=== PATIENT | male | born 1950 | race American Indian/Alaskan Native ===

== ENCOUNTER 2016-07-16 16:23 | Inpatient (IN) | payer MEDICARE ==
--- NOTE | 2016-07-16 18:28 | Emergency Department Report ---
ED Chest Pain HPI - General Chief Complaint: Chest Pain Stated Complaint: LOW BP Time Seen by Provider: 07/16/16 17:40 Source: patient, family, EMS Mode of arrival: Stretcher Limitations: No Limitations - History of Present Illness Initial Comments: Patient is a 66-year-old male with history of hypertension diabetes, CHF with a ejection fraction of 15-20% from March 2015 presenting today because of chest pain. Patient eats that recently hospitalized at an outside hospital and discharged several days ago. Patient had not been able to fill out his new medications but had been taking his previously prescribed once. He saw his manager universal Dr. Amanda Hopson had a blood pressure of 62/46 and a repeat blood pressure of 56/40. Since he has been a little bit confused since his prior hospitalization. However he started complaining of chest pain this morning. He does not complain of any significant shortness of breath or leg swelling. There has been no fever however he does have a cough that is productive of clear sputum. Severity scale (0 -10): 3 - Related Data Home Medications Medication Instructions Recorded Confirmed Last Taken Spironolactone [Aldactone] 25 mg PO DAILY 08/05/14 07/16/16 10/30/15 25mg Clopidogrel Bisulfate [Clopidogrel] 75 mg PO DAILY 10/14/15 07/16/16 10/30/15 75mg Metolazone 5 mg PO DAILY 10/14/15 07/16/16 10/30/15 5mg Metoprolol Succinate 50 mg PO DAILY 10/14/15 10/30/15 10/30/15 50mg Torsemide 20 mg PO BID 10/14/15 07/16/16 10/30/15 20mg Isosorb Dinit/Hydralazine [Bidil 1 each PO BID 10/17/15 07/16/16 10/30/15 20/37.5MG] 1 Insulin Detemir [Levemir VIAL] 15 units SC QHS 10/30/15 07/16/16 10/29/15 15 units Previous Rx's Medication Instructions Recorded Last Taken Type Aspirin [Aspirin BABY CHEW TAB] 81 mg PO QDAY #30 tab.chew 08/17/14 10/29/15 Rx 81mg Carvedilol [Coreg] 6.25 mg PO BID #60 tablet 08/17/14 10/30/15 Rx 6.25mg Losartan [Cozaar] 50 mg PO QDAY #30 tablet 08/17/14 10/30/15 Rx 50mg Pantoprazole [Protonix TAB] 40 mg PO DAILY #30 tablet 08/17/14 10/30/15 Rx 40mg Simvastatin [Zocor TAB] 20 mg PO QHS #30 tablet 08/17/14 10/29/15 Rx 20mg Allergies Allergy/AdvReac Type Severity Reaction Status Date / Time No Known Allergies Allergy Verified 07/16/16 17:00 EMMIE score - Emmie Score Age > 65: (0) No Aspirin use within the Past 7 Days: (1) Yes 3 or more CAD Risk Factors: (1) Yes 2 or more Angina events in past 24 hrs: (1) Yes Known CAD with more than 50% Stenosis: (0) No Elevated Cardiac Markers: (0) No ST Deviation Greater than 0.5mm: (0) No EMMIE Score: 3 ED Review of Systems ROS: Stated complaint: LOW BP Other details as noted in HPI Comment: All other systems reviewed and negative Constitutional: denies: chills, diaphoresis, fever Respiratory: denies: cough Cardiovascular: denies: chest pain Gastrointestinal: denies: nausea, vomiting, diarrhea Genitourinary: denies: urgency Skin: denies: rash Psychiatric: denies: anxiety ED Past Medical Hx - Past Medical History Previous Medical History?: Yes Hx Hypertension: Yes Hx Congestive Heart Failure: Yes Hx Diabetes: Yes Hx Renal Disease: Yes (renal problems) Hx Arthritis: Yes Hx Asthma: No Hx COPD: No Additional medical history: pt states "weak heart" unable to elaborate on that - Surgical History Past Surgical History?: Yes Hx Pacemaker: Yes Hx Internal Defibrillator: Yes Additional Surgical History: LLOYD - Social History Smoking Status: Former Smoker Substance Use Type: None - Medications Home Medications: Home Medications Medication Instructions Recorded Confirmed Last Taken Type Spironolactone [Aldactone] 25 mg PO DAILY 08/05/14 07/16/16 10/30/15 History 25mg Aspirin [Aspirin BABY CHEW TAB] 81 mg PO QDAY #30 tab.chew 08/17/14 07/16/1609/10 Rx 81mg Carvedilol [Coreg] 6.25 mg PO BID #60 tablet 02/20/15 01/19/17 05/04/16 Rx 6.25mg Losartan [Cozaar] 50 mg PO QDAY #30 tablet 08/17/14 07/16/16 10/30/15 Rx 50mg Pantoprazole [Protonix TAB] 40 mg PO DAILY #30 tablet 08/17/14 07/16/16 Rx 40mg Simvastatin [Zocor TAB] 20 mg PO QHS #30 tablet 08/17/14 07/16/16 10/29/15 Rx 20mg Clopidogrel Bisulfate [Clopidogrel] 75 mg PO DAILY 10/14/15 07/16/16 10/30/15 History 75mg Metolazone 5 mg PO DAILY 10/14/15 07/16/16 10/30/15 History 5mg Metoprolol Succinate 50 mg PO DAILY 10/14/15 10/30/15 10/30/15 History 50mg Torsemide 20 mg PO BID 10/14/15 07/16/16 10/30/15 History 20mg Isosorb Dinit/Hydralazine [Bidil 1 each PO BID 10/17/15 07/16/16 10/30/15 History 20/37.5MG] 1 Insulin Detemir [Levemir VIAL] 15 units SC QHS 10/30/15 07/16/16 10/29/15 History 15 units ED Physical Exam - General Limitations: No Limitations General appearance: alert - Head Head exam: Present: atraumatic - Eye Eye exam: Present: normal appearance - ENT ENT exam: Present: normal exam - Neck Neck exam: Present: normal inspection - Respiratory Respiratory exam: Present: normal lung sounds bilaterally - Cardiovascular Cardiovascular Exam: Present: regular rate, normal heart sounds - GI/Abdominal GI/Abdominal exam: Present: soft. Absent: distended, tenderness - Extremities Exam Extremities exam: Present: normal inspection. Absent: pedal edema - Neurological Exam Neurological exam: Present: alert. Absent: motor sensory deficit - Psychiatric Psychiatric exam: Present: normal affect - Skin Skin exam: Present: intact ED Course Vital Signs 07/16/16 07/16/16 07/16/16 16:36 16:41 16:51 Temperature Pulse Rate 64 Respiratory 26 H Rate Blood Pressure 102/84 102/84 O2 Sat by Pulse 100 96 96 Oximetry 07/16/16 07/16/16 07/16/16 17:00 17:01 17:05 Temperature 98.1 F Pulse Rate 50 L 70 50 L Respiratory 42 H 18 Rate Blood Pressure 102/60 67/44 O2 Sat by Pulse 88 92 98 Oximetry 07/16/16 07/16/16 07/16/16 17:10 17:20 17:30 Temperature Pulse Rate 77 64 74 Respiratory 17 21 21 Rate Blood Pressure 67/44 67/44 67/47 O2 Sat by Pulse 98 97 97 Oximetry 07/16/16 07/16/16 07/16/16 17:41 17:51 18:02 Temperature Pulse Rate 64 83 73 Respiratory 25 H 13 23 Rate Blood Pressure 67/47 47/27 O2 Sat by Pulse 99 95 94 Oximetry ED Medical Decision Making - Lab Data Result diagrams: 07/16/16 18:55 07/16/16 18:55 - Medical Decision Making IV, labs, CT of head due to confusion labs show renal failure, high bun may explain ams head CT negative for acute changes Although the blood and patient's blood pressure is low, he appears to be mentating well. Per him and his his blood pressure is typically a systolic of 90. Not currently experiencing chest pain. We'll do a broad workup as there is no clear explanation for his generalized weakness. Patient received 2 boluses of 500 mL her normal status waned. With this his blood pressure has increased to a systolic between 100-110. His baseline per the patient is approximately 90-110. We will admit the patient for acute renal failure. Critical care attestation.: If time is entered above; I have spent that time in minutes in the direct care of this critically ill patient, excluding procedure time. ED Disposition Clinical Impression: Acute renal failure Qualifiers: Acute renal failure type: unspecified Qualified Code(s): N17.9 - Acute kidney failure, unspecified Chest pain Qualifiers: Chest pain type: unspecified Qualified Code(s): R07.9 - Chest pain, unspecified Disposition: OP ADMITTED IP TO THIS HOSP Is pt being admited?: Yes Condition: Serious Instructions: Chest Pain (ED) Time of Disposition: 01:20 (Endorsed to hospitalist Dr. Jones)
--- NOTE | 2016-07-16 19:07 | Cat Scan Report ---
FINAL REPORT PROCEDURE: CT HEAD/BRAIN WO CON TECHNIQUE: Computerized tomography of the head was performed without contrast material. HISTORY: Altered mental status. COMPARISON: CT scan of the brain dated 08/09/2014. Removing FINDINGS: Skull and scalp: Normal. Paranasal sinuses: Normal. Ventricles and subarachnoid spaces: Normal. Cerebrum: No evidence of hemorrhage, acute infarction or mass. Mild atrophy. Subtle periventricular white matter low attenuation unchanged. Subtle subcentimeter areas of low attenuation in the left basal ganglia/posterior limb of the internal capsule unchanged. Cerebellum and brainstem: No evidence of hemorrhage, acute infarction or mass. Vasculature: Mild atherosclerosis of the cavernous ICAs. Comments: None. IMPRESSION: No new CT evidence of acute intracranial pathology. Atrophy. White matter change may be related to chronic small vessel ischemic change. Probable left basal ganglia lacune is unchanged. Again consider further characterization with MRI if there is continued clinical concern for subtle superimposed acute process and if patient has no contraindication to MRI.
[2016-07-16 19:13] LABS: Basophils % (Auto) 0.9 % (0.0-1.8); Eosinophils % (Auto) 0.8 % (0.0-4.3); Hemoglobin 16.4 gm/dl (11.8-15.2); White Blood Count 7.5 K/mm3 (4.5-11.0)
--- NOTE | 2016-07-16 19:26 | Admit Criteria Form ---
Admission Criteria Documentation: RENAL FAILURE, ACUTE Clinical Indications for Admission to Inpatient Care ( Place 'X' for any and all applicable criteria): Admission is indicated for ALL (if I & II) or III of the following [A](2)(3)(4)( 5)(6)(7): [ ]I. Acute renal failure as indicated by ANY ONE of the following: [ ]a) A 3-fold rise in serum creatinine from baseline [ ]b) Serum creatinine greater than 4 mg/dL (354 micromoles/L) with an acute rise greater than 0.5 mg/dL (44.2 micromoles/L) [ ]c) Reduction of more than 75% in estimated glomerular filtration rate from baseline [ ]d) Estimated glomerular filtration rate less than 35 mL/min/1.73m2 (0.59mL/sec/1.73m2)in a child up to 18 years of age [ ]e) Anuria indicated by ALL of the following: [ ]i) Adequate volume status [ ]ii) Cessation of urine output indicated by ANY ONE of the following: [ ]1) Urine output less than 0.3 mL/kg/hr for 24 hours [ ]2) Anuria (urine output less than 0.1 mL/kg/ hr) for 12 hours [ X] II. Renal failure cannot be managed in an outpatient setting or observational care setting as indicating by ANY ONE of the following: [ ]a) Altered mental status that is severe or persistent [ ]b) Volume overload or Respiratory distress (eg, clinically significant pulmonary edema) that is severe or persistent [ ]c) Cardiac arrhythmias of immediate concern [X]d) Hemodynamic instability [ ]e) Clinically significant electrolyte abnormality that requires inpatient care (eg, hyperkalemia with severe ECG findings)[B] [ ]f) Clinically significant metabolic abnormality (eg, acidosis) that is severe or persistent [ ]g) Acute treatment of renal failure (eg, renal replacement therapy) not feasible or appropriate in observational care setting [ ]h) Clinical situation too unstable or uncertain (eg, inadequate urine output, ongoing decline in renal function, etiology unclear) [ ]i) Necessary support and caregiver ability to comply with outpatient treatment cannot be arranged in observation care timeframe (eg, within 24 hours) [ ]j) Other significant finding or clinical condition judged not to be within scope of observation care [X ]III.General contraindications and/or Inappropriate clinical situations for Observational Care in patients with Acute Renal Failure, when ANY ONE of the following is required: [ X]a) Prediction of prolongation of LOS based on ANY ONE of the following may be considered as a contraindication for observational care 2, 3, 4, 5, 6, 7, 8 , 9, 10, 11 [ X]i) Age > 65 yrs. [ ]ii) Patient arriving by ambulance [ ]iii) Patient with high acuity [ X]iv) Patient requiring vital sign monitoring [ ]v) Patient on IV medication [ ]b) Systolic blood pressures 180mmHg 3,12 [ ]c) Patient with altered mental status including delirium and other alteration of consciousness, (3) [ ]d) Patient whose discharge disposition will be to a [facility] home or rehabilitation home should not be managed in Emergency Department Observation Unit. CMS rule requires 3 days hospital stay before such placement.3,13 [ ]e) Patient with failure to thrive due to broad array of etiologies 3, 16,17 [ ]f) Inability to ambulate 3,14 Extended stay beyond goal length of stay may be needed for(13) [ ]a) Continuing uremic complications [ ]b) Care for comorbidities [ ]c) acute renal failure [ ]d) Need for dialysis The original [facility] content created by [employer] has been revised. The portions of the content which have been revised are identified through the use of italic text or in bold, and [facility] has neither reviewed nor approved the modified material. All other unmodified content is copyright [facility]. Please see references footnoted in the original [facility] edition 2016 Admission Criteria Met: Yes
[2016-07-16 19:47] LABS: Hematocrit 51.6 % (35.5-45.6); Mean Corpuscular HGB Conc 32 % (32-34); Mean Corpuscular Hemoglobin 27 pg (28-32); Mean Corpuscular Volume 84 fl (84-94); Platelet Count 252 K/mm3 (140-440); Red Blood Count 6.17 M/mm3 (3.65-5.03); Red Cell Distribution Width 16.8 % (13.2-15.2)
[2016-07-16 19:58] LABS: Alanine Aminotransferase 15 units/L (7-56); Albumin 3.2 g/dL (3.9-5); Albumin/Globulin Ratio 0.8 %; Alkaline Phosphatase 49 units/L (35-129); Anion Gap 25 mmol/L; BUN/Creatinine Ratio 17.69; Bilirubin,Total 0.8 mg/dL (0.1-1.2); Blood Urea Nitrogen 69 mg/dL (9-20); Calcium 9.1 mg/dL (8.4-10.2); Carbon Dioxide 30 mmol/L (22-30); Chloride 89.1 mmol/L (98-107); Glucose 113 mg/dL (75-100); Potassium 4.1 mmol/L (3.6-5.0); Sodium 140 mmol/L (137-145); Total Protein 7.4 g/dL (6.3-8.2)
[2016-07-16 19:59] LABS: Bilirubin,Direct < 0.2 mg/dL (0-0.2); Bilirubin,Indirect 0.6 mg/dL
[2016-07-16] MEDS ORDERED: NACL 0.9% 500 ML 500 ML IV ONE ×2 (20:58→22:49)
[2016-07-16 21:02] LABS: Anisocytosis 1+; Basophils % (Manual) 0 % (0.0-1.8); Blastocytes % (Manual) 0 %; Diff Status Complete; Platelet Estimate Consistent w Auto
[2016-07-17] MEDS ORDERED: BABY ASPIRIN PO ONE (01:51)
--- NOTE | 2016-07-17 02:43 | History and Physical Report ---
History of Present Illness Date of examination: 07/17/16 History of present illness: Is 66-year-old man with a history of hypertension, diabetes, CHF, A. 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 His blood pressure in the office was 60 systolically. Patient has been feeling tired, dizzy and short of breath since this morning. He was sent to the emergency room for further evaluation. The patient was discharged from the hospital on Wednesday for CHF exacerbation Patient denies chest pain, palpitation, cough, abdominal pain, hematochezia, dysuria, frequency, focal weakness, dysarthria, fever chills, polydipsia polyuria, hot or cold intolerance, easy bruisability, or rash or bleeding from mucosal membrane, rhinorrhea, epistaxis, earache, tinnitus, blurry vision, eye discharge, anxiety, depression. Other review of systems negative PAST SURGICAL HISTORY: Pacemaker, AICD SOCIAL HISTORY: Denies alcohol, tobacco, drugs FAMILY HISTORY: Hypertension Medications and Allergies Allergies Allergy/AdvReac Type Severity Reaction Status Date / Time No Known Allergies Allergy Verified 07/16/16 17:00 Home Medications Medication Instructions Recorded Confirmed Last Taken Type Spironolactone [Aldactone] 25 mg PO DAILY 08/05/14 07/16/16 10/30/15 History 25mg Aspirin [Aspirin BABY CHEW TAB] 81 mg PO QDAY #30 tab.chew 08/17/14 07/16/1609/10 Rx 81mg Carvedilol [Coreg] 6.25 mg PO BID #60 tablet 08/17/14 07/16/16 10/30/15 Rx 6.25mg Losartan [Cozaar] 50 mg PO QDAY #30 tablet 08/17/14 07/16/16 10/30/15 Rx 50mg Pantoprazole [Protonix TAB] 40 mg PO DAILY #30 tablet 08/17/14 07/16/16 Rx 40mg Simvastatin [Zocor TAB] 20 mg PO QHS #30 tablet 08/17/14 07/16/16 10/29/15 Rx 20mg Clopidogrel Bisulfate [Clopidogrel] 75 mg PO DAILY 10/14/15 07/16/16 10/30/15 History 75mg Metolazone 5 mg PO DAILY 10/14/15 07/16/16 10/30/15 History 5mg Metoprolol Succinate 50 mg PO DAILY 10/14/15 10/30/15 10/30/15 History 50mg Torsemide 20 mg PO BID 10/14/15 07/16/16 10/30/15 History 20mg Isosorb Dinit/Hydralazine [Bidil 1 each PO BID 10/17/15 07/16/16 10/30/15 History 20/37.5MG] 1 Insulin Detemir [Levemir VIAL] 15 units SC QHS 10/30/15 07/16/16 10/29/15 History 15 units Exam - Physical Exam Narrative exam: Gen. appearance: Patient lying in bed, no apparent distress HEENT: Normocephalic, atraumatic, pupils equally round and reactive to light, extraocular movement intact, and no sclericterus,. No JVD or thyromegaly or nodule,neck supple, no carotid bruit ,mucous membranes moist, no exudate or erythema Heart: S1, S2, regular rate and rhythm Lungs: Clear to auscultation bilaterally, breathing comfortable Abdomen: Positive bowel sounds, nontender, nondistended, no organomegaly Extremity: No edema, cyanosis, clubbing Skin: No rash, nodules, warm, dry Neuro: Oriented 3, cranial nerves II-12 intact, speech is fluent, motor and sensory intact - Constitutional Vitals: Temp Pulse Resp BP Pulse Ox 98.1 F 73 23 47/27 94 07/16/16 17:00 07/16/16 18:02 07/16/16 18:02 07/16/16 17:51 07/16/16 18:02 Results - Labs CBC & Chem 7: 07/16/16 18:55 07/16/16 18:55 Labs: Abnormal lab results 07/16/16 07/16/16 Range/Units 18:55 18:55 RBC 6.17 H (3.65-5.03) M/mm3 Hgb 16.4 H (11.8-15.2) gm/dl Hct 51.6 H (35.5-45.6) % MCH 27 L (28-32) pg RDW 16.8 H (13.2-15.2) % Lymph % (Auto) 36.6 H (13.4-35.0) % Baldwin % (Auto) 15.0 H (0.0-7.3) % Baldwin # 1.1 H (0.0-0.8) K/mm3 Monocytes % (Manual) 16.0 H (0.0-7.3) % Monocytes # (Manual) 1.2 H (0.0-0.8) K/mm3 Chloride 89.1 L (98-107) mmol/L BUN 69 H (9-20) mg/dL Creatinine 3.9 H (0.8-1.5) mg/dL Glucose 113 H (75-100) mg/dL Albumin 3.2 L (3.9-5) g/dL - Imaging and Cardiology EKG: image reviewed CT Scan - head: report reviewed Assessment and Plan Acute on chronic renal failure Hypotension, rule out UT versus medication induced versus other CHF, stable Coronary artery disease Diabetes type 2 A. fib Admits medicine Check cardiac enzymes, start gentle IV fluids consult cardiology, renal Hold diuretics, WU inhibitor and other antihypertensives Fingersticks initiate insulin sliding scale Start DVT prophylaxis
[2016-07-17] MEDS ORDERED: D50W (25GM) IV PRN (04:15)
[2016-07-17] MEDS ORDERED: DULCOLAX PR PRN (04:15)
[2016-07-17] MEDS ORDERED: MILK OF MAGNESIA PO PRN (04:15)
[2016-07-17] MEDS ORDERED: TYLENOL PO PRN (04:15)
[2016-07-17] MEDS ORDERED: ZOFRAN IV PRN (04:15)
[2016-07-17 05:49] LABS: Bilirubin,Urine NEG (Negative); Blood,Urine NEG (Negative); Ketones,Urine NEG (Negative); Leukocyte Esterase,Urine NEG (Negative); Mucus,Urine FEW /HPF; Nitrite,Urine NEG (Negative); Protein,Urine <15 mg/dL mg/dL (Negative); Urobilinogen,Urine < 2.0 mg/dL (<2.0)
[2016-07-17] MEDS: NACL 0.9% 1000 ML 1,000 ML IV SCH (06:15)
[2016-07-17 07:37] LABS: Creatine Kinase 71 units/L (55-170)
[2016-07-17 09:52] LABS: Hematocrit 47.1 % (35.5-45.6); Hemoglobin 14.9 gm/dl (11.8-15.2); Mean Corpuscular HGB Conc 32 % (32-34); Mean Corpuscular Hemoglobin 27 pg (28-32); Mean Corpuscular Volume 84 fl (84-94); Platelet Count 237 K/mm3 (140-440); Red Blood Count 5.58 M/mm3 (3.65-5.03); Red Cell Distribution Width 16.9 % (13.2-15.2)
[2016-07-17] MEDS: BABY ASPIRIN PO SCH (09:54)
[2016-07-17] MEDS: PROTONIX PO SCH (09:55)
[2016-07-17] MEDS ORDERED: PLAVIX PO SCH (10:00)
[2016-07-17] MEDS ORDERED: LOVENOX SUB-Q SCH (10:00)
--- NOTE | 2016-07-17 10:08 | XRay Report ---
PORTABLE CHEST: INDICATION: Chest pain. COMPARISON: 10/14/2015 FINDINGS: Portable, frontal chest radiograph demonstrates increased right basilar infiltrate, contiguous with the right hilum inferiorly. Slight increased left retrocardiac haziness as well, though left hemidiaphragm again remains faintly visible. No large pleural effusions or CHF. Stable mild cardiomegaly, left AICD with dual-chamber leads and mild bony degenerative changes. EKG leads. CONCLUSION: 1. New right lower lung infiltrate and slight increased left lower lung haziness also suspected, as described. 2. Cardiomegaly and left AICD again noted. Please also correlate clinically and follow-up on subsequent, preferably PA and lateral radiographs, if obtainable. Thank you for the opportunity to participate in this patient's care.
[2016-07-17 10:09] LABS: BUN/Creatinine Ratio 24.13; Calcium 8.7 mg/dL (8.4-10.2); Chloride 93.1 mmol/L (98-107); Potassium 3.4 mmol/L (3.6-5.0)
[2016-07-17 10:56] LABS: Creatine Kinase 62 units/L (55-170)
--- NOTE | 2016-07-17 11:33 | Consultation ---
History of Present Illness - History of Present Illness thank you for the consultation Patient was evaluated today Source of information ; patient himself as well as old records were also reviewed from prior admission creatinine was 1.5 in October 2015 History of presenting illness: patient is a 66-year-old -[place] male who has been admitted here with acute renal failure patient baseline creatinine was around 1.5 in October 2015.. Patient denies using any follow-up nonsteroidal drugs. He does not have any difficulty voiding at this time.patient has been admitted with congestive heart failure and cardiomyopathy and has also been noted to be hypokalemic.patient went to see his terminal supervisor and was noted to have significant hypotension blood pressure was running in 60s at that time he was also feeling very dizzy lightheaded and short of breath. Patient was sent to the ER for further evaluation where upon he was noted to be in congestive heart failure that had flared up and hence was admitted to the hospitalist service consultation was placed for management of renal failure in the setting of congestive heart failure and profound hypotension..patient stated that his urine is somewhat dark in color but still making some urine Past medical history is significant for: congestive heart failure pacemaker AICD placement Atrial fibrillation Coronary artery disease Hypertension Diabetes Chronic edema Creatinine 1.31 Oct 2015 old records are reviewed Current allergies: none at this time Home medication present medications: Reviewed Social history:denies any recreational drug or substance abuse Family history: noncontributory for renal-related disorder Review of system positive for increasing swelling both lower extremity some shortness of breath poor compliance with diet and lifestyle Otherwise essentially negative for all the other system Other review of systems were negative Physical examination Vitals: Reviewed from this admission General: No acute distress HEENT: Normocephalic atraumatic skull oral mucosa moist no pharyngeal erythema Neck: No thyromegaly no demise JVD noted Chest: bilateralbasilar crackles Heart: Regular rhythm S1-S2 heard no S3-S4 Abdomen: Nontender no organomegaly no masses no renal bruit no suprapubic masses noted Extremities: 2+edema no peripheral cyanosis dry skin Endocrine: No thyromegaly noted Psych no agitation or aggression noted Back: Nontender thoracolumbar spine Musculoskeletal: No joint effusion noted Labs and x-rays: Reviewed from this admission and entirety Assessment and plan Renal failure moderately severe in a patient who has multiple risk factor for chronic kidney disease clinically he appears to be cardiorenal,patient was also on angiotensin receptor nupur Would recommend holding Matheus or ARB like medication while diuresis is continued as tolerated severe cardiomyopathy congestive heart failure ejection fraction 15-20% Creatinine is currently improving at 2.9 Mild hypokalemia please replace and follow to keep potassium around 4 blood pressure is relatively low please monitor closely congestive heart failure clinically patient was counseled and educated malnutrition present upon admission Urinalysis shows no evidence of significant proteinuria We'll obtain the labs as well as renal imaging to make further recommendation renal prognosis appears to be guarded,all related questions were answered We'll continue to follow and make recommendation from renal standpoint Upon discharge will need a follow-up appointment in the office Medications and Allergies Allergies Allergy/AdvReac Type Severity Reaction Status Date / Time No Known Allergies Allergy Verified 07/16/16 17:00 Home Medications Medication Instructions Recorded Confirmed Last Taken Type Aspirin [Aspirin BABY CHEW TAB] 81 mg PO QDAY #30 tab.chew 08/17/14 07/16/1609/10 Rx 81mg Pantoprazole [Protonix TAB] 40 mg PO DAILY #30 tablet 08/17/14 07/16/16 Rx 40mg Simvastatin [Zocor TAB] 20 mg PO QHS #30 tablet 08/17/14 07/16/16 10/29/15 Rx 20mg Insulin Detemir [Levemir VIAL] 15 units SC QHS 10/30/15 07/16/16 10/29/15 History 15 units Apixaban [Eliquis] 5 mg PO Q12HR #60 tablet 07/19/16 Unknown Rx Carvedilol [Coreg] 3.125 mg PO BID #60 tablet 07/19/16 Unknown Rx Furosemide [Lasix TAB] 20 mg PO QDAY #30 tablet 07/19/16 Unknown Rx Losartan [Cozaar] 25 mg PO QDAY #30 tablet 07/19/16 Unknown Rx Active Meds: Active Medications Acetaminophen (Tylenol) 650 mg PO Q4H PRN PRN Reason: Pain MILD(1-3)/Fever >100.5/NAYLOR Aspirin (Baby Aspirin) 81 mg PO QDAY SHANDA Last Admin: 07/17/16 09:54 Dose: 81 mg Bisacodyl (Dulcolax) [address] QDAY PRN PRN Reason: Constipation unrelieved by MOM Clopidogrel Bisulfate (Plavix) 75 mg PO DAILY [facility] Last Admin: 07/17/16 09:54 Dose: 75 mg Dextrose (D50w (25gm)) 50 ml IV PRN PRN PRN Reason: Hypoglycemia Enoxaparin Sodium (Lovenox) 30 mg SUB-Q QDAY [facility] Last Admin: 07/17/16 09:54 Dose: 30 mg Sodium Chloride (Nacl 0.9% 1000 Ml) 1,000 mls @ 50 mls/hr IV DIRECT [facility] Last Admin: 07/17/16 06:15 Dose: 50 mls/hr Insulin Detemir (Levemir) 15 units SUB-Q QHS [facility] Magnesium Hydroxide (Milk Of Magnesia) 30 ml PO Q4H PRN PRN Reason: Constipation Ondansetron HCl (Zofran) 4 mg IV Q8H PRN PRN Reason: N/V unrelieved by Reglan Pantoprazole Sodium (Protonix) 40 mg PO DAILY [facility] Last Admin: 07/17/16 09:55 Dose: 40 mg Simvastatin (Zocor) 20 mg PO QHS [facility] Exam - Vital Signs Vital signs: Vital Signs Pulse Ox 100 07/16/16 16:36 Results - Lab Results 07/18/16 07:55 07/19/16 06:54 Most recent lab results Calcium 8.7 mg/dL (8.4-10.2) 07/17/16 09:04
--- NOTE | 2016-07-17 11:48 | Consultation ---
Addendum entered and electronically signed by IRAIS TORREZ MD 12:33: Continue gentle IV hydration (baseline creatinine is 1.4) Discontinue plavix and restart eliquis 5 mg po bid Gradually resume heart failure meds as BP permit (losartan 25 mg and toprol XL 25 mg po daily) Avoid Entresto Original Note: History of Present Illness Consult date: 07/17/16 Consult reason: hypotension, known to you History of present illness: Mr Jones is a 66yr old male who was recently hospitalized for CHF at [place]. 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 He also has paroxysmal atrial fibrillation and is on eliquis for anticoagulation. On yesterday, he went for a routine cardiac follow up appt. He complained of weakness and fatigue. Found hypotensive, systolic BP in the 60s. He had no shortness of breath or chest pain. Patient has been confused about his medications since discharge and was double dosing entresto and losartan at the same time. Patient sent to the ED for admission. Medications and Allergies Allergies Allergy/AdvReac Type Severity Reaction Status Date / Time No Known Allergies Allergy Verified 07/16/16 17:00 Home Medications Medication Instructions Recorded Confirmed Last Taken Type Spironolactone [Aldactone] 25 mg PO DAILY 08/05/14 07/16/16 10/30/15 History 25mg Aspirin [Aspirin BABY CHEW TAB] 81 mg PO QDAY #30 tab.chew 08/17/14 07/16/1609/10 Rx 81mg Carvedilol [Coreg] 6.25 mg PO BID #60 tablet 08/17/14 07/16/16 10/30/15 Rx 6.25mg Losartan [Cozaar] 50 mg PO QDAY #30 tablet 08/17/14 07/16/16 10/30/15 Rx 50mg Pantoprazole [Protonix TAB] 40 mg PO DAILY #30 tablet 08/17/14 07/16/16 Rx 40mg Simvastatin [Zocor TAB] 20 mg PO QHS #30 tablet 08/17/14 07/16/16 10/29/15 Rx 20mg Clopidogrel Bisulfate [Clopidogrel] 75 mg PO DAILY 04/18/16 01/19/17 05/04/16 History 75mg Metolazone 5 mg PO DAILY 10/14/15 07/16/16 10/30/15 History 5mg Metoprolol Succinate 50 mg PO DAILY 10/14/15 07/17/16 10/30/15 History 50mg Torsemide 20 mg PO BID 10/14/15 07/16/16 10/30/15 History 20mg Isosorb Dinit/Hydralazine [Bidil 1 each PO BID 10/17/15 07/16/16 10/30/15 History 20/37.5MG] 1 Insulin Detemir [Levemir VIAL] 15 units SC QHS 10/30/15 07/16/16 10/29/15 History 15 units Active Meds: Active Medications Acetaminophen (Tylenol) 650 mg PO Q4H PRN PRN Reason: Pain MILD(1-3)/Fever >100.5/NAYLOR Aspirin (Baby Aspirin) 81 mg PO QDAY [facility] Last Admin: 07/17/16 09:54 Dose: 81 mg Bisacodyl (Dulcolax) 10 mg ID QDAY PRN PRN Reason: Constipation unrelieved by MOM Clopidogrel Bisulfate (Plavix) 75 mg PO DAILY [facility] Last Admin: 07/17/16 09:54 Dose: 75 mg Dextrose (D50w (25gm)) 50 ml IV PRN PRN PRN Reason: Hypoglycemia Enoxaparin Sodium (Lovenox) 30 mg SUB-Q QDAY [facility] Last Admin: 07/17/16 09:54 Dose: 30 mg Sodium Chloride (Nacl 0.9% 1000 Ml) 1,000 mls @ 50 mls/hr IV DIRECT [facility] Last Admin: 07/17/16 06:15 Dose: 50 mls/hr Insulin Detemir (Levemir) 15 units SUB-Q QHS [facility] Magnesium Hydroxide (Milk Of Magnesia) 30 ml PO Q4H PRN PRN Reason: Constipation Ondansetron HCl (Zofran) 4 mg IV Q8H PRN PRN Reason: N/V unrelieved by Reglan Pantoprazole Sodium (Protonix) 40 mg PO DAILY [facility] Last Admin: 07/17/16 09:55 Dose: 40 mg Simvastatin (Zocor) 20 mg PO QHS [facility] Physical Examination Vital Signs Pulse Ox 100 07/16/16 16:36 General appearance: no acute distress HEENT: Positive: PERRL Neck: Positive: trachea midline Cardiac: Positive: Other (paced) Lungs: Positive: Decreased Breath Sounds Neuro: Positive: Grossly Intact Results 07/17/16 09:04 07/17/16 09:04 Cardiac Enzymes 07/17/16 07/17/16 Range/Units 06:28 10:07 CK-MB (CK-2) 1.0 1.0 (0.0-4.0) ng/mL CBC 07/17/16 Range/Units 09:04 WBC 7.0 (4.5-11.0) K/mm3 RBC 5.58 H (3.65-5.03) M/mm3 Hgb 14.9 (11.8-15.2) gm/dl Hct 47.1 H (35.5-45.6) % Plt Count 237 (140-440) K/mm3 Comprehensive Metabolic Panel 07/17/16 Range/Units 09:04 Sodium 139 (137-145) mmol/L Potassium 3.4 L (3.6-5.0) mmol/L Chloride 93.1 L (98-107) mmol/L Carbon Dioxide 28 (22-30) mmol/L BUN 70 H (9-20) mg/dL Creatinine 2.9 H (0.8-1.5) mg/dL Glucose 96 (75-100) mg/dL Calcium 8.7 (8.4-10.2) mg/dL EKG interpretations - Telemetry EKG Rhythm: Paced Assessment and Plan Hypotension on gentle hydration Acute renal failure Nonischemic Cardiomyopathy non-obstructive CAD by [facility] 11/2014 EF 15-20% Presence of AICD Presence of Paroxysmal Afib -eliquis on hold
--- NOTE | 2016-07-17 13:12 | Event Note ---
Date: 07/17/16 Patient is 66-year-old admitted for hypotension, acute on chronic kidney disease. He was seen and examined. Continue IV fluids. We will hold Metoprolol,or losartan and Coreg because of low blood pressure. Cardiology and nephrology consulted.
[2016-07-17] MEDS: LEVEMIR SUB-Q SCH (22:12)
[2016-07-17] MEDS: ZOCOR PO SCH (22:13)
[2016-07-17] MEDS: ELIQUIS PO SCH (22:13)
[2016-07-18 08:43] LABS: Basophils % (Auto) 0.3 % (0.0-1.8); Hematocrit 45.7 % (35.5-45.6); Hemoglobin 14.8 gm/dl (11.8-15.2); Mean Corpuscular HGB Conc 32 % (32-34); Mean Corpuscular Hemoglobin 27 pg (28-32); Mean Corpuscular Volume 85 fl (84-94); Platelet Count 246 K/mm3 (140-440); Red Cell Distribution Width 16.9 % (13.2-15.2)
[2016-07-18 09:09] LABS: BUN/Creatinine Ratio 29.47; Calcium 8.9 mg/dL (8.4-10.2); Chloride 97.2 mmol/L (98-107); Potassium 3.6 mmol/L (3.6-5.0)
[2016-07-18] MEDS: PROTONIX PO SCH (10:45)
[2016-07-18] MEDS: BABY ASPIRIN PO SCH (10:46)
--- NOTE | 2016-07-18 13:45 | Progress Note ---
Assessment and Plan - Patient Problems (1) Hypotension Current Visit: Yes Status: Acute Plan to address problem: Iatrogenic due to polypharmacy, resolving with IV hydration. Subjective Date of service: 07/18/16 Interval history: Patient was admitted with hypotension, suspected to be iatrogenic due to polypharmacy. No new cardiac complaints, looks and feels better. Objective Vital Signs Temp Pulse Pulse Pulse Resp BP Pulse Ox 07/18/16 10:49 98.6 F 72 18 117/66 92 07/18/16 10:00 71 93 07/18/16 07:36 98.5 F 78 18 118/57 93 07/18/16 06:04 97.4 F L 61 18 114/70 96 07/18/16 00:58 98.1 F 67 20 116/71 97 07/17/16 22:00 20 96 07/17/16 21:14 97.9 F 87 20 115/61 97 07/17/16 20:00 79 07/17/16 16:30 98.4 F 75 20 100/63 91 - Physical Examination General: No Apparent Distress HEENT: Positive: PERRL Neck: Positive: trachea midline Cardiac: Positive: Reg Rate and Rhythm Lungs: Positive: Decreased Breath Sounds Neuro: Positive: Grossly Intact Abdomen: Positive: Soft Skin: Positive: Clear Extremities: Absent: edema - Labs and Meds CBC 07/18/16 Range/Units 07:55 WBC 6.0 (4.5-11.0) K/mm3 RBC 5.40 H (3.65-5.03) M/mm3 Hgb 14.8 (11.8-15.2) gm/dl Hct 45.7 H (35.5-45.6) % Plt Count 246 (140-440) K/mm3 Lymph # 2.4 (1.2-5.4) K/mm3 [place] # 0.8 (0.0-0.8) K/mm3 Eos # 0.1 (0.0-0.4) K/mm3 Baso # 0.0 (0.0-0.1) K/mm3 Comprehensive Metabolic Panel 07/18/16 Range/Units 07:55 Sodium 140 (137-145) mmol/L Potassium 3.6 (3.6-5.0) mmol/L Chloride 97.2 L (98-107) mmol/L Carbon Dioxide 27 (22-30) mmol/L BUN 56 H (9-20) mg/dL Creatinine 1.9 H (0.8-1.5) mg/dL Glucose 104 H (75-100) mg/dL Calcium 8.9 (8.4-10.2) mg/dL - Imaging and Cardiology EKG: image reviewed
--- NOTE | 2016-07-18 16:25 | Progress Note ---
Assessment and Plan Assessment and plan: Acute on CKD. He is improving. Creatinine is now 1.9 from 3.9 on admission. Supervisor Mails following. Continue IV fluids. Avoid nephrotoxic agents. Monitor strict fluid intake and output. Hypotension. He had a systolic blood pressures of 60s in physician office was therefore sent to the emergency department. Had BP of 67/44 in ED. He has received multiple IV fluid bolus. Blood pressure is now stable Atrial fibrillation. Continue Eliquis. Cardiology following Hypertension. Antihypertensives on hold diabetes mellitus type 2. Fingerstick glucose every before meals and at bedtime. Levemir daily Chronic systolic CHF Coronary artery disease. This is stable. No chest pain. Full code status. History Interval history: Feels better, less of generalized weakness, less shortness of breath No chest pain, Hospitalist Physical - Physical exam Narrative exam: Gen appearance : Not in acute distress, morbidly obese, HEENT: Normocephalic atraumatic Neck: supple, no JVD. Lungs: clear to auscultation bilaterally, no crackles no wheezes Heart: S1 and S2 regular, no murmurs, rubs or gallop Abdomen: soft, nontender, nondistended normal bowel sounds Extremities:No edema, no clubbing or cyanosis Neuro : Awake alert oriented 3, no focal signs - Constitutional Vitals: Temp Pulse Resp BP Pulse Ox 97.6 F 70 18 103/63 94 07/18/16 15:40 07/18/16 15:40 07/18/16 15:40 07/18/16 15:40 07/18/16 15:40 General appearance: Present: no acute distress Results - Labs CBC & Chem 7: 07/18/16 07:55 07/18/16 07:55 Labs: Laboratory Last Values WBC 6.0 K/mm3 (4.5-11.0) 07/18/16 07:55 RBC 5.40 M/mm3 (3.65-5.03) H 07/18/16 07:55 Hgb 14.8 gm/dl (11.8-15.2) 07/18/16 07:55 Hct 45.7 % (35.5-45.6) H 07/18/16 07:55 MCV 85 fl (84-94) 07/18/16 07:55 MCH 27 pg (28-32) L 07/18/16 07:55 MCHC 32 % (32-34) 07/18/16 07:55 RDW 16.9 % (13.2-15.2) H 07/18/16 07:55 Plt Count 246 K/mm3 (140-440) 07/18/16 07:55 Lymph % (Auto) 40.0 % (13.4-35.0) H 07/18/16 07:55 Sully % (Auto) 12.9 % (0.0-7.3) H 07/18/16 07:55 Eos % (Auto) 1.0 % (0.0-4.3) 07/18/16 07:55 Baso % (Auto) 0.3 % (0.0-1.8) 07/18/16 07:55 Lymph # 2.4 K/mm3 (1.2-5.4) 07/18/16 07:55 [place] # 0.8 K/mm3 (0.0-0.8) 07/18/16 07:55 Eos # 0.1 K/mm3 (0.0-0.4) 07/18/16 07:55 Baso # 0.0 K/mm3 (0.0-0.1) 07/18/16 07:55 Add Manual Diff Complete 07/16/16 18:55 Total Counted 100 07/16/16 18:55 Seg Neutrophils % 45.8 % (40.0-70.0) 07/18/16 07:55 Seg Neuts % (Manual) 52.0 % (40.0-70.0) 07/16/16 18:55 Band Neutrophils % 2.0 % 07/16/16 18:55 Lymphocytes % (Manual) 29.0 % (13.4-35.0) 07/16/16 18:55 Reactive Lymphs % (Man) 0 % 07/16/16 18:55 Monocytes % (Manual) 16.0 % (0.0-7.3) H 07/16/16 18:55 Eosinophils % (Manual) 1.0 % (0.0-4.3) 07/16/16 18:55 Basophils % (Manual) 0 % (0.0-1.8) 07/16/16 18:55 Metamyelocytes % 0 % 07/16/16 18:55 Myelocytes % 0 % 07/16/16 18:55 Promyelocytes % 0 % 07/16/16 18:55 Blast Cells % 0 % 07/16/16 18:55 Nucleated RBC % Not Reportable 07/16/16 18:55 Seg Neutrophils # 2.7 K/mm3 (1.8-7.7) 07/18/16 07:55 Seg Neutrophils # Man 3.9 K/mm3 (1.8-7.7) 07/16/16 18:55 Band Neutrophils # 0.2 K/mm3 07/16/16 18:55 Lymphocytes # (Manual) 2.2 K/mm3 (1.2-5.4) 07/16/16 18:55 Abs React Lymphs (Man) 0.0 K/mm3 07/16/16 18:55 Monocytes # (Manual) 1.2 K/mm3 (0.0-0.8) H 07/16/16 18:55 Eosinophils # (Manual) 0.1 K/mm3 (0.0-0.4) 07/16/16 18:55 Basophils # (Manual) 0.0 K/mm3 (0.0-0.1) 07/16/16 18:55 Metamyelocytes # 0.0 K/mm3 07/16/16 18:55 Myelocytes # 0.0 K/mm3 07/16/16 18:55 Promyelocytes # 0.0 K/mm3 07/16/16 18:55 Blast Cells # 0.0 K/mm3 07/16/16 18:55 WBC Morphology Not Reportable 07/16/16 18:55 Hypersegmented Neuts Not Reportable 07/16/16 18:55 Hyposegmented Neuts Not Reportable 07/16/16 18:55 Hypogranular Neuts Not Reportable 07/16/16 18:55 Smudge Cells Not Reportable 07/16/16 18:55 Toxic Granulation Not Reportable 07/16/16 18:55 Toxic Vacuolation Not Reportable 07/16/16 18:55 Dohle Bodies Not Reportable 07/16/16 18:55 Pelger-Huet Anomaly Not Reportable 07/16/16 18:55 Bronson Rods Not Reportable 07/16/16 18:55 Platelet Estimate Consistent w auto 07/16/16 18:55 Clumped Platelets Not Reportable 07/16/16 18:55 Plt Clumps, EDTA Not Reportable 07/16/16 18:55 Large Platelets Not Reportable 07/16/16 18:55 Giant Platelets Not Reportable 07/16/16 18:55 Platelet Satelliting Not Reportable 07/16/16 18:55 Plt Morphology Comment Not Reportable 07/16/16 18:55 RBC Morphology Not Reportable 07/16/16 18:55 Dimorphic RBCs Not Reportable 07/16/16 18:55 Polychromasia Not Reportable 07/16/16 18:55 Hypochromasia Not Reportable 07/16/16 18:55 Poikilocytosis Not Reportable 07/16/16 18:55 Anisocytosis 1+ 07/16/16 18:55 Microcytosis Not Reportable 07/16/16 18:55 Macrocytosis Not Reportable 07/16/16 18:55 Spherocytes Not Reportable 07/16/16 18:55 Pappenheimer Bodies Not Reportable 07/16/16 18:55 Sickle Cells Not Reportable 07/16/16 18:55 Target Cells Not Reportable 07/16/16 18:55 Tear Drop Cells Not Reportable 07/16/16 18:55 Ovalocytes Not Reportable 07/16/16 18:55 Helmet Cells Not Reportable 07/16/16 18:55 Patricia-Canyon Bodies Not Reportable 07/16/16 18:55 [place] Rings Not Reportable 07/16/16 18:55 Yoder Cells Not Reportable 07/16/16 18:55 Bite Cells Not Reportable 07/16/16 18:55 Crenated Cell Not Reportable 07/16/16 18:55 Elliptocytes Not Reportable 07/16/16 18:55 Acanthocytes (Spur) Not Reportable 07/16/16 18:55 Rouleaux Not Reportable 07/16/16 18:55 Hemoglobin C Crystals Not Reportable 07/16/16 18:55 Schistocytes Not Reportable 07/16/16 18:55 Malaria parasites Not Reportable 07/16/16 18:55 Carson Bodies Not Reportable 07/16/16 18:55 Hem Pathologist Commnt No 07/16/16 18:55 Sodium 140 mmol/L (137-145) 07/18/16 07:55 Potassium 3.6 mmol/L (3.6-5.0) 07/18/16 07:55 Chloride 97.2 mmol/L (98-107) L 07/18/16 07:55 Carbon Dioxide 27 mmol/L (22-30) 07/18/16 07:55 Anion Gap 19 mmol/L 07/18/16 07:55 BUN 56 mg/dL (9-20) H 07/18/16 07:55 Creatinine 1.9 mg/dL (0.8-1.5) H 07/18/16 07:55 Estimated GFR 43 ml/min 07/18/16 07:55 BUN/Creatinine Ratio 29.47 % 07/18/16 07:55 Glucose 104 mg/dL (75-100) H 07/18/16 07:55 POC Glucose 178 (70-105) H 07/18/16 10:44 Osmolality 313 Mosm/kg 07/17/16 13:30 Lactic Acid 1.4 mmol/L (0.7-2.0) 07/16/16 18:55 Uric Acid 16.6 mg/dL (3.5-7.6) H 07/17/16 09:04 Calcium 8.9 mg/dL (8.4-10.2) 07/18/16 07:55 Total Bilirubin 0.8 mg/dL (0.1-1.2) 07/16/16 18:55 Direct Bilirubin < 0.2 mg/dL (0-0.2) 07/16/16 18:55 Indirect Bilirubin 0.6 mg/dL 07/16/16 18:55 AST 26 units/L (5-40) 07/16/16 18:55 ALT 15 units/L (7-56) 07/16/16 18:55 Alkaline Phosphatase 49 units/L (35-129) 07/16/16 18:55 Total Creatine Kinase 62 units/L (55-170) 07/17/16 10:07 CK-MB (CK-2) 1.0 ng/mL (0.0-4.0) 07/17/16 10:07 CK-MB (CK-2) Rel Index 1.6 (0-4) 07/17/16 10:07 Troponin T < 0.010 ng/mL (0.00-0.029) 07/17/16 10:07 NT-Pro-B Natriuret Pep 406.4 pg/mL (0-900) 07/16/16 18:55 Total Protein 7.4 g/dL (6.3-8.2) 07/16/16 18:55 Albumin 3.2 g/dL (3.9-5) L 07/16/16 18:55 Albumin/Globulin Ratio 0.8 % 07/16/16 18:55 Urine Color Yellow (Yellow) 07/17/16 04:48 Urine Turbidity Clear (Clear) 07/17/16 04:48 Urine pH 5.0 (5.0-7.0) 07/17/16 04:48 Ur Specific [place] 1.014 (1.003-1.030) 07/17/16 04:48 Urine Protein <15 mg/dl mg/dL (Negative) 07/17/16 04:48 Urine Glucose (UA) Neg mg/dL (Negative) 07/17/16 04:48 Urine Ketones Neg mg/dL (Negative) 07/17/16 04:48 Urine Blood Neg (Negative) 07/17/16 04:48 Urine Nitrite Neg (Negative) 07/17/16 04:48 Urine Bilirubin Neg (Negative) 07/17/16 04:48 Urine Urobilinogen < 2.0 mg/dL (<2.0) 07/17/16 04:48 Ur Leukocyte Esterase Neg (Negative) 07/17/16 04:48 Urine WBC (Auto) 1.0 /HPF (0.0-6.0) 07/17/16 04:48 Urine RBC (Auto) 2.0 /HPF (0.0-6.0) 07/17/16 04:48 U Epithel Cells (Auto) 3.0 /HPF (0-13.0) 07/17/16 04:48 Hyaline Casts 2 /LPF 07/17/16 04:48 Urine Mucus Few /HPF 07/17/16 04:48 Urine Creatinine 84.5 mg/dL (0.1-20.0) H 07/17/16 19:37 Urine Sodium 67 mEq/L 07/17/16 19:37 Urine Total Protein 5 mg/dL (5-11.8) 07/17/16 19:37
--- NOTE | 2016-07-18 16:40 | Progress Note ---
Assessment and Plan Assessment: Acute kidney injury secondary to prerenal azotemia - improved Acute on chronic systolic heart failure Cardiomyopathy LVEF 15-20% s/p AICD Paroxysmal atrial fibrillation Hypokalemia Plan: Renal function improving Continue conservative management Gentle hydration with IVF Monitor volume status closely Avoid nephrotoxins Subjective Date of service: 07/18/16 Interval history: Patient has no complaints today. He denies SOB. Objective - Vital Signs Vital signs: Vital Signs - 12hr 07/18/16 07/18/16 07/18/16 06:04 07:36 10:00 Temperature 97.4 F L 98.5 F Pulse Rate 71 Pulse Rate [ 61 Left Radial] Pulse Rate [ 78 Right Radial] Respiratory 18 18 Rate Blood Pressure 114/70 118/57 [Left Arm] O2 Sat by Pulse 96 93 93 Oximetry 07/18/16 07/18/16 10:49 15:40 Temperature 98.6 F 97.6 F Pulse Rate Pulse Rate [ 72 70 Left Radial] Pulse Rate [ Right Radial] Respiratory 18 18 Rate Blood Pressure 117/66 103/63 [Left Arm] O2 Sat by Pulse 92 94 Oximetry - General Appearance General appearance: well-developed, well-nourished EENT: ATNC Respiratory: Present: Decreased Breath Sounds Cardiology: regular, S1S2 Gastrointestinal: no tenderness, distended Integumentary: no rash Neurologic: no focal deficit Musculoskeletal: other (trace edema) Psychiatric: mood/affect appropriate, cooperative - Lab 07/18/16 07:55 07/18/16 07:55 Most recent lab results Calcium 8.9 mg/dL (8.4-10.2) 07/18/16 07:55 Urine Creatinine 84.5 mg/dL (0.1-20.0) H 07/17/16 19:37 Urine Sodium 67 mEq/L 07/17/16 19:37 Urine Total Protein 5 mg/dL (5-11.8) 07/17/16 19:37
[2016-07-18] MEDS: LEVEMIR SUB-Q SCH (22:40)
[2016-07-18] MEDS: ZOCOR PO SCH (22:44)
[2016-07-18] MEDS: ELIQUIS PO SCH (22:45)
[2016-07-18] MEDS: NACL 0.9% 1000 ML 1,000 ML IV SCH (23:19)
[2016-07-19 08:25] LABS: BUN/Creatinine Ratio 22.66; Calcium 8.9 mg/dL (8.4-10.2); Potassium 3.8 mmol/L (3.6-5.0)
[2016-07-19] MEDS: ELIQUIS PO SCH ×2 (10:01→12:07)
--- NOTE | 2016-07-19 11:36 | Discharge Summary ---
Providers - Providers Date of Admission: 07/17/16 02:38 Date of discharge: 07/19/16 Attending physician: CARLOS ALBERTO ARENAS Primary care physician: ROME ANNA Hospitalization Condition: Fair Hospital course: Patient is a 66-year-old with history of chronic kidney disease, chronic systolic heart failure, atrial fibrillation. He was sent in as a direct admit from [facility] because of hypotension. Apparently went to see coil spring assembler complaining of dizziness, generalized weakness, shortness of breath was found to have a systolic blood pressure in the 60s, therefore sent to the emergency department. He was hypotensive started on IV fluids. Labs showed creatinine of 3.9 which is higher than his baseline. He was therefore admitted for hypotension and acute on chronic kidney disease. Cardiology and nephrology were consulted and he was evaluated. With IV fluids creatinine improved from 3.9 down to 2.9, next day.Blood pressure also improved on IV fluids. he felt better slowly and 3 days later on 07/16/2016 he felt much better , Creatinine was down to 1.5 from 3.9 on admission, blood pressure was stable and he was asymptomatic and therefore discharged home. Total time spent on discharge, 36 minutes Disposition: DISCHARGED TO HOME OR SELFCARE - Discharge Diagnoses (1) Hypotension Status: Acute Qualifiers: Hypotension type: H Trimester: T (2) Acute renal failure superimposed on stage 3 chronic kidney disease Status: Acute (3) Chronic systolic CHF (congestive heart failure) Status: Chronic (4) Hypertension Status: Chronic Qualifiers: Hypertension type: H (5) ATN (acute tubular necrosis) Status: Acute (6) Diabetes mellitus type 2 in obese Status: Chronic (7) Atrial fibrillation Status: Chronic Qualifiers: Atrial fibrillation type: A Core Measure Documentation - Palliative Care Palliative Care/ Comfort Measures: Not Applicable - Core Measures Any of the following diagnoses?: heart failure - Heart Failure Discharge Requirements WU/ARB for LVSD if EF <40%: Yes Beta nupur at discharge: Yes Exam - Constitutional Vitals: Temp Pulse Resp BP Pulse Ox 97.9 F 77 18 119/77 98 07/19/16 11:19 07/19/16 11:19 07/19/16 11:19 07/19/16 11:19 07/19/16 11:19 Plan Activity: advance as tolerated Diet: low fat, low cholesterol, low salt Additional Instructions: 1.Follow up PCP in 3-5 days. 2.Follow up with Dr. Hopson in 1 week. 3.Check lab BMP in 1 week to be followed by PCP Follow up with: ROME ANNA MD [Primary Care Provider] - 3-5 Days Prescriptions: Apixaban [Eliquis] 5 mg PO Q12HR #60 tablet Carvedilol [Coreg] 3.125 mg PO BID #60 tablet Furosemide [Lasix TAB] 20 mg PO QDAY #30 tablet Losartan [Cozaar] 25 mg PO QDAY #30 tablet
[2016-07-19] MEDS: BABY ASPIRIN PO SCH (12:07)
[2016-07-19] MEDS: PROTONIX PO SCH (12:07)
--- NOTE | 2016-07-19 13:29 | Progress Note ---
Assessment and Plan - Patient Problems (1) Hypotension Current Visit: Yes Status: Acute Plan to address problem: Hypotension has resolved on conservative management. The patient's cardiac status is stable. On discharge, and Entresto should be discontinued and he should only be maintained on low dose of an ARB or Matheus. Subjective Date of service: 07/19/16 Interval history: Patient was admitted with hypotension, suspected to be iatrogenic due to polypharmacy. No new cardiac complaints, looks and feels better. Objective Vital Signs Temp Pulse Resp BP Pulse Ox 07/19/16 11:19 97.9 F 77 18 119/77 98 07/19/16 07:36 98.5 F 69 18 107/63 94 07/19/16 07:15 97.9 F 66 20 92/58 98 07/18/16 23:39 98.3 F 60 20 134/69 97 07/18/16 22:00 20 07/18/16 20:48 98.1 F 73 20 99/61 94 07/18/16 20:10 95 07/18/16 15:40 97.6 F 70 18 103/63 94 - Physical Examination General: No Apparent Distress HEENT: Positive: PERRL Neck: Positive: trachea midline Cardiac: Positive: Reg Rate and Rhythm Lungs: Positive: Decreased Breath Sounds Neuro: Positive: Grossly Intact Abdomen: Positive: Soft Skin: Positive: Clear Extremities: Absent: edema - Labs and Meds Comprehensive Metabolic Panel 07/19/16 Range/Units 06:54 Sodium 141 (137-145) mmol/L Potassium 3.8 (3.6-5.0) mmol/L Chloride 97.0 L (98-107) mmol/L Carbon Dioxide 27 (22-30) mmol/L BUN 34 H (9-20) mg/dL Creatinine 1.5 (0.8-1.5) mg/dL Glucose 143 H (75-100) mg/dL Calcium 8.9 (8.4-10.2) mg/dL - Imaging and Cardiology EKG: image reviewed
[2016-07-19 15:35] VITALS: BP 107/71
--- NOTE | 2016-07-20 07:30 | Ultrasound Report ---
ULTRASOUND RENAL BILATERAL HISTORY: Acute renal insufficiency. TECHNIQUE: transabdominal ultrasound with color Doppler interrogation. FINDINGS: The right kidney measures 9.4 x 6.3 x 5.6cm. Right renal cortex: 1.8cm. The left kidney measures 10.7 x 5.3 x 4.8cm. Left renal cortex: 1.5cm. Scans of the kidneys show normal renal contours. There is normal central calyceal clustering and good preservation of the cortical thickness. Solitary subcentimeter simple cyst is noted in both kidneys. There is no evidence of mass or hydronephrosis. The views of the bladder and the region of the ureters appear normal. IMPRESSION: Unremarkable renal ultrasound. Tiny renal cysts.
== END 2016-07-19 17:04 | disposition home or self-care (01) | DRG 682 ==
LOC: ED 16:23 → 4A 07-17 02:38
PROVIDERS: ADMIT Internal Medicine; ATTEND Internal Medicine
DX: N17.9 Acute kidney failure, unspecified (principal); E43 Unspecified severe protein-calorie malnutrition; I50.23 Acute on chronic systolic (congestive) heart failure; I13.0 Hypertensive heart and chronic kidney disease with heart failure and stage 1 through stage 4 chronic kidney disease, or unspecified chronic kidney disease; I42.9 Cardiomyopathy, unspecified; I25.10 Atherosclerotic heart disease of native coronary artery without angina pectoris; M19.90 Unspecified osteoarthritis, unspecified site; N18.9 Chronic kidney disease, unspecified; E87.6 Hypokalemia; I48.0 Paroxysmal atrial fibrillation; E11.22 Type 2 diabetes mellitus with diabetic chronic kidney disease; Z79.899 Other long term (current) drug therapy; Z79.4 Long term (current) use of insulin; Z95.810 Presence of automatic (implantable) cardiac defibrillator; Z98.890 Other specified postprocedural states; Z87.891 Personal history of nicotine dependence; Z79.82 Long term (current) use of aspirin; Z82.49 Family history of ischemic heart disease and other diseases of the circulatory system; Z68.32 Body mass index [BMI] 32.0-32.9, adult; I95.2 Hypotension due to drugs
CPT/HCPCS: 36415; 70450; 71010; 76770; 80048; 80074; 81001; 82140; 82550; 82553; 82570; 82962; 83880; 83930; 84156; 84300; 84484; 84550; 85007; 85025; 85027; 86334; 93005; 93010; 94760; 96360; 96361; 99406; J1650; J1818; J7030; J7040

== ENCOUNTER 2017-03-10 13:38 | Inpatient (IN) | payer MEDICARE ==
--- NOTE | 2017-03-10 14:52 | XRay Report ---
CHEST 2 VIEWS INDICATION: Shortness of breath. COMPARISON: 03/03/2017 FINDINGS: PA and lateral chest radiographs again demonstrate mild cardiomegaly and left tripolar pacemaker with dual-chamber leads. Slightly prominent markings centrally and towards the bases. Slight increased right basilar haziness, possible atelectasis. Right basilar nodular densities also suspected, largest approximately 1.8 cm though possibly a prominent nipple shadow, also noted on 12/19/2013 CXR. No overt CHF. Multilevel thoracic spondylosis. CONCLUSION: 1. Cardiomegaly and pacemaker again noted with slight basilar haziness, presumed atelectasis or early congestive. Please correlate. 2. Nodular right lung base density presumed to represent a prominent nipple shadow. Future exams however also recommended with nipple markers in place for confirmation and to exclude other possibilities. Thank you for the opportunity to participate in this patient's care.
[2017-03-10 15:15] LABS: Basophils % (Auto) 0.8 % (0.0-1.8); Eosinophils % (Auto) 0.5 % (0.0-4.3); Hematocrit 46.3 % (35.5-45.6); Hemoglobin 14.6 gm/dl (11.8-15.2); Mean Corpuscular HGB Conc 32 % (32-34); Mean Corpuscular Hemoglobin 26 pg (28-32); Mean Corpuscular Volume 84 fl (84-94); Platelet Count 207 K/mm3 (140-440); Red Blood Count 5.55 M/mm3 (3.65-5.03); Red Cell Distribution Width 17.2 % (13.2-15.2); White Blood Count 9.7 K/mm3 (4.5-11.0)
[2017-03-10 15:34] LABS: INR 1.74 (0.87-1.13); Partial Thromboplastin Time 33.8 Sec. (24.2-36.6)
[2017-03-10 15:35] LABS: Anion Gap 23 mmol/L; Blood Urea Nitrogen 35 mg/dL (9-20); Carbon Dioxide 25 mmol/L (22-30); Chloride 99.9 mmol/L (98-107); Glucose 133 mg/dL (75-100); Potassium 4.5 mmol/L (3.6-5.0); Sodium 143 mmol/L (137-145)
--- NOTE | 2017-03-10 17:34 | Emergency Department Report ---
ED General Adult HPI - General Chief complaint: Dyspnea/Respdistress Stated complaint: SAM x 1 month Time Seen by Provider: 03/10/17 17:22 Source: patient, EMS (ems notes not available at time of chart dictation), RN notes reviewed, old records reviewed Mode of arrival: Ambulatory Limitations: No Limitations - History of Present Illness Initial comments: This is a 66-year-old male. He is previously unknown to me. Past medical history includes atrial fibrillation, currently on systemic anticoagulation, congestive heart failure, hypertension, intermittent renal insufficiency, questionable history of medication noncompliance. Patient presents to the ER with complaint of bilateral lower extremity swelling , shortness of breath. This has been going on and off for the past 2 months. He denies dietary indiscretions. He endorses medication compliance, he denies chest pain. Patient recently admitted to the hospital for similar symptoms. Had extensive evaluation by cardiology, who deems the patient not necessary to have repeat ACS risk stratification. Upon discharge, the patient was discharged with normal renal function. -: Gradual Location: left, right, lower extremity Consistency: intermittent Improves with: rest Worsens with: movement Associated Symptoms: shortness of breath, weakness - Related Data Home Medications Medication Instructions Recorded Confirmed Last Taken Allopurinol [Zyloprim] 100 mg PO QDAY 03/03/17 03/10/17 03/10/17 Apixaban [Eliquis] 5 mg PO BID 03/03/17 03/10/17 03/10/17 Aspirin [Aspirin BABY CHEW TAB] 81 mg PO QDAY 03/03/17 03/10/17 03/10/17 Metoprolol Xl [Metoprolol 25 mg PO QDAY 03/03/17 03/10/17 03/10/17 SUCCINATE ER TAB] Sacubitril/Valsartan [Entresto 49 1 each PO BID 03/03/17 03/10/17 03/10/17 mg-51 mg Tablet] Previous Rx's Medication Instructions Recorded Last Taken Type Bumetanide [Bumex 1 mg tab] 1 mg PO BID #60 tab 03/07/17 03/10/17 Rx Allergies Allergy/AdvReac Type Severity Reaction Status Date / Time No Known Allergies Allergy Verified 03/03/17 09:44 ED Review of Systems ROS: Stated complaint: SAM x 1 month Other details as noted in HPI Constitutional: malaise, weakness Eyes: denies: vision change Respiratory: shortness of breath Cardiovascular: edema Gastrointestinal: denies: abdominal pain Genitourinary: denies: dysuria Musculoskeletal: arthralgia, myalgia Skin: denies: lesions Neurological: weakness ED Past Medical Hx - Past Medical History Previous Medical History?: Yes Hx Hypertension: Yes Hx Congestive Heart Failure: Yes Hx Diabetes: Yes Hx GERD: Yes Hx Renal Disease: Yes (renal problems, "I was told I need to go to a kidney Dr, but i aint went") Hx Arthritis: Yes Hx Asthma: No Hx COPD: No Hx HIV: No Additional medical history: pt states "weak heart" unable to elaborate on that - Surgical History Past Surgical History?: Yes Hx Pacemaker: Yes Hx Internal Defibrillator: Yes Additional Surgical History: LLOYD - Social History Smoking Status: Never Smoker Substance Use Type: Prescribed - Medications Home Medications: Home Medications Medication Instructions Recorded Confirmed Last Taken Type Allopurinol [Zyloprim] 100 mg PO QDAY 03/03/17 03/10/17 03/10/17 History Apixaban [Eliquis] 5 mg PO BID 03/03/17 03/10/17 03/10/17 History Aspirin [Aspirin BABY CHEW TAB] 81 mg PO QDAY 03/03/17 03/10/17 03/10/17 History Metoprolol Xl [Metoprolol 25 mg PO QDAY 03/03/17 03/10/17 03/10/17 History SUCCINATE ER TAB] Sacubitril/Valsartan [Entresto 49 1 each PO BID 03/03/17 03/10/17 03/10/17 History mg-51 mg Tablet] Bumetanide [Bumex 1 mg tab] 1 mg PO BID #60 tab 03/07/17 03/10/17 03/10/17 Rx ED Physical Exam - General Limitations: No Limitations General appearance: alert, in no apparent distress - Head Head exam: Present: atraumatic, normocephalic - Eye Eye exam: Present: normal appearance - ENT ENT exam: Present: normal exam, normal orophraynx, mucous membranes moist - Neck Neck exam: Present: normal inspection - Respiratory Respiratory exam: Present: decreased breath sounds. Absent: wheezes, rales, rhonchi, chest wall tenderness - Cardiovascular Cardiovascular Exam: Present: regular rate, normal rhythm, normal heart sounds. Absent: bradycardia, tachycardia, irregular rhythm, systolic murmur, diastolic murmur, rubs, gallop - GI/Abdominal GI/Abdominal exam: Present: soft, normal bowel sounds. Absent: distended, tenderness, guarding, rebound, rigid, pulsatile mass - Rectal Rectal exam: Present: deferred - Extremities Exam Extremities exam: Present: normal inspection, full ROM, normal capillary refill , pedal edema. Absent: calf tenderness - Back Exam Back exam: Present: normal inspection, full ROM. Absent: tenderness, CVA tenderness (R), CVA tenderness (L), muscle spasm, paraspinal tenderness, vertebral tenderness - Neurological Exam Neurological exam: Present: alert, oriented X3, normal gait, other (Extraocular movements intact. Tongue midline. No facial droop. Facial sensation intact to light touch in the V1, V2, V3 distribution bilaterally. 5 and 5 strength in 4 extremities.. Sensation is intact to light touch in 4 extremities.). Absent : motor sensory deficit - Psychiatric Psychiatric exam: Present: normal affect, normal mood - Skin Skin exam: Present: warm, dry, intact, normal color. Absent: rash ED Course Vital Signs 03/10/17 03/10/17 03/10/17 14:00 16:40 16:45 Temperature 98.8 F Pulse Rate 90 96 H 91 H Respiratory 22 13 32 H Rate Blood Pressure 106/59 99/67 O2 Sat by Pulse 98 100 Oximetry 03/10/17 03/10/17 03/10/17 17:01 17:15 17:31 Temperature Pulse Rate 91 H 82 94 H Respiratory 18 21 15 Rate Blood Pressure 117/53 117/53 103/65 O2 Sat by Pulse 100 Oximetry 03/10/17 03/10/17 03/10/17 17:45 18:00 18:15 Temperature Pulse Rate 85 93 H 87 Respiratory 15 15 11 L Rate Blood Pressure 103/65 98/53 104/78 O2 Sat by Pulse 97 94 Oximetry 03/10/17 03/10/17 03/10/17 18:31 18:45 19:01 Temperature Pulse Rate 93 H 97 H 92 H Respiratory 20 26 H 14 Rate Blood Pressure 104/78 94/50 86/56 O2 Sat by Pulse 87 100 91 Oximetry 03/10/17 03/10/17 03/10/17 19:15 19:29 19:31 Temperature Pulse Rate 82 Respiratory 28 H 22 Rate Blood Pressure 86/56 101/68 O2 Sat by Pulse 96 98 Oximetry 03/10/17 03/10/17 03/10/17 19:40 20:02 20:13 Temperature Pulse Rate 88 Respiratory 19 Rate Blood Pressure 101/68 106/57 106/57 O2 Sat by Pulse 100 Oximetry 03/10/17 03/10/17 03/10/17 20:21 20:31 20:41 Temperature Pulse Rate 82 85 72 Respiratory 31 H 14 26 H Rate Blood Pressure 72/40 133/75 133/75 O2 Sat by Pulse 97 96 Oximetry 03/10/17 03/10/17 03/10/17 20:51 21:01 21:11 Temperature Pulse Rate 87 96 H 90 Respiratory 20 20 25 H Rate Blood Pressure 107/86 103/73 103/73 O2 Sat by Pulse 100 Oximetry 03/10/17 03/10/17 03/10/17 21:21 21:30 21:41 Temperature Pulse Rate 92 H 94 H 72 Respiratory 29 H 17 30 H Rate Blood Pressure 102/62 100/61 100/61 O2 Sat by Pulse 100 100 Oximetry 03/10/17 03/10/17 03/10/17 21:51 22:01 22:11 Temperature Pulse Rate 89 87 93 H Respiratory 20 23 27 H Rate Blood Pressure 96/72 96/72 96/72 O2 Sat by Pulse 94 91 100 Oximetry 03/10/17 03/10/17 03/10/17 22:21 22:32 22:41 Temperature Pulse Rate 98 H Respiratory 19 Rate Blood Pressure 78/45 78/45 O2 Sat by Pulse 98 90 99 Oximetry 03/10/17 03/10/17 03/10/17 22:51 23:01 23:11 Temperature Pulse Rate Respiratory Rate Blood Pressure 103/64 123/79 123/79 O2 Sat by Pulse 100 97 Oximetry 03/10/17 03/10/17 03/10/17 23:21 23:31 23:43 Temperature Pulse Rate Respiratory Rate Blood Pressure 85/58 85/58 85/58 O2 Sat by Pulse 100 98 96 Oximetry 03/10/17 23:53 Temperature Pulse Rate Respiratory Rate Blood Pressure 109/61 O2 Sat by Pulse 99 Oximetry - Consultations Consultation #1: 03/10/17 18:10 Case is discussed with cardiology, Dr. Kelley, who agrees this plan, his group will follow as a consult. ED Medical Decision Making - Lab Data Result diagrams: 03/10/17 15:02 03/10/17 15:02 Vital Signs 03/10/17 14:00 Temperature 98.8 F Pulse Rate 90 Respiratory 22 Rate Blood Pressure 106/59 O2 Sat by Pulse 98 Oximetry Lab Results 03/10/17 03/10/17 03/10/17 Range/Units 15:02 15:02 15:02 WBC 9.7 (4.5-11.0) K/mm3 RBC 5.55 H (3.65-5.03) M/mm3 Hgb 14.6 (11.8-15.2) gm/dl Hct 46.3 H (35.5-45.6) % MCV 84 (84-94) fl MCH 26 L (28-32) pg MCHC 32 (32-34) % RDW 17.2 H (13.2-15.2) % Plt Count 207 (140-440) K/mm3 Lymph % (Auto) 24.0 (13.4-35.0) % [place] % (Auto) 11.2 H (0.0-7.3) % Eos % (Auto) 0.5 (0.0-4.3) % Baso % (Auto) 0.8 (0.0-1.8) % Lymph # 2.3 (1.2-5.4) K/mm3 [place] # 1.1 H (0.0-0.8) K/mm3 Eos # 0.1 (0.0-0.4) K/mm3 Baso # 0.1 (0.0-0.1) K/mm3 Seg Neutrophils % 63.5 (40.0-70.0) % Seg Neutrophils # 6.1 (1.8-7.7) K/mm3 PT 20.3 H (12.2-14.9) Sec. INR 1.74 H (0.87-1.13) APTT 33.8 (24.2-36.6) Sec. Sodium 143 (137-145) mmol/L Potassium 4.5 (3.6-5.0) mmol/L Chloride 99.9 (98-107) mmol/L Carbon Dioxide 25 (22-30) mmol/L Anion Gap 23 mmol/L BUN 35 H (9-20) mg/dL Creatinine 2.0 H D (0.8-1.5) mg/dL Estimated GFR 34 ml/min BUN/Creatinine Ratio 17.50 % Glucose 133 H (75-100) mg/dL Calcium 9.0 (8.4-10.2) mg/dL Troponin T < 0.010 (0.00-0.029) ng/mL NT-Pro-B Natriuret Pep (0-900) pg/mL 03/10/17 Range/Units 15:02 WBC (4.5-11.0) K/mm3 RBC (3.65-5.03) M/mm3 Hgb (11.8-15.2) gm/dl Hct (35.5-45.6) % MCV (84-94) fl MCH (28-32) pg MCHC (32-34) % RDW (13.2-15.2) % Plt Count (140-440) K/mm3 Lymph % (Auto) (13.4-35.0) % [place] % (Auto) (0.0-7.3) % Eos % (Auto) (0.0-4.3) % Baso % (Auto) (0.0-1.8) % Lymph # (1.2-5.4) K/mm3 [place] # (0.0-0.8) K/mm3 Eos # (0.0-0.4) K/mm3 Baso # (0.0-0.1) K/mm3 Seg Neutrophils % (40.0-70.0) % Seg Neutrophils # (1.8-7.7) K/mm3 PT (12.2-14.9) Sec. INR (0.87-1.13) APTT (24.2-36.6) Sec. Sodium (137-145) mmol/L Potassium (3.6-5.0) mmol/L Chloride (98-107) mmol/L Carbon Dioxide (22-30) mmol/L Anion Gap mmol/L BUN (9-20) mg/dL Creatinine (0.8-1.5) mg/dL Estimated GFR ml/min BUN/Creatinine Ratio % Glucose (75-100) mg/dL Calcium (8.4-10.2) mg/dL Troponin T (0.00-0.029) ng/mL NT-Pro-B Natriuret Pep 7328 H (0-900) pg/mL - EKG Data -: EKG Interpreted by Me - EKG Data 03/10/17 18:01 Ventricular paced, good capture, premature ventricular contractions, no chest pain, not morphologically consistent with STEMI, appears unchanged from prior. - Radiology Data Radiology results: image reviewed interpreted by me: X-ray of the chest demonstrates cardiomegaly, left-sided pacer device, possible early congestive heart failure, no obvious pneumonia - Medical Decision Making Differential diagnosis: Congestive heart failure, acute renal insufficiency, cardiorenal syndrome, pneumonia Assessment and plan: [id number] male with acute renal insufficiency, elevated BNP of 7000, complaint of lower extremity swelling and shortness of breath, most likely congestive heart failure, possible component of cardiorenal syndrome. As per old medical records, questionable medication compliance. I appreciate his new-onset renal insufficiency, however patient will be given a high dose of Lasix 60 mg, I will discuss with his primary organizational development specialist, and he will be admitted for further evaluation and management. X-ray the chest is not consistent with pneumonia. Low risk by well's criteria. Critical care attestation.: If time is entered above; I have spent that time in minutes in the direct care of this critically ill patient, excluding procedure time. ED Disposition Clinical Impression: Congestive heart failure, CORRIE (acute kidney injury) Disposition: - OP ADMIT IP TO THIS HOSP Is pt being admited?: Yes Condition: Good
[2017-03-10] MEDS ORDERED: LASIX IV ONE (17:57)
[2017-03-10] MEDS ORDERED: MILK OF MAGNESIA PO PRN (22:13)
[2017-03-10] MEDS ORDERED: DULCOLAX PR PRN (22:13)
[2017-03-10] MEDS ORDERED: TYLENOL PO PRN (22:13)
[2017-03-10] MEDS ORDERED: ZOFRAN IV PRN (22:13)
--- NOTE | 2017-03-10 22:24 | History and Physical Report ---
History of Present Illness Date of examination: 03/10/17 History of present illness: 66-year-old male with a history of hypertension, CHF, A. fib, chronic kidney disease, diabetes, gout, see emergency room with complaints of shortness of murmur, orthopnea, decreased exercise tolerance. Patient was just discharged from the hospital Review Of Systems: Constitutional: no weight loss Ears, eyes, nose, mouth and throat: no nasal congestion, no nasal discharge, no sinus pressure, blurry vision, diplopia Neck: No neck pain or rigidity. Cardiovascular:no chest pain, palpitations Respiratory: No shortness of breath, cough Gastrointestinal: abdominal pain, hematochezia Genitourinary : no dysuria, frequency , hematuria Musculoskeletal: no muscle ache Integumentary: no rash, no pruritis Neurological: no parathesias, focal weakness Endocrine: no cold or heat intolerance, no polyuria or polydipsia Hematologic/Lymphatic: no easy bruising, no easy bleeding, no gland swelling Allergic/Immunologic: no urticaria, no angioedema. PAST MEDICAL HISTORY:hypertension, CHF, A. fib, chronic kidney disease, diabetes , gout PAST SURGICAL HISTORY: Pacemaker, AICD FAMILY HISTORY:hypertension SOCIAL HISTORY: Denies alcohol, tobacco, drugs Medications and Allergies Allergies Allergy/AdvReac Type Severity Reaction Status Date / Time No Known Allergies Allergy Verified 03/03/17 09:44 Home Medications Medication Instructions Recorded Confirmed Last Taken Type Allopurinol [Zyloprim] 100 mg PO QDAY 03/03/17 03/10/17 03/10/17 History Apixaban [Eliquis] 5 mg PO BID 03/03/17 03/10/17 03/10/17 History Aspirin [Aspirin BABY CHEW TAB] 81 mg PO QDAY 03/03/17 03/10/17 03/10/17 History Metoprolol Xl [Metoprolol 25 mg PO QDAY 03/03/17 03/10/17 03/10/17 History SUCCINATE ER TAB] Sacubitril/Valsartan [Entresto 49 1 each PO BID 03/03/17 03/10/17 03/10/17 History mg-51 mg Tablet] Bumetanide [Bumex 1 mg tab] 1 mg PO BID #60 tab 03/07/17 03/10/17 03/10/17 Rx Exam - Physical Exam Narrative exam: Gen. appearance: Patient lying in bed in no acute distress HEENT: Normocephalic/atraumatic, pupils equal round reactive to light, extra alkaline movement intact, no scleral icterus, no JVD or thyromegaly or nodule, neck is supple, mucous membrane moist, no erythema or exudate Heart: S1-S2, regular rate and rhythm Lungs: Crackles bilateral breathing comfortable Abdomen: Positive bowel sounds, nontender, nondistended, no organomegaly Extremities: No edema, cyanosis, clubbing Neuro:: Oriented 3 , cranial nerves II-12 intact, speech, motor intact Skin: No rash, nodules, warm dry - Constitutional Vitals: Temp Pulse Resp BP Pulse Ox 98.8 F 82 22 101/68 98 03/10/17 14:00 03/10/17 19:15 03/10/17 19:29 03/10/17 19:31 03/10/17 19:31 Results - Labs CBC & Chem 7: 03/10/17 15:02 03/10/17 15:02 Labs: Abnormal lab results 03/10/17 03/10/17 03/10/17 Range/Units 15:02 15:02 15:02 RBC 5.55 H (3.65-5.03) M/mm3 Hct 46.3 H (35.5-45.6) % MCH 26 L (28-32) pg RDW 17.2 H (13.2-15.2) % [place] % (Auto) 11.2 H (0.0-7.3) % [place] # 1.1 H (0.0-0.8) K/mm3 PT 20.3 H (12.2-14.9) Sec. INR 1.74 H (0.87-1.13) BUN 35 H (9-20) mg/dL Creatinine 2.0 H D (0.8-1.5) mg/dL Glucose 133 H (75-100) mg/dL POC Glucose (70-105) NT-Pro-B Natriuret Pep (0-900) pg/mL 03/10/17 03/10/17 Range/Units 15:02 17:13 RBC (3.65-5.03) M/mm3 Hct (35.5-45.6) % MCH (28-32) pg RDW (13.2-15.2) % [place] % (Auto) (0.0-7.3) % [place] # (0.0-0.8) K/mm3 PT (12.2-14.9) Sec. INR (0.87-1.13) BUN (9-20) mg/dL Creatinine (0.8-1.5) mg/dL Glucose (75-100) mg/dL POC Glucose 137 H (70-105) NT-Pro-B Natriuret Pep 7328 H (0-900) pg/mL - Imaging and Cardiology EKG: image reviewed Chest x-ray: image reviewed Assessment and Plan Assessment Acute on chronic heart failure, systolic Hypertension Diabetes of 2 A. fib Chronic kidney disease Gout Plan Admit to medicine Diurese with IV Lasix Continue beta nupur, WU inhibitor, aspirin Check cardiac enzymes, consult cardiology Monitor I's and O's, daily weights Check fingersticks initiate insulin sliding scale. Continue appropriate outpatient medications DVT prophylaxis with eliquis
[2017-03-10 23:12] LABS: Creatine Kinase 106 units/L (55-170)
[2017-03-11] MEDS ORDERED: D50W (25GM) Syringe IV PRN (03:58)
[2017-03-11] MEDS: LASIX IV SCH ×2 (05:18→17:51)
[2017-03-11 06:43] LABS: Basophils % (Auto) 0.8 % (0.0-1.8); Eosinophils % (Auto) 0.2 % (0.0-4.3); Hematocrit 43.6 % (35.5-45.6); Hemoglobin 14.1 gm/dl (11.8-15.2); Mean Corpuscular HGB Conc 32 % (32-34); Mean Corpuscular Hemoglobin 27 pg (28-32); Mean Corpuscular Volume 82 fl (84-94); Platelet Count 196 K/mm3 (140-440); Red Blood Count 5.31 M/mm3 (3.65-5.03); Red Cell Distribution Width 16.5 % (13.2-15.2); White Blood Count 10.6 K/mm3 (4.5-11.0)
[2017-03-11 06:57] LABS: BUN/Creatinine Ratio 20.41; Chloride 98.3 mmol/L (98-107); Potassium 4.3 mmol/L (3.6-5.0)
[2017-03-11 06:59] LABS: Creatine Kinase MB 1.9 ng/mL (0.0-4.0)
[2017-03-11 07:02] LABS: Creatine Kinase 120 units/L (55-170)
[2017-03-11] MEDS: NOVOLOG SUB-Q SCH ×4 (09:01→22:37)
[2017-03-11] MEDS ORDERED: SACUBITRIL PO SCH (10:00)
[2017-03-11] MEDS ORDERED: VALSARTAN PO SCH (10:00)
[2017-03-11] MEDS: BABY ASPIRIN PO SCH (10:07)
[2017-03-11] MEDS: ELIQUIS PO SCH ×2 (10:07→22:34)
[2017-03-11] MEDS: TOPROL XL PO SCH ×2 (10:08→12:44)
[2017-03-11] MEDS: ZYLOPRIM PO SCH (10:08)
--- NOTE | 2017-03-11 11:14 | Admit Criteria Form ---
Admission Criteria Documentation: HEART FAILURE: COMMON COMPLICATIONS Clinical Indications for Inpatient Care ([place]/check or initial the applicable condition/criteria): Ongoing inpatient care may be indicated for heart failure with 1 or more of the following (1)(2)(3)(4)(5)(6)(7)(8): [ ]I. New-onset heart failure [ ]II. Acute cardiac ischemia causing or associated with failure [ ]III. Ongoing need for care for primary condition requiring frequent therapy adjustments because of changes in cardiac function (eg, drug dosage changes for drugs that are renally metabolized) [ X]IV. Complications of heart failure, including 1 or more of the following: [ ]a) Hemodynamic instability [ ]b) Pericardial effusion [ ]c) Symptomatic pleural effusion(16) [ ]d) Hypoxemia [ ]e) Tachypnea [X ]f) Dyspnea [ ]g) Syncope [ ]h) Altered mental status [X ]i) Acute renal insufficiency that is severe (reduction of more than 50% in estimated glomerular filtration rate from baseline) or progressive (reduction of more than 25% in estimated glomerular filtration rate from baseline, with creatinine continuing to rise) [ ]j) Debilitating anasarca (eg tissue breakdown with infection, inability to void due to edema)(E) (17) [ ]k) Clinically significant metabolic abnormalities due to heart failure (e.g., new-onset metabolic acidosis) Extended stay may be needed until ALL of the following are present(1)(3)(18)(41) (55): [ ]a) Hemodynamic stability [ ]b) Stable and effective diuretic regimen established (or patient on stable dialysis regimen if in chronic renal failure) [ ]c) Volume status acceptable on oral medication [ ]d) Breathing comfortably at rest [ ]e) Saturation of arterial oxygen greater than 90% or at acceptable baseline [ ]f) Pulmonary edema absent or improved [ ]g) Peripheral or sacral edema absent or improved [ ]h) Renal function stable and manageable at a lower level of care [ ]i) Complications (e.g., pleural effusion) resolved or manageable at a lower level of care [ ]j) Patient or caregiver has received written discharge instructions or educational material addressing activity level, diet, discharge medications, follow-up appointment, weight monitoring, and what to do if symptoms worsen. (56)(57)(58) The original [facility] content created by [facility] has been revised. The portions of the content which have been revised are identified through the use of italic text or in bold, and Alisha Lao has neither reviewed nor approved the modified material.All other unmodified content is copyright [facility]. Please see references footnoted in the original [facility] edition 2017 Admission Criteria Met: Yes
--- NOTE | 2017-03-11 15:04 | Consultation ---
History of Present Illness Consult date: 03/11/17 Consult reason: congestive heart failure History of present illness: This is a 66 year old man with a history of a dilated nonischemic ischemic cardiomyopathy, chronic systolic heart failure and in situ internal cardiac defibrillator. His latest echocardiogram reports a left ventricle systolic ejection fraction 25-30%, Recent persantine thallium stress test showed no ischemia. In addition, he is on Eliquis for paroxysmal atrial fibrillation. He was just hospitalized with failure exacerbation and released 4 days ago, now he is readmitted with symptoms of fluid overload. Patient complains of progressive shortness of breath and coughs. It would be noted a creatinine of 2.4 on lab values done in the ED. Prior to his discharge 4 days ago he had a creatinine of 1.1. Cardiac consultation was requested for CHF exacerbation. ECG on presentation shows a normal sinus rhythm with ventricular paced rhythm. Medications and Allergies Allergies Allergy/AdvReac Type Severity Reaction Status Date / Time No Known Allergies Allergy Verified 03/03/17 09:44 Home Medications Medication Instructions Recorded Confirmed Last Taken Type Allopurinol [Zyloprim] 100 mg PO QDAY 03/03/17 03/10/17 03/10/17 History Apixaban [Eliquis] 5 mg PO BID 03/03/17 03/10/17 03/10/17 History Aspirin [Aspirin BABY CHEW TAB] 81 mg PO QDAY 03/03/17 03/10/17 03/10/17 History Metoprolol Xl [Metoprolol 25 mg PO QDAY 03/03/17 03/10/17 03/10/17 History SUCCINATE ER TAB] Sacubitril/Valsartan [Entresto 49 1 each PO BID 03/03/17 03/10/17 03/10/17 History mg-51 mg Tablet] Bumetanide [Bumex 1 mg tab] 1 mg PO BID #60 tab 03/07/17 03/10/17 03/10/17 Rx Active Meds: Active Medications Acetaminophen (Tylenol) 650 mg PO Q4H PRN PRN Reason: Pain MILD(1-3)/Fever >100.5/NAYLOR Allopurinol (Zyloprim) 100 mg PO QDAY [facility] Last Admin: 03/11/17 10:08 Dose: 100 mg Apixaban (Eliquis) 5 mg PO BID [facility] PRN Reason: Protocol Last Admin: 03/11/17 10:07 Dose: 5 mg Aspirin (Baby Aspirin) 81 mg PO QDAY [facility] Last Admin: 03/11/17 10:07 Dose: 81 mg Bisacodyl (Dulcolax) 10 mg CA QDAY PRN PRN Reason: Constipation unrelieved by MOM Dextrose (D50w (25gm) Syringe) 50 ml IV PRN PRN PRN Reason: Hypoglycemia Furosemide (Lasix) 40 mg IV BID@0600,1800 [facility] Last Admin: 03/11/17 05:18 Dose: 40 mg Insulin Aspart (Novolog) 0 units SUB-Q ACHS SHANDA PRN Reason: Protocol Last Admin: 03/11/17 12:49 Dose: 2 units Magnesium Hydroxide (Milk Of Magnesia) 30 ml PO Q4H PRN PRN Reason: Constipation Metoprolol Succinate (Toprol Xl) 25 mg PO QDAY [facility] Last Admin: 03/11/17 12:44 Dose: Not Given Miscellaneous Medication (Sacubitril/Valsartan [Entresto 49 Mg-51 Mg Tablet]) 1 each PO BID [facility] Ondansetron HCl (Zofran) 4 mg IV Q8H PRN PRN Reason: N/V unrelieved by Reglan Physical Examination Vital Signs Temp Pulse Resp BP Pulse Ox 98.8 F 90 22 106/59 98 03/10/17 14:00 03/10/17 14:00 03/10/17 14:00 03/10/17 14:00 03/10/17 14:00 General appearance: no acute distress HEENT: Positive: PERRL Cardiac: Positive: Other (ventricular paced) Results 03/11/17 06:10 03/11/17 06:10 Cardiac Enzymes 03/10/17 03/11/17 Range/Units 22:42 06:10 CK-MB (CK-2) 2.0 1.9 (0.0-4.0) ng/mL CBC 03/11/17 Range/Units 06:10 WBC 10.6 (4.5-11.0) K/mm3 RBC 5.31 H (3.65-5.03) M/mm3 Hgb 14.1 (11.8-15.2) gm/dl Hct 43.6 (35.5-45.6) % Plt Count 196 (140-440) K/mm3 Lymph # 2.8 (1.2-5.4) K/mm3 [place] # 1.2 H (0.0-0.8) K/mm3 Eos # 0.0 (0.0-0.4) K/mm3 Baso # 0.1 (0.0-0.1) K/mm3 Comprehensive Metabolic Panel 03/11/17 Range/Units 06:10 Sodium 142 (137-145) mmol/L Potassium 4.3 (3.6-5.0) mmol/L Chloride 98.3 (98-107) mmol/L Carbon Dioxide 24 (22-30) mmol/L BUN 49 H (9-20) mg/dL Creatinine 2.4 H (0.8-1.5) mg/dL Glucose 131 H (75-100) mg/dL Calcium 9.0 (8.4-10.2) mg/dL Assessment and Plan Acute on chronic systolic heart failure Acute renal failure Hypertension Pulmonary Hypertension Paroxysmal Afib on eliquis as an outpatient Dilated Cardiomyopathy s/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
[2017-03-11] MEDS: PRIMACOR 20 MG in D5W 80 ML IV SCH (16:40)
--- NOTE | 2017-03-11 19:23 | Progress Note ---
Assessment and Plan Assessment and plan: 1. Acute on chronic systolic heart failure Status post AICD placement Evaluated by cardiology; had MPI in 01/11 with no reversible ischemia; EF 25-30% On BB, ACEI, diuresis with IV Lasix Cardiology following 2. Pulmonary hypertension 3. Hypertension Continue home regimen and monitor BP 4. Paroxysmal A. fib On beta nupur for rate control and anticoagulated with Eliquis 5. Acute renal failure Secondary to vasomotor nephropathy; possible CORRIE superimposed on chronic kidney disease Monitor renal function closely as he is on IV Lasix 6. Diabetes Accu-Cheks and SSI 7. Gout Continue allopurinol 8. DVT prophylaxis History Interval history: c/o SOB, cough, not feeling well Hospitalist Physical - Constitutional Vitals: Temp Pulse Resp BP Pulse Ox 98.0 F 62 20 86/55 98 03/11/17 16:47 03/11/17 16:47 03/11/17 16:47 03/11/17 16:47 03/11/17 16:47 General appearance: Present: no acute distress, obese - EENT Eyes: Present: PERRL, EOM intact ENT: clear oral mucosa, poor dentition - Neck Neck: Present: supple. Absent: masses or JVD, carotid bruits - Respiratory Respiratory effort: normal (at rest), labored (with activity) Respiratory: bilateral: diminished, negative: rhonchi, wheezing - Cardiovascular Rhythm: other (tachycardic) Heart Sounds: Present: S1 & S2. Absent: systolic murmur - Extremities Extremities: no ischemia Extremity abnormal: edema - Abdominal General gastrointestinal: soft, non-tender, non-distended, normal bowel sounds - Neurologic Neurologic: CNII-XII intact, no focal deficits Results - Labs CBC & Chem 7: 03/11/17 06:10 03/14/17 06:07 Labs: Laboratory Last Values WBC 10.6 K/mm3 (4.5-11.0) 03/11/17 06:10 RBC 5.31 M/mm3 (3.65-5.03) H 03/11/17 06:10 Hgb 14.1 gm/dl (11.8-15.2) 03/11/17 06:10 Hct 43.6 % (35.5-45.6) 03/11/17 06:10 MCV 82 fl (84-94) L 03/11/17 06:10 MCH 27 pg (28-32) L 03/11/17 06:10 MCHC 32 % (32-34) 03/11/17 06:10 RDW 16.5 % (13.2-15.2) H 03/11/17 06:10 Plt Count 196 K/mm3 (140-440) 03/11/17 06:10 Lymph % (Auto) 26.7 % (13.4-35.0) 03/11/17 06:10 [place] % (Auto) 10.9 % (0.0-7.3) H 03/11/17 06:10 Eos % (Auto) 0.2 % (0.0-4.3) 03/11/17 06:10 Baso % (Auto) 0.8 % (0.0-1.8) 03/11/17 06:10 Lymph # 2.8 K/mm3 (1.2-5.4) 03/11/17 06:10 [place] # 1.2 K/mm3 (0.0-0.8) H 03/11/17 06:10 Eos # 0.0 K/mm3 (0.0-0.4) 03/11/17 06:10 Baso # 0.1 K/mm3 (0.0-0.1) 03/11/17 06:10 Seg Neutrophils % 61.4 % (40.0-70.0) 03/11/17 06:10 Seg Neutrophils # 6.5 K/mm3 (1.8-7.7) 03/11/17 06:10 PT 20.3 Sec. (12.2-14.9) H 03/10/17 15:02 INR 1.74 (0.87-1.13) H 03/10/17 15:02 APTT 33.8 Sec. (24.2-36.6) 03/10/17 15:02 Sodium 142 mmol/L (137-145) 03/11/17 06:10 Potassium 4.3 mmol/L (3.6-5.0) 03/11/17 06:10 Chloride 98.3 mmol/L (98-107) 03/11/17 06:10 Carbon Dioxide 24 mmol/L (22-30) 03/11/17 06:10 Anion Gap 24 mmol/L 03/11/17 06:10 BUN 49 mg/dL (9-20) H 03/11/17 06:10 Creatinine 2.4 mg/dL (0.8-1.5) H 03/11/17 06:10 Estimated GFR 27 ml/min 03/11/17 06:10 BUN/Creatinine Ratio 20.41 % 03/11/17 06:10 Glucose 131 mg/dL (75-100) H 03/11/17 06:10 POC Glucose 163 (70-105) H 03/11/17 16:19 Calcium 9.0 mg/dL (8.4-10.2) 03/11/17 06:10 Total Creatine Kinase 120 units/L (55-170) 03/11/17 06:10 CK-MB (CK-2) 1.9 ng/mL (0.0-4.0) 03/11/17 06:10 CK-MB (CK-2) Rel Index 1.5 (0-4) 03/11/17 06:10 Troponin T < 0.010 ng/mL (0.00-0.029) 03/11/17 06:10 NT-Pro-B Natriuret Pep 7328 pg/mL (0-900) H 03/10/17 15:02
[2017-03-12] MEDS: PRIMACOR 20 MG in D5W 80 ML IV SCH ×3 (02:04→22:02)
[2017-03-12] MEDS: ELIQUIS PO SCH ×2 (09:45→22:02)
[2017-03-12] MEDS: BABY ASPIRIN PO SCH (09:45)
[2017-03-12] MEDS: TOPROL XL PO SCH (09:46)
[2017-03-12] MEDS: ZYLOPRIM PO SCH (09:46)
[2017-03-12] MEDS: NOVOLOG SUB-Q SCH ×4 (10:18→22:03)
[2017-03-12 10:25] LABS: BUN/Creatinine Ratio 27.5; Calcium 8.6 mg/dL (8.4-10.2); Chloride 99.6 mmol/L (98-107); Potassium 3.6 mmol/L (3.6-5.0)
--- NOTE | 2017-03-12 12:45 | Progress Note ---
Assessment and Plan Non-ischemic cardiomyopathy, EF 20-30% Acute decompensated systolic heart failure Multiple admissions AICD Paroxysmal afib on eliquis Acute on chronic renal failure Anxiery disorder Recommendations: Continue IV milrinone Continue IV diuresis Daily BMP Good candidate for cardiomems - will evaluate as outpatient Start lexapro 10 mg po daily Subjective Date of service: 03/12/17 Principal diagnosis: CHF Interval history: Patient reports abdominal distention, SOB has improved. He also describes recurrent panic attacks and states that he has anxiety disorder Objective Vital Signs Temp Pulse Resp BP BP Pulse Ox 03/12/17 10:00 98 03/12/17 09:46 94 H 110/78 03/12/17 08:00 98.5 F 94 H 20 110/78 97 03/12/17 06:39 64 03/12/17 04:00 99.0 F 64 20 108/36 95 03/12/17 00:09 98.5 F 59 L 20 95/43 92 03/11/17 21:00 49 L 03/11/17 20:21 98.0 F 49 L 20 134/83 88 03/11/17 20:17 98 03/11/17 16:47 98.0 F 62 20 86/55 98 03/11/17 12:44 90/55 - Physical Examination HEENT: Positive: PERRL Neck: Positive: neck supple Cardiac: Positive: irregularly irregular Lungs: Positive: Normal Breath Sounds - Labs and Meds Comprehensive Metabolic Panel 03/12/17 Range/Units 09:14 Carbon Dioxide 26 (22-30) mmol/L BUN 44 H (9-20) mg/dL Creatinine 1.6 H (0.8-1.5) mg/dL Glucose 131 H (75-100) mg/dL Calcium 8.6 (8.4-10.2) mg/dL - Imaging and Cardiology EKG: image reviewed
[2017-03-12] MEDS: LASIX IV SCH ×2 (13:02→18:21)
--- NOTE | 2017-03-12 16:46 | Progress Note ---
Assessment and Plan Assessment and plan: 1. Acute on chronic systolic heart failure Status post AICD placement Evaluated by cardiology; had MPI in 01/11 with no reversible ischemia; EF 25-30% On BB, ACEI, diuresis with IV Lasix along with iv milrinone Cardiology following 2. Pulmonary hypertension 3. Hypertension Continue home regimen and monitor BP 4. Paroxysmal A. fib On beta nupur for rate control and anticoagulated with Eliquis 5. Acute renal failure Secondary to vasomotor nephropathy; possible CORRIE superimposed on chronic kidney disease Monitor renal function closely as he is on IV Lasix 6. Diabetes Accu-Cheks and SSI 7. Gout Continue allopurinol 8. DVT prophylaxis Eliquis 9. Anxiety/panic attacks Start Lexapro History Interval history: still SOB, anxious Hospitalist Physical - Constitutional Vitals: Temp Pulse Resp BP Pulse Ox 98.0 F 79 18 86/39 97 03/12/17 16:12 03/12/17 16:12 03/12/17 16:12 03/12/17 16:12 03/12/17 16:12 General appearance: Present: no acute distress, obese - EENT Eyes: Present: PERRL, EOM intact ENT: clear oral mucosa, poor dentition - Neck Neck: Present: supple. Absent: enlarged thyroid, masses or JVD - Respiratory Respiratory effort: normal (at rest) Respiratory: bilateral: diminished, rales, negative: rhonchi, wheezing - Cardiovascular Rhythm: other (tachycardic) Heart Sounds: Present: S1 & S2. Absent: systolic murmur - Extremities Extremities: no ischemia Extremity abnormal: edema - Abdominal General gastrointestinal: soft, non-tender, non-distended, normal bowel sounds - Neurologic Neurologic: CNII-XII intact, no focal deficits Results - Labs CBC & Chem 7: 03/11/17 06:10 03/14/17 06:07 Labs: Laboratory Last Values WBC 10.6 K/mm3 (4.5-11.0) 03/11/17 06:10 RBC 5.31 M/mm3 (3.65-5.03) H 03/11/17 06:10 Hgb 14.1 gm/dl (11.8-15.2) 03/11/17 06:10 Hct 43.6 % (35.5-45.6) 03/11/17 06:10 MCV 82 fl (84-94) L 03/11/17 06:10 MCH 27 pg (28-32) L 03/11/17 06:10 MCHC 32 % (32-34) 03/11/17 06:10 RDW 16.5 % (13.2-15.2) H 03/11/17 06:10 Plt Count 196 K/mm3 (140-440) 03/11/17 06:10 Lymph % (Auto) 26.7 % (13.4-35.0) 03/11/17 06:10 [place] % (Auto) 10.9 % (0.0-7.3) H 03/11/17 06:10 Eos % (Auto) 0.2 % (0.0-4.3) 03/11/17 06:10 Baso % (Auto) 0.8 % (0.0-1.8) 03/11/17 06:10 Lymph # 2.8 K/mm3 (1.2-5.4) 03/11/17 06:10 [place] # 1.2 K/mm3 (0.0-0.8) H 03/11/17 06:10 Eos # 0.0 K/mm3 (0.0-0.4) 03/11/17 06:10 Baso # 0.1 K/mm3 (0.0-0.1) 03/11/17 06:10 Seg Neutrophils % 61.4 % (40.0-70.0) 03/11/17 06:10 Seg Neutrophils # 6.5 K/mm3 (1.8-7.7) 03/11/17 06:10 PT 20.3 Sec. (12.2-14.9) H 03/10/17 15:02 INR 1.74 (0.87-1.13) H 03/10/17 15:02 APTT 33.8 Sec. (24.2-36.6) 03/10/17 15:02 Sodium 142 mmol/L (137-145) 03/11/17 06:10 Potassium 4.3 mmol/L (3.6-5.0) 03/11/17 06:10 Chloride 98.3 mmol/L (98-107) 03/11/17 06:10 Carbon Dioxide 26 mmol/L (22-30) 03/12/17 09:14 Anion Gap 24 mmol/L 03/11/17 06:10 BUN 44 mg/dL (9-20) H 03/12/17 09:14 Creatinine 1.6 mg/dL (0.8-1.5) H 03/12/17 09:14 Estimated GFR 44 ml/min 03/12/17 09:14 BUN/Creatinine Ratio 27.50 % 03/12/17 09:14 Glucose 131 mg/dL (75-100) H 03/12/17 09:14 POC Glucose 130 (70-105) H 03/12/17 08:15 Calcium 8.6 mg/dL (8.4-10.2) 03/12/17 09:14 Total Creatine Kinase 120 units/L (55-170) 03/11/17 06:10 CK-MB (CK-2) 1.9 ng/mL (0.0-4.0) 03/11/17 06:10 CK-MB (CK-2) Rel Index 1.5 (0-4) 03/11/17 06:10 Troponin T < 0.010 ng/mL (0.00-0.029) 03/11/17 06:10 NT-Pro-B Natriuret Pep 7328 pg/mL (0-900) H 03/10/17 15:02
[2017-03-13 05:54] LABS: BUN/Creatinine Ratio 21.53; Calcium 8.2 mg/dL (8.4-10.2); Chloride 103.5 mmol/L (98-107); Potassium 3.7 mmol/L (3.6-5.0)
[2017-03-13] MEDS: LASIX IV SCH ×2 (06:34→17:19)
[2017-03-13] MEDS: NOVOLOG SUB-Q SCH ×4 (07:30→22:20)
[2017-03-13] MEDS: ZYLOPRIM PO SCH (10:48)
[2017-03-13] MEDS: LEXAPRO PO SCH (10:48)
[2017-03-13] MEDS: ELIQUIS PO SCH ×2 (10:48→21:42)
[2017-03-13] MEDS: BABY ASPIRIN PO SCH (10:49)
[2017-03-13] MEDS: TOPROL XL PO SCH (10:50)
--- NOTE | 2017-03-13 13:05 | Progress Note ---
Assessment and Plan Non-ischemic cardiomyopathy, EF 20-30% Acute decompensated systolic heart failure Multiple admissions AICD Paroxysmal afib on eliquis Acute on chronic renal failure Anxiery disorder Recommendations: Continue IV milrinone Continue IV diuresis Subjective Date of service: 03/13/17 Principal diagnosis: CHF Interval history: No acute events. Dyspnea imrproving. Objective Vital Signs Temp Pulse Resp BP BP Pulse Ox 03/13/17 11:00 98.0 F 89 20 109/56 98 03/13/17 10:50 89 116/78 03/13/17 10:00 99 03/13/17 07:32 47 L 22 103/75 97 03/13/17 07:27 98.0 F 88 22 103/75 95 03/13/17 04:29 98.0 F 57 L 18 86/61 98 03/13/17 02:52 87 03/12/17 23:47 98.3 F 87 18 99/68 96 03/12/17 22:00 71 22 03/12/17 20:36 96 03/12/17 20:33 97.8 F 43 L 18 77/44 96 03/12/17 16:12 98.0 F 79 18 86/39 97 03/12/17 16:11 80 100 03/12/17 16:10 98 H 18 86/39 100 03/12/17 14:00 79 - Physical Examination HEENT: Positive: PERRL Neck: Positive: neck supple Cardiac: Positive: Reg Rate and Rhythm Lungs: Positive: Decreased Breath Sounds, Rales Abdomen: Positive: Soft, Active Bowel Sounds Extremities: Present: +1 Edema - Labs and Meds Comprehensive Metabolic Panel 03/13/17 Range/Units 05:03 Sodium 144 (137-145) mmol/L Potassium 3.7 (3.6-5.0) mmol/L Chloride 103.5 (98-107) mmol/L Carbon Dioxide 28 (22-30) mmol/L BUN 28 H (9-20) mg/dL Creatinine 1.3 (0.8-1.5) mg/dL Glucose 134 H (75-100) mg/dL Calcium 8.2 L (8.4-10.2) mg/dL - Imaging and Cardiology EKG: image reviewed
[2017-03-13] MEDS: PRIMACOR 20 MG in D5W 80 ML IV SCH (17:15)
--- NOTE | 2017-03-13 19:20 | Progress Note ---
Assessment and Plan Assessment and plan: 1. Acute on chronic systolic heart failure Status post AICD placement Evaluated by cardiology; had MPI in 01/11 with no reversible ischemia; EF 25-30% On BB, ACEI, diuresis with IV Lasix along with iv milrinone Cardiology following 2. Pulmonary hypertension 3. Hypertension Continue home regimen and monitor BP 4. Paroxysmal A. fib On beta nupur for rate control and anticoagulated with Eliquis 5. Acute renal failure Secondary to vasomotor nephropathy; possible CORRIE superimposed on chronic kidney disease Monitor renal function closely as he is on IV Lasix 6. Diabetes Accu-Cheks and SSI 7. Gout Continue allopurinol 8. DVT prophylaxis Eliquis 9. Anxiety/panic attacks Start Lexapro 10. Obesity Counseled regarding importance of losing weight History Interval history: feeling better, still c/o sob, occasional cough Hospitalist Physical - Constitutional Vitals: Temp Pulse Resp BP Pulse Ox 98.0 F 49 L 20 109/56 100 03/13/17 11:00 03/13/17 16:53 03/13/17 11:00 03/13/17 11:55 03/13/17 16:53 General appearance: Present: no acute distress, obese - EENT Eyes: Present: PERRL, EOM intact - Neck Neck: Present: supple. Absent: enlarged thyroid, masses or JVD - Respiratory Respiratory effort: normal Respiratory: bilateral: diminished, negative: rhonchi, wheezing - Cardiovascular Rhythm: regular Heart Sounds: Present: S1 & S2. Absent: systolic murmur - Extremities Extremities: no ischemia - Abdominal General gastrointestinal: soft, non-tender, non-distended, normal bowel sounds - Neurologic Neurologic: moves all extremities Results - Labs CBC & Chem 7: 03/11/17 06:10 03/14/17 06:07 Labs: Laboratory Last Values WBC 10.6 K/mm3 (4.5-11.0) 03/11/17 06:10 RBC 5.31 M/mm3 (3.65-5.03) H 03/11/17 06:10 Hgb 14.1 gm/dl (11.8-15.2) 03/11/17 06:10 Hct 43.6 % (35.5-45.6) 03/11/17 06:10 MCV 82 fl (84-94) L 03/11/17 06:10 MCH 27 pg (28-32) L 03/11/17 06:10 MCHC 32 % (32-34) 03/11/17 06:10 RDW 16.5 % (13.2-15.2) H 03/11/17 06:10 Plt Count 196 K/mm3 (140-440) 03/11/17 06:10 Lymph % (Auto) 26.7 % (13.4-35.0) 03/11/17 06:10 [place] % (Auto) 10.9 % (0.0-7.3) H 03/11/17 06:10 Eos % (Auto) 0.2 % (0.0-4.3) 03/11/17 06:10 Baso % (Auto) 0.8 % (0.0-1.8) 03/11/17 06:10 Lymph # 2.8 K/mm3 (1.2-5.4) 03/11/17 06:10 [place] # 1.2 K/mm3 (0.0-0.8) H 03/11/17 06:10 Eos # 0.0 K/mm3 (0.0-0.4) 03/11/17 06:10 Baso # 0.1 K/mm3 (0.0-0.1) 03/11/17 06:10 Seg Neutrophils % 61.4 % (40.0-70.0) 03/11/17 06:10 Seg Neutrophils # 6.5 K/mm3 (1.8-7.7) 03/11/17 06:10 PT 20.3 Sec. (12.2-14.9) H 03/10/17 15:02 INR 1.74 (0.87-1.13) H 03/10/17 15:02 APTT 33.8 Sec. (24.2-36.6) 03/10/17 15:02 Sodium 144 mmol/L (137-145) 03/13/17 05:03 Potassium 3.7 mmol/L (3.6-5.0) 03/13/17 05:03 Chloride 103.5 mmol/L (98-107) 03/13/17 05:03 Carbon Dioxide 28 mmol/L (22-30) 03/13/17 05:03 Anion Gap 16 mmol/L 03/13/17 05:03 BUN 28 mg/dL (9-20) H 03/13/17 05:03 Creatinine 1.3 mg/dL (0.8-1.5) 03/13/17 05:03 Estimated GFR 55 ml/min 03/13/17 05:03 BUN/Creatinine Ratio 21.53 % 03/13/17 05:03 Glucose 134 mg/dL (75-100) H 03/13/17 05:03 POC Glucose 125 (70-105) H 03/13/17 16:54 Calcium 8.2 mg/dL (8.4-10.2) L 03/13/17 05:03 Total Creatine Kinase 120 units/L (55-170) 03/11/17 06:10 CK-MB (CK-2) 1.9 ng/mL (0.0-4.0) 03/11/17 06:10 CK-MB (CK-2) Rel Index 1.5 (0-4) 03/11/17 06:10 Troponin T < 0.010 ng/mL (0.00-0.029) 03/11/17 06:10 NT-Pro-B Natriuret Pep 7328 pg/mL (0-900) H 03/10/17 15:02
[2017-03-14] MEDS: PRIMACOR 20 MG in D5W 80 ML IV SCH (00:52)
[2017-03-14] MEDS: LASIX IV SCH ×2 (06:11→17:49)
[2017-03-14 07:01] LABS: Anion Gap 14 mmol/L; Blood Urea Nitrogen 23 mg/dL (9-20); Calcium 8.5 mg/dL (8.4-10.2); Carbon Dioxide 31 mmol/L (22-30); Chloride 102.3 mmol/L (98-107); Glucose 141 mg/dL (75-100); Potassium 3.9 mmol/L (3.6-5.0); Sodium 143 mmol/L (137-145)
[2017-03-14] MEDS: NOVOLOG SUB-Q SCH ×4 (10:16→22:35)
--- NOTE | 2017-03-14 10:51 | Progress Note ---
Assessment and Plan Non-ischemic cardiomyopathy, EF 20-30% Acute decompensated systolic heart failure Multiple admissions AICD Paroxysmal afib on eliquis Acute on chronic renal failure Anxiery disorder Recommendations: Continue IV milrinone for another 24 hours Continue IV diuresis Subjective Date of service: 03/14/17 Principal diagnosis: CHF Interval history: Pt is feeling better with improved dyspnea. Objective Vital Signs Temp Pulse Resp BP BP Pulse Ox 03/14/17 08:27 97 03/14/17 06:12 58 L 03/14/17 04:34 99.0 F 58 L 20 118/65 98 03/13/17 23:50 98.2 F 70 20 92/62 97 03/13/17 22:21 47 L 03/13/17 20:09 98.5 F 47 L 20 91/50 94 03/13/17 16:53 49 L 100 03/13/17 14:00 94 H 03/13/17 11:55 43 L 109/56 99 03/13/17 11:52 75 98 03/13/17 11:00 98.0 F 89 20 109/56 98 - Physical Examination HEENT: Positive: PERRL Neck: Positive: neck supple Cardiac: Positive: Reg Rate and Rhythm Lungs: Positive: Decreased Breath Sounds Abdomen: Positive: Soft, Active Bowel Sounds Extremities: Present: +1 Edema - Labs and Meds Comprehensive Metabolic Panel 03/14/17 Range/Units 06:07 Sodium 143 (137-145) mmol/L Potassium 3.9 (3.6-5.0) mmol/L Chloride 102.3 (98-107) mmol/L Carbon Dioxide 31 H (22-30) mmol/L BUN 23 H (9-20) mg/dL Creatinine 1.1 (0.8-1.5) mg/dL Glucose 141 H (75-100) mg/dL Calcium 8.5 (8.4-10.2) mg/dL - Imaging and Cardiology EKG: image reviewed
[2017-03-14] MEDS: ELIQUIS PO SCH ×2 (11:22→22:35)
[2017-03-14] MEDS: ZYLOPRIM PO SCH (11:22)
[2017-03-14] MEDS: TOPROL XL PO SCH (11:22)
[2017-03-14] MEDS: LEXAPRO PO SCH (11:22)
[2017-03-14] MEDS: BABY ASPIRIN PO SCH (11:23)
--- NOTE | 2017-03-14 18:12 | Progress Note ---
Assessment and Plan Assessment and plan: 1. Acute on chronic systolic heart failure Status post AICD placement Evaluated by cardiology and had MPI in 01/11 with no reversible ischemia; EF 25- 30% On BB, ACEI; continue diuresis with IV Lasix along with iv milrinone Cardiology following 2. Pulmonary hypertension 3. Hypertension Continue home regimen and monitor BP 4. Paroxysmal A. fib On beta nupur for rate control and anticoagulated with Eliquis 5. Acute renal failure Secondary to vasomotor nephropathy; possible CORRIE superimposed on chronic kidney disease Monitor renal function closely as he is on IV Lasix 6. Diabetes Accu-Cheks and SSI 7. Gout Continue allopurinol 8. DVT prophylaxis On Eliquis 9. Anxiety/panic attacks Started on Lexapro 10. Obesity Counseled regarding importance of losing weight and lifestyle changes History Interval history: doing well, family present, updated Hospitalist Physical - Constitutional Vitals: Temp Pulse Resp BP Pulse Ox 99.0 F 95 H 20 118/65 97 03/14/17 04:34 03/14/17 14:00 03/14/17 04:34 03/14/17 04:34 03/14/17 08:27 General appearance: Present: no acute distress, obese - EENT Eyes: Present: PERRL, EOM intact - Neck Neck: Present: supple. Absent: enlarged thyroid, masses or JVD - Respiratory Respiratory effort: normal Respiratory: bilateral: diminished, negative: rhonchi, wheezing - Cardiovascular Rhythm: regular Heart Sounds: Present: S1 & S2. Absent: systolic murmur - Extremities Extremities: no ischemia Extremity abnormal: edema - Abdominal General gastrointestinal: soft, non-tender, non-distended, normal bowel sounds - Neurologic Neurologic: no focal deficits Results - Labs CBC & Chem 7: 03/11/17 06:10 03/14/17 06:07 Labs: Laboratory Last Values WBC 10.6 K/mm3 (4.5-11.0) 03/11/17 06:10 RBC 5.31 M/mm3 (3.65-5.03) H 03/11/17 06:10 Hgb 14.1 gm/dl (11.8-15.2) 03/11/17 06:10 Hct 43.6 % (35.5-45.6) 03/11/17 06:10 MCV 82 fl (84-94) L 03/11/17 06:10 MCH 27 pg (28-32) L 03/11/17 06:10 MCHC 32 % (32-34) 03/11/17 06:10 RDW 16.5 % (13.2-15.2) H 03/11/17 06:10 Plt Count 196 K/mm3 (140-440) 03/11/17 06:10 Lymph % (Auto) 26.7 % (13.4-35.0) 03/11/17 06:10 [place] % (Auto) 10.9 % (0.0-7.3) H 03/11/17 06:10 Eos % (Auto) 0.2 % (0.0-4.3) 03/11/17 06:10 Baso % (Auto) 0.8 % (0.0-1.8) 03/11/17 06:10 Lymph # 2.8 K/mm3 (1.2-5.4) 03/11/17 06:10 [place] # 1.2 K/mm3 (0.0-0.8) H 03/11/17 06:10 Eos # 0.0 K/mm3 (0.0-0.4) 03/11/17 06:10 Baso # 0.1 K/mm3 (0.0-0.1) 03/11/17 06:10 Seg Neutrophils % 61.4 % (40.0-70.0) 03/11/17 06:10 Seg Neutrophils # 6.5 K/mm3 (1.8-7.7) 03/11/17 06:10 PT 20.3 Sec. (12.2-14.9) H 03/10/17 15:02 INR 1.74 (0.87-1.13) H 03/10/17 15:02 APTT 33.8 Sec. (24.2-36.6) 03/10/17 15:02 Sodium 143 mmol/L (137-145) 03/14/17 06:07 Potassium 3.9 mmol/L (3.6-5.0) 03/14/17 06:07 Chloride 102.3 mmol/L (98-107) 03/14/17 06:07 Carbon Dioxide 31 mmol/L (22-30) H 03/14/17 06:07 Anion Gap 14 mmol/L 03/14/17 06:07 BUN 23 mg/dL (9-20) H 03/14/17 06:07 Creatinine 1.1 mg/dL (0.8-1.5) 03/14/17 06:07 Estimated GFR > 60 ml/min 03/14/17 06:07 BUN/Creatinine Ratio 20.90 % 03/14/17 06:07 Glucose 141 mg/dL (75-100) H 03/14/17 06:07 POC Glucose 166 (70-105) H 03/14/17 12:39 Calcium 8.5 mg/dL (8.4-10.2) 03/14/17 06:07 Total Creatine Kinase 120 units/L (55-170) 03/11/17 06:10 CK-MB (CK-2) 1.9 ng/mL (0.0-4.0) 03/11/17 06:10 CK-MB (CK-2) Rel Index 1.5 (0-4) 03/11/17 06:10 Troponin T < 0.010 ng/mL (0.00-0.029) 03/11/17 06:10 NT-Pro-B Natriuret Pep 7328 pg/mL (0-900) H 03/10/17 15:02
[2017-03-15] MEDS: LASIX IV SCH (05:33)
[2017-03-15 05:55] VITALS: BP 122/77
[2017-03-15 08:17] LABS: Anion Gap 18 mmol/L; BUN/Creatinine Ratio 19.09; Blood Urea Nitrogen 21 mg/dL (9-20); Calcium 8.9 mg/dL (8.4-10.2); Carbon Dioxide 29 mmol/L (22-30); Chloride 101.3 mmol/L (98-107); Glucose 102 mg/dL (75-100); Potassium 4.1 mmol/L (3.6-5.0); Sodium 144 mmol/L (137-145)
[2017-03-15] MEDS: NOVOLOG SUB-Q SCH ×2 (09:07→13:15)
[2017-03-15] MEDS: BABY ASPIRIN PO SCH (10:51)
[2017-03-15] MEDS: LEXAPRO PO SCH (10:51)
[2017-03-15] MEDS: TOPROL XL PO SCH (10:51)
[2017-03-15] MEDS: ZYLOPRIM PO SCH (10:51)
[2017-03-15] MEDS: ELIQUIS PO SCH (10:51)
--- NOTE | 2017-03-15 12:21 | Discharge Summary ---
Providers - Providers Date of Admission: 03/10/17 22:13 Date of discharge: 03/15/17 Attending physician: JEREMIAH HADDAD 03/14/17 12:25 Consult to Case Management [CONS] Routine Services Needed at Discharge: Other Notified:: jake notified Primary care physician: ROME ANNA Hospitalization Reason for admission: SOB Condition: Stable Disposition: [id number]/[place]-06 HOME UNDER HOME HL Time spent for discharge: 35 min Core Measure Documentation - Palliative Care Palliative Care/ Comfort Measures: Not Applicable - Core Measures Any of the following diagnoses?: heart failure - Heart Failure Discharge Requirements WU/ARB for LVSD if EF <40%: Yes Beta nupur at discharge: Yes Exam - Constitutional Vitals: Temp Pulse Resp BP Pulse Ox 99.0 F 67 24 122/77 100 03/15/17 03:47 03/15/17 06:28 03/15/17 03:47 03/15/17 03:47 03/15/17 08:35 Plan Activity: advance as tolerated, fall precautions Diet: low cholesterol, low salt Special Instructions: restrict fluid intake to (1500 mL) Follow up with: ROME ANNA MD [Primary Care Provider] - 3-5 Days GLORIA DUGAN MD [Staff Physician] - 7 Days Prescriptions: Allopurinol [Zyloprim] 100 mg PO QDAY #30 tablet Apixaban [Eliquis] 5 mg PO BID #30 tablet Aspirin [Aspirin BABY CHEW TAB] 81 mg PO QDAY #30 tab.chew Escitalopram [Lexapro] 10 mg PO QDAY #30 tablet Metoprolol Xl [Metoprolol SUCCINATE ER TAB] 25 mg PO QDAY #30 tablet Sacubitril/Valsartan [Entresto 49 mg-51 mg Tablet] 1 each PO BID #60 tablet
--- NOTE | 2017-03-15 13:21 | Progress Note ---
Assessment and Plan Acute systolic heart failure Acute renal failure -resolved Hypertension Pulmonary Hypertension Paroxysmal Afib on eliquis as an outpatient Dilated Cardiomyopathy s/p [employer] LVEF 15-20%, no significant CAD by LHC at [facility] 11/2014 LVEF 25-30% by echo 12/2016 no reversible ischemia on MPI 12/2016 Diabetes Anxiery disorder Recommendations: Continue oral anticoagulation and medical therapy for his paroxysmal afib and systolic heart failure. Subjective Date of service: 03/15/17 Principal diagnosis: CHF Interval history: Patient report his breathing has improved. Now complains of coughs. Objective Vital Signs Temp Pulse Resp BP Pulse Ox 03/15/17 10:00 99 H 03/15/17 08:35 100 03/15/17 06:28 67 03/15/17 03:48 76 99 03/15/17 03:47 99.0 F 81 24 122/77 99 03/15/17 00:14 77 100 03/15/17 00:13 97.9 F 49 L 21 106/71 100 03/14/17 20:32 80 95 03/14/17 16:52 85 22 111/77 95 03/14/17 14:00 95 H - Physical Examination General: No Apparent Distress HEENT: Positive: PERRL Neck: Positive: neck supple Cardiac: Positive: Reg Rate and Rhythm - Labs and Meds Comprehensive Metabolic Panel 03/15/17 Range/Units 06:32 Sodium 144 (137-145) mmol/L Potassium 4.1 (3.6-5.0) mmol/L Chloride 101.3 (98-107) mmol/L Carbon Dioxide 29 (22-30) mmol/L BUN 21 H (9-20) mg/dL Creatinine 1.1 (0.8-1.5) mg/dL Glucose 102 H (75-100) mg/dL Calcium 8.9 (8.4-10.2) mg/dL - Imaging and Cardiology EKG: image reviewed
== END 2017-03-15 16:21 | disposition home health service (06) | DRG 291 ==
LOC: ED 13:38 → 4A 22:13
PROVIDERS: ADMIT Internal Medicine; ATTEND Internal Medicine
DX: I13.0 Hypertensive heart and chronic kidney disease with heart failure and stage 1 through stage 4 chronic kidney disease, or unspecified chronic kidney disease (principal); I50.23 Acute on chronic systolic (congestive) heart failure; N17.0 Acute kidney failure with tubular necrosis; M10.9 Gout, unspecified; E66.9 Obesity, unspecified; Z68.36 Body mass index [BMI] 36.0-36.9, adult; Z71.3 Dietary counseling and surveillance; F41.9 Anxiety disorder, unspecified; I48.0 Paroxysmal atrial fibrillation; I11.0 Hypertensive heart disease with heart failure; E11.22 Type 2 diabetes mellitus with diabetic chronic kidney disease; N18.9 Chronic kidney disease, unspecified; Z79.82 Long term (current) use of aspirin; K21.9 Gastro-esophageal reflux disease without esophagitis; Z95.810 Presence of automatic (implantable) cardiac defibrillator; Z82.49 Family history of ischemic heart disease and other diseases of the circulatory system; I42.0 Dilated cardiomyopathy; I27.2 Other secondary pulmonary hypertension
CPT/HCPCS: 36415; 71020; 80048; 82550; 82553; 82962; 83880; 84484; 85025; 85610; 85730; 93005; 93010; 94760; 96374; 96376; 99285; J1815; J1940; J2260

== ENCOUNTER 2017-05-24 15:22 | Inpatient (IN) | payer MEDICARE ==
[2017-05-24] MEDS ORDERED: DULCOLAX PR PRN (15:39)
[2017-05-24] MEDS ORDERED: MILK OF MAGNESIA PO PRN (15:39)
[2017-05-24] MEDS ORDERED: TYLENOL PO PRN (15:39)
[2017-05-24] MEDS ORDERED: ZOFRAN IV PRN (15:39)
--- NOTE | 2017-05-24 16:26 | History and Physical Report ---
History of Present Illness Date of examination: 05/24/17 History of present illness: This is a 67yr old male with a history of dilated nonischemic cardiomyopathy, with internal cardiac defibrillator in situ. Today, patient went for a routine cardiac follow up. Noted abnormal laboratory finding with a creatinine of 2.5, different from prior creatinine of 1.2 a month ago. Patient is admitted from the outpatient setting for further evaluation and treatment of acute renal failure Medications and Allergies Allergies Allergy/AdvReac Type Severity Reaction Status Date / Time No Known Allergies Allergy Verified 03/03/17 09:44 Home Medications Medication Instructions Recorded Confirmed Last Taken Type Allopurinol [Zyloprim] 100 mg PO QDAY #30 tablet 03/15/17 04/04/17 04/03/17 Rx Aspirin [Aspirin BABY CHEW TAB] 81 mg PO QDAY #30 tab.chew 03/15/17 04/04/1701/11 Rx Carvedilol [Coreg] 6.25 mg PO BID tablet 04/09/17 Unknown Rx Isosorb Dinit/Hydralazine [Bidil 1 each PO Q8HR tablet 04/09/17 Unknown Rx 20/37.5MG] Metolazone [Zaroxolyn] 5 mg PO QDAY tablet 04/09/17 Unknown Rx guaiFENesin [Robitussin] 200 mg PO Q4H PRN 30 Days 04/09/17 Unknown Rx oral.liqd Apixaban [Eliquis] 5 mg PO BID #30 tablet 04/12/17 Unknown Rx Bumetanide 1 mg PO DAILY #30 tablet 04/12/17 Unknown Rx Carvedilol [Coreg] 6.25 mg PO BID 30 Days tablet 04/12/17 Unknown Rx Furosemide [Lasix TAB] 40 mg PO QDAY #30 04/12/17 04/04/17 04/03/17 Rx Isosorbibe Dinit/Hydralazine 1 each PO Q8H 30 Days tablet 04/12/17 Unknown Rx [Bidil Tablet] Losartan [Cozaar] 25 mg PO QDAY #30 tablet 04/12/17 Unknown Rx Metolazone 5 mg PO DAILY 30 Days tablet 04/12/17 Unknown Rx Metoprolol Xl [Metoprolol 50 mg PO QDAY #30 tablet 04/12/17 Unknown Rx SUCCINATE ER TAB] Potassium Chloride [K-Dur] 20 meq PO QDAY #30 tablet 04/12/17 Unknown Rx Active Meds: Active Medications Acetaminophen (Tylenol) 650 mg PO Q4H PRN PRN Reason: Pain MILD(1-3)/Fever >100.5/NAYLOR Apixaban (Eliquis) 5 mg PO Q12HR SHANDA PRN Reason: Protocol Bisacodyl (Dulcolax) 10 mg HI QDAY PRN PRN Reason: Constipation unrelieved by [facility] [place] Sodium Chloride (Nacl 0.45% 1000 Ml) 1,000 mls @ 75 mls/hr IV DIRECT SHANDA Magnesium Hydroxide (Milk Of Magnesia) 30 ml PO Q4H PRN PRN Reason: Constipation Metoprolol Tartrate (Lopressor) 50 mg PO BID SHANDA Ondansetron HCl (Zofran) 4 mg IV Q8H PRN PRN Reason: N/V unrelieved by Reglan Assessment and Plan Acute renal failure Hypotension Dilated Nonischemic cardiomyopathy EF 20-25% on echo 12/2016 Presence of AICD Paroxysmal Afib on eliquis for oral anticoagulation Plan: Admit for IV hydration. Hold diuretics and hypertensive medications. Daily labs. Renal evaluation for acute renal failure
[2017-05-24 20:30] LABS: Basophils % (Auto) 0.6 % (0.0-1.8); Eosinophils % (Auto) 1.1 % (0.0-4.3); Hematocrit 45.7 % (35.5-45.6); Hemoglobin 14.4 gm/dl (11.8-15.2); Mean Corpuscular HGB Conc 32 % (32-34); Mean Corpuscular Volume 79 fl (84-94); Platelet Count 183 K/mm3 (140-440); Red Blood Count 5.75 M/mm3 (3.65-5.03); White Blood Count 8.6 K/mm3 (4.5-11.0)
[2017-05-24 20:33] LABS: Mean Corpuscular Hemoglobin 25 pg (28-32)
[2017-05-24 20:34] LABS: Red Cell Distribution Width 20.2 % (13.2-15.2)
[2017-05-24 20:44] LABS: Calcium 9.5 mg/dL (8.4-10.2); Chloride 94.6 mmol/L (98-107); Potassium 4.3 mmol/L (3.6-5.0)
[2017-05-24] MEDS: NACL 0.45% 1000 ML 1,000 ML IV SCH (21:45)
[2017-05-24] MEDS: LOPRESSOR PO SCH (22:05)
[2017-05-24] MEDS: ELIQUIS PO SCH (22:55)
[2017-05-25 06:21] LABS: Chloride 97.3 mmol/L (98-107); Potassium 3.9 mmol/L (3.6-5.0)
[2017-05-25] MEDS: NACL 0.45% 1000 ML 1,000 ML IV SCH (07:03)
--- NOTE | 2017-05-25 09:16 | Progress Note ---
Assessment and Plan Acute renal failure Hypotension Dilated Nonischemic cardiomyopathy EF 20-25% on echo 12/2016 Presence of AICD Paroxysmal Afib on eliquis for oral anticoagulation Plan: Continue IV hydration. Daily labs. Renal evaluation for acute renal failure. Subjective Date of service: 05/25/17 Interval history: Patient has no complaints. Objective Vital Signs Temp Pulse Pulse Pulse Resp BP Pulse Ox 05/25/17 07:07 72 18 100/61 98 05/25/17 05:58 81 05/25/17 03:53 98.7 F 71 20 103/60 97 05/24/17 23:40 98.7 F 87 18 90/50 94 05/24/17 22:05 74 91/58 05/24/17 22:00 87 74 79 18 96 05/24/17 21:38 98.4 F 18 85/56 - Physical Examination General: No Apparent Distress HEENT: Positive: PERRL Neck: Positive: trachea midline Cardiac: Positive: Other (paced) Lungs: Positive: Decreased Breath Sounds Neuro: Positive: Grossly Intact - Labs and Meds CBC 05/24/17 Range/Units 20:11 WBC 8.6 (4.5-11.0) K/mm3 RBC 5.75 H (3.65-5.03) M/mm3 Hgb 14.4 (11.8-15.2) gm/dl Hct 45.7 H (35.5-45.6) % Plt Count 183 (140-440) K/mm3 Lymph # 3.4 (1.2-5.4) K/mm3 [place] # 0.8 (0.0-0.8) K/mm3 Eos # 0.1 (0.0-0.4) K/mm3 Baso # 0.1 (0.0-0.1) K/mm3 Comprehensive Metabolic Panel 05/24/17 05/25/17 Range/Units 20:15 04:29 Sodium 135 L 137 (137-145) mmol/L Potassium 4.3 3.9 (3.6-5.0) mmol/L Chloride 94.6 L 97.3 L (98-107) mmol/L Carbon Dioxide 23 23 (22-30) mmol/L BUN 70 H 68 H (9-20) mg/dL Creatinine 3.0 H 2.4 H (0.8-1.5) mg/dL Glucose 141 H 100 (75-100) mg/dL Calcium 9.5 9.0 (8.4-10.2) mg/dL
--- NOTE | 2017-05-25 09:51 | Consultation ---
History of Present Illness - Reason for Consult Consult date: 05/25/17 acute renal failure Requesting physician: IRAIS TORREZ - History of Present Illness This is a 67yr old male with a history of dilated nonischemic cardiomyopathy, with internal cardiac defibrillator in situ. He was admitted yesterday abnormal laboratory finding with a creatinine of 2.5, different from prior creatinine of 1.2 a month ago. Patient is admitted from the outpatient setting for further evaluation and treatment of acute renal failure. Patient does state diuretic as an outpatient for his congestive heart failure. However he does not have any edema at this time. Also denies any shortness of breath. He does take some Advil for back pain. However denies any significant use recently. He also does have some nocturia and wakes up a few times at night to urinate Past History Past Medical History: CAD, diabetes, heart failure, hypertension Past Surgical History: Other (history of defibrillator placement) Social history: other (denies smoking or drinking) Family history: no significant family history (no significant family history of kidney disease) Medications and Allergies Allergies Allergy/AdvReac Type Severity Reaction Status Date / Time No Known Allergies Allergy Verified 03/03/17 09:44 Home Medications Medication Instructions Recorded Confirmed Last Taken Type Allopurinol [Zyloprim] 100 mg PO QDAY #30 tablet 03/15/17 05/25/17 04/03/17 Rx Aspirin [Aspirin BABY CHEW TAB] 81 mg PO QDAY #30 tab.chew 03/15/17 05/25/1701/11 Rx Carvedilol [Coreg] 6.25 mg PO BID tablet 04/09/17 05/25/17 Unknown Rx Isosorb Dinit/Hydralazine [Bidil 1 each PO Q8HR tablet 04/09/17 05/25/17 Unknown Rx 20/37.5MG] Metolazone [Zaroxolyn] 5 mg PO QDAY tablet 04/09/17 05/25/17 Unknown Rx guaiFENesin [Robitussin] 200 mg PO Q4H PRN 30 Days 04/09/17 05/25/17 Unknown Rx oral.liqd Apixaban [Eliquis] 5 mg PO BID #30 tablet 04/12/17 05/25/17 Unknown Rx Bumetanide 1 mg PO DAILY #30 tablet 04/12/17 05/25/17 Unknown Rx Carvedilol [Coreg] 6.25 mg PO BID 30 Days tablet 04/12/17 05/25/17 Unknown Rx Furosemide [Lasix TAB] 40 mg PO QDAY #30 04/12/17 05/25/17 04/03/17 Rx Isosorbibe Dinit/Hydralazine 1 each PO Q8H 30 Days tablet 04/12/17 05/25/17 Unknown Rx [Bidil Tablet] Losartan [Cozaar] 25 mg PO QDAY #30 tablet 04/12/17 05/25/17 Unknown Rx Metolazone 5 mg PO DAILY 30 Days tablet 04/12/17 05/25/17 Unknown Rx Metoprolol Xl [Metoprolol 50 mg PO QDAY #30 tablet 04/12/17 05/25/17 Unknown Rx SUCCINATE ER TAB] Potassium Chloride [K-Dur] 20 meq PO QDAY #30 tablet 04/12/17 05/25/17 Unknown Rx Active Meds: Active Medications Acetaminophen (Tylenol) 650 mg PO Q4H PRN PRN Reason: Pain MILD(1-3)/Fever >100.5/NAYLOR Apixaban (Eliquis) 5 mg PO Q12HR SHANDA PRN Reason: Protocol Last Admin: 05/24/17 22:55 Dose: 5 mg Bisacodyl (Dulcolax) 10 mg ME QDAY PRN PRN Reason: Constipation unrelieved by MOM Sodium Chloride (Nacl 0.45% 1000 Ml) 1,000 mls @ 75 mls/hr IV DIRECT [facility] Last Admin: 05/25/17 07:03 Dose: 75 mls/hr Magnesium Hydroxide (Milk Of Magnesia) 30 ml PO Q4H PRN PRN Reason: Constipation Metoprolol Tartrate (Lopressor) 50 mg PO BID [facility] Last Admin: 05/24/17 22:05 Dose: Not Given Ondansetron HCl (Zofran) 4 mg IV Q8H PRN PRN Reason: N/V unrelieved by Reglan Review of Systems All systems: negative (negative except as noted above) Exam - Vital Signs Vital signs: Vital Signs Temp Resp BP 98.4 F 18 85/56 05/24/17 21:38 05/24/17 21:38 05/24/17 21:38 - General Appearance General appearance: well-developed, well-nourished, appears stated age EENT: PERRL, mucous membranes moist Neck: Present: neck supple, trachea midline. Absent: JVD/HJR, Masses Respiratory: Clear to Ascultation Heart: regular, normal heart rate, S1S2, no murmurs Gastrointestinal: Present: normal, normoactive bowel sounds Integumentary: no rash, other (no edema) Results - Lab Results 05/24/17 20:11 05/25/17 04:29 Most recent lab results Calcium 9.0 mg/dL (8.4-10.2) 05/25/17 04:29 Assessment and Plan Impression * Acute renal failure. Most likely prerenal. His baseline creatinine is approximately 1.2 * Hypertension * Diabetes * Cardiomyopathy with an ejection fraction of 20% Recommendations * Agree with gentle IV hydration * Would hold off on diuretics as well as WU inhibitor or ARB at this time * Shall check a UA as well as a fractional excretion of sodium * Renal ultrasound to assess kidney size and echogenicity. * Shall check a postvoid residual as well, as he does have some nocturia * avoid Nephrotoxins * Monitor fluid status and electrolytes closely * Thank you very much for the consultation. Shall follow along with you
[2017-05-25] MEDS: ELIQUIS PO SCH ×2 (09:58→21:50)
[2017-05-25] MEDS: LOPRESSOR PO SCH ×2 (09:58→21:52)
[2017-05-26] MEDS: NACL 0.45% 1000 ML 1,000 ML IV SCH (03:18)
[2017-05-26 03:59] LABS: Bilirubin,Urine NEG (Negative); Blood,Urine NEG (Negative); Ketones,Urine NEG (Negative); Leukocyte Esterase,Urine NEG (Negative); Mucus,Urine FEW /HPF; Nitrite,Urine NEG (Negative); Protein,Urine <15 mg/dL mg/dL (Negative); Urobilinogen,Urine < 2.0 mg/dL (<2.0); WBC,Urine < 1.0 /HPF (0.0-6.0)
[2017-05-26 04:01] LABS: Fractional Sodium Excretion 1.8
[2017-05-26 06:30] LABS: Anion Gap 18 mmol/L; BUN/Creatinine Ratio 33; Blood Urea Nitrogen 40 mg/dL (9-20); Calcium 9.3 mg/dL (8.4-10.2); Carbon Dioxide 25 mmol/L (22-30); Chloride 99.9 mmol/L (98-107); Glucose 95 mg/dL (75-100); Potassium 4.2 mmol/L (3.6-5.0); Sodium 139 mmol/L (137-145)
--- NOTE | 2017-05-26 09:31 | Discharge Summary ---
Providers - Providers Date of Admission: 05/24/17 19:37 Date of discharge: 05/26/17 Attending physician: IRAIS TORREZ 05/24/17 15:39 Consult to Physician [CONS] Routine Consulting Provider: STEVE CAMPBELL Reason For Exam: acute renal failure Place consult to:: renal Notified:: office Phone number called:: [phone] Was contact made?: Yes If yes, spoke with:: brayden Time called:: 09:06 Primary care physician: ROME ANNA Hospitalization Reason for admission: Acute renal failure Condition: Good Hospital course: Patient was admitted for the management of acute renal failure. Diuretics were held and patient was gently IV hydrated. Creatinine returned to baseline upon discharge. Patient denies chest pain or shortness of breath. No events on tele. Disposition: DC-01 TO HOME OR SELFCARE Time spent for discharge: 30 min - Discharge Diagnoses (1) CORRIE (acute kidney injury) Status: Acute Core Measure Documentation - Palliative Care Palliative Care/ Comfort Measures: Not Applicable - Core Measures Any of the following diagnoses?: heart failure - Heart Failure Discharge Requirements WU/ARB for LVSD if EF <40%: Yes Beta nupur at discharge: Yes Exam - Constitutional Vitals: Temp Pulse Resp BP Pulse Ox 98.1 F 82 18 120/64 100 05/26/17 08:22 05/26/17 08:22 05/26/17 08:22 05/26/17 08:22 05/26/17 08:22 General appearance: Present: no acute distress - EENT Eyes: Present: PERRL ENT: hearing intact - Neck Neck: Present: supple - Respiratory Respiratory effort: normal Respiratory: bilateral: CTA - Cardiovascular Rhythm: regular - Extremities Extremities: no ischemia, No edema Plan Activity: advance as tolerated Weight Bearing Status: Partial Weight Bearing Diet: low fat, low cholesterol Special Instructions: restrict fluid intake to (64 oz daily) Follow up with: ROME ANNA MD [Primary Care Provider] - 7 Days IRAIS TORREZ MD [Staff Physician] - 7 Days
[2017-05-26] MEDS: LOPRESSOR PO SCH (11:42)
[2017-05-26] MEDS: ELIQUIS PO SCH (11:42)
[2017-05-26 11:44] VITALS: BP 120/94
--- NOTE | 2017-05-26 12:07 | Progress Note ---
Assessment and Plan Impression * Acute renal failure. Most likely prerenal. His baseline creatinine is approximately 1.2 * Hypertension * Diabetes * Cardiomyopathy with an ejection fraction of 20% Recommendations * His renal function is back to baseline. His urine shows trace protein but no blood. * Suspect that he had a prerenal component. * Would continue to hold his diuretics for now . Okay to resume WU inhibitor or ARB at this time if needed * Awaiting results of renal ultrasound and postvoid residual * avoid Nephrotoxins * Okay to discharge patient home from renal standpoint Subjective Date of service: 05/26/17 Interval history: Patient feels well this morning. Denies any shortness of breath. Objective - Vital Signs Vital signs: Vital Signs - 12hr 05/26/17 05/26/17 05/26/17 04:02 08:22 11:42 Temperature 97.5 F L 98.1 F Pulse Rate 81 82 Respiratory 20 18 Rate Blood Pressure 105/71 120/94 Blood Pressure 120/64 [Right] O2 Sat by Pulse 99 100 Oximetry - General Appearance General appearance: well-developed, well-nourished, appears stated age EENT: PERRL, mucous membranes moist Neck: no JVD, no thyromegaly, no carotid bruit, supple Respiratory: Present: Clear to Ascultation Cardiology: regular, normal heart rate, S1S2, no murmurs Gastrointestinal: normal, normoactive bowel sounds Integumentary: no rash, other (no edema) - Lab 05/24/17 20:11 05/26/17 04:39 Most recent lab results Calcium 9.3 mg/dL (8.4-10.2) 05/26/17 04:39 Urine Creatinine 37.1 mg/dL (0.1-20.0) H 05/25/17 03:30 Urine Sodium 31 mmol/L 05/25/17 03:30
--- NOTE | 2017-05-26 15:58 | Ultrasound Report ---
ULTRASOUND BLADDER RESIDUAL: INDICATION: CORRIE. Evaluate for bladder outlet obstruction. COMPARISON: 04/05/2017. FINDINGS: Sonographic estimation of pre- and postvoid urinary bladder volume performed. Prevoid urinary bladder volume is 267 cubic centimeters. Postvoid urinary bladder volume is 33 cubic centimeters. CONCLUSION: Small postvoid residual again noted, as described. Please correlate. Thank you for the opportunity to participate in this patient's care.
--- NOTE | 2017-05-26 16:01 | Ultrasound Report ---
ULTRASOUND RENAL INDICATION: CORRIE. COMPARISON: 04/06/2017. FINDINGS: Renal sonography suggests top normal/borderline renal cortical echogenicity. Grossly preserved contours. No hydronephrosis. Coarse imaged liver. RIGHT KIDNEY measures 10 x 5.2 x 4.8 cm with cortical thickness of 1.9 cm. LEFT KIDNEY estimated at 10.2 x 5 x 4.5 cm with cortical thickness of 1.5 cm. URINARY BLADDER suboptimally distended and assessed. CONCLUSION: No acute renal sonographic abnormality or significant interval change, as described. Please correlate. Thank you for the opportunity to participate in this patient's care.
== END 2017-05-26 12:00 | disposition home health service (06) | DRG 315 ==
LOC: 4A 15:22 → UNDOADMIN 15:22 → 4A 19:37
PROVIDERS: ADMIT Internal Medicine; ATTEND Internal Medicine
DX: I95.9 Hypotension, unspecified (principal); N17.9 Acute kidney failure, unspecified; I42.0 Dilated cardiomyopathy; I50.22 Chronic systolic (congestive) heart failure; I25.10 Atherosclerotic heart disease of native coronary artery without angina pectoris; E11.9 Type 2 diabetes mellitus without complications; I11.0 Hypertensive heart disease with heart failure; I48.0 Paroxysmal atrial fibrillation; Z79.82 Long term (current) use of aspirin; Z79.899 Other long term (current) drug therapy; Z79.01 Long term (current) use of anticoagulants; Z95.810 Presence of automatic (implantable) cardiac defibrillator
CPT/HCPCS: 36415; 76770; 76857; 80048; 81001; 82565; 82570; 82962; 84295; 84300; 85025; 93005; 93010

== ENCOUNTER 2017-12-13 12:55 | Inpatient (IN) | payer MEDICARE ==
[2017-12-13 14:23] LABS: Basophils # (Auto) 0.1 K/mm3 (0.0-0.1); Basophils % (Auto) 1.3 % (0.0-1.8); Eosinophils # (Auto) 0.1 K/mm3 (0.0-0.4); Eosinophils % (Auto) 1.5 % (0.0-4.3); Hematocrit 46.8 % (35.5-45.6); Hemoglobin 14.6 gm/dl (11.8-15.2); Lymphocytes # (Auto) 2.7 K/mm3 (1.2-5.4); Lymphocytes % (Auto) 36.6 % (13.4-35.0); Mean Corpuscular HGB Conc 31 % (32-34); Mean Corpuscular Volume 81 fl (84-94); Monocytes # (Auto) 0.7 K/mm3 (0.0-0.8); Monocytes % (Auto) 10.1 % (0.0-7.3); Platelet Count 244 K/mm3 (140-440); Red Blood Count 5.79 M/mm3 (3.65-5.03); Red Cell Distribution Width 18.7 % (13.2-15.2)
[2017-12-13 14:24] LABS: Mean Corpuscular Hemoglobin 25 pg (28-32)
[2017-12-13 15:15] LABS: BUN/Creatinine Ratio 13; Blood Urea Nitrogen 20 mg/dL (9-20); Calcium 9.2 mg/dL (8.4-10.2); Hemolysis Index 56
--- NOTE | 2017-12-13 17:23 | XRay Report ---
FINAL REPORT EXAM: XR CHEST ROUTINE 2V HISTORY: SOB/fluid overload TECHNIQUE: PA and lateral views of the chest PRIORS: CXR 04/04/2017 FINDINGS: Lines, tubes, and devices: 3 lead left subclavian pacemaker terminates in the right atrium, left ventricle, and right ventricle, unchanged. Lungs and pleura: Trachea is normal in position. Lungs are clear of infiltrate, pleural effusion, vascular congestion, or pneumothorax. No change. Cardiomediastinal silhouette: The heart is enlarged but stable. Other: Bony structures are intact. IMPRESSION: No acute cardiopulmonary process seen. No change. Stable cardiomegaly.
[2017-12-13] MEDS ORDERED: ZOFRAN IV ONE (23:20)
[2017-12-13] MEDS ORDERED: NITROSTAT SL ONE (23:20)
[2017-12-13] MEDS ORDERED: SUBLIMAZE IV ONE (23:20)
--- NOTE | 2017-12-13 23:21 | Emergency Department Report ---
HPI - General Chief Complaint: Dyspnea/Respdistress Time Seen by Provider: 12/13/17 22:21 - HPI HPI: The patient is a 67-year-old male with a history of congestive heart failure, and who presents for evaluation of chest pain. The patient reports chest pain for the past couple of days, currently 8/10 in severity, pressure-like in quality, exacerbated with exertion, and associated with progressive dyspnea for the past couple of weeks, severe for the past day, exacerbated with lying flat, improved with sitting up and rest. He denies fever, cough, syncope, hemoptysis , lateralizing weakness, paresthesia, or motor deficit. ED Past Medical Hx - Past Medical History Hx Hypertension: Yes Hx Congestive Heart Failure: Yes Hx Diabetes: Yes Hx GERD: Yes Hx Renal Disease: Yes (renal problems, "I was told I need to go to a kidney Dr, but i aint went") Hx Arthritis: Yes Hx Asthma: No Hx COPD: No Hx HIV: No Additional medical history: pt states "weak heart" unable to elaborate on that - Surgical History Hx Pacemaker: Yes Hx Internal Defibrillator: Yes Additional Surgical History: LLOYD - Social History Smoking Status: Unknown if ever smoked Substance Use Type: None - Medications Home Medications: Home Medications Medication Instructions Recorded Confirmed Last Taken Type Allopurinol [Zyloprim] 100 mg PO QDAY #30 tablet 03/15/17 05/25/17 04/03/17 Rx Apixaban [Eliquis] 5 mg PO BID #30 tablet 04/12/17 05/25/17 Unknown Rx Losartan [Cozaar] 25 mg PO QDAY #30 tablet 04/12/17 05/25/17 Unknown Rx Bumetanide 1 mg PO Q48H #30 tablet 05/26/17 05/25/17 Unknown Rx Metoprolol [Lopressor TAB] 50 mg PO BID tablet 05/26/17 Unknown Rx ED Review of Systems ROS: Stated complaint: TO GET FLUID OFF BODY Other details as noted in HPI Constitutional: denies: fever ENT: denies: throat or neck pain Respiratory: denies: cough reports shortness of breath Cardiovascular: reports chest pain Endocrine: denies unexplained weight loss or gain Gastrointestinal: denies: abdominal pain, nausea Genitourinary: denies: dysuria Musculoskeletal: denies: leg swelling Skin: denies: rash Neurological: denies: headache Hematological/Lymphatic: denies: easy bleeding or easy bruising Psych: denies sadness or hopelessness Physical Exam - Physical Exam Vital Signs: Vital Signs 12/13/17 12/13/17 12/13/17 13:26 21:55 22:30 Temperature 98 F 98.9 F Pulse Rate 72 80 83 Respiratory 18 16 20 Rate Blood Pressure 108/76 Blood Pressure 108/64 107/68 [Right] O2 Sat by Pulse 94 97 93 Oximetry Physical Exam: General: well-nourished, well-developed, no acute distress Head: Normocephalic, atraumatic Eyes: normal sclera ENT: Mucous membranes are pink and moist Neck: trachea midline, neck supple, No neck stiffness, no cervical adenopathy Respiratory: Mildly diminished breath sounds and basilar rhonchi present bilaterally Cardio: S1 and S2 present, no murmurs, rubs, gallops, capillary refill is brisk Abdomen: Normoactive bowel sounds, soft abdomen, no rigidity, no guarding or rebound tenderness Musc: 1+ pitting edema of bilateral lower legs present Skin: No rash Neuro: no facial drooping, normal speech Psych: Normal affect ED Course Vital Signs 12/13/17 12/13/17 12/13/17 13:26 21:55 22:30 Temperature 98 F 98.9 F Pulse Rate 72 80 83 Respiratory 18 16 20 Rate Blood Pressure 108/76 Blood Pressure 108/64 107/68 [Right] O2 Sat by Pulse 94 97 93 Oximetry - Reevaluation(s) Reevaluation #1: 12/14/17 00:21 The hospitalist was contacted regarding admission. ED Medical Decision Making - Lab Data Result diagrams: 12/13/17 14:01 12/13/17 14:01 - Medical Decision Making The patient was seen and examined by myself. The patient is placed on a cardiac surgeon and continuous pulse ox. On initial evaluation, the patient was found to be in no distress. EKG was negative for findings suggestive of acute cardiac infarct. The patient is given an aspirin and IV fentanyl for his pain. She is given Lasix for treatment of his pitting edema and suspected congestive heart failure exacerbation. Labs and imaging are obtained. Chest x- ray reveals cardiomegaly, and otherwise is unrevealing. Lab results reveal elevated BNP of 1300, and otherwise labs were non-revealing including negative troponin, WBC, hemoglobin, hematocrit, electrolytes, renal function. The patient was reevaluated and reported that their symptoms were improved. As the patient has chest pain and risk factors for development of acute coronary event , the patient will be admitted for close cardiopulmonary monitoring, serial troponins, and evaluation by cardiology. Dr. Oliver, the physician on-call for the hospitalist service was contacted. She agreed to accept admission for the hospitalist service, and requested that bridging orders be placed. The patient is brisk to the telemetry floor. The patient was admitted in guarded condition. Critical care attestation.: If time is entered above; I have spent that time in minutes in the direct care of this critically ill patient, excluding procedure time. ED Disposition Clinical Impression: Chronic systolic CHF (congestive heart failure), Acute chest pain Disposition: OP ADMIT IP TO THIS HOSP Is pt being admited?: Yes Does the pt Need Aspirin: Yes Condition: Fair Instructions: Chest Pain (ED) Referrals: ROME ANNA MD [Primary Care Provider] - 3-5 Days Time of Disposition: 23:01 CLAUDY score - Claudy Score Age > 65: (0) No Aspirin use within the Past 7 Days: (1) Yes 3 or more CAD Risk Factors: (1) Yes 2 or more Angina events in past 24 hrs: (1) Yes Known CAD with more than 50% Stenosis: (0) No Elevated Cardiac Markers: (0) No ST Deviation Greater than 0.5mm: (0) No CLAUDY Score: 3
[2017-12-13] MEDS ORDERED: BABY ASPIRIN PO ONE (23:22)
[2017-12-13] MEDS: ASPIRIN PO ONE ×2 (23:41→23:43)
[2017-12-14] MEDS ORDERED: LASIX IV ONE (00:37)
[2017-12-14] MEDS ORDERED: LASIX ONE (00:55)
[2017-12-14] MEDS ORDERED: NITROSTAT SL PRN (08:01)
[2017-12-14] MEDS ORDERED: ZOFRAN IV PRN (08:01)
[2017-12-14] MEDS ORDERED: TYLENOL PO PRN (08:01)
[2017-12-14] MEDS ORDERED: NORCO 5/325 PO PRN (08:01)
[2017-12-14] MEDS ORDERED: D50W (25GM) Syringe IV PRN (08:04)
--- NOTE | 2017-12-14 09:28 | History and Physical Report ---
History of Present Illness Date of examination: 12/14/17 Date of admission: 12/14/17 00:34 Chief complaint: SOB History of present illness: Mr. Jones is a 67 yo man with a history of hypertension, dm type 2, gerd, oa, ckd stage 3 (last Cr in our EMR was 1.2 in 2017), gout, glaucoma, JONATHAN non- tolerated to cpap mask, non ischemic Cardiomyopathy, chf, p. afib on Eliquis and PPM/AICD who presents to ED via request of his Hospital Medical Biller, Dr. Hopson's office, for fluid overload. Patient reports progressive worsening severe constant IGNACIO x 1 month associated with dry cough followed by generalized bilateral chest discomfort. He notified his Hospital Medical B[facility] when he could not lay flat. He has symptoms of Orthopnea and PND. He denies fever, chills, n/v. PMH: as Hpi, occasion hypotension on bp medications PSH: PPM implantation, Right eye surgery called STEM surgery for Glaucoma SH: chews tobacco, denies ETOH and drug abuse FH: hypertension but no early AMIs as uncles and grandmother had heart attacks, denies DM ROS: Constitutional: denies: fever ENT: denies: throat or neck pain Respiratory: +cough, shortness of breath Cardiovascular: + chest pain Endocrine: denies unexplained weight loss or gain Gastrointestinal: denies: abdominal pain, nausea, +swelling Genitourinary: denies: dysuria Rectal: denies no incontinence, no bleeding, no itching, no discharge Musculoskeletal: denies swelling, myaglia, muscle weakness Skin: denies: rash Neurological: denies: headache Hematological/Lymphatic: denies: easy bleeding or easy bruising Allergic/Immunologic: no urticaria, no allergic rhinitis, no anaphylaxis Psych: denies sadness or hopelessness, SI/HI Medications and Allergies Allergies Allergy/AdvReac Type Severity Reaction Status Date / Time No Known Allergies Allergy Verified 03/03/17 09:44 Home Medications Medication Instructions Recorded Confirmed Last Taken Type Allopurinol [Zyloprim] 100 mg PO QDAY #30 tablet 03/15/17 12/14/17 04/03/17 Rx Apixaban [Eliquis] 5 mg PO BID #30 tablet 04/12/17 12/14/17 Unknown Rx Losartan [Cozaar] 25 mg PO QDAY #30 tablet 04/12/17 12/14/17 Unknown Rx Bumetanide 1 mg PO Q48H #30 tablet 05/26/17 12/14/17 Unknown Rx Metoprolol [Lopressor TAB] 50 mg PO BID tablet 05/26/17 12/14/17 Unknown Rx Active Meds: Active Medications Acetaminophen (Tylenol) 650 mg PO Q6H PRN PRN Reason: Non Cardiac Pain or Temp>100.5 Acetaminophen/Hydrocodone Bitart ([place] 5/325) 1 each PO Q4H PRN PRN Reason: Pain, Moderate (4-6) Allopurinol (Zyloprim) 100 mg PO QDAY SHANDA Apixaban (Eliquis) 5 mg PO BID SHANDA; Protocol Dextrose (D50w (25gm) Syringe) 50 ml IV PRN PRN PRN Reason: Hypoglycemia Furosemide (Lasix) 20 mg IV QDAY SHANDA Milrinone Lactate/Dextrose (Milrinone-D5w 20 Mg/100 Ml) 20 mg in 100 mls @ 12.465 mls/hr IV TITR SHANDA Stop: 12/17/17 08:59 Insulin Human Lispro (Humalog) 0 unit SUB-Q ACHS SHANDA; Protocol Losartan Potassium (Cozaar) 25 mg PO QDAY [facility] Metoprolol Tartrate (Lopressor) 50 mg PO BID SHANDA Nitroglycerin (Nitrostat) 0.4 mg SL .Q5MIN PRN PRN Reason: Chest Pain Ondansetron HCl (Zofran) 4 mg IV Q4H PRN PRN Reason: Nausea And Vomiting Pantoprazole Sodium (Protonix) 40 mg PO QDAY [facility] Polyethylene Glycol (Miralax 3350) 17 gm PO QDAY PRN PRN Reason: Constipation Zolpidem Tartrate (Ambien) 5 mg PO QHS PRN PRN Reason: Sleep Exam - Physical Exam Narrative exam: GEN: WDWN, NAD, Awake, Alert, Orientated x 3 HEENT: NCAT, EOMI, PERRL, OP Clear except for decay/rotten teeth all over NECK: supple, no adenopathy, no thyromegaly, + JVD CVS/HEART: regular irregular, normal S1S2, pulses present bilaterally, ppm left cw without tenderness CHEST/LUNGS: diminished bs bilateral, Symmetrical chest expansion, good air entry bilaterally GI/Abdomen: soft, NTND, good bowel sounds, no guarding or rebound, flank edema /Bladder: no suprapubic tenderness, no CVA or paraspinal tenderness EXT/Skin: trace pretibial edema, no obvious rash MSK: FROM x 4 Neuro: CN 2-12 grossly intact, no new focal deficits Psych: calm - Constitutional Vitals: Temp Pulse Resp BP Pulse Ox 97.9 F 87 20 109/67 95 12/14/17 08:03 12/14/17 08:03 12/14/17 08:03 12/14/17 08:03 12/14/17 08:03 Results - Labs CBC & Chem 7: 12/13/17 14:01 12/13/17 14:01 Labs: Abnormal lab results 12/13/17 12/13/17 Range/Units 14:01 14:01 RBC 5.79 H (3.65-5.03) M/mm3 Hct 46.8 H (35.5-45.6) % MCV 81 L (84-94) fl MCH 25 L (28-32) pg MCHC 31 L (32-34) % RDW 18.7 H (13.2-15.2) % Lymph % (Auto) 36.6 H (13.4-35.0) % [place] % (Auto) 10.1 H (0.0-7.3) % Glucose 194 H (75-100) mg/dL NT-Pro-B Natriuret Pep 1353 H (0-900) pg/mL Assessment and Plan Mr. Jones is a 67 yo man with a history of hypertension, dm type 2, gerd, oa, CKD stage 3 (last Cr in our EMR was 1.2 in 2017), gout, glaucoma, JONATHAN non- tolerated to cpap mask, non ischemic Cardiomyopathy, chf, p. afib on Eliquis and PPM/AICD who presents to ED via request of his Hospital Medical Biller, Dr. Hopson's office, for fluid overload. Patient reports progressive worsening severe constant IGNACIO x 1 month associated with dry cough followed by generalized bilateral chest discomfort. He notified his Hospital Medical Biller when he could not lay flat. He has symptoms of Orthopnea and PND. He denies fever, chills, n/v. The IV lasix given in ED helped tremendously. 2v CXR: no cardiopulmonary process, stable Cardiomegaly. -Acute on Chronic systolic heart failure: treat with iv lasix but cautiously because of borderline hypotension, consult Cardiology -Aflutter: consult Cardiology -CORRIE/CKD 3, vasomotor nephrology: consult his Nephrology -DM type 2: ssi, ada -DVT prophylaxis: on Eliquis
[2017-12-14] MEDS ORDERED: MIRALAX 3350 PO PRN (10:00)
--- NOTE | 2017-12-14 10:46 | Consultation ---
History of Present Illness Consult date: 12/14/17 Consult reason: congestive heart failure History of present illness: This is a 67 year old man who presented with shortness of breath, admitted with decompensated systolic heart failure. Patient has a history of a dilated nonischemic ischemic cardiomyopathy by a cardiac catheterization at [facility] 3 years ago that demonstrated no significant coronary artery disease. His latest echocardiogram reports a left ventricle systolic ejection fraction 20-25%, Recent persantine thallium stress test showed no ischemia. He has a internal cardiac defibrillator in situ for primary prevention. In addition , he is on Eliquis for paroxysmal atrial fibrillation. EKG reveals ventricular pacemaker complexes. Medications and Allergies Allergies Allergy/AdvReac Type Severity Reaction Status Date / Time No Known Allergies Allergy Verified 03/03/17 09:44 Home Medications Medication Instructions Recorded Confirmed Last Taken Type Allopurinol [Zyloprim] 100 mg PO QDAY #30 tablet 03/15/17 12/14/17 04/03/17 Rx Apixaban [Eliquis] 5 mg PO BID #30 tablet 04/12/17 12/14/17 Unknown Rx Losartan [Cozaar] 25 mg PO QDAY #30 tablet 04/12/17 12/14/17 Unknown Rx Bumetanide 1 mg PO Q48H #30 tablet 05/26/17 12/14/17 Unknown Rx Metoprolol [Lopressor TAB] 50 mg PO BID tablet 05/26/17 12/14/17 Unknown Rx Active Meds: Active Medications Acetaminophen (Tylenol) 650 mg PO Q6H PRN PRN Reason: Non Cardiac Pain or Temp>100.5 Acetaminophen/Hydrocodone Bitart ([place] 5/325) 1 each PO Q4H PRN PRN Reason: Pain, Moderate (4-6) Allopurinol (Zyloprim) 100 mg PO QDAY SHANDA Apixaban (Eliquis) 5 mg PO BID SHANDA; Protocol Dextrose (D50w (25gm) Syringe) 50 ml IV PRN PRN PRN Reason: Hypoglycemia Furosemide (Lasix) 20 mg IV QDAY SHANDA Milrinone Lactate/Dextrose (Milrinone-D5w 20 Mg/100 Ml) 20 mg in 100 mls @ 12.465 mls/hr IV TITR SHANDA Stop: 12/17/17 08:59 Insulin Human Lispro (Humalog) 0 unit SUB-Q ACHS SHANDA; Protocol Losartan Potassium (Cozaar) 25 mg PO QDAY SHANDA Metoprolol Tartrate (Lopressor) 50 mg PO BID SHANDA Nitroglycerin (Nitrostat) 0.4 mg SL .Q5MIN PRN PRN Reason: Chest Pain Ondansetron HCl (Zofran) 4 mg IV Q4H PRN PRN Reason: Nausea And Vomiting Pantoprazole Sodium (Protonix) 40 mg PO QDAY SHANDA Polyethylene Glycol (Miralax 3350) 17 gm PO QDAY PRN PRN Reason: Constipation Zolpidem Tartrate (Ambien) 5 mg PO QHS PRN PRN Reason: Sleep Physical Examination Vital Signs Temp Pulse Resp BP Pulse Ox 98 F 72 18 108/76 94 12/13/17 13:26 12/13/17 13:26 12/13/17 13:26 12/13/17 13:26 12/13/17 13:26 General appearance: no acute distress HEENT: Positive: PERRL Cardiac: Positive: Other (v-paced) Lungs: Positive: Decreased Breath Sounds Neuro: Positive: Grossly Intact Extremities: Absent: edema Results 12/13/17 14:01 12/13/17 14:01 CBC 12/13/17 Range/Units 14:01 WBC 7.3 (4.5-11.0) K/mm3 RBC 5.79 H (3.65-5.03) M/mm3 Hgb 14.6 (11.8-15.2) gm/dl Hct 46.8 H (35.5-45.6) % Plt Count 244 (140-440) K/mm3 Lymph # 2.7 (1.2-5.4) K/mm3 [place] # 0.7 (0.0-0.8) K/mm3 Eos # 0.1 (0.0-0.4) K/mm3 Baso # 0.1 (0.0-0.1) K/mm3 Comprehensive Metabolic Panel 12/13/17 Range/Units 14:01 Sodium 141 (137-145) mmol/L Potassium 4.5 (3.6-5.0) mmol/L Chloride 104.1 (98-107) mmol/L Carbon Dioxide 22 (22-30) mmol/L BUN 20 (9-20) mg/dL Creatinine 1.5 (0.8-1.5) mg/dL Glucose 194 H (75-100) mg/dL Calcium 9.2 (8.4-10.2) mg/dL Assessment and Plan Acute systolic heart failure Acute renal failure Dilated Nonischemic cardiomyopathy, EF 20-25% on echo 12/2016 no ischemia on MPI 12/2016 [facility] at [place]: no significant CAD Presence of AICD Paroxysmal Afib on eliquis for oral anticoagulation Anxiety disorder Plan: Continue medical therapy for dilated nonischemic cardiomyopathy. We will add a trial of intravenous milrinone for aggressive management. Fluid/sodium restrictions. Daily weight.
[2017-12-14] MEDS: LOPRESSOR PO SCH ×3 (11:44→21:54)
[2017-12-14] MEDS: COZAAR PO SCH (11:45)
[2017-12-14] MEDS: PROTONIX PO SCH (11:45)
[2017-12-14] MEDS: ELIQUIS PO SCH ×2 (11:45→21:53)
[2017-12-14] MEDS: ZYLOPRIM PO SCH (11:45)
[2017-12-14] MEDS: MILRINONE-D5W 20 MG/100 ML 20 MG/100 ML BAG IV SCH (11:46)
[2017-12-14] MEDS: HumaLOG SUB-Q SCH ×3 (14:15→21:52)
--- NOTE | 2017-12-14 16:04 | Consultation ---
History of Present Illness - Reason for Consult Consult date: 12/14/17 acute renal failure, chronic renal failure - History of Present Illness Mr. Jones is a 67yo with CKD and systolic heart failure who presented to the ED with progressive worsening of IGNACIO w/ ADLs, orthopnea and abdominal distention. He reports admission was recommended appx 1 month ago but patient declined. Medications were instead adjusted at that time. He reports compliance with medications. However, he reports a high intake of dietary salt - eating canned soups frequently as his was recently hospitalized. He denies chest pain, leg swelling, nausea, vomiting. He reports dysuria. Past History Past Medical History: atrial fib, diabetes, heart failure, hypertension Past Surgical History: Other (PPM implantation, Right eye surgery ) Social history: , lives with family Family history: other (no family hx of kidney disease) Medications and Allergies Allergies Allergy/AdvReac Type Severity Reaction Status Date / Time No Known Allergies Allergy Verified 03/03/17 09:44 Home Medications Medication Instructions Recorded Confirmed Last Taken Type Allopurinol [Zyloprim] 100 mg PO QDAY #30 tablet 03/15/17 12/14/17 04/03/17 Rx Apixaban [Eliquis] 5 mg PO BID #30 tablet 04/12/17 12/14/17 Unknown Rx Losartan [Cozaar] 25 mg PO QDAY #30 tablet 04/12/17 12/14/17 Unknown Rx Bumetanide 1 mg PO Q48H #30 tablet 05/26/17 12/14/17 Unknown Rx Metoprolol [Lopressor TAB] 50 mg PO BID tablet 05/26/17 12/14/17 Unknown Rx Active Meds: Active Medications Acetaminophen (Tylenol) 650 mg PO Q6H PRN PRN Reason: Non Cardiac Pain or Temp>100.5 Acetaminophen/Hydrocodone Bitart ([place] 5/325) 1 each PO Q4H PRN PRN Reason: Pain, Moderate (4-6) Allopurinol (Zyloprim) 100 mg PO QDAY SHANDA Last Admin: 12/14/17 11:45 Dose: 100 mg Apixaban (Eliquis) 5 mg PO BID SHANDA; Protocol Last Admin: 12/14/17 11:45 Dose: 5 mg Dextrose (D50w (25gm) Syringe) 50 ml IV PRN PRN PRN Reason: Hypoglycemia Furosemide (Lasix) 20 mg IV QDAY [facility] Milrinone Lactate/Dextrose (Milrinone-D5w 20 Mg/100 Ml) 20 mg in 100 mls @ 12.465 mls/hr IV TITR [facility] Stop: 12/17/17 08:59 Last Admin: 12/14/17 11:46 Dose: 0.375 mcg/kg/min, 12.465 mls/hr Insulin Human Lispro (Humalog) 0 unit SUB-Q ACHS [facility]; Protocol Last Admin: 12/14/17 14:15 Dose: 1 unit Losartan Potassium (Cozaar) 25 mg PO QDAY [facility] Last Admin: 12/14/17 11:45 Dose: 25 mg Metoprolol Tartrate (Lopressor) 50 mg PO BID [facility] Last Admin: 12/14/17 11:44 Dose: 50 mg Nitroglycerin (Nitrostat) 0.4 mg SL .Q5MIN PRN PRN Reason: Chest Pain Ondansetron HCl (Zofran) 4 mg IV Q4H PRN PRN Reason: Nausea And Vomiting Pantoprazole Sodium (Protonix) 40 mg PO QDAY [facility] Last Admin: 12/14/17 11:45 Dose: 40 mg Polyethylene Glycol (Miralax 3350) 17 gm PO QDAY PRN PRN Reason: Constipation Zolpidem Tartrate (Ambien) 5 mg PO QHS PRN PRN Reason: Sleep Review of Systems All systems: negative Exam - Vital Signs Vital signs: Vital Signs Temp Pulse Resp BP Pulse Ox 98 F 72 18 108/76 94 12/13/17 13:26 12/13/17 13:26 12/13/17 13:26 12/13/17 13:26 12/13/17 13:26 - General Appearance General appearance: well-developed, well-nourished EENT: ATNC Respiratory: Decreased Breath Sounds Heart: regular, S1S2 Gastrointestinal: Present: distended. Absent: tenderness Integumentary: no rash, warm and dry Neurologic: no focal deficit, alert and oriented x3 Musculoskeletal: Present: other (trace LE edema) Psychiatric: cooperative Results - Lab Results 12/13/17 14:01 12/13/17 14:01 Most recent lab results Calcium 9.2 mg/dL (8.4-10.2) 12/13/17 14:01 Assessment and Plan Impression * Acute kidney injury secondary to decreased effective circulatory volume/ cardiorenal syndrome --Baseline SCr 1.1-1.3mg/dL --Prior work up notable for Hep B/C negative, ANCA neg, C3/C4 wnl, urine eos neg, UPCR 0.12g * Acute on chronic systolic heart failure --TTE: LVEF 25-30% (December 2016) * Chronic atrial fibrillation * Hypertension * Type II Diabetes * Dysuria Recommendations * No acute indication for renal replacement therapy * Continue diuresis - will order Lasix 40mg IV BID * Optimization of cardiac function - continue Milrinone gtt * Will check UA, UPCR * Avoid nephrotoxins * Monitor patient's fluid status and electrolytes closely * Strict I/O, daily weight * Fluid restriction 1500ml/day
[2017-12-14] MEDS: LASIX IV SCH (17:32)
[2017-12-14] MEDS ORDERED: AMBIEN PO PRN (22:00)
[2017-12-15] MEDS: LASIX IV SCH ×3 (07:29→17:27)
[2017-12-15] MEDS: HumaLOG SUB-Q SCH ×5 (08:30→22:26)
--- NOTE | 2017-12-15 09:07 | Progress Note ---
Assessment and Plan Acute systolic heart failure Acute renal failure Dilated Nonischemic cardiomyopathy, EF 20-25% on echo 12/2016 no ischemia on MPI 12/2016 [facility] at [place]: no significant CAD Presence of AICD Paroxysmal Afib on eliquis for oral anticoagulation Anxiety disorder Plan: Continue aggressive medical therapy for dilated nonischemic cardiomyopathy. Daily labs. Fluid/sodium restrictions. Daily weight. Subjective Date of service: 12/15/17 Interval history: Patient reports his breathing is improving. IV milrinone continues. Objective Vital Signs Temp Pulse Resp Resp BP BP Pulse Ox 12/15/17 08:23 72 12/15/17 08:05 97.7 F 79 20 99/70 95 12/15/17 04:38 97.5 F L 80 18 104/70 104/70 100 12/15/17 04:37 80 97 12/14/17 23:40 97.5 F L 80 20 95/61 98 12/14/17 21:54 80 77/45 12/14/17 21:42 22 12/14/17 19:20 97.9 F 80 77/45 99 12/14/17 17:06 87 12/14/17 16:21 98.0 F 79 20 101/70 98 12/14/17 11:55 98.2 F 73 20 112/73 98 - Physical Examination General: No Apparent Distress HEENT: Positive: PERRL Cardiac: Positive: Other (v paced) Neuro: Positive: Grossly Intact Extremities: Absent: edema
[2017-12-15 09:16] LABS: Bilirubin,Urine NEG (Negative); Blood,Urine NEG (Negative); Color,Urine Yellow (Yellow); Protein,Urine <15 mg/dL mg/dL (Negative); Urobilinogen,Urine < 2.0 mg/dL (<2.0)
--- NOTE | 2017-12-15 09:35 | Progress Note ---
Assessment and Plan Assessment and plan: Mr. Jones is a 67 yo man with a history of hypertension, dm type 2, gerd, oa, CKD stage 3 (last Cr in our EMR was 1.2 in 2017), gout, glaucoma, JONATHAN non- tolerated to cpap mask, non ischemic Cardiomyopathy, chf, p. 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 Hopson's office, for fluid overload. Patient reports progressive worsening severe constant IGNACIO x 1 month associated with dry cough followed by generalized bilateral chest discomfort. 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 He has symptoms of Orthopnea and PND. He denies fever, chills, n/v. The IV lasix given in ED helped tremendously. * 2v CXR: no cardiopulmonary process, stable Cardiomegaly. -Acute on Chronic systolic heart failure: treat with iv lasix but cautiously because of borderline hypotension, consult Cardiology -Aflutter: consult Cardiology -CORRIE/CKD 3, vasomotor nephropathy: consult his Nephrology -DM type 2: ssi, ada -DVT prophylaxis: on Eliquis -NSVT: called and discussed with Dr. Kelley, check his electrolytes, ?ppm interrogation -Hypotension: Cardiology notified, labs are pending Milirone iv drip started yesterday by Cardiology History Interval history: Patient was seen and examined. Follow-up on current diagnosis of SOB, improved. Overnight uneventful. Patient denies any chest pain, nausea/vomiting or severe headaches. Imaging, nursing note, chart, labs and old chart reviewed. Discussed with patient. Hospitalist Physical - Physical exam Narrative exam: GEN: WDWN, NAD, Awake, Alert, Orientated x 3 HEENT: NCAT, EOMI, PERRL, OP Clear except for decay/rotten teeth all over NECK: supple, no adenopathy, no thyromegaly, + JVD CVS/HEART: regular irregular, normal S1S2, pulses present bilaterally, ppm left cw without tenderness CHEST/LUNGS: diminished bs bilateral, Symmetrical chest expansion, good air entry bilaterally GI/Abdomen: soft, NTND, good bowel sounds, no guarding or rebound, flank edema /Bladder: no suprapubic tenderness, no CVA or paraspinal tenderness EXT/Skin: trace pretibial edema, no obvious rash MSK: FROM x 4 Neuro: CN 2-12 grossly intact, no new focal deficits Psych: calm - Constitutional Vitals: Temp Pulse Resp BP Pulse Ox 97.7 F 72 20 99/70 95 12/15/17 08:05 12/15/17 08:23 12/15/17 08:05 12/15/17 08:05 12/15/17 08:05 General appearance: Present: no acute distress Results - Labs CBC & Chem 7: 12/13/17 14:01 12/13/17 14:01 Labs: Laboratory Last Values WBC 7.3 K/mm3 (4.5-11.0) 12/13/17 14:01 RBC 5.79 M/mm3 (3.65-5.03) H 12/13/17 14:01 Hgb 14.6 gm/dl (11.8-15.2) 12/13/17 14:01 Hct 46.8 % (35.5-45.6) H 12/13/17 14:01 MCV 81 fl (84-94) L 12/13/17 14:01 MCH 25 pg (28-32) L 12/13/17 14:01 MCHC 31 % (32-34) L 12/13/17 14:01 RDW 18.7 % (13.2-15.2) H 12/13/17 14:01 Plt Count 244 K/mm3 (140-440) 12/13/17 14:01 Lymph % (Auto) 36.6 % (13.4-35.0) H 12/13/17 14:01 [place] % (Auto) 10.1 % (0.0-7.3) H 12/13/17 14:01 Eos % (Auto) 1.5 % (0.0-4.3) 12/13/17 14:01 Baso % (Auto) 1.3 % (0.0-1.8) 12/13/17 14:01 Lymph # 2.7 K/mm3 (1.2-5.4) 12/13/17 14:01 [place] # 0.7 K/mm3 (0.0-0.8) 12/13/17 14:01 Eos # 0.1 K/mm3 (0.0-0.4) 12/13/17 14:01 Baso # 0.1 K/mm3 (0.0-0.1) 12/13/17 14:01 Seg Neutrophils % 50.5 % (40.0-70.0) 12/13/17 14:01 Seg Neutrophils # 3.7 K/mm3 (1.8-7.7) 12/13/17 14:01 Sodium 141 mmol/L (137-145) 12/13/17 14:01 Potassium 4.5 mmol/L (3.6-5.0) 12/13/17 14:01 Chloride 104.1 mmol/L (98-107) 12/13/17 14:01 Carbon Dioxide 22 mmol/L (22-30) 12/13/17 14:01 Anion Gap 19 mmol/L 12/13/17 14:01 BUN 20 mg/dL (9-20) 12/13/17 14:01 Creatinine 1.5 mg/dL (0.8-1.5) 12/13/17 14:01 Estimated GFR 57 ml/min 12/13/17 14:01 BUN/Creatinine Ratio 13 % 12/13/17 14:01 Glucose 194 mg/dL (75-100) H 12/13/17 14:01 POC Glucose 121 (70-105) H 12/15/17 06:33 Calcium 9.2 mg/dL (8.4-10.2) 12/13/17 14:01 Troponin T < 0.010 ng/mL (0.00-0.029) 12/13/17 19:26 NT-Pro-B Natriuret Pep 1353 pg/mL (0-900) H 12/13/17 14:01 Urine Color Yellow (Yellow) 12/15/17 08:20 Urine Turbidity Clear (Clear) 12/15/17 08:20 Urine pH 5.0 (5.0-7.0) 12/15/17 08:20 Ur Specific [place] 1.015 (1.003-1.030) 12/15/17 08:20 Urine Protein <15 mg/dl mg/dL (Negative) 12/15/17 08:20 Urine Glucose (UA) Neg mg/dL (Negative) 12/15/17 08:20 Urine Ketones Neg mg/dL (Negative) 12/15/17 08:20 Urine Blood Neg (Negative) 12/15/17 08:20 Urine Nitrite Neg (Negative) 12/15/17 08:20 Urine Bilirubin Neg (Negative) 12/15/17 08:20 Urine Urobilinogen < 2.0 mg/dL (<2.0) 12/15/17 08:20 Ur Leukocyte Esterase Neg (Negative) 12/15/17 08:20 Urine WBC (Auto) 1.0 /HPF (0.0-6.0) 12/15/17 08:20 Urine RBC (Auto) 1.0 /HPF (0.0-6.0) 12/15/17 08:20
[2017-12-15] MEDS: COZAAR PO SCH ×2 (10:03→10:05)
[2017-12-15] MEDS: LOPRESSOR PO SCH ×2 (10:03→21:37)
[2017-12-15] MEDS: ELIQUIS PO SCH ×2 (10:03→21:38)
[2017-12-15] MEDS: PROTONIX PO SCH (10:03)
[2017-12-15] MEDS: ZYLOPRIM PO SCH (10:04)
--- NOTE | 2017-12-15 12:03 | Progress Note ---
Assessment and Plan Impression * Acute kidney injury secondary to decreased effective circulatory volume/ cardiorenal syndrome --Baseline SCr 1.1-1.3mg/dL --Prior work up notable for Hep B/C negative, ANCA neg, C3/C4 wnl, urine eos neg, UPCR 0.12g * Acute on chronic systolic heart failure --TTE: LVEF 25-30% (December 2016) * Chronic atrial fibrillation * Hypertension * Type II Diabetes * Dysuria Recommendations * Continue diuresis - will order Lasix 40mg IV BID * Optimization of cardiac function - continue Milrinone gtt * UA, UPCR pending * Avoid nephrotoxins * Monitor patient's fluid status and electrolytes closely * Strict I/O, daily weight * Fluid restriction 1500ml/day Subjective Date of service: 12/15/17 Interval history: Patient reports that his breathing is improved Objective - Vital Signs Vital signs: Vital Signs - 12hr 12/15/17 12/15/17 12/15/17 04:37 04:38 08:05 Temperature 97.5 F L 97.7 F Pulse Rate 80 80 79 Respiratory 18 20 Rate Blood Pressure 104/70 Blood Pressure 104/70 99/70 [Right] O2 Sat by Pulse 97 100 95 Oximetry 12/15/17 12/15/17 08:23 10:06 Temperature Pulse Rate 72 Respiratory Rate Blood Pressure Blood Pressure [Right] O2 Sat by Pulse 98 Oximetry - General Appearance General appearance: well-developed, well-nourished EENT: ATNC Respiratory: Present: Decreased Breath Sounds Cardiology: regular, S1S2 Gastrointestinal: no tenderness, distended Integumentary: no rash, warm and dry Neurologic: no focal deficit Musculoskeletal: other (no edema) Psychiatric: cooperative - Lab 12/13/17 14:01 12/15/17 08:04 Most recent lab results Calcium 9.2 mg/dL (8.4-10.2) 12/13/17 14:01
[2017-12-15 12:19] LABS: Albumin 3.7 g/dL (3.9-5); Calcium 8.7 mg/dL (8.4-10.2)
[2017-12-15 12:33] LABS: Creatinine,Urine 110.8 mg/dL (0.1-20.0); Protein/Creatinine Ratio,Urine 0.05
[2017-12-15] MEDS: CORDARONE PO SCH ×2 (13:38→21:38)
[2017-12-16] MEDS: LASIX IV SCH ×2 (05:01→13:49)
[2017-12-16] MEDS: MILRINONE-D5W 20 MG/100 ML 20 MG/100 ML BAG IV SCH ×3 (05:01→15:27)
[2017-12-16 07:23] LABS: Calcium 8.7 mg/dL (8.4-10.2)
[2017-12-16] MEDS: HumaLOG SUB-Q SCH ×4 (07:44→22:41)
--- NOTE | 2017-12-16 09:10 | Progress Note ---
Assessment and Plan Acute systolic heart failure Acute renal failure Transient atrial tachycardia on telemetry amiodarone added to medication regimen Dilated Nonischemic cardiomyopathy EF 20-25% on echo 12/2016 no ischemia on MPI 12/2016 [facility] at [place]: no significant CAD Presence of AICD Paroxysmal Afib on eliquis for oral anticoagulation Anxiety disorder Plan: Continue aggressive medical therapy for dilated nonischemic cardiomyopathy. Daily labs. Fluid/sodium restrictions. Daily weight. Subjective Date of service: 12/16/17 Interval history: Patient is resting in bed comfortably. Reports his breathing is improving. No distress noted. Objective Vital Signs Temp Pulse Resp BP BP Pulse Ox 12/16/17 07:41 97.6 F 80 16 80/44 88 12/16/17 04:49 80 20 111/76 94 12/16/17 00:28 85 12/15/17 23:00 98.3 F 77 20 104/63 96 12/15/17 20:01 97 12/15/17 19:36 98.4 F 76 19 101/65 98 12/15/17 17:37 97.9 F 81 20 102/71 100 12/15/17 16:00 62 12/15/17 11:35 97.8 F 70 20 118/74 98 12/15/17 10:06 98 - Physical Examination General: No Apparent Distress HEENT: Positive: PERRL Cardiac: Positive: Reg Rate and Rhythm Lungs: Positive: Decreased Breath Sounds Neuro: Positive: Grossly Intact Extremities: Absent: edema - Labs and Meds Cardiac Enzymes 12/15/17 Range/Units 08:04 AST 19 (5-40) units/L Comprehensive Metabolic Panel 12/15/17 12/16/17 Range/Units 08:04 06:10 Sodium 139 138 (137-145) mmol/L Potassium 4.2 3.9 (3.6-5.0) mmol/L Chloride 99.4 97.4 L (98-107) mmol/L Carbon Dioxide 24 26 (22-30) mmol/L BUN 28 H 34 H (9-20) mg/dL Creatinine 1.6 H 1.7 H (0.8-1.5) mg/dL Glucose 116 H 129 H (75-100) mg/dL Calcium 8.7 8.7 (8.4-10.2) mg/dL AST 19 (5-40) units/L ALT 11 (7-56) units/L Alkaline Phosphatase 81 (35-129) units/L Total Protein 6.8 (6.3-8.2) g/dL Albumin 3.7 L (3.9-5) g/dL
--- NOTE | 2017-12-16 10:36 | Progress Note ---
Assessment and Plan Impression * Acute kidney injury secondary to decreased effective circulatory volume/ cardiorenal syndrome --Baseline SCr 1.1-1.3mg/dL --Prior work up notable for Hep B/C negative, ANCA neg, C3/C4 wnl * Acute on chronic systolic heart failure --TTE: LVEF 25-30% (December 2016) * Chronic atrial fibrillation * Hypertension * Type II Diabetes * Dysuria Recommendations * Gradual increase in SCr noted. Reduce frequency of Lasix to 40mg IV daily * Milrinone gtt per cardiology * Avoid nephrotoxins * Monitor patient's fluid status and electrolytes closely * Strict I/O, daily weight * Fluid restriction 1500ml/day Subjective Date of service: 12/16/17 Interval history: Patient reports that he is feeling better. Still SOB with little exertion Objective - Vital Signs Vital signs: Vital Signs - 12hr 12/15/17 12/16/17 12/16/17 23:00 00:28 04:49 Temperature 98.3 F Pulse Rate 77 85 80 Respiratory 20 20 Rate Blood Pressure 111/76 Blood Pressure 104/63 [Right] O2 Sat by Pulse 96 94 Oximetry 12/16/17 07:41 Temperature 97.6 F Pulse Rate 80 Respiratory 16 Rate Blood Pressure 80/44 Blood Pressure [Right] O2 Sat by Pulse 88 Oximetry - General Appearance General appearance: well-developed, well-nourished EENT: ATNC Respiratory: Present: Decreased Breath Sounds Cardiology: regular, S1S2 Gastrointestinal: normal, no tenderness, distended, obese Integumentary: no rash, warm and dry Neurologic: no focal deficit Musculoskeletal: other (no edema) Psychiatric: cooperative - Lab 12/13/17 14:01 12/16/17 06:10 Most recent lab results Calcium 8.7 mg/dL (8.4-10.2) 12/16/17 06:10 Magnesium 1.90 mg/dL (1.7-2.3) 12/15/17 08:04 Urine Creatinine 110.8 mg/dL (0.1-20.0) H 12/15/17 08:20 Urine Total Protein 6 mg/dL (5-11.8) 12/15/17 08:20
[2017-12-16] MEDS: ELIQUIS PO SCH ×2 (12:40→21:53)
[2017-12-16] MEDS: CORDARONE PO SCH ×2 (12:40→21:53)
[2017-12-16] MEDS: LOPRESSOR PO SCH ×2 (12:41→21:44)
[2017-12-16] MEDS: PROTONIX PO SCH (12:42)
[2017-12-16] MEDS: ZYLOPRIM PO SCH (12:42)
--- NOTE | 2017-12-16 17:11 | Progress Note ---
Assessment and Plan Assessment and plan: Mr. Jones is a 67 yo man with a history of hypertension, dm type 2, gerd, oa, CKD stage 3 (last Cr in our EMR was 1.2 in 2017), gout, glaucoma, JONATHAN non- tolerated to cpap mask, non ischemic Cardiomyopathy, chf, p. afib on Eliquis and PPM/AICD who presents to ED via request of his Hvac R Tech, Dr. Hopson's office, for fluid overload. Patient reports progressive worsening severe constant IGNACIO x 1 month associated with dry cough followed by generalized bilateral chest discomfort. He notified his Hvac R Tech when he could not lay flat. He has symptoms of Orthopnea and PND. He denies fever, chills, n/v. The IV lasix given in ED helped tremendously. * 2v CXR: no cardiopulmonary process, stable Cardiomegaly. -Acute on Chronic systolic heart failure: treat with iv lasix but cautiously because of borderline hypotension, consult Cardiology -Aflutter with RVR: Cardiology is following -CORRIE/CKD 3, vasomotor nephropathy: Nephrology is following -DM type 2: ssi, ada -DVT prophylaxis: on Eliquis -NSVT: Cardiology is following -Hypotension: Cardiology notified, meds adjusted Cr increasing, d/w Nephrology, will decrease iv lasix and recheck in am Milirone iv drip started Wednesday by Cardiology History Interval history: Patient was seen and examined. Follow-up on current diagnosis of SOB, improved. Overnight uneventful. Patient denies any chest pain, nausea/vomiting or severe headaches. Imaging, nursing note, chart, labs and old chart reviewed. Discussed with patient. Hospitalist Physical - Physical exam Narrative exam: GEN: WDWN, NAD, Awake, Alert, Orientated x 3 HEENT: NCAT, EOMI, PERRL, OP Clear except for decay/rotten teeth all over NECK: supple, no adenopathy, no thyromegaly, + JVD CVS/HEART: regular irregular, normal S1S2, pulses present bilaterally, ppm left cw without tenderness CHEST/LUNGS: diminished bs bilateral, Symmetrical chest expansion, good air entry bilaterally GI/Abdomen: soft, NTND, good bowel sounds, no guarding or rebound, flank edema /Bladder: no suprapubic tenderness, no CVA or paraspinal tenderness EXT/Skin: trace pretibial edema, no obvious rash MSK: FROM x 4 Neuro: CN 2-12 grossly intact, no new focal deficits Psych: calm - Constitutional Vitals: Temp Pulse Resp BP Pulse Ox 97.6 F 67 16 103/44 93 12/16/17 13:11 12/16/17 13:11 12/16/17 13:11 12/16/17 13:11 12/16/17 13:11 General appearance: Present: no acute distress Results - Labs CBC & Chem 7: 12/13/17 14:01 12/16/17 06:10 Labs: Laboratory Last Values WBC 7.3 K/mm3 (4.5-11.0) 12/13/17 14:01 RBC 5.79 M/mm3 (3.65-5.03) H 12/13/17 14:01 Hgb 14.6 gm/dl (11.8-15.2) 12/13/17 14:01 Hct 46.8 % (35.5-45.6) H 12/13/17 14:01 MCV 81 fl (84-94) L 12/13/17 14:01 MCH 25 pg (28-32) L 12/13/17 14:01 MCHC 31 % (32-34) L 12/13/17 14:01 RDW 18.7 % (13.2-15.2) H 12/13/17 14:01 Plt Count 244 K/mm3 (140-440) 12/13/17 14:01 Lymph % (Auto) 36.6 % (13.4-35.0) H 12/13/17 14:01 [place] % (Auto) 10.1 % (0.0-7.3) H 12/13/17 14:01 Eos % (Auto) 1.5 % (0.0-4.3) 12/13/17 14:01 Baso % (Auto) 1.3 % (0.0-1.8) 12/13/17 14:01 Lymph # 2.7 K/mm3 (1.2-5.4) 12/13/17 14:01 [place] # 0.7 K/mm3 (0.0-0.8) 12/13/17 14:01 Eos # 0.1 K/mm3 (0.0-0.4) 12/13/17 14:01 Baso # 0.1 K/mm3 (0.0-0.1) 12/13/17 14:01 Seg Neutrophils % 50.5 % (40.0-70.0) 12/13/17 14:01 Seg Neutrophils # 3.7 K/mm3 (1.8-7.7) 12/13/17 14:01 Sodium 138 mmol/L (137-145) 12/16/17 06:10 Potassium 3.9 mmol/L (3.6-5.0) 12/16/17 06:10 Chloride 97.4 mmol/L (98-107) L 12/16/17 06:10 Carbon Dioxide 26 mmol/L (22-30) 12/16/17 06:10 Anion Gap 19 mmol/L 12/16/17 06:10 BUN 34 mg/dL (9-20) H 12/16/17 06:10 Creatinine 1.7 mg/dL (0.8-1.5) H 12/16/17 06:10 Estimated GFR 49 ml/min 12/16/17 06:10 BUN/Creatinine Ratio 20 % 12/16/17 06:10 Glucose 129 mg/dL (75-100) H 12/16/17 06:10 POC Glucose 139 (70-105) H 12/16/17 16:39 Calcium 8.7 mg/dL (8.4-10.2) 12/16/17 06:10 Magnesium 1.90 mg/dL (1.7-2.3) 12/15/17 08:04 Total Bilirubin 0.80 mg/dL (0.1-1.2) 12/15/17 08:04 AST 19 units/L (5-40) 12/15/17 08:04 ALT 11 units/L (7-56) 12/15/17 08:04 Alkaline Phosphatase 81 units/L (35-129) 12/15/17 08:04 Troponin T < 0.010 ng/mL (0.00-0.029) 12/13/17 19:26 NT-Pro-B Natriuret Pep 1353 pg/mL (0-900) H 12/13/17 14:01 Total Protein 6.8 g/dL (6.3-8.2) 12/15/17 08:04 Albumin 3.7 g/dL (3.9-5) L 12/15/17 08:04 Albumin/Globulin Ratio 1.2 % 12/15/17 08:04 Urine Color Yellow (Yellow) 12/15/17 08:20 Urine Turbidity Clear (Clear) 12/15/17 08:20 Urine pH 5.0 (5.0-7.0) 12/15/17 08:20 Ur Specific [place] 1.015 (1.003-1.030) 12/15/17 08:20 Urine Protein <15 mg/dl mg/dL (Negative) 12/15/17 08:20 Urine Glucose (UA) Neg mg/dL (Negative) 12/15/17 08:20 Urine Ketones Neg mg/dL (Negative) 12/15/17 08:20 Urine Blood Neg (Negative) 12/15/17 08:20 Urine Nitrite Neg (Negative) 12/15/17 08:20 Urine Bilirubin Neg (Negative) 12/15/17 08:20 Urine Urobilinogen < 2.0 mg/dL (<2.0) 12/15/17 08:20 Ur Leukocyte Esterase Neg (Negative) 12/15/17 08:20 Urine WBC (Auto) 1.0 /HPF (0.0-6.0) 12/15/17 08:20 Urine RBC (Auto) 1.0 /HPF (0.0-6.0) 12/15/17 08:20 Urine Creatinine 110.8 mg/dL (0.1-20.0) H 12/15/17 08:20 Protein/Creatinin Ratio 0.05 12/15/17 08:20 Urine Total Protein 6 mg/dL (5-11.8) 12/15/17 08:20
[2017-12-17] MEDS: MILRINONE-D5W 20 MG/100 ML 20 MG/100 ML BAG IV SCH (02:39)
[2017-12-17 06:54] LABS: Calcium 8.6 mg/dL (8.4-10.2)
[2017-12-17] MEDS: HumaLOG SUB-Q SCH ×2 (07:37→12:51)
[2017-12-17] MEDS ORDERED: LASIX IV SCH (10:00)
[2017-12-17] MEDS: CORDARONE PO SCH (10:47)
[2017-12-17] MEDS: ZYLOPRIM PO SCH (10:48)
[2017-12-17] MEDS: PROTONIX PO SCH (10:48)
[2017-12-17] MEDS: ELIQUIS PO SCH (11:47)
[2017-12-17] MEDS: LOPRESSOR PO SCH (11:56)
--- NOTE | 2017-12-17 12:30 | Progress Note ---
Assessment and Plan Impression * Acute kidney injury secondary to decreased effective circulatory volume/ cardiorenal syndrome --Baseline SCr 1.1-1.3mg/dL --Prior work up notable for Hep B/C negative, ANCA neg, C3/C4 wnl * Acute on chronic systolic heart failure --TTE: LVEF 25-30% (December 2016) * Chronic atrial fibrillation * Hypertension * Type II Diabetes * Dysuria Recommendations * jacob likely due to cardiorenal syndrome * cr i stable today, daily lytes * Milrinone gtt per cardiology * Avoid nephrotoxins * Monitor patient's fluid status and electrolytes closely * Strict I/O, daily weight * Fluid restriction 1500ml/day Subjective Date of service: 12/17/17 Principal diagnosis: jacob on ckd Interval history: resting well in bed today Objective - Exam Narrative Exam: General appearance: well-developed, well-nourished EENT: ATNC Respiratory: Present: Decreased Breath Sounds Cardiology: regular, S1S2 Gastrointestinal: normal, no tenderness, distended, obese Integumentary: no rash, warm and dry Neurologic: no focal deficit Musculoskeletal: other (no edema) Psychiatric: cooperative - Vital Signs Vital signs: Vital Signs - 12hr 12/17/17 12/17/17 12/17/17 00:37 01:00 05:00 Temperature 97.8 F 97.9 F Pulse Rate 81 74 91 H Respiratory 18 20 Rate Blood Pressure Blood Pressure 120/65 116/72 [Right] O2 Sat by Pulse 99 96 Oximetry 12/17/17 12/17/17 07:30 08:37 Temperature 97.9 F 97.9 F Pulse Rate 80 80 Respiratory 20 20 Rate Blood Pressure 133/68 Blood Pressure 133/68 [Right] O2 Sat by Pulse 100 100 Oximetry - Lab 12/13/17 14:01 12/17/17 05:35 Most recent lab results Calcium 8.6 mg/dL (8.4-10.2) 12/17/17 05:35 Magnesium 1.90 mg/dL (1.7-2.3) 12/15/17 08:04 Urine Creatinine 110.8 mg/dL (0.1-20.0) H 12/15/17 08:20 Urine Total Protein 6 mg/dL (5-11.8) 12/15/17 08:20
--- NOTE | 2017-12-17 13:05 | Progress Note ---
Assessment and Plan Non-ischemic cardiomyopathy Acute on chronic systolic heart failure Doing better from a volume perspective Paroxysmal atrial fibrillation on eliquis AICD NSVT on amiodarone Anxiety disorder Chronic renal failure Recommendations: Patient may go home cardiac montelongo on Bumex 1 mg po bid. He has an appointment to see us on December 24 at 1:50 pm Resume home dose losartan upon discharge Amiodarone started this admission for wide complex tachycardia - continue for the time being and will re-evaluate as outpatient Subjective Date of service: 12/17/17 Principal diagnosis: jacob on ckd Interval history: Doing well Objective Vital Signs Temp Pulse Resp BP BP Pulse Ox 12/17/17 08:37 97.9 F 80 20 133/68 100 12/17/17 07:30 97.9 F 80 20 133/68 100 12/17/17 05:00 97.9 F 91 H 20 116/72 96 12/17/17 01:00 97.8 F 74 18 120/65 99 12/17/17 00:37 81 12/17/17 00:06 80 20 120/65 99 12/16/17 21:43 97 12/16/17 19:35 78 20 96/58 97 12/16/17 17:00 98.3 F 20 109/70 12/16/17 16:53 98.0 F 81 20 115/68 96 12/16/17 13:11 97.6 F 67 16 103/44 93 - Physical Examination General: No Apparent Distress HEENT: Positive: PERRL Neck: Positive: neck supple Cardiac: Positive: Reg Rate and Rhythm Lungs: Positive: Normal Exam Neuro: Positive: Grossly Intact Extremities: Absent: edema - Labs and Meds Comprehensive Metabolic Panel 12/17/17 Range/Units 05:35 Sodium 135 L (137-145) mmol/L Potassium 3.9 (3.6-5.0) mmol/L Chloride 95.6 L (98-107) mmol/L Carbon Dioxide 26 (22-30) mmol/L BUN 31 H (9-20) mg/dL Creatinine 1.7 H (0.8-1.5) mg/dL Glucose 125 H (75-100) mg/dL Calcium 8.6 (8.4-10.2) mg/dL
--- NOTE | 2017-12-17 15:05 | Discharge Summary ---
Providers - Providers Date of Admission: 12/14/17 00:34 Date of discharge: 12/17/17 Attending physician: NAYELI LISA 12/14/17 07:58 Consult to Physician [CONS] Routine Comment: Consulting Provider: IRAIS TORREZ Physician Instructions: Reason For Exam: CHF, pt known to your group 12/14/17 08:03 Consult to Physician [CONS] Routine Comment: Consulting Provider: JAE ZALDIVAR Physician Instructions: Reason For Exam: ?correi/ckd3 lost to follow up Primary care physician: ROME ANNA Hospitalization Condition: Stable Hospital course: Mr. Jones is a 67 yo man with a history of hypertension, dm type 2, gerd, oa, CKD stage 3 (last Cr in our EMR was 1.2 in 2017), gout, glaucoma, JONATHAN non- tolerated to cpap mask, non ischemic Cardiomyopathy, chf, p. afib on Eliquis and PPM/AICD who presents to ED via request of his Bumboater, Dr. Torrez's office, for fluid overload. Patient reports progressive worsening severe constant IGNACIO x 1 month associated with dry cough followed by generalized bilateral chest discomfort. He notified his Bumboater when he could not lay flat. He has symptoms of Orthopnea and PND. He denies fever, chills, n/v. The IV lasix given in ED helped tremendously. 2v CXR: no cardiopulmonary process, stable Cardiomegaly. -Acute on Chronic systolic heart failure: treat with iv lasix but cautiously because of borderline hypotension, consult Cardiology -Aflutter with RVR: Cardiology is following -CORRIE/CKD 3, vasomotor nephropathy: cr 1.7 x 2 days -DM type 2: ssi, ada -DVT prophylaxis: on Eliquis -NSVT has AICD: Cardiology is following -Hypotension: Cardiology notified, meds adjusted Cr increasing, d/w Nephrology, will decrease iv lasix and recheck in am Milirone iv drip started Wednesday by Cardiology per Cardiology Recommendations: Patient may go home cardiac lisa on Bumex 1 mg po bid. He has an appointment to see us on December 24 at 1:50 pm Resume home dose losartan upon discharge Amiodarone started this admission for wide complex tachycardia - continue for the time being and will re-evaluate as outpatient Disposition: TO HOME OR SELFCARE Time spent for discharge: 36 minutes Core Measure Documentation - Palliative Care Palliative Care/ Comfort Measures: Not Applicable - Core Measures Any of the following diagnoses?: heart failure - VTE Discharge Requirements Deep Vein Thrombosis/Pulmonary Embolism Present on Admission: No Has pt received <5 days of overlap therapy or INR<2.0: No Anticoagulant overlap therapy prescribed at discharge: No Contraindication No Overlap Therapy order at DC: Not Indicated - Heart Failure Discharge Requirements WU/ARB for LVSD if EF <40%: Yes Beta nupur at discharge: Yes Exam - Physical Exam Narrative exam: GEN: WDWN, NAD, Awake, Alert, Orientated x 3 HEENT: NCAT, EOMI, PERRL, OP Clear except for decay/rotten teeth all over NECK: supple, no adenopathy, no thyromegaly, + JVD CVS/HEART: regular irregular, normal S1S2, pulses present bilaterally, ppm left cw without tenderness CHEST/LUNGS: diminished bs bilateral, Symmetrical chest expansion, good air entry bilaterally GI/Abdomen: soft, NTND, good bowel sounds, no guarding or rebound, flank edema /Bladder: no suprapubic tenderness, no CVA or paraspinal tenderness EXT/Skin: trace pretibial edema, no obvious rash MSK: FROM x 4 Neuro: CN 2-12 grossly intact, no new focal deficits Psych: calm - Constitutional Vitals: Temp Pulse Resp BP Pulse Ox 97.6 F 79 20 93/57 90 12/17/17 12:02 12/17/17 12:02 12/17/17 12:02 12/17/17 12:02 12/17/17 12:02 Plan Activity: other (no strenous activity until cleared by Cardiology) Diet: low salt, diabetic Special Instructions: record daily BP diary, record blood sugar diary Follow up with: ROME ANNA MD [Primary Care Provider] - 3-5 Days IRAIS TORREZ MD [Staff Physician] - 7 Days JAE ZALDIVAR MD [Staff Physician] - 7 Days Prescriptions: Acetaminophen [Acetaminophen TAB] 650 mg PO Q6H PRN #30 tablet PRN Reason: Non Cardiac Pain Or Temp>100.5 Amiodarone [Cordarone 200 MG TAB] 200 mg PO BID #60 tablet Apixaban [Eliquis] 5 mg PO BID #60 tablet Bumetanide 1 mg PO BID #60 tablet Metoprolol [Lopressor TAB] 50 mg PO BID #60 tablet
[2017-12-17 16:43] VITALS: BP 113/71
== END 2017-12-17 17:48 | disposition home or self-care (01) | DRG 682 ==
LOC: ED 12:55 → 4A 12-14 00:34
PROVIDERS: ADMIT Internal Medicine; ATTEND Internal Medicine
DX: N17.0 Acute kidney failure with tubular necrosis (principal); I50.23 Acute on chronic systolic (congestive) heart failure; I13.0 Hypertensive heart and chronic kidney disease with heart failure and stage 1 through stage 4 chronic kidney disease, or unspecified chronic kidney disease; I47.1 Supraventricular tachycardia; I48.92 Unspecified atrial flutter; N18.3 Chronic kidney disease, stage 3 (moderate); E11.22 Type 2 diabetes mellitus with diabetic chronic kidney disease; I95.9 Hypotension, unspecified; K21.9 Gastro-esophageal reflux disease without esophagitis; F41.9 Anxiety disorder, unspecified; I48.2 Chronic atrial fibrillation; M19.90 Unspecified osteoarthritis, unspecified site; E11.39 Type 2 diabetes mellitus with other diabetic ophthalmic complication; M10.9 Gout, unspecified; H40.9 Unspecified glaucoma; G47.33 Obstructive sleep apnea (adult) (pediatric); I48.0 Paroxysmal atrial fibrillation; Z95.810 Presence of automatic (implantable) cardiac defibrillator; Z82.49 Family history of ischemic heart disease and other diseases of the circulatory system
CPT/HCPCS: 36415; 71046; 80048; 80053; 81001; 82570; 82962; 83735; 83880; 84156; 84484; 85025; 93005; 93010; J1815; J1940; J2260; J2405; J3010

== ENCOUNTER 2017-12-24 15:30 | Inpatient (IN) | payer MEDICARE ==
[2017-12-24] MEDS ORDERED: ZOFRAN IV PRN (15:39)
[2017-12-24] MEDS ORDERED: SODIUM CHLORIDE FLUSH SYRINGE 10 ML IV PRN (15:39)
[2017-12-24] MEDS ORDERED: TYLENOL PO PRN (15:39)
--- NOTE | 2017-12-24 15:39 | History and Physical Report ---
History of Present Illness Date of examination: 12/24/17 History of present illness: Please refer to office note. Medications and Allergies Allergies Allergy/AdvReac Type Severity Reaction Status Date / Time No Known Allergies Allergy Verified 03/03/17 09:44 Home Medications Medication Instructions Recorded Confirmed Last Taken Type Allopurinol [Zyloprim] 100 mg PO QDAY #30 tablet 03/15/17 12/14/17 04/03/17 Rx Losartan [Cozaar] 25 mg PO QDAY #30 tablet 04/12/17 12/14/17 Unknown Rx Acetaminophen [Acetaminophen TAB] 650 mg PO Q6H PRN #30 tablet 12/17/17 Unknown Rx Amiodarone [Cordarone 200 MG TAB] 200 mg PO BID #60 tablet 12/17/17 Unknown Rx Apixaban [Eliquis] 5 mg PO BID #60 tablet 12/17/17 Unknown Rx Bumetanide 1 mg PO BID #60 tablet 12/17/17 Unknown Rx Metoprolol [Lopressor TAB] 50 mg PO BID #60 tablet 12/17/17 Unknown Rx Pantoprazole [Protonix TAB] 40 mg PO QDAY #30 tablet 12/17/17 Unknown Rx Assessment and Plan Acute on chronic systolic heart failure Dilated Nonischemic cardiomyopathy EF 20-25% on echo 12/2016 no ischemia on MPI 12/2016 [facility] at [place]: no significant CAD Presence of AICD Persistent Afib on eliquis for oral anticoagulation Anxiety disorder Plan: Admite for aggressive medical therapy for chronic systolic heart failure to include diuretics and IV milrinone. Echocardiogram for reassessment of LVEF. KINGS guided cardioversion early next week. Case management to arrange home IV milrinone therapy. Daily labs. Fluid/sodium restriction. Daily weight.
[2017-12-24] MEDS: LASIX PO SCH (18:44)
[2017-12-24] MEDS: LOPRESSOR PO SCH (22:44)
[2017-12-24] MEDS: CORDARONE PO SCH (22:45)
[2017-12-24] MEDS: SODIUM CHLORIDE FLUSH SYRINGE 10 ML IV SCH (22:45)
[2017-12-24] MEDS: ELIQUIS PO SCH (22:45)
[2017-12-24 22:47] LABS: Basophils # (Auto) 0.1 K/mm3 (0.0-0.1); Eosinophils # (Auto) 0.1 K/mm3 (0.0-0.4); Eosinophils % (Auto) 1.4 % (0.0-4.3); Hematocrit 42.5 % (35.5-45.6); Hemoglobin 13.3 gm/dl (11.8-15.2); Lymphocytes # (Auto) 3.2 K/mm3 (1.2-5.4); Lymphocytes % (Auto) 34.8 % (13.4-35.0); Mean Corpuscular HGB Conc 31 % (32-34); Mean Corpuscular Volume 80 fl (84-94); Monocytes % (Auto) 10.4 % (0.0-7.3); Platelet Count 218 K/mm3 (140-440); Red Blood Count 5.35 M/mm3 (3.65-5.03); Red Cell Distribution Width 18.6 % (13.2-15.2)
[2017-12-24 22:50] LABS: INR 1.19 (0.87-1.13)
--- NOTE | 2017-12-24 22:54 | XRay Report ---
FINAL REPORT PROCEDURE: Chest. TECHNIQUE: AP and lateral views. HISTORY: Congestive heart failure. COMPARISON: Chest 12/13/2017. FINDINGS: The heart size is mildly enlarged. The lungs are clear and well expanded. There are no pleural effusions. The soft tissues are unremarkable. There is a left-sided AICD device. The regional skeleton appears intact. IMPRESSION: Mild cardiomegaly. No evidence of acute disease.
[2017-12-24 22:55] LABS: Mean Corpuscular Hemoglobin 25 pg (28-32)
[2017-12-24 23:01] LABS: Calcium 8.9 mg/dL (8.4-10.2)
[2017-12-25 05:00] LABS: Calcium 8.8 mg/dL (8.4-10.2)
[2017-12-25] MEDS: MILRINONE-D5W 20 MG/100 ML 20 MG/100 ML BAG IV SCH ×2 (05:03→14:15)
[2017-12-25] MEDS: LASIX PO SCH ×2 (05:06→18:03)
--- NOTE | 2017-12-25 10:36 | Progress Note ---
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 KINGS guided cardioversion early next week. Case management to arrange home IV milrinone therapy. Daily labs. Fluid/sodium restriction. Daily weight. Subjective Date of service: 12/25/17 Interval history: Continues to have dyspnea but improved compared to yesterday Objective Vital Signs Temp Pulse Resp BP Pulse Ox 12/25/17 07:15 97.4 F L 75 20 115/78 100 12/25/17 05:38 98.4 F 80 20 121/78 100 12/25/17 05:23 73 12/24/17 23:31 97.6 F 82 20 107/58 98 12/24/17 22:44 73 132/86 12/24/17 20:05 98.5 F 73 20 132/86 98 12/24/17 17:36 99.8 F H 56 L 20 143/89 100 - Physical Examination General: No Apparent Distress Neck: Positive: trachea midline Cardiac: Positive: Irregularly Regular Lungs: Positive: Decreased Breath Sounds Abdomen: Positive: Soft, Active Bowel Sounds Extremities: Present: +1 Edema - Labs and Meds Coagulation 12/24/17 Range/Units 20:53 PT 15.8 H (12.2-14.9) Sec. INR 1.19 H (0.87-1.13) CBC 12/24/17 Range/Units 20:53 WBC 9.2 (4.5-11.0) K/mm3 RBC 5.35 H (3.65-5.03) M/mm3 Hgb 13.3 (11.8-15.2) gm/dl Hct 42.5 (35.5-45.6) % Plt Count 218 (140-440) K/mm3 Lymph # 3.2 (1.2-5.4) K/mm3 [place] # 1.0 H (0.0-0.8) K/mm3 Eos # 0.1 (0.0-0.4) K/mm3 Baso # 0.1 (0.0-0.1) K/mm3 Comprehensive Metabolic Panel 12/24/17 12/25/17 Range/Units 20:53 03:19 Sodium 139 139 (137-145) mmol/L Potassium 4.3 4.6 (3.6-5.0) mmol/L Chloride 102.3 101.7 (98-107) mmol/L Carbon Dioxide 23 22 (22-30) mmol/L BUN 33 H 36 H (9-20) mg/dL Creatinine 1.9 H 2.0 H (0.8-1.5) mg/dL Glucose 152 H 141 H (75-100) mg/dL Calcium 8.9 8.8 (8.4-10.2) mg/dL
[2017-12-25] MEDS: CORDARONE PO SCH ×2 (11:28→21:57)
[2017-12-25] MEDS: ELIQUIS PO SCH ×2 (11:28→21:57)
[2017-12-25] MEDS: K-DUR PO SCH (11:29)
[2017-12-25] MEDS: PROTONIX PO SCH (11:30)
[2017-12-25] MEDS: LOPRESSOR PO SCH ×2 (11:30→21:58)
[2017-12-25] MEDS: ZYLOPRIM PO SCH (11:31)
[2017-12-25] MEDS: SODIUM CHLORIDE FLUSH SYRINGE 10 ML IV SCH ×2 (11:32→21:59)
[2017-12-25] MEDS ORDERED: PNEUMOVAX 23 IM ONE (12:00)
[2017-12-26] MEDS: MILRINONE-D5W 20 MG/100 ML 20 MG/100 ML BAG IV SCH ×2 (02:24→16:55)
[2017-12-26] MEDS: LASIX PO SCH ×2 (05:03→17:04)
[2017-12-26 05:42] LABS: Calcium 8.7 mg/dL (8.4-10.2)
[2017-12-26] MEDS: PROTONIX PO SCH (09:28)
[2017-12-26] MEDS: CORDARONE PO SCH ×2 (09:28→22:06)
[2017-12-26] MEDS: LOPRESSOR PO SCH ×2 (09:29→22:06)
[2017-12-26] MEDS: ZYLOPRIM PO SCH (09:29)
[2017-12-26] MEDS: ELIQUIS PO SCH ×2 (09:29→22:06)
[2017-12-26] MEDS: SODIUM CHLORIDE FLUSH SYRINGE 10 ML IV SCH ×2 (09:29→22:40)
[2017-12-26] MEDS: K-DUR PO SCH (09:29)
--- NOTE | 2017-12-26 12:41 | Progress Note ---
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 KINGS guided cardioversion early next week - tentatively will plan for wednesday. Case management to arrange home IV milrinone therapy. Daily labs. Fluid/sodium restriction. Daily weight. Subjective Date of service: 12/26/17 Interval history: Pt is feeling better with less dyspnea and less coughing Objective Vital Signs Temp Pulse Resp BP BP Pulse Ox 12/26/17 12:21 97.8 F 80 20 74/39 96 12/26/17 10:00 96 12/26/17 07:32 97.8 F 81 20 94/63 97 12/26/17 05:02 98.0 F 81 20 119/79 98 12/26/17 00:09 82 20 106/72 99 12/25/17 20:50 79 12/25/17 20:43 98.5 F 80 20 117/82 99 12/25/17 15:58 97.7 F 79 20 128/76 99 - Physical Examination General: No Apparent Distress Neck: Positive: trachea midline Cardiac: Positive: irregularly irregular Lungs: Positive: Decreased Breath Sounds Abdomen: Positive: Soft, Active Bowel Sounds Extremities: Present: +1 Edema - Labs and Meds Comprehensive Metabolic Panel 12/26/17 Range/Units 04:10 Sodium 138 (137-145) mmol/L Potassium 4.3 (3.6-5.0) mmol/L Chloride 98.7 (98-107) mmol/L Carbon Dioxide 28 (22-30) mmol/L BUN 35 H (9-20) mg/dL Creatinine 1.6 H (0.8-1.5) mg/dL Glucose 171 H (75-100) mg/dL Calcium 8.7 (8.4-10.2) mg/dL
[2017-12-27] MEDS: LASIX PO SCH (06:22)
[2017-12-27] MEDS: MILRINONE-D5W 20 MG/100 ML 20 MG/100 ML BAG IV SCH ×2 (09:49→16:38)
[2017-12-27] MEDS: CORDARONE PO SCH ×2 (10:00→22:11)
[2017-12-27] MEDS: LOPRESSOR PO SCH (10:00)
[2017-12-27] MEDS: ELIQUIS PO SCH ×2 (10:00→22:08)
--- NOTE | 2017-12-27 10:26 | XRay Report ---
AP CHEST: HISTORY: Right arm PICC placement A right arm PICC has been inserted which terminates at the cavoatrial junction. 3-lead pacemaker device is also in position. Mild cardiomegaly appears stable since 12/24/17. The lungs are adequately aerated with no evidence for pneumonia, pleural effusion or pneumothorax. IMPRESSION: Adequate placement of the right arm PICC. Stable cardiomegaly.
[2017-12-27] MEDS ORDERED: HURRICAINE ONE 20% TOPICAL SPRAY MM (13:30)
[2017-12-27] MEDS ORDERED: NACL 0.9% 500 ML 500 ML ONE (13:45)
[2017-12-27] MEDS ORDERED: HURRICAINE ONE 20% TOPICAL SPRAY MM NR (14:00)
[2017-12-27] MEDS ORDERED: NACL 0.9% 500 ML 500 ML IV SCH (14:00)
[2017-12-27] MEDS ORDERED: DIPRIVAN 10 MG/ML IV ONE ×2 (14:05)
--- NOTE | 2017-12-27 15:29 | Anesthesia Consultation ---
Anesthesia Consult and Med Hx Date of service: 12/27/17 - Airway Anesthetic Teeth Evaluation: Poor (multiple missing, broken, carious teeth) ROM Head & Neck: Adequate Mental/Hyoid Distance: Adequate Mallampati Class: Class III Intubation Access Assessment: Possibly Difficult - Pre-Operative Health Status ASA Pre-Surgery Classification: ASA4 Proposed Anesthetic Plan: MAC - Pulmonary Hx Smoking: No (chews tobacco) Hx Asthma: No COPD: No Hx Pneumonia: No Hx Sleep Apnea: Yes - Cardiovascular System Hx Hypertension: Yes Hx Coronary Artery Disease: No (non-ischemic cardiomyopathy EF-15-20%) Hx Angina: Yes Hx Pacemaker: Yes (left chest pacemaker) Hx Internal Defibrillator: No - Central Nervous System CVA: Yes Hx Back Pain: Yes (from "arthritis in my back") Hx Psychiatric Problems: No - Endocrine Hx Renal Disease: Yes (renal problems, "I was told I need to go to a kidney Dr, but i aint went") Hx End Stage Renal Disease: No - Other Systems Hx Cancer: No Hx Obesity: Yes
--- NOTE | 2017-12-27 15:31 | Anesthesia Day of Surgery ---
Anesthesia Day of Surgery - Day of Surgery Patient Examined: Yes Patient H&P Reviewed: Yes Patient is NPO: Yes Beta Blockers: Yes Cardiac Clearance: Yes
[2017-12-27] MEDS: PROTONIX PO SCH (16:36)
[2017-12-27] MEDS: ZYLOPRIM PO SCH (16:36)
[2017-12-27] MEDS: K-DUR PO SCH (16:37)
[2017-12-27] MEDS: SODIUM CHLORIDE FLUSH SYRINGE 10 ML IV SCH ×2 (16:37→22:11)
--- NOTE | 2017-12-27 17:28 | Progress Note ---
Assessment and Plan 1. Chronic Systolic (congestive) Heart Failure NYHA class IV without milrinone (shortness of breath at rest) NYHA class III on milrinone (shortness of breath with minimal exertion) 2. Non-ischemic cardiomyopathies s/p DEBURRING TECHNICIAN-D AHA stage D LVEF 15-20%, non-obstructive CAD Refractory symptoms despite optimal medical therapy including beta-blockers ( metoprolol), ARB (losartan), diuretics (Bumex), aldactone and digoxin Multiple heart failure hospitalizations with worsening heart failure symptoms after discontinuing inotropic therapy (milrinone) Requires 24/ home IV milrinone therapy for palliative care 3. Persistent afib on eliquis 5 mg po bid s/p KINGS guided cardioversion 12/27/2017 Continue amiodarone 4. Chronic renal failure Recommendations: Continue current management Awaiting home inotropic therapy establishment Subjective Date of service: 12/27/17 Principal diagnosis: CHF Interval history: s/p KINGS guided cardioversion without complications Objective Vital Signs Temp Temp Pulse Pulse Pulse Pulse Resp 12/27/17 15:57 98.0 F 68 22 12/27/17 15:17 76 12/27/17 15:02 87 12/27/17 14:47 85 12/27/17 14:32 97.6 F 91 H 12/27/17 14:26 89 12/27/17 14:16 93 H 12/27/17 14:11 82 12/27/17 14:03 83 12/27/17 12:05 98.1 F 82 18 12/27/17 12:00 80 12/27/17 10:00 19 12/27/17 08:50 12/27/17 07:22 98.0 F 80 16 12/27/17 04:23 97.6 F 80 18 12/27/17 00:18 98.0 F 80 20 12/26/17 22:00 12/26/17 20:05 81 12/26/17 19:36 97.7 F 84 18 Resp Resp Resp BP BP BP BP 12/27/17 15:57 122/73 12/27/17 15:17 28 H 122/67 12/27/17 15:02 28 H 119/81 12/27/17 14:47 22 126/60 12/27/17 14:32 26 H 122/82 12/27/17 14:26 9 L 12/27/17 14:16 12 115/79 12/27/17 14:11 21 12/27/17 14:03 25 H 12/27/17 12:05 113/83 12/27/17 12:00 12/27/17 10:00 12/27/17 08:50 12/27/17 07:22 98/52 12/27/17 04:23 119/75 12/27/17 00:18 122/73 12/26/17 22:00 12/26/17 20:05 12/26/17 19:36 105/70 BP Pulse Ox Pulse Ox Pulse Ox Pulse Ox 12/27/17 15:57 99 12/27/17 15:17 98 12/27/17 15:02 94 12/27/17 14:47 100 12/27/17 14:32 96 12/27/17 14:26 93 12/27/17 14:16 97 12/27/17 14:11 143/82 98 12/27/17 14:03 123/85 99 12/27/17 12:05 94 12/27/17 12:00 12/27/17 10:00 96 12/27/17 08:50 100 12/27/17 07:22 98 12/27/17 04:23 100 12/27/17 00:18 100 12/26/17 22:00 100 12/26/17 20:05 12/26/17 19:36 98 - Physical Examination General: No Apparent Distress Neck: Positive: trachea midline, JVD/HJR Cardiac: Positive: irregularly irregular Lungs: Positive: Decreased Breath Sounds Neuro: Positive: Grossly Intact Abdomen: Positive: Soft, Active Bowel Sounds Extremities: Present: +1 Edema - Labs and Meds Comprehensive Metabolic Panel 12/27/17 Range/Units 05:21 Sodium 140 (137-145) mmol/L Potassium 4.1 (3.6-5.0) mmol/L Chloride 99.0 (98-107) mmol/L Carbon Dioxide 28 (22-30) mmol/L BUN 29 H (9-20) mg/dL Creatinine 1.5 (0.8-1.5) mg/dL Glucose 126 H (75-100) mg/dL Calcium 9.0 (8.4-10.2) mg/dL
[2017-12-27] MEDS: BUMEX PO SCH (18:15)
[2017-12-27] MEDS: LANOXIN PO SCH (18:15)
[2017-12-28] MEDS: BUMEX PO SCH ×2 (05:36→17:15)
[2017-12-28] MEDS: MILRINONE-D5W 20 MG/100 ML 20 MG/100 ML BAG IV SCH ×2 (05:38→15:28)
[2017-12-28] MEDS: ALDACTONE PO SCH (09:44)
[2017-12-28] MEDS: PROTONIX PO SCH (09:45)
[2017-12-28] MEDS: ELIQUIS PO SCH ×2 (09:45→22:39)
[2017-12-28] MEDS: ZYLOPRIM PO SCH (09:45)
[2017-12-28] MEDS: CORDARONE PO SCH ×2 (09:45→22:39)
[2017-12-28] MEDS: K-DUR PO SCH (09:50)
[2017-12-28] MEDS: TOPROL XL PO SCH (09:50)
[2017-12-28] MEDS: COZAAR PO SCH (09:50)
[2017-12-28] MEDS: SODIUM CHLORIDE FLUSH SYRINGE 10 ML IV SCH ×2 (09:51→22:41)
--- NOTE | 2017-12-28 10:48 | Progress Note ---
Assessment and Plan 1. Chronic Systolic (congestive) Heart Failure NYHA class IV without milrinone (shortness of breath at rest) NYHA class III on milrinone (shortness of breath with minimal exertion) 2. Non-ischemic cardiomyopathies s/p CORRECTIONS SERGEANT-D AHA stage D LVEF 15-20%, non-obstructive CAD Refractory symptoms despite optimal medical therapy including beta-blockers ( metoprolol), ARB (losartan), diuretics (Bumex), aldactone and digoxin Multiple heart failure hospitalizations with worsening heart failure symptoms after discontinuing inotropic therapy (milrinone) Requires 24 home IV milrinone therapy for palliative care 3. Persistent afib on eliquis 5 mg po bid s/p KINGS guided cardioversion 12/27/2017 Continue amiodarone 4. Chronic renal failure Recommendations: Continue current management. Awaiting arrangement for home inotropic therapy. Subjective Date of service: 12/28/17 Principal diagnosis: CHF Interval history: Patient has no complaints. Reports his breathing is better. Awaits arrangements for home IV milrinone therapy. Objective Vital Signs Temp Temp Pulse Pulse Pulse Pulse Resp 12/28/17 09:50 74 12/28/17 09:44 74 12/28/17 07:49 98.6 F 79 20 12/28/17 04:32 98.4 F 78 18 12/28/17 04:00 70 12/28/17 00:20 98.0 F 67 20 12/27/17 22:00 18 12/27/17 20:11 12/27/17 20:00 80 12/27/17 19:46 97.8 F 59 L 20 12/27/17 18:15 83 12/27/17 15:57 98.0 F 68 22 12/27/17 15:17 76 12/27/17 15:02 87 12/27/17 14:47 85 12/27/17 14:32 97.6 F 91 H 12/27/17 14:26 89 12/27/17 14:16 93 H 12/27/17 14:11 82 12/27/17 14:03 83 12/27/17 12:05 98.1 F 82 18 12/27/17 12:00 80 Resp Resp Resp BP BP BP BP 12/28/17 09:50 101/47 12/28/17 09:44 101/47 07/03/18 07:49 96/65 12/28/17 04:32 138/77 12/28/17 04:00 12/28/17 00:20 103/50 12/27/17 22:00 12/27/17 20:11 12/27/17 20:00 12/27/17 19:46 114/78 12/27/17 18:15 12/27/17 15:57 122/73 12/27/17 15:17 28 H 122/67 12/27/17 15:02 28 H 119/81 12/27/17 14:47 22 126/60 12/27/17 14:32 26 H 122/82 12/27/17 14:26 9 L 12/27/17 14:16 12 115/79 12/27/17 14:11 21 12/27/17 14:03 25 H 12/27/17 12:05 113/83 12/27/17 12:00 BP Pulse Ox Pulse Ox Pulse Ox Pulse Ox 12/28/17 09:50 12/28/17 09:44 12/28/17 07:49 95 12/28/17 04:32 98 12/28/17 04:00 12/28/17 00:20 100 12/27/17 22:00 12/27/17 20:11 98 12/27/17 20:00 12/27/17 19:46 100 12/27/17 18:15 12/27/17 15:57 99 12/27/17 15:17 98 12/27/17 15:02 94 12/27/17 14:47 100 12/27/17 14:32 96 12/27/17 14:26 93 12/27/17 14:16 97 12/27/17 14:11 143/82 98 12/27/17 14:03 123/85 99 12/27/17 12:05 94 12/27/17 12:00 - Physical Examination General: No Apparent Distress Cardiac: Positive: Reg Rate and Rhythm Neuro: Positive: Grossly Intact Extremities: Present: +1 Edema - Labs and Meds Comprehensive Metabolic Panel 12/28/17 Range/Units 05:09 Sodium 138 (137-145) mmol/L Potassium 4.3 (3.6-5.0) mmol/L Chloride 91.9 L (98-107) mmol/L Carbon Dioxide 31 H (22-30) mmol/L BUN 25 H (9-20) mg/dL Creatinine 1.5 (0.8-1.5) mg/dL Glucose 135 H (75-100) mg/dL Calcium 9.0 (8.4-10.2) mg/dL
[2017-12-29] MEDS: MILRINONE-D5W 20 MG/100 ML 20 MG/100 ML BAG IV SCH ×2 (04:43→17:19)
[2017-12-29] MEDS: BUMEX PO SCH ×2 (06:37→17:09)
[2017-12-29 07:33] LABS: BUN/Creatinine Ratio 14; Blood Urea Nitrogen 19 mg/dL (9-20); Calcium 9.1 mg/dL (8.4-10.2); Hemolysis Index 3
[2017-12-29] MEDS: PROTONIX PO SCH (10:10)
[2017-12-29] MEDS: CORDARONE PO SCH ×2 (10:10→21:27)
[2017-12-29] MEDS: K-DUR PO SCH (10:10)
[2017-12-29] MEDS: ZYLOPRIM PO SCH (10:10)
[2017-12-29] MEDS: ELIQUIS PO SCH ×2 (10:10→21:27)
[2017-12-29] MEDS: COZAAR PO SCH (10:11)
[2017-12-29] MEDS: ALDACTONE PO SCH (10:11)
[2017-12-29] MEDS: SODIUM CHLORIDE FLUSH SYRINGE 10 ML IV SCH ×2 (10:11→21:27)
[2017-12-29] MEDS: TOPROL XL PO SCH (10:12)
--- NOTE | 2017-12-29 10:42 | Progress Note ---
Assessment and Plan - Patient Problems (1) Paroxysmal atrial fibrillation Current Visit: Yes Status: Acute Plan to address problem: Status post successful cardioversion, continue medical therapy and oral anticoagulation. (2) Acute systolic CHF (congestive heart failure), NYHA class 3 Current Visit: No Status: Acute Plan to address problem: Medical therapy for heart failure exacerbation, chronic systolic left ventricular dysfunction. Initiation of outpatient milrinone therapy in progress. Subjective Date of service: 12/29/17 Principal diagnosis: CHF Interval history: Patient's in a stable sinus rhythm with ventricular paced complexes. He is awaiting initiation of ambulatory IV milrinone therapy. Objective Vital Signs Temp Pulse Resp BP Pulse Ox 12/29/17 10:12 75 123/81 12/29/17 10:11 75 123/81 12/29/17 09:37 20 12/29/17 07:28 97.9 F 78 20 105/63 95 12/29/17 05:32 98.5 F 53 L 20 110/68 94 12/29/17 00:34 98.1 F 76 20 122/73 96 12/28/17 20:11 98.3 F 62 20 117/76 86 12/28/17 16:17 98.0 F 83 20 122/64 93 12/28/17 12:00 82 12/28/17 11:01 98.2 F 73 20 115/70 87 - Physical Examination General: No Apparent Distress Neck: Positive: trachea midline, JVD/HJR Cardiac: Positive: Reg Rate and Rhythm Lungs: Positive: Decreased Breath Sounds Neuro: Positive: Grossly Intact Abdomen: Positive: Soft, Active Bowel Sounds Skin: Positive: Clear Extremities: Present: +1 Edema - Labs and Meds Comprehensive Metabolic Panel 12/29/17 Range/Units 06:50 Sodium 142 (137-145) mmol/L Potassium 3.9 (3.6-5.0) mmol/L Chloride 98.4 (98-107) mmol/L Carbon Dioxide 31 H (22-30) mmol/L BUN 19 (9-20) mg/dL Creatinine 1.4 (0.8-1.5) mg/dL Glucose 126 H (75-100) mg/dL Calcium 9.1 (8.4-10.2) mg/dL
[2017-12-29] MEDS: LANOXIN PO SCH (17:09)
[2017-12-30] MEDS: MILRINONE-D5W 20 MG/100 ML 20 MG/100 ML BAG IV SCH ×2 (05:10→15:18)
[2017-12-30] MEDS: BUMEX PO SCH ×2 (05:10→18:35)
[2017-12-30 05:54] LABS: Calcium 8.9 mg/dL (8.4-10.2)
[2017-12-30] MEDS: ALDACTONE PO SCH (10:05)
[2017-12-30] MEDS: TOPROL XL PO SCH (10:06)
[2017-12-30] MEDS: COZAAR PO SCH (10:13)
[2017-12-30] MEDS: ELIQUIS PO SCH ×2 (10:14→21:19)
[2017-12-30] MEDS: PROTONIX PO SCH (10:15)
[2017-12-30] MEDS: CORDARONE PO SCH ×2 (10:15→21:19)
[2017-12-30] MEDS: K-DUR PO SCH (10:15)
[2017-12-30] MEDS: ZYLOPRIM PO SCH (10:15)
[2017-12-30] MEDS: SODIUM CHLORIDE FLUSH SYRINGE 10 ML IV SCH ×2 (10:16→21:20)
--- NOTE | 2017-12-30 11:57 | Progress Note ---
Assessment and Plan - Patient Problems (1) Acute systolic CHF (congestive heart failure), NYHA class 3 Current Visit: No Status: Acute Plan to address problem: Medical therapy for heart failure exacerbation, chronic systolic left ventricular dysfunction. Home IV milrinone setup today, anticipate discharge tomorrow. (2) Paroxysmal atrial fibrillation Current Visit: Yes Status: Acute Plan to address problem: Status post successful cardioversion, continue medical therapy and oral anticoagulation. Subjective Date of service: 12/30/17 Principal diagnosis: CHF Interval history: Patient is comfortable in no acute distress. He is awaiting the formal set up of his home IV milrinone. Objective Vital Signs Temp Pulse Resp BP BP Pulse Ox 12/30/17 10:13 58 L 90/50 12/30/17 10:06 58 L 90/50 12/30/17 10:05 58 L 90/50 12/30/17 08:19 98.6 F 55 L 20 91/47 93 12/30/17 08:17 98.6 F 55 L 91/47 12/30/17 03:45 98.5 F 64 20 107/71 97 12/29/17 23:47 98.6 F 65 20 101/65 98 12/29/17 20:00 97.3 F L 61 20 109/71 98 12/29/17 17:09 76 115/74 12/29/17 15:51 98.0 F 69 20 115/74 94 12/29/17 12:00 76 - Physical Examination General: No Apparent Distress Neck: Positive: trachea midline, JVD/HJR Cardiac: Positive: Reg Rate and Rhythm Lungs: Positive: Decreased Breath Sounds Neuro: Positive: Grossly Intact Abdomen: Positive: Soft, Active Bowel Sounds Skin: Positive: Clear Extremities: Present: +1 Edema - Labs and Meds Comprehensive Metabolic Panel 12/30/17 Range/Units 04:59 Sodium 138 (137-145) mmol/L Potassium 4.0 (3.6-5.0) mmol/L Chloride 95.1 L (98-107) mmol/L Carbon Dioxide 31 H (22-30) mmol/L BUN 21 H (9-20) mg/dL Creatinine 1.6 H (0.8-1.5) mg/dL Glucose 147 H (75-100) mg/dL Calcium 8.9 (8.4-10.2) mg/dL
[2017-12-31] MEDS: BUMEX PO SCH (05:51)
[2017-12-31] MEDS ORDERED: K-DUR PO SCH ×2 (09:41→10:30)
--- NOTE | 2017-12-31 09:44 | Progress Note ---
Assessment and Plan 1. Chronic Systolic (congestive) Heart Failure NYHA class IV without milrinone (shortness of breath at rest) NYHA class III on milrinone (shortness of breath with minimal exertion) 2. 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 Persistent afib on eliquis 5 mg po bid s/p KINGS guided cardioversion 12/27/2017 Continue amiodarone 4. Chronic renal failure Recommendations: Continue current management Awaiting home inotropic therapy establishment Reduce losartan to 6.25 mg, toprol XL to 25 mg, bumex to 1 mg po daily and KCl to 10 meq po daily; discontinue aldactone due to episodes of hypotension Subjective Date of service: 12/31/17 Principal diagnosis: CHF Interval history: Patient is feeling better today His bloating has resolved His tele is showing SR Objective Vital Signs Temp Pulse Resp Resp BP BP Pulse Ox 12/31/17 08:22 98.4 F 92 H 20 93/42 94 12/31/17 05:24 68 12/31/17 02:23 62 84/49 95 12/30/17 22:57 67 78/42 98 12/30/17 20:04 63 75/50 92 12/30/17 19:46 75 18 96 12/30/17 17:26 97.9 F 68 20 98/59 93 12/30/17 13:27 64 12/30/17 11:39 98.2 F 72 20 93/49 96 12/30/17 10:13 58 L 90/50 12/30/17 10:06 58 L 90/50 12/30/17 10:05 58 L 90/50 12/30/17 10:00 20 20 100 - Physical Examination General: No Apparent Distress Neck: Positive: trachea midline, JVD/HJR Cardiac: Positive: Reg Rate and Rhythm Lungs: Positive: Normal Exam Neuro: Positive: Grossly Intact Abdomen: Positive: Soft, Active Bowel Sounds Skin: Positive: Clear Extremities: Present: +1 Edema
[2017-12-31] MEDS ORDERED: TOPROL XL PO SCH ×3 (10:00→10:30)
[2017-12-31] MEDS: MILRINONE-D5W 20 MG/100 ML 20 MG/100 ML BAG IV SCH (10:02)
[2017-12-31] MEDS: CORDARONE PO SCH (10:03)
[2017-12-31] MEDS: ELIQUIS PO SCH (10:03)
[2017-12-31] MEDS: PROTONIX PO SCH (10:03)
[2017-12-31] MEDS: ZYLOPRIM PO SCH (10:03)
[2017-12-31] MEDS: SODIUM CHLORIDE FLUSH SYRINGE 10 ML IV SCH (10:09)
[2017-12-31] MEDS ORDERED: COZAAR PO SCH (10:30)
[2017-12-31] MEDS ORDERED: BUMEX PO SCH (10:30)
--- NOTE | 2017-12-31 13:33 | Discharge Summary ---
Providers - Providers Date of Admission: 12/24/17 16:07 Date of discharge: 12/31/17 Attending physician: IRAIS TORREZ 12/24/17 Consult to Case Management [CONS] Routine Services Needed at Discharge: Other Notified:: case supervisor Comment:: Home IV milrinone therapy Additional Physician Instructions: IV Milrinone-D5W 20Mg/100 Ml @ 7.824 mls/ hr IV TITR SHANDA 0.25 MCG/KG/MIN 12/24/17 15:47 PICC Line Insertion [Consult to PICC Line RN] [CONS] Routine Reason For Exam: For home IV milrinone therapy Type Line:: PICC Primary care physician: ROME ANNA Hospitalization Reason for admission: Congestive heart failure Condition: Good Pertinent studies: KINGS guided cardioversion Procedures: KINGS guided cardioversion Hospital course: Patient was admitted for acute on chronic systolic heart failure. He was started on IV milrinone and underwent a KINGS guided cardioversion for persistent atrial fibrillation. He tolerated the procedure well. Patient was also enrolled in home IV milrinone therapy. Education provided to patient. A PICC line was inserted. Patient was feeling much better at the time of discharge. Because his blood pressure was running borderline, we decided to reduce his BP meds dosages. Patient is scheduled to see me in clinic on January 06 at 3:50 pm Disposition: -01 TO HOME OR SELFCARE - Discharge Diagnoses (1) Acute on chronic systolic heart failure Status: Acute Core Measure Documentation - Palliative Care Palliative Care/ Comfort Measures: Not Applicable - Core Measures Any of the following diagnoses?: heart failure - Heart Failure Discharge Requirements WU/ARB for LVSD if EF <40%: Yes Beta nupur at discharge: Yes Exam - Constitutional Vitals: Temp Pulse Resp BP Pulse Ox 98.4 F 92 H 20 93/42 94 12/31/17 08:22 12/31/17 08:22 12/31/17 08:22 12/31/17 08:22 12/31/17 08:22 General appearance: Present: no acute distress - EENT Eyes: Present: PERRL - Neck Neck: Present: supple - Respiratory Respiratory effort: normal Respiratory: bilateral: CTA - Cardiovascular Rhythm: regular - Extremities Extremities: no ischemia - Abdominal General gastrointestinal: Present: soft Plan Activity: advance as tolerated Weight Bearing Status: Partial Weight Bearing (Nolifting greater than 20 lbs in weight) Diet: low fat, low cholesterol, low salt Special Instructions: restrict fluid intake to (64 oz daily), record daily weights Follow up with: ROME ANNA MD [Primary Care Provider] - 7 Days IRAIS TORREZ MD [Staff Physician] - 01/06/18 3:50 pm Prescriptions: Allopurinol [Zyloprim] 100 mg PO QDAY #30 tablet Amiodarone [Cordarone 200 MG TAB] 200 mg PO BID #60 tablet Apixaban [Eliquis] 5 mg PO BID #60 tablet Bumetanide [Bumex 1 mg tab] 1 mg PO DAILY #30 tablet Digoxin [Lanoxin] 0.125 mg PO Q48H #30 tablet Losartan [Cozaar] 6.25 mg PO QDAY #30 tablet Metoprolol Xl [Metoprolol SUCCINATE ER TAB] 25 mg PO QDAY #30 tablet Milrinone-D5w 20 mg/100 ml 0.25 mcg IV QDAY #20 ml Potassium Chloride [K-Dur] 10 meq PO QDAY #30 tablet
[2017-12-31 14:29] LABS: Calcium 9.4 mg/dL (8.4-10.2)
[2017-12-31 16:44] VITALS: BP 96/48
--- NOTE | 2017-12-31 23:36 | Procedure Note ---
CARDIOVERSION REPORT INDICATION: Persistent atrial fibrillation. DESCRIPTION OF PROCEDURE: After obtaining written consent and after documenting the absence of left atrial appendage clot, the patient was deeply sedated with propofol in the presence of anesthesia staff. A 200 joule synchronized shock was administered with successful conversion from atrial fibrillation to sinus rhythm. No complications occurred during the procedure. IMPRESSION: Successful cardioversion from atrial fibrillation to normal sinus rhythm after a 200 joule synchronized shock. JOB# [id number] EVERARDO/RASHEEDA
== END 2017-12-31 17:33 | disposition home or self-care (01) | DRG 291 ==
LOC: UNDOADMIN 15:30 → 4A 15:30
PROVIDERS: ADMIT Internal Medicine; ATTEND Internal Medicine
PROC: 02HV33Z Insertion of Infusion Device into Superior Vena Cava, Percutaneous Approach (ICD-10-PCS; 2017-12-27)
PROC: B24BZZ4 Ultrasonography of Heart with Aorta, Transesophageal (ICD-10-PCS; 2017-12-27)
PROC: 5A2204Z Restoration of Cardiac Rhythm, Single (ICD-10-PCS; principal; 2017-12-31)
DX: I13.0 Hypertensive heart and chronic kidney disease with heart failure and stage 1 through stage 4 chronic kidney disease, or unspecified chronic kidney disease (principal); I50.23 Acute on chronic systolic (congestive) heart failure; I48.1 Persistent atrial fibrillation; I48.0 Paroxysmal atrial fibrillation; I42.0 Dilated cardiomyopathy; Z79.899 Other long term (current) drug therapy; Z95.810 Presence of automatic (implantable) cardiac defibrillator; Z79.01 Long term (current) use of anticoagulants; F41.9 Anxiety disorder, unspecified; N18.9 Chronic kidney disease, unspecified; M19.90 Unspecified osteoarthritis, unspecified site; E66.9 Obesity, unspecified; Z68.33 Body mass index [BMI] 33.0-33.9, adult
CPT/HCPCS: 36415; 71045; 71046; 80048; 82962; 85025; 85379; 85610; 90732; 93005; 93010; 93306; 93312; 93320; 93325; 94760; J2260; J2704; J7040

== ENCOUNTER 2018-07-26 19:04 | Inpatient (IN) | payer MEDICARE ==
[2018-07-26 20:08] LABS: Hematocrit 35.6 % (35.5-45.6); Hemoglobin 11.8 gm/dl (11.8-15.2); Mean Corpuscular HGB Conc 33 % (32-34); Mean Corpuscular Volume 76 fl (84-94); Platelet Count 304 K/mm3 (140-440); Red Blood Count 4.71 M/mm3 (3.65-5.03); Red Cell Distribution Width 18.4 % (13.2-15.2)
[2018-07-26 20:25] LABS: Calcium 8.5 mg/dL (8.4-10.2)
[2018-07-26 20:52] LABS: Band Neutrophils # (Manual) 0.4 K/mm3; Basophils % (Manual) 0 % (0.0-1.8); Total Cells Counted 100
[2018-07-26 20:53] LABS: Anisocytosis 1+; Hypochromasia 1+
--- NOTE | 2018-07-26 21:29 | XRay Report ---
FINAL REPORT PROCEDURE: XR CHEST 1V AP TECHNIQUE: Chest radiograph anteroposterior view. CPT 72407 HISTORY: sob, hx of heart failure COMPARISON: 12/24/2017. FINDINGS: Heart: Moderate cardiomegaly is again noted obscuring the left lower lung and left costophrenic angle .. Mediastinum/Vessels: Pulmonary venous congestion is identified.. Lungs/Pleural space: Left lower lung and left costophrenic angle are obscured by the cardiac shadow. Right lung and right pleural space are clear.. Bony thorax: No acute osseous abnormality. Life support devices: A tripolar cardiac device is noted on the left side with its leads in place.. IMPRESSION: Cardiomegaly with pulmonary venous congestion consistent with CHF. Left lower lung and left costophrenic angle are obscured by the cardiac shadow. Any underlying infilt rates or left pleural effusion cannot be excluded..
--- NOTE | 2018-07-26 22:23 | Emergency Department Report ---
ED Shortness of Breath HPI - General Chief Complaint: Dyspnea/Respdistress Stated Complaint: COUGH COLD/WEAKNESS Time Seen by Provider: 07/26/18 20:22 Source: patient Mode of arrival: Ambulatory Limitations: No Limitations - History of Present Illness Initial Comments: 68-year-old male with a past medical history nonischemic cardiomyopathy with the EF of 15-20% currently on Milrinone, obesity, hypertension, diabetes, chronic renal insufficiency, A. fib with history of cardioversion on Eliquis, and AICD presents to the hospital complaining of progressively worsening shortness of breath or past 2 weeks. Dyspnea worse on exertion. Complains of generalized weakness and fatigue. At his baseline he has to sleep sitting straight up in the bed. Patient also complains of generalized abdominal swelling and weight gain. He states he's been compliant with his diet. He thinks he's been compliant with his fluid restriction because he doesn't drink a lot of fluid. Complains of sharp right parasternal chest pain with coughing only. Cough and most part is nonproductive but occasional white sputum. No fever reported. - Related Data Previous Rx's Medication Instructions Recorded Last Taken Type Acetaminophen [Acetaminophen TAB] 650 mg PO Q4H PRN tablet 12/31/17 Unknown Rx Allopurinol [Zyloprim] 100 mg PO QDAY #30 tablet 12/31/17 Unknown Rx Amiodarone [Cordarone 200 MG TAB] 200 mg PO BID #60 tablet 06/17/18 Unknown Rx Apixaban [Eliquis] 5 mg PO BID #60 tablet 06/17/18 Unknown Rx Bumetanide [Bumex 1 mg tab] 1 mg PO DAILY #30 tablet 06/17/18 Unknown Rx Digoxin [Lanoxin] 0.125 mg PO BID #30 tablet 06/17/18 Unknown Rx Losartan [Cozaar] 25 mg PO QDAY #30 tablet 06/17/18 Unknown Rx Metoprolol Xl [Metoprolol 25 mg PO QDAY #30 tablet 06/17/18 Unknown Rx SUCCINATE ER TAB] Pantoprazole [Protonix TAB] 40 mg PO QDAY #40 tablet 06/17/18 Unknown Rx Potassium Chloride [K-Dur] 10 meq PO QDAY #30 tablet 06/17/18 Unknown Rx metOLazone [Metolazone] 5 mg PO DAILY #30 tablet 06/17/18 Unknown Rx Allergies Allergy/AdvReac Type Severity Reaction Status Date / Time No Known Allergies Allergy Verified 03/03/17 09:44 ED Review of Systems ROS: Stated complaint: COUGH COLD/WEAKNESS Other details as noted in HPI Comment: All other systems reviewed and negative ED Past Medical Hx - Past Medical History Previous Medical History?: Yes Hx Hypertension: Yes Hx Congestive Heart Failure: Yes (nonischemic cardiomyopathy with EF of 15-20%) Hx Diabetes: Yes Hx Deep Vein Thrombosis: No Hx GERD: Yes Hx Renal Disease: Yes (renal insufficiency) Hx Arthritis: Yes Hx Asthma: No Hx COPD: No Hx HIV: No Additional medical history: A. fib with history of cardioversion and anticoagulant use - Surgical History Past Surgical History?: Yes Hx Internal Defibrillator: Yes - Social History Smoking Status: Never Smoker Substance Use Type: None - Medications Home Medications: Home Medications Medication Instructions Recorded Confirmed Last Taken Type Acetaminophen [Acetaminophen TAB] 650 mg PO Q4H PRN tablet 12/31/17 06/15/18 Unknown Rx Allopurinol [Zyloprim] 100 mg PO QDAY #30 tablet 12/31/17 06/15/18 Unknown Rx Amiodarone [Cordarone 200 MG TAB] 200 mg PO BID #60 tablet 06/17/18 Unknown Rx Apixaban [Eliquis] 5 mg PO BID #60 tablet 06/17/18 Unknown Rx Bumetanide [Bumex 1 mg tab] 1 mg PO DAILY #30 tablet 06/17/18 Unknown Rx Digoxin [Lanoxin] 0.125 mg PO BID #30 tablet 06/17/18 Unknown Rx Losartan [Cozaar] 25 mg PO QDAY #30 tablet 06/17/18 Unknown Rx Metoprolol Xl [Metoprolol 25 mg PO QDAY #30 tablet 06/17/18 Unknown Rx SUCCINATE ER TAB] Pantoprazole [Protonix TAB] 40 mg PO QDAY #40 tablet 06/17/18 Unknown Rx Potassium Chloride [K-Dur] 10 meq PO QDAY #30 tablet 06/17/18 Unknown Rx metOLazone [Metolazone] 5 mg PO DAILY #30 tablet 06/17/18 Unknown Rx ED Physical Exam - General Limitations: No Limitations - Other Other exam information: General: No limitations, patient is alert in no acute distress Head exam: Atraumatic, normocephalic Eyes exam: Normal appearance ENT: Moist mucous membrane, normal oropharynx Neck exam: Normal inspection, full range of motion, no meningismus nontender Respiratory exam: Basilar crackles, mild tachypnea, no accessory muscle use Cardiovascular: Normal rate and rhythm Abdomen: Soft, and nontender, with normal bowel sounds, no rebound, or guarding Extremity: Full range of motion normal inspection no deformity, minimal lower extremity edema, no calf tenderness Back: Normal Inspection, full range of motion, no tenderness Neurologic: Alert, oriented x3, cranial nerves intact, no motor or sensory deficit Psychiatric: normal affect, normal mood Skin: Warm, dry, intact ED Course Vital Signs 07/26/18 07/26/18 07/26/18 19:33 20:20 20:31 Temperature 97.8 F Pulse Rate 111 H Respiratory 22 29 H Rate Blood Pressure 125/78 O2 Sat by Pulse 95 99 Oximetry 07/26/18 07/26/18 07/26/18 20:33 20:46 21:00 Temperature Pulse Rate 99 H 99 H Respiratory 28 H 34 H Rate Blood Pressure O2 Sat by Pulse 95 96 97 Oximetry 07/26/18 07/26/18 21:16 21:30 Temperature Pulse Rate 100 H 97 H Respiratory 20 21 Rate Blood Pressure 105/78 O2 Sat by Pulse 94 96 Oximetry ED Medical Decision Making - Lab Data Result diagrams: 07/26/18 19:51 07/26/18 19:51 Lab Results 07/26/18 07/26/18 Range/Units 19:51 19:51 WBC 9.1 (4.5-11.0) K/mm3 RBC 4.71 (3.65-5.03) M/mm3 Hgb 11.8 (11.8-15.2) gm/dl Hct 35.6 (35.5-45.6) % MCV 76 L (84-94) fl MCH 25 L (28-32) pg MCHC 33 (32-34) % RDW 18.4 H (13.2-15.2) % Plt Count 304 (140-440) K/mm3 Add Manual Diff Complete Total Counted 100 Seg Neuts % (Manual) 65.0 (40.0-70.0) % Band Neutrophils % 4.0 % Lymphocytes % (Manual) 23.0 (13.4-35.0) % Reactive Lymphs % (Man) 0 % Monocytes % (Manual) 6.0 (0.0-7.3) % Eosinophils % (Manual) 2.0 (0.0-4.3) % Basophils % (Manual) 0 (0.0-1.8) % Metamyelocytes % 0 % Myelocytes % 0 % Promyelocytes % 0 % Blast Cells % 0 % Nucleated RBC % Not Reportable Seg Neutrophils # Man 5.9 (1.8-7.7) K/mm3 Band Neutrophils # 0.4 K/mm3 Lymphocytes # (Manual) 2.1 (1.2-5.4) K/mm3 Abs React Lymphs (Man) 0.0 K/mm3 Monocytes # (Manual) 0.5 (0.0-0.8) K/mm3 Eosinophils # (Manual) 0.2 (0.0-0.4) K/mm3 Basophils # (Manual) 0.0 (0.0-0.1) K/mm3 Metamyelocytes # 0.0 K/mm3 Myelocytes # 0.0 K/mm3 Promyelocytes # 0.0 K/mm3 Blast Cells # 0.0 K/mm3 WBC Morphology Not Reportable Hypersegmented Neuts Not Reportable Hyposegmented Neuts Not Reportable Hypogranular Neuts Not Reportable Smudge Cells Not Reportable Toxic Granulation Not Reportable Toxic Vacuolation Not Reportable Dohle Bodies Not Reportable Pelger-Huet Anomaly Not Reportable Bronson Rods Not Reportable Platelet Estimate Not Reportable Clumped Platelets Not Reportable Plt Clumps, EDTA Not Reportable Large Platelets Not Reportable Giant Platelets Not Reportable Platelet Satelliting Not Reportable Plt Morphology Comment Not Reportable RBC Morphology Not Reportable Dimorphic RBCs Not Reportable Polychromasia Not Reportable Hypochromasia 1+ Poikilocytosis Not Reportable Anisocytosis 1+ Microcytosis Not Reportable Macrocytosis Not Reportable Spherocytes Not Reportable Pappenheimer Bodies Not Reportable Sickle Cells Not Reportable Target Cells Not Reportable Tear Drop Cells Not Reportable Ovalocytes Not Reportable Helmet Cells Not Reportable [place] Bodies Not Reportable [place] Rings Not Reportable [place] Cells Not Reportable Bite Cells Not Reportable Crenated Cell Not Reportable Elliptocytes Not Reportable Acanthocytes (Spur) Not Reportable Rouleaux Not Reportable Hemoglobin C Crystals Not Reportable Schistocytes Not Reportable Malaria parasites Not Reportable [place] Bodies Not Reportable Hem Pathologist Commnt No Sodium 134 L (137-145) mmol/L Potassium 4.0 (3.6-5.0) mmol/L Chloride 99.3 (98-107) mmol/L Carbon Dioxide 23 (22-30) mmol/L Anion Gap 16 mmol/L BUN 20 (9-20) mg/dL Creatinine 1.7 H (0.8-1.5) mg/dL Estimated GFR 49 ml/min BUN/Creatinine Ratio 12 % Glucose 249 H (75-100) mg/dL Calcium 8.5 (8.4-10.2) mg/dL Troponin T 0.025 (0.00-0.029) ng/mL - EKG Data -: EKG Interpreted by Me (atrial sensed ventricular paced rhythm. Biventricular paced rhythm. ) EKG shows normal: ST-T waves (no STEMI) - EKG Data When compared to previous EKG there are: no significant change - Radiology Data Radiology results: report reviewed ISTORY: mirna zaragoza of heart failure COMPARISON: 12/24/2017. FINDINGS: Heart: Moderate cardiomegaly is again noted obscuring the left lower lung and left costophrenic angle.. Mediastinum/Vessels: Pulmonary venous congestion is identified.. Lungs/Pleural space: Left lower lung and left costophrenic angle are obscured by the cardiac shadow. Right lung and right pleural space are clear.. Bony thorax: No acute osseous abnormality. Life support devices: A tripolar cardiac device is noted on the left side with its leads in place.. IMPRESSION: Cardiomegaly with pulmonary venous congestion consistent with CHF. Left lower lung and left costophrenic angle are obscured by the cardiac shadow. Any underlying infiltrates or left pleural effusion cannot be excluded.. - Medical Decision Making Patient presents to the hospital with signs and symptoms of heart failure. Patient will be admitted for further treatment. - Differential Diagnosis CHF, MS, PE, atypical chest pain, mid and diet noncompliance Critical Care Time: No Critical care attestation.: If time is entered above; I have spent that time in minutes in the direct care of this critically ill patient, excluding procedure time. ED Disposition Clinical Impression: Acute CHF, Chronic renal insufficiency, Chest pain, Nonischemic cardiomyopathy Disposition: OP ADMIT IP TO THIS HOSP Is pt being admited?: Yes Condition: Stable Time of Disposition: 22:23 (Dr Jones/hosp)
[2018-07-26] MEDS ORDERED: D50W (25GM) Syringe IV PRN (23:23)
[2018-07-26] MEDS ORDERED: SODIUM CHLORIDE FLUSH SYRINGE 10 ML IV PRN (23:23)
[2018-07-26] MEDS ORDERED: TYLENOL PO PRN (23:23)
[2018-07-26] MEDS ORDERED: ZOFRAN IV PRN (23:23)
[2018-07-26] MEDS ORDERED: LASIX IV SCH (23:25)
--- NOTE | 2018-07-26 23:28 | History and Physical Report ---
History of Present Illness Date of examination: 07/26/18 History of present illness: 68-year-old male with a history of hypertension, CHF on milrinone drip, A. fib, chronic kidney disease, diabetes, gout, see emergency room with complaints of nonproductive cough. Patient also complained of chest pain, on the right side, present only with cough . Also complaining of shortness of breath, PND, lower extremity edema Review Of Systems: Constitutional: no weight loss Ears, eyes, nose, mouth and throat: no nasal congestion, no nasal discharge, no sinus pressure, blurry vision, diplopia Neck: No neck pain or rigidity. Cardiovascular:no chest pain, palpitations Respiratory: No shortness of breath, cough Gastrointestinal: abdominal pain, hematochezia Genitourinary : no dysuria, frequency , hematuria Musculoskeletal: no muscle ache Integumentary: no rash, no pruritis Neurological: no parathesias, focal weakness Endocrine: no cold or heat intolerance, no polyuria or polydipsia Hematologic/Lymphatic: no easy bruising, no easy bleeding, no gland swelling Allergic/Immunologic: no urticaria, no angioedema. PAST MEDICAL HISTORY:hypertension, CHF, A. fib, chronic kidney disease, virginie betes, gout PAST SURGICAL HISTORY: Pacemaker, AICD FAMILY HISTORY:hypertension SOCIAL HISTORY: Denies alcohol, tobacco, drugs Medications and Allergies Allergies Allergy/AdvReac Type Severity Reaction Status Date / Time No Known Allergies Allergy Verified 03/03/17 09:44 Home Medications Medication Instructions Recorded Confirmed Last Taken Type Acetaminophen [Acetaminophen TAB] 650 mg PO Q4H PRN tablet 12/31/17 07/31/18 Unknown Rx Digoxin [Lanoxin] 0.125 mg PO BID #30 tablet 06/17/18 07/31/18 Unknown Rx Potassium Chloride [K-Dur] 10 meq PO QDAY #30 tablet 06/17/18 07/31/18 Unknown Rx Allopurinol [Zyloprim] 100 mg PO QDAY #30 tablet 08/02/18 Unknown Rx Amiodarone [Cordarone 200 MG TAB] 200 mg PO BID #60 tablet 08/02/18 Unknown Rx Apixaban [Eliquis] 5 mg PO BID #60 tablet 08/02/18 Unknown Rx Aspirin [Aspirin BABY CHEW TAB] 81 mg PO QDAY #30 tab.chew 08/02/18 Unknown Rx Bumetanide [Bumex 1 mg tab] 1 mg PO DAILY #30 tablet 08/02/18 Unknown Rx Digoxin [Lanoxin] 0.125 mg PO DAILY@1700 #30 tablet 08/02/18 Unknown Rx Losartan [Cozaar] 25 mg PO QDAY #30 tablet 08/02/18 Unknown Rx Metoprolol Xl [Metoprolol 25 mg PO QDAY #30 tablet 08/02/18 Unknown Rx SUCCINATE ER TAB] Pantoprazole [Protonix TAB] 40 mg PO QDAY #40 tablet 08/02/18 Unknown Rx Potassium Chloride [K-Dur] 10 meq PO Q12HR #60 tablet 08/02/18 Unknown Rx metOLazone [Metolazone] 5 mg PO DAILY #30 tablet 08/02/18 Unknown Rx metOLazone [Zaroxolyn] 5 mg PO QDAY #30 tablet 08/02/18 Unknown Rx Active Meds: Active Medications Acetaminophen (Tylenol) 650 mg PO Q4H PRN PRN Reason: Pain MILD(1-3)/Fever >100.5/NAYLOR Allopurinol (Zyloprim) 100 mg PO QDAY [facility] Amiodarone HCl (Cordarone) 200 mg PO BID [facility] Apixaban (Eliquis) 5 mg PO BID [facility]; Protocol Aspirin (Baby Aspirin) 81 mg PO QDAY [facility] Dextrose (D50w (25gm) Syringe) 50 ml IV PRN PRN PRN Reason: Hypoglycemia Digoxin (Lanoxin) 0.125 mg PO BID [facility] Furosemide (Lasix) 20 mg IV QDAY [facility] Insulin Human Lispro (Humalog) 0 unit SUB-Q ACHS [facility]; Protocol Losartan Potassium (Cozaar) 25 mg PO QDAY [facility] Metoprolol Succinate (Toprol Xl) 25 mg PO QDAY [facility] Ondansetron HCl (Zofran) 4 mg IV Q8H PRN PRN Reason: Nausea And Vomiting Pantoprazole Sodium (Protonix) 40 mg PO QDAY [facility] Sodium Chloride (Sodium Chloride Flush Syringe 10 Ml) 10 ml IV BID [facility] Sodium Chloride (Sodium Chloride Flush Syringe 10 Ml) 10 ml IV PRN PRN PRN Reason: LINE FLUSH Exam - Physical Exam Narrative exam: General Apperance: The patient lying in bed, breathing comfortable HEENT: Normocephalic, atraumatic. Pupils equally round and reactive to light, EOMI, no sclericterus or JVD or thyromegaly or nodule. , no carotid bruit, mucous membranes moist, no exudate or erythema Heart: S1-S2, regular is rhythm Lungs: Crackles bilaterally, breathing comfortable Abdomen: Positive bowel sounds, soft, nontender, nondistended, no organomegaly Extremities: +edema cyanosis clubbing Skin: no rash, nodule, warm and dry Neuro: cranial nerves 2-12 intact, speech is fluent, motor/sensory intact - Constitutional Vitals: Temp Pulse Resp BP Pulse Ox 97.8 F 102 H 19 114/77 99 07/26/18 19:33 07/26/18 22:30 07/26/18 22:30 07/26/18 22:30 07/26/18 22:30 Results - Labs CBC & Chem 7: 07/30/18 07:01 07/31/18 06:41 Labs: Abnormal lab results 07/26/18 07/26/18 Range/Units 19:51 19:51 MCV 76 L (84-94) fl MCH 25 L (28-32) pg RDW 18.4 H (13.2-15.2) % Sodium 134 L (137-145) mmol/L Creatinine 1.7 H (0.8-1.5) mg/dL Glucose 249 H (75-100) mg/dL Assessment and Plan Assessment Acute on chronic heart failure, systolic Acute Renal failure Hypertension Diabetes of 2 A. fib Gout Plan Admit to medicine Continue milrinone drip, and IV Lasix Start beta nupur, WU inhibitor Check cardiac enzymes, consult cardiology, case discussed with Dr. Manrique Monitor I's and O's, daily weights Check fingersticks initiate insulin sliding scale. Continue appropriate outpatient medications DVT prophylaxis with eliquis
[2018-07-27 00:15] LABS: Creatine Kinase MB 2.5 ng/mL (0.0-4.0)
[2018-07-27] MEDS ORDERED: HumaLOG SUB-Q ONE (00:23)
[2018-07-27] MEDS: HumaLOG SUB-Q SCH ×5 (00:25→22:01)
[2018-07-27] MEDS: ROBITUSSIN PO PRN ×5 (02:59→22:11)
[2018-07-27 07:12] LABS: Creatine Kinase MB 2.4 ng/mL (0.0-4.0)
[2018-07-27 07:13] LABS: Basophils # (Auto) 0.1 K/mm3 (0.0-0.1); Basophils % (Auto) 0.7 % (0.0-1.8); Eosinophils # (Auto) 0.2 K/mm3 (0.0-0.4); Eosinophils % (Auto) 2.2 % (0.0-4.3); Hematocrit 35.9 % (35.5-45.6); Hemoglobin 11.2 gm/dl (11.8-15.2); Lymphocytes # (Auto) 1.8 K/mm3 (1.2-5.4); Lymphocytes % (Auto) 21.4 % (13.4-35.0); Mean Corpuscular HGB Conc 31 % (32-34); Mean Corpuscular Volume 76 fl (84-94); Monocytes # (Auto) 0.9 K/mm3 (0.0-0.8); Platelet Count 285 K/mm3 (140-440); Red Blood Count 4.69 M/mm3 (3.65-5.03); Red Cell Distribution Width 18.1 % (13.2-15.2)
[2018-07-27 07:19] LABS: Calcium 8.6 mg/dL (8.4-10.2)
[2018-07-27] MEDS ORDERED: LANOXIN PO SCH (08:00)
[2018-07-27] MEDS ORDERED: CORDARONE PO SCH (10:00)
[2018-07-27] MEDS ORDERED: LOVENOX SUB-Q SCH (10:00)
--- NOTE | 2018-07-27 10:00 | Consultation ---
Addendum entered and electronically signed by IRAIS TORREZ MD 07/27/18 10:31: Presentation is consistent with acute bronchitis Exam is also showing LLL crackles and decreased breath sounds Patient denies weight gain but describes abdominal fullness. He has not had a good BM for a while. Abdomen is soft and tympanic on exam Recommendations: Continue current management Meds updated to reflect what patient is supposed to be taking at home Obtain abdominal US and prescribe stool softners Obtain CT chest without contrast to evaluate LLL crackles and decreased BS on exam Check digoxin level Original Note: History of Present Illness Consult date: 07/27/18 Consult reason: congestive heart failure History of present illness: The patient's this 68 year old man with dilated nonischemic cardiomyopathy, has a cardiac defibrillator in situ, and is on home intravenous milrinone therapy. He also has a chronic atrial fibrillation and is on anticoagulation with Eliquis. Patient presents with shortness of breath, coughs, congestion and generalized weakness. He denies fever and chills. Patient admits to compliance with medical management and dietary restrictions. He denies weight gain but reports abdominal distention. Chest x-ray is cardiomegaly with mild interstitial edema. Cardiac consultation was requested. Medications and Allergies Allergies Allergy/AdvReac Type Severity Reaction Status Date / Time No Known Allergies Allergy Verified 03/03/17 09:44 Home Medications Medication Instructions Recorded Confirmed Last Taken Type Acetaminophen [Acetaminophen TAB] 650 mg PO Q4H PRN tablet 12/31/17 06/15/18 Unknown Rx Allopurinol [Zyloprim] 100 mg PO QDAY #30 tablet 12/31/17 06/15/18 Unknown Rx Amiodarone [Cordarone 200 MG TAB] 200 mg PO BID #60 tablet 06/17/18 Unknown Rx Apixaban [Eliquis] 5 mg PO BID #60 tablet 06/17/18 Unknown Rx Bumetanide [Bumex 1 mg tab] 1 mg PO DAILY #30 tablet 06/17/18 Unknown Rx Digoxin [Lanoxin] 0.125 mg PO BID #30 tablet 06/17/18 Unknown Rx Losartan [Cozaar] 25 mg PO QDAY #30 tablet 06/17/18 Unknown Rx Metoprolol Xl [Metoprolol 25 mg PO QDAY #30 tablet 06/17/18 Unknown Rx SUCCINATE ER TAB] Pantoprazole [Protonix TAB] 40 mg PO QDAY #40 tablet 06/17/18 Unknown Rx Potassium Chloride [K-Dur] 10 meq PO QDAY #30 tablet 06/17/18 Unknown Rx metOLazone [Metolazone] 5 mg PO DAILY #30 tablet 06/17/18 Unknown Rx Active Meds: Active Medications Acetaminophen (Tylenol) 650 mg PO Q4H PRN PRN Reason: Pain MILD(1-3)/Fever >100.5/NAYLOR Allopurinol (Zyloprim) 100 mg PO QDAY [facility] Amiodarone HCl (Cordarone) 200 mg PO BID [facility] Apixaban (Eliquis) 5 mg PO BID [facility]; Protocol Aspirin (Baby Aspirin) 81 mg PO QDAY [facility] Dextrose (D50w (25gm) Syringe) 50 ml IV PRN PRN PRN Reason: Hypoglycemia Digoxin (Lanoxin) 0.125 mg PO BID@0800,1700 [facility] Last Admin: 07/27/18 09:24 Dose: 0.125 mg Documented by: Furosemide (Lasix) 20 mg IV QDAY [facility] Last Admin: 07/27/18 00:25 Dose: 20 mg Documented by: Guaifenesin (Robitussin) 200 mg PO Q4H PRN PRN Reason: Cough Last Admin: 07/27/18 08:35 Dose: 200 mg Documented by: Milrinone Lactate/Dextrose (Milrinone-D5w 20 Mg/100 Ml) 20 mg in 100 mls @ 8.25 mls/hr IV TITR [facility] Insulin Human Lispro (Humalog) 0 unit SUB-Q ACHS [facility]; Protocol Last Admin: 07/27/18 09:26 Dose: 3 unit Documented by: Losartan Potassium (Cozaar) 25 mg PO QDAY [facility] Metoprolol Succinate (Toprol Xl) 25 mg PO QDAY [facility] Ondansetron HCl (Zofran) 4 mg IV Q8H PRN PRN Reason: Nausea And Vomiting Pantoprazole Sodium (Protonix) 40 mg PO QDAY [facility] Sodium Chloride (Sodium Chloride Flush Syringe 10 Ml) 10 ml IV BID [facility] Sodium Chloride (Sodium Chloride Flush Syringe 10 Ml) 10 ml IV PRN PRN PRN Reason: LINE FLUSH Physical Examination Vital Signs Temp Pulse Resp BP Pulse Ox 97.8 F 111 H 22 125/78 95 07/26/18 19:33 07/26/18 19:33 07/26/18 19:33 07/26/18 19:33 07/26/18 19:33 General appearance: no acute distress HEENT: Positive: PERRL Neck: Positive: trachea midline Cardiac: Positive: Reg Rate and Rhythm Lungs: Positive: Decreased Breath Sounds Neuro: Positive: Grossly Intact Abdomen: Positive: Distended Results 07/27/18 06:30 07/27/18 06:30 Cardiac Enzymes 07/26/18 07/27/18 Range/Units 23:31 06:30 CK-MB (CK-2) 2.5 2.4 (0.0-4.0) ng/mL CBC 07/26/18 07/27/18 Range/Units 19:51 06:30 WBC 9.1 8.5 (4.5-11.0) K/mm3 RBC 4.71 4.69 (3.65-5.03) M/mm3 Hgb 11.8 11.2 L (11.8-15.2) gm/dl Hct 35.6 35.9 (35.5-45.6) % Plt Count 304 285 (140-440) K/mm3 Lymph # 1.8 (1.2-5.4) K/mm3 [place] # 0.9 H (0.0-0.8) K/mm3 Eos # 0.2 (0.0-0.4) K/mm3 Baso # 0.1 (0.0-0.1) K/mm3 Comprehensive Metabolic Panel 07/26/18 07/27/18 Range/Units 19:51 06:30 Sodium 134 L 140 (137-145) mmol/L Potassium 4.0 3.8 (3.6-5.0) mmol/L Chloride 99.3 100.4 (98-107) mmol/L Carbon Dioxide 23 26 (22-30) mmol/L BUN 20 20 (9-20) mg/dL Creatinine 1.7 H 1.6 H (0.8-1.5) mg/dL Glucose 249 H 196 H (75-100) mg/dL Calcium 8.5 8.6 (8.4-10.2) mg/dL Assessment and Plan Chronic systolic heart failure on IV milrinone as an outpatient Acute renal failure Dilated Nonischemic cardiomyopathy EF 15-20% on echo 12/2017 no ischemia on MPI 12/2016 [facility] at [place]: no significant CAD Presence of AICD Hx of Persistent Afib s/p KINGS guided cardioversion 11/2017 on eliquis for oral anticoagulation Hx of paroxysmal VF -on amiodarone and digoxin for rate control Hx of Anxiety disorder Recommendations: Continue medical therapy including beta blockers, afterload agents, oral anticoagulation and intravenous milrinone. Continue oral digoxin and amiodarone therapy for suppression of ventricular arrhythmias. Abdominal ultrasound for r/o ascities.
[2018-07-27] MEDS: MILRINONE-D5W 20 MG/100 ML 20 MG/100 ML BAG IV SCH ×2 (12:09→23:35)
[2018-07-27] MEDS: ELIQUIS PO SCH ×2 (12:17→22:00)
[2018-07-27] MEDS: K-DUR PO SCH ×2 (12:17→22:00)
[2018-07-27] MEDS: ZYLOPRIM PO SCH (12:17)
[2018-07-27] MEDS: PROTONIX PO SCH (12:17)
[2018-07-27] MEDS: BABY ASPIRIN PO SCH (12:18)
[2018-07-27] MEDS: COZAAR PO SCH ×2 (12:18→12:21)
[2018-07-27] MEDS: TOPROL XL PO SCH (12:21)
--- NOTE | 2018-07-27 12:25 | Cat Scan Report ---
CT CHEST WITHOUT CONTRAST: HISTORY: Left lower lobe crackles and decreased breath sounds, abnormal breath sounds. COMPARISON: Previous chest x-rays. TECHNIQUE: Helical CT in 1.25mm intervals without IV contrast. Sagittal and coronal reformatted images. FINDINGS: Thyroid gland: Normal. Tracheobronchial tree: Normal. Esophagus: Normal. Heart: There is mild to moderate cardiomegaly. Multilead pacemaker device is in position. Pericardium: Normal. Mediastinum: No mediastinal mass or pathologic adenopathy is identified. Lung Romero: There is mild pulmonary venous congestion in both lungs. There are scattered many nodular densities in both lungs which are concerning for tiny pulmonary nodules. The largest nodule measures 1 cm in the right middle lobe. Most of the nodules measure 2-3 mm. There is no evidence for consolidation or interstitial lung disease. Pleural Spaces: Trace bilateral pleural effusions. No pneumothorax. Musculoskeletal: Intact. No suspicious bony lesion or fracture. Mild thoracic spondylosis. IMPRESSION: Cardiomegaly and pulmonary venous congestion. Trace pleural effusions. Consider mild volume overload or mild CHF. There are scattered tiny nodular densities in both lungs as described above. This is concerning for a metastatic process. These nodules are too small for CT-guided biopsy. Close interval followup or comparison with previous CT chest is recommended if available.
[2018-07-27] MEDS ORDERED: MIRALAX 3350 PO PRN (12:30)
--- NOTE | 2018-07-27 12:32 | Progress Note ---
Assessment and Plan Assessment and plan: Acute on chronic CHF Admitted to Tele cardiology consulted Bumex Milrinone drip Hypertension Diabetes mellitus type 2 CORRIE on chronic kidney disease Monitor renal function Full code status History Interval history: Shortness of breath Hospitalist Physical - Physical exam Narrative exam: EN: Not in acute distress, lying in bed HEENT: Normocephalic, atraumatic, Neck: supple, No JVD Lungs: Bilateral basal crackles, Heart:S1 and S2 regular, no murmurs, rubs or gallop, Abd:soft, non tender, non distended, normal bowel sounds Ext: Edema both lower ext, no cyanosis Neuro: Awake,alert, oriented x 3, No focal signs Psych:Depressed - Constitutional Vitals: Temp Pulse Resp BP Pulse Ox 98.3 F 94 H 28 H 95/32 93 07/27/18 09:39 07/27/18 12:21 07/27/18 09:39 07/27/18 09:39 07/27/18 09:41 General appearance: Present: no acute distress Results - Labs CBC & Chem 7: 07/27/18 06:30 07/27/18 06:30 Labs: Laboratory Last Values WBC 8.5 K/mm3 (4.5-11.0) 07/27/18 06:30 RBC 4.69 M/mm3 (3.65-5.03) 07/27/18 06:30 Hgb 11.2 gm/dl (11.8-15.2) L 07/27/18 06:30 Hct 35.9 % (35.5-45.6) 07/27/18 06:30 MCV 76 fl (84-94) L 07/27/18 06:30 MCH 24 pg (28-32) L 07/27/18 06:30 MCHC 31 % (32-34) L 07/27/18 06:30 RDW 18.1 % (13.2-15.2) H 07/27/18 06:30 Plt Count 285 K/mm3 (140-440) 07/27/18 06:30 Lymph % (Auto) 21.4 % (13.4-35.0) 07/27/18 06:30 [place] % (Auto) 11.0 % (0.0-7.3) H 07/27/18 06:30 Eos % (Auto) 2.2 % (0.0-4.3) 07/27/18 06:30 Baso % (Auto) 0.7 % (0.0-1.8) 07/27/18 06:30 Lymph # 1.8 K/mm3 (1.2-5.4) 07/27/18 06:30 [place] # 0.9 K/mm3 (0.0-0.8) H 07/27/18 06:30 Eos # 0.2 K/mm3 (0.0-0.4) 07/27/18 06:30 Baso # 0.1 K/mm3 (0.0-0.1) 07/27/18 06:30 Add Manual Diff Complete 07/26/18 19:51 Total Counted 100 07/26/18 19:51 Seg Neutrophils % 64.7 % (40.0-70.0) 07/27/18 06:30 Seg Neuts % (Manual) 65.0 % (40.0-70.0) 07/26/18 19:51 Band Neutrophils % 4.0 % 07/26/18 19:51 Lymphocytes % (Manual) 23.0 % (13.4-35.0) 07/26/18 19:51 Reactive Lymphs % (Man) 0 % 07/26/18 19:51 Monocytes % (Manual) 6.0 % (0.0-7.3) 07/26/18 19:51 Eosinophils % (Manual) 2.0 % (0.0-4.3) 07/26/18 19:51 Basophils % (Manual) 0 % (0.0-1.8) 07/26/18 19:51 Metamyelocytes % 0 % 07/26/18 19:51 Myelocytes % 0 % 07/26/18 19:51 Promyelocytes % 0 % 07/26/18 19:51 Blast Cells % 0 % 07/26/18 19:51 Nucleated RBC % Not Reportable 07/26/18 19:51 Seg Neutrophils # 5.5 K/mm3 (1.8-7.7) 07/27/18 06:30 Seg Neutrophils # Man 5.9 K/mm3 (1.8-7.7) 07/26/18 19:51 Band Neutrophils # 0.4 K/mm3 07/26/18 19:51 Lymphocytes # (Manual) 2.1 K/mm3 (1.2-5.4) 07/26/18 19:51 Abs React Lymphs (Man) 0.0 K/mm3 07/26/18 19:51 Monocytes # (Manual) 0.5 K/mm3 (0.0-0.8) 07/26/18 19:51 Eosinophils # (Manual) 0.2 K/mm3 (0.0-0.4) 07/26/18 19:51 Basophils # (Manual) 0.0 K/mm3 (0.0-0.1) 07/26/18 19:51 Metamyelocytes # 0.0 K/mm3 07/26/18 19:51 Myelocytes # 0.0 K/mm3 07/26/18 19:51 Promyelocytes # 0.0 K/mm3 07/26/18 19:51 Blast Cells # 0.0 K/mm3 07/26/18 19:51 WBC Morphology Not Reportable 07/26/18 19:51 Hypersegmented Neuts Not Reportable 07/26/18 19:51 Hyposegmented Neuts Not Reportable 07/26/18 19:51 Hypogranular Neuts Not Reportable 07/26/18 19:51 Smudge Cells Not Reportable 07/26/18 19:51 Toxic Granulation Not Reportable 07/26/18 19:51 Toxic Vacuolation Not Reportable 07/26/18 19:51 Dohle Bodies Not Reportable 07/26/18 19:51 Pelger-Huet Anomaly Not Reportable 07/26/18 19:51 Bronson Rods Not Reportable 07/26/18 19:51 Platelet Estimate Not Reportable 07/26/18 19:51 Clumped Platelets Not Reportable 07/26/18 19:51 Plt Clumps, EDTA Not Reportable 07/26/18 19:51 Large Platelets Not Reportable 07/26/18 19:51 Giant Platelets Not Reportable 07/26/18 19:51 Platelet Satelliting Not Reportable 07/26/18 19:51 Plt Morphology Comment Not Reportable 07/26/18 19:51 RBC Morphology Not Reportable 07/26/18 19:51 Dimorphic RBCs Not Reportable 07/26/18 19:51 Polychromasia Not Reportable 07/26/18 19:51 Hypochromasia 1+ 07/26/18 19:51 Poikilocytosis Not Reportable 07/26/18 19:51 Anisocytosis 1+ 07/26/18 19:51 Microcytosis Not Reportable 07/26/18 19:51 Macrocytosis Not Reportable 07/26/18 19:51 Spherocytes Not Reportable 07/26/18 19:51 Pappenheimer Bodies Not Reportable 07/26/18 19:51 Sickle Cells Not Reportable 07/26/18 19:51 Target Cells Not Reportable 07/26/18 19:51 Tear Drop Cells Not Reportable 07/26/18 19:51 Ovalocytes Not Reportable 07/26/18 19:51 Helmet Cells Not Reportable 07/26/18 19:51 Patricia-Asher Bodies Not Reportable 07/26/18 19:51 [place] Rings Not Reportable 07/26/18 19:51 Abundio Cells Not Reportable 07/26/18 19:51 Bite Cells Not Reportable 07/26/18 19:51 Crenated Cell Not Reportable 07/26/18 19:51 Elliptocytes Not Reportable 07/26/18 19:51 Acanthocytes (Spur) Not Reportable 07/26/18 19:51 Rouleaux Not Reportable 07/26/18 19:51 Hemoglobin C Crystals Not Reportable 07/26/18 19:51 Schistocytes Not Reportable 07/26/18 19:51 Malaria parasites Not Reportable 07/26/18 19:51 [place] Bodies Not Reportable 07/26/18 19:51 Hem Pathologist Commnt No 07/26/18 19:51 Sodium 140 mmol/L (137-145) 07/27/18 06:30 Potassium 3.8 mmol/L (3.6-5.0) 07/27/18 06:30 Chloride 100.4 mmol/L (98-107) 07/27/18 06:30 Carbon Dioxide 26 mmol/L (22-30) 07/27/18 06:30 Anion Gap 17 mmol/L 07/27/18 06:30 BUN 20 mg/dL (9-20) 07/27/18 06:30 Creatinine 1.6 mg/dL (0.8-1.5) H 07/27/18 06:30 Estimated GFR 52 ml/min 07/27/18 06:30 BUN/Creatinine Ratio 13 % 07/27/18 06:30 Glucose 196 mg/dL (75-100) H 07/27/18 06:30 POC Glucose 175 (70-105) H 07/27/18 06:51 Calcium 8.6 mg/dL (8.4-10.2) 07/27/18 06:30 Total Creatine Kinase 93 units/L (55-170) 07/27/18 06:30 CK-MB (CK-2) 2.4 ng/mL (0.0-4.0) 07/27/18 06:30 CK-MB (CK-2) Rel Index 2.5 (0-4) 07/27/18 06:30 Troponin T < 0.010 ng/mL (0.00-0.029) 07/27/18 06:30
--- NOTE | 2018-07-27 14:46 | Ultrasound Report ---
ULTRASOUND ABDOMEN LIMITED History: Abdominal distention, rule out ascites. Findings: Targeted grayscale ultrasound was performed in all 4 quadrants. No ascites is identified. Impression: No ascites.
[2018-07-27] MEDS: BUMEX IV SCH (17:52)
[2018-07-27] MEDS: SODIUM CHLORIDE FLUSH SYRINGE 10 ML IV SCH (21:59)
[2018-07-28] MEDS: BUMEX IV SCH ×2 (05:29→19:18)
[2018-07-28 06:36] LABS: Calcium 8.7 mg/dL (8.4-10.2)
[2018-07-28] MEDS: HumaLOG SUB-Q SCH ×4 (07:30→22:16)
--- NOTE | 2018-07-28 10:09 | Progress Note ---
Addendum entered and electronically signed by GLORIA DUGAN MD 07/28/18 14:07: Conservative cardiac medical therapy. Original Note: Assessment and Plan Chronic systolic heart failure on IV milrinone as an outpatient Acute renal failure Dilated Nonischemic cardiomyopathy EF 15-20% on echo 12/2017 no ischemia on MPI 12/2016 [facility] at [place]: no significant CAD Presence of AICD Hx of Persistent Afib s/p KINGS guided cardioversion 11/2017 on eliquis for oral anticoagulation Hx of paroxysmal VF -on amiodarone and digoxin for rate control dig level: 0.3 Hx of Anxiety disorder Recommendations: Continue medical therapy including beta blockers, afterload agents, oral anticoagulation and intravenous milrinone. Continue oral digoxin and amiodarone therapy for suppression of ventricular arrhythmias. Subjective Date of service: 07/28/18 Interval history: Patient is resting in bed comfortably. Reports continued coughs. No distress noted. IV milrinone continues; no reported events on telemetry. Objective Vital Signs Temp Pulse Pulse Resp Resp BP Pulse Ox 07/28/18 04:55 98.5 F 84 17 107/72 91 07/28/18 01:04 98.6 F 87 17 108/59 97 07/27/18 22:00 85 24 07/27/18 21:57 17 07/27/18 20:21 98.3 F 92 H 16 98/63 97 07/27/18 19:11 100 H 07/27/18 17:39 98.3 F 101 H 28 H 105/73 99 07/27/18 12:21 94 H 07/27/18 11:48 98.0 F 100 H 32 H 123/64 97 - Physical Examination General: No Apparent Distress HEENT: Positive: PERRL Neck: Positive: trachea midline Cardiac: Positive: Reg Rate and Rhythm Lungs: Positive: Decreased Breath Sounds Neuro: Positive: Grossly Intact Abdomen: Positive: Distended - Labs and Meds Comprehensive Metabolic Panel 07/28/18 Range/Units 05:11 Sodium 140 (137-145) mmol/L Potassium 4.1 (3.6-5.0) mmol/L Chloride 101.6 (98-107) mmol/L Carbon Dioxide 26 (22-30) mmol/L BUN 25 H (9-20) mg/dL Creatinine 1.5 (0.8-1.5) mg/dL Glucose 98 (75-100) mg/dL Calcium 8.7 (8.4-10.2) mg/dL
[2018-07-28] MEDS: CORDARONE PO SCH (10:54)
[2018-07-28] MEDS: COZAAR PO SCH (10:55)
[2018-07-28] MEDS: BABY ASPIRIN PO SCH (10:55)
[2018-07-28] MEDS: ELIQUIS PO SCH ×2 (10:55→22:15)
[2018-07-28] MEDS: ZYLOPRIM PO SCH (10:55)
[2018-07-28] MEDS: ZAROXOLYN PO SCH (10:55)
[2018-07-28] MEDS: TOPROL XL PO SCH (10:55)
[2018-07-28] MEDS: SODIUM CHLORIDE FLUSH SYRINGE 10 ML IV SCH ×2 (10:56→22:29)
[2018-07-28] MEDS: K-DUR PO SCH ×2 (10:56→22:15)
[2018-07-28] MEDS: PROTONIX PO SCH (10:56)
--- NOTE | 2018-07-28 15:12 | Progress Note ---
Assessment and Plan Assessment and plan: Acute on chronic CHF Admitted to Telemetry cardiology consulted Continue Bumex Milrinone drip Hypertension Diabetes mellitus type 2 CORRIE on chronic kidney disease creatinine 1.5 today Monitor renal function Full code status History Interval history: Less Shortness of breath but still short of breath No chest pain Hospitalist Physical - Physical exam Narrative exam: EN: Not in acute distress, lying in bed,obese HEENT: Normocephalic, atraumatic, Neck: supple, No JVD Lungs: Bilateral basal crackles, Heart:S1 and S2 regular, no murmurs, rubs or gallop, Abd:soft, non tender, non distended, normal bowel sounds Ext: Edema both lower ext, no cyanosis Neuro: Awake,alert, oriented x 3, No focal signs - Constitutional Vitals: Temp Pulse Resp BP Pulse Ox 97.4 F L 85 32 H 106/72 97 07/28/18 13:23 07/28/18 13:23 07/28/18 13:23 07/28/18 13:23 07/28/18 13:23 General appearance: Present: no acute distress Results - Labs CBC & Chem 7: 07/27/18 06:30 07/28/18 05:11 Labs: Laboratory Last Values WBC 8.5 K/mm3 (4.5-11.0) 07/27/18 06:30 RBC 4.69 M/mm3 (3.65-5.03) 07/27/18 06:30 Hgb 11.2 gm/dl (11.8-15.2) L 07/27/18 06:30 Hct 35.9 % (35.5-45.6) 07/27/18 06:30 MCV 76 fl (84-94) L 07/27/18 06:30 MCH 24 pg (28-32) L 07/27/18 06:30 MCHC 31 % (32-34) L 07/27/18 06:30 RDW 18.1 % (13.2-15.2) H 07/27/18 06:30 Plt Count 285 K/mm3 (140-440) 07/27/18 06:30 Lymph % (Auto) 21.4 % (13.4-35.0) 07/27/18 06:30 [place] % (Auto) 11.0 % (0.0-7.3) H 07/27/18 06:30 Eos % (Auto) 2.2 % (0.0-4.3) 07/27/18 06:30 Baso % (Auto) 0.7 % (0.0-1.8) 07/27/18 06:30 Lymph # 1.8 K/mm3 (1.2-5.4) 07/27/18 06:30 [place] # 0.9 K/mm3 (0.0-0.8) H 07/27/18 06:30 Eos # 0.2 K/mm3 (0.0-0.4) 07/27/18 06:30 Baso # 0.1 K/mm3 (0.0-0.1) 07/27/18 06:30 Add Manual Diff Complete 07/26/18 19:51 Total Counted 100 07/26/18 19:51 Seg Neutrophils % 64.7 % (40.0-70.0) 07/27/18 06:30 Seg Neuts % (Manual) 65.0 % (40.0-70.0) 07/26/18 19:51 Band Neutrophils % 4.0 % 07/26/18 19:51 Lymphocytes % (Manual) 23.0 % (13.4-35.0) 07/26/18 19:51 Reactive Lymphs % (Man) 0 % 07/26/18 19:51 Monocytes % (Manual) 6.0 % (0.0-7.3) 07/26/18 19:51 Eosinophils % (Manual) 2.0 % (0.0-4.3) 07/26/18 19:51 Basophils % (Manual) 0 % (0.0-1.8) 07/26/18 19:51 Metamyelocytes % 0 % 07/26/18 19:51 Myelocytes % 0 % 07/26/18 19:51 Promyelocytes % 0 % 07/26/18 19:51 Blast Cells % 0 % 07/26/18 19:51 Nucleated RBC % Not Reportable 07/26/18 19:51 Seg Neutrophils # 5.5 K/mm3 (1.8-7.7) 07/27/18 06:30 Seg Neutrophils # Man 5.9 K/mm3 (1.8-7.7) 07/26/18 19:51 Band Neutrophils # 0.4 K/mm3 07/26/18 19:51 Lymphocytes # (Manual) 2.1 K/mm3 (1.2-5.4) 07/26/18 19:51 Abs React Lymphs (Man) 0.0 K/mm3 07/26/18 19:51 Monocytes # (Manual) 0.5 K/mm3 (0.0-0.8) 07/26/18 19:51 Eosinophils # (Manual) 0.2 K/mm3 (0.0-0.4) 07/26/18 19:51 Basophils # (Manual) 0.0 K/mm3 (0.0-0.1) 07/26/18 19:51 Metamyelocytes # 0.0 K/mm3 07/26/18 19:51 Myelocytes # 0.0 K/mm3 07/26/18 19:51 Promyelocytes # 0.0 K/mm3 07/26/18 19:51 Blast Cells # 0.0 K/mm3 07/26/18 19:51 WBC Morphology Not Reportable 07/26/18 19:51 Hypersegmented Neuts Not Reportable 07/26/18 19:51 Hyposegmented Neuts Not Reportable 07/26/18 19:51 Hypogranular Neuts Not Reportable 07/26/18 19:51 Smudge Cells Not Reportable 07/26/18 19:51 Toxic Granulation Not Reportable 07/26/18 19:51 Toxic Vacuolation Not Reportable 07/26/18 19:51 Dohle Bodies Not Reportable 07/26/18 19:51 Pelger-Huet Anomaly Not Reportable 07/26/18 19:51 Bronson Rods Not Reportable 07/26/18 19:51 Platelet Estimate Not Reportable 07/26/18 19:51 Clumped Platelets Not Reportable 07/26/18 19:51 Plt Clumps, EDTA Not Reportable 07/26/18 19:51 Large Platelets Not Reportable 07/26/18 19:51 Giant Platelets Not Reportable 07/26/18 19:51 Platelet Satelliting Not Reportable 07/26/18 19:51 Plt Morphology Comment Not Reportable 07/26/18 19:51 RBC Morphology Not Reportable 07/26/18 19:51 Dimorphic RBCs Not Reportable 07/26/18 19:51 Polychromasia Not Reportable 07/26/18 19:51 Hypochromasia 1+ 07/26/18 19:51 Poikilocytosis Not Reportable 07/26/18 19:51 Anisocytosis 1+ 07/26/18 19:51 Microcytosis Not Reportable 07/26/18 19:51 Macrocytosis Not Reportable 07/26/18 19:51 Spherocytes Not Reportable 07/26/18 19:51 Pappenheimer Bodies Not Reportable 07/26/18 19:51 Sickle Cells Not Reportable 07/26/18 19:51 Target Cells Not Reportable 07/26/18 19:51 Tear Drop Cells Not Reportable 07/26/18 19:51 Ovalocytes Not Reportable 07/26/18 19:51 Helmet Cells Not Reportable 07/26/18 19:51 Patricia-[place] Bodies Not Reportable 07/26/18 19:51 [place] Rings Not Reportable 07/26/18 19:51 [place] Cells Not Reportable 07/26/18 19:51 Bite Cells Not Reportable 07/26/18 19:51 Crenated Cell Not Reportable 07/26/18 19:51 Elliptocytes Not Reportable 07/26/18 19:51 Acanthocytes (Spur) Not Reportable 07/26/18 19:51 Rouleaux Not Reportable 07/26/18 19:51 Hemoglobin C Crystals Not Reportable 07/26/18 19:51 Schistocytes Not Reportable 07/26/18 19:51 Malaria parasites Not Reportable 07/26/18 19:51 Carson Bodies Not Reportable 07/26/18 19:51 Hem Pathologist Commnt No 07/26/18 19:51 Sodium 140 mmol/L (137-145) 07/28/18 05:11 Potassium 4.1 mmol/L (3.6-5.0) 07/28/18 05:11 Chloride 101.6 mmol/L (98-107) 07/28/18 05:11 Carbon Dioxide 26 mmol/L (22-30) 07/28/18 05:11 Anion Gap 17 mmol/L 07/28/18 05:11 BUN 25 mg/dL (9-20) H 07/28/18 05:11 Creatinine 1.5 mg/dL (0.8-1.5) 07/28/18 05:11 Estimated GFR 56 ml/min 07/28/18 05:11 BUN/Creatinine Ratio 17 % 07/28/18 05:11 Glucose 98 mg/dL (75-100) 07/28/18 05:11 POC Glucose 126 (70-105) H 07/28/18 11:59 Calcium 8.7 mg/dL (8.4-10.2) 07/28/18 05:11 Total Creatine Kinase 93 units/L (55-170) 07/27/18 06:30 CK-MB (CK-2) 2.4 ng/mL (0.0-4.0) 07/27/18 06:30 CK-MB (CK-2) Rel Index 2.5 (0-4) 07/27/18 06:30 Troponin T < 0.010 ng/mL (0.00-0.029) 07/27/18 06:30 Digoxin 0.3 ng/mL (0.9-2.0) L 07/27/18 14:39
[2018-07-28] MEDS: MILRINONE-D5W 20 MG/100 ML 20 MG/100 ML BAG IV SCH (15:29)
[2018-07-28] MEDS: LANOXIN PO SCH (19:00)
[2018-07-28] MEDS: ROBITUSSIN PO PRN (20:06)
[2018-07-28] MEDS ORDERED: NACL 0.9% 250ML 250 ML IV ONE (21:41)
[2018-07-29] MEDS: MILRINONE-D5W 20 MG/100 ML 20 MG/100 ML BAG IV SCH ×2 (02:10→18:17)
[2018-07-29] MEDS: HumaLOG SUB-Q SCH ×4 (08:18→21:37)
--- NOTE | 2018-07-29 09:26 | Progress Note ---
Assessment and Plan Acute bronchitis chest CT reports scattered tiny nodules densities in both lung concerning for metastatic process Chronic systolic heart failure on IV milrinone as an outpatient Acute renal failure Dilated Nonischemic cardiomyopathy EF 15-20% on echo 12/2017 no ischemia on MPI 12/[address] [facility] at [place]: no significant CAD Presence of AICD Hx of Persistent Afib s/p KINGS guided cardioversion 11/2017 on eliquis for oral anticoagulation Hx of paroxysmal VF -on amiodarone and digoxin for rate control dig level: 0.3 Hx of Anxiety disorder Recommendations: Continue medical therapy including beta blockers, afterload agents, oral anticoagulation and intravenous milrinone. Continue oral digoxin and amiodarone therapy for suppression of ventricular arrhythmias. Subjective Date of service: 07/29/18 Interval history: Patient reports continued coughs and shortness of breath, worse at night. IV milrinone continues; no reported events on telemetry. Objective Vital Signs Temp Pulse Resp BP Pulse Ox 07/29/18 08:19 26 H 96 07/29/18 04:37 78 07/29/18 02:10 81 94/58 96 07/28/18 21:01 89 75/38 93 07/28/18 20:27 97 07/28/18 19:00 85 106/72 07/28/18 16:28 97.3 F L 118 H 28 H 105/68 97 07/28/18 13:23 97.4 F L 85 32 H 106/72 97 07/28/18 10:55 85 112/66 07/28/18 10:00 20 100 - Physical Examination General: No Apparent Distress HEENT: Positive: PERRL Neck: Positive: trachea midline Cardiac: Positive: Other (paced) Neuro: Positive: Grossly Intact
--- NOTE | 2018-07-29 10:50 | Progress Note ---
Assessment and Plan Assessment and plan: Acute on chronic CHF Admitted to Telemetry cardiology following Continue Bumex Continue Milrinone drip he was using from home. Hypertension Diabetes mellitus type 2 CORRIE on chronic kidney disease Monitor renal function Acute resp failure. patient still has shortness of breath Nurse states patient gets oxygen desaturation when he falls asleep even in afternoon. ??sleep apnea. Patient denies history of sleep apnea consult Pulm Full code status History Interval history: Less Shortness of breath but still short of breath oxygen desaturation on sleeping Hospitalist Physical - Physical exam Narrative exam: EN: Not in acute distress, lying in bed,obese HEENT: Normocephalic, atraumatic, Neck: supple, No JVD Lungs: Bilateral basal crackles, Heart:S1 and S2 regular, no murmurs, rubs or gallop, Abd:soft, non tender, non distended, normal bowel sounds Ext: Edema both lower ext, no cyanosis Neuro: Awake,alert, oriented x 3, No focal signs - Constitutional Vitals: Temp Pulse Resp BP Pulse Ox 97.3 F L 78 26 H 94/58 96 07/28/18 16:28 07/29/18 04:37 07/29/18 08:19 07/29/18 02:10 07/29/18 08:19 General appearance: Present: no acute distress Results - Labs CBC & Chem 7: 07/30/18 07:01 07/30/18 07:01 Labs: Laboratory Last Values WBC 8.5 K/mm3 (4.5-11.0) 07/27/18 06:30 RBC 4.69 M/mm3 (3.65-5.03) 07/27/18 06:30 Hgb 11.2 gm/dl (11.8-15.2) L 07/27/18 06:30 Hct 35.9 % (35.5-45.6) 07/27/18 06:30 MCV 76 fl (84-94) L 07/27/18 06:30 MCH 24 pg (28-32) L 07/27/18 06:30 MCHC 31 % (32-34) L 07/27/18 06:30 RDW 18.1 % (13.2-15.2) H 07/27/18 06:30 Plt Count 285 K/mm3 (140-440) 07/27/18 06:30 Lymph % (Auto) 21.4 % (13.4-35.0) 07/27/18 06:30 [place] % (Auto) 11.0 % (0.0-7.3) H 07/27/18 06:30 Eos % (Auto) 2.2 % (0.0-4.3) 07/27/18 06:30 Baso % (Auto) 0.7 % (0.0-1.8) 07/27/18 06:30 Lymph # 1.8 K/mm3 (1.2-5.4) 07/27/18 06:30 [place] # 0.9 K/mm3 (0.0-0.8) H 07/27/18 06:30 Eos # 0.2 K/mm3 (0.0-0.4) 07/27/18 06:30 Baso # 0.1 K/mm3 (0.0-0.1) 07/27/18 06:30 Add Manual Diff Complete 07/26/18 19:51 Total Counted 100 07/26/18 19:51 Seg Neutrophils % 64.7 % (40.0-70.0) 07/27/18 06:30 Seg Neuts % (Manual) 65.0 % (40.0-70.0) 07/26/18 19:51 Band Neutrophils % 4.0 % 07/26/18 19:51 Lymphocytes % (Manual) 23.0 % (13.4-35.0) 07/26/18 19:51 Reactive Lymphs % (Man) 0 % 07/26/18 19:51 Monocytes % (Manual) 6.0 % (0.0-7.3) 07/26/18 19:51 Eosinophils % (Manual) 2.0 % (0.0-4.3) 07/26/18 19:51 Basophils % (Manual) 0 % (0.0-1.8) 07/26/18 19:51 Metamyelocytes % 0 % 07/26/18 19:51 Myelocytes % 0 % 07/26/18 19:51 Promyelocytes % 0 % 07/26/18 19:51 Blast Cells % 0 % 07/26/18 19:51 Nucleated RBC % Not Reportable 07/26/18 19:51 Seg Neutrophils # 5.5 K/mm3 (1.8-7.7) 07/27/18 06:30 Seg Neutrophils # Man 5.9 K/mm3 (1.8-7.7) 07/26/18 19:51 Band Neutrophils # 0.4 K/mm3 07/26/18 19:51 Lymphocytes # (Manual) 2.1 K/mm3 (1.2-5.4) 07/26/18 19:51 Abs React Lymphs (Man) 0.0 K/mm3 07/26/18 19:51 Monocytes # (Manual) 0.5 K/mm3 (0.0-0.8) 07/26/18 19:51 Eosinophils # (Manual) 0.2 K/mm3 (0.0-0.4) 07/26/18 19:51 Basophils # (Manual) 0.0 K/mm3 (0.0-0.1) 07/26/18 19:51 Metamyelocytes # 0.0 K/mm3 07/26/18 19:51 Myelocytes # 0.0 K/mm3 07/26/18 19:51 Promyelocytes # 0.0 K/mm3 07/26/18 19:51 Blast Cells # 0.0 K/mm3 07/26/18 19:51 WBC Morphology Not Reportable 07/26/18 19:51 Hypersegmented Neuts Not Reportable 07/26/18 19:51 Hyposegmented Neuts Not Reportable 07/26/18 19:51 Hypogranular Neuts Not Reportable 07/26/18 19:51 Smudge Cells Not Reportable 07/26/18 19:51 Toxic Granulation Not Reportable 07/26/18 19:51 Toxic Vacuolation Not Reportable 07/26/18 19:51 Dohle Bodies Not Reportable 07/26/18 19:51 Pelger-Huet Anomaly Not Reportable 07/26/18 19:51 Bronson Rods Not Reportable 07/26/18 19:51 Platelet Estimate Not Reportable 07/26/18 19:51 Clumped Platelets Not Reportable 07/26/18 19:51 Plt Clumps, EDTA Not Reportable 07/26/18 19:51 Large Platelets Not Reportable 07/26/18 19:51 Giant Platelets Not Reportable 07/26/18 19:51 Platelet Satelliting Not Reportable 07/26/18 19:51 Plt Morphology Comment Not Reportable 07/26/18 19:51 RBC Morphology Not Reportable 07/26/18 19:51 Dimorphic RBCs Not Reportable 07/26/18 19:51 Polychromasia Not Reportable 07/26/18 19:51 Hypochromasia 1+ 07/26/18 19:51 Poikilocytosis Not Reportable 07/26/18 19:51 Anisocytosis 1+ 07/26/18 19:51 Microcytosis Not Reportable 07/26/18 19:51 Macrocytosis Not Reportable 07/26/18 19:51 Spherocytes Not Reportable 07/26/18 19:51 Pappenheimer Bodies Not Reportable 07/26/18 19:51 Sickle Cells Not Reportable 07/26/18 19:51 Target Cells Not Reportable 07/26/18 19:51 Tear Drop Cells Not Reportable 07/26/18 19:51 Ovalocytes Not Reportable 07/26/18 19:51 Helmet Cells Not Reportable 07/26/18 19:51 [place] Bodies Not Reportable 07/26/18 19:51 [place] Rings Not Reportable 07/26/18 19:51 [place] Cells Not Reportable 07/26/18 19:51 Bite Cells Not Reportable 07/26/18 19:51 Crenated Cell Not Reportable 07/26/18 19:51 Elliptocytes Not Reportable 07/26/18 19:51 Acanthocytes (Spur) Not Reportable 07/26/18 19:51 Rouleaux Not Reportable 07/26/18 19:51 Hemoglobin C Crystals Not Reportable 07/26/18 19:51 Schistocytes Not Reportable 07/26/18 19:51 Malaria parasites Not Reportable 07/26/18 19:51 Carson Bodies Not Reportable 07/26/18 19:51 Hem Pathologist Commnt No 07/26/18 19:51 Sodium 140 mmol/L (137-145) 07/28/18 05:11 Potassium 4.1 mmol/L (3.6-5.0) 07/28/18 05:11 Chloride 101.6 mmol/L (98-107) 07/28/18 05:11 Carbon Dioxide 26 mmol/L (22-30) 07/28/18 05:11 Anion Gap 17 mmol/L 07/28/18 05:11 BUN 25 mg/dL (9-20) H 07/28/18 05:11 Creatinine 1.5 mg/dL (0.8-1.5) 07/28/18 05:11 Estimated GFR 56 ml/min 07/28/18 05:11 BUN/Creatinine Ratio 17 % 07/28/18 05:11 Glucose 98 mg/dL (75-100) 07/28/18 05:11 POC Glucose 109 (70-105) H 07/29/18 06:13 Calcium 8.7 mg/dL (8.4-10.2) 07/28/18 05:11 Total Creatine Kinase 93 units/L (55-170) 07/27/18 06:30 CK-MB (CK-2) 2.4 ng/mL (0.0-4.0) 07/27/18 06:30 CK-MB (CK-2) Rel Index 2.5 (0-4) 07/27/18 06:30 Troponin T < 0.010 ng/mL (0.00-0.029) 07/27/18 06:30 Digoxin 0.3 ng/mL (0.9-2.0) L 07/27/18 14:39
[2018-07-29] MEDS: ZAROXOLYN PO SCH (11:24)
[2018-07-29] MEDS: ROBITUSSIN PO PRN ×2 (11:24→18:13)
[2018-07-29] MEDS: K-DUR PO SCH ×2 (11:25→21:39)
[2018-07-29] MEDS: CORDARONE PO SCH (11:25)
[2018-07-29] MEDS: COZAAR PO SCH (11:25)
[2018-07-29] MEDS: PROTONIX PO SCH (11:25)
[2018-07-29] MEDS: BABY ASPIRIN PO SCH (11:25)
[2018-07-29] MEDS: ELIQUIS PO SCH ×2 (11:25→21:38)
[2018-07-29] MEDS: TOPROL XL PO SCH (11:25)
[2018-07-29] MEDS: ZYLOPRIM PO SCH (11:25)
[2018-07-29] MEDS: BUMEX IV SCH ×2 (18:14→23:46)
[2018-07-29] MEDS: LANOXIN PO SCH (18:14)
[2018-07-29] MEDS: SODIUM CHLORIDE FLUSH SYRINGE 10 ML IV SCH ×3 (21:37→23:48)
[2018-07-30] MEDS: MILRINONE-D5W 20 MG/100 ML 20 MG/100 ML BAG IV SCH ×2 (03:13→15:15)
[2018-07-30] MEDS: BUMEX IV SCH (06:11)
[2018-07-30] MEDS: HumaLOG SUB-Q SCH ×4 (08:00→21:48)
[2018-07-30 08:22] LABS: Hematocrit 37.2 % (35.5-45.6); Hemoglobin 11.7 gm/dl (11.8-15.2); Mean Corpuscular HGB Conc 32 % (32-34); Mean Corpuscular Volume 76 fl (84-94); Platelet Count 311 K/mm3 (140-440); Red Blood Count 4.89 M/mm3 (3.65-5.03); Red Cell Distribution Width 18.3 % (13.2-15.2)
[2018-07-30 08:36] LABS: Calcium 8.6 mg/dL (8.4-10.2)
[2018-07-30] MEDS: SODIUM CHLORIDE FLUSH SYRINGE 10 ML IV SCH ×2 (10:00→21:49)
[2018-07-30] MEDS: ELIQUIS PO SCH ×2 (10:32→21:47)
[2018-07-30] MEDS: COZAAR PO SCH ×2 (10:33→14:56)
[2018-07-30] MEDS: BABY ASPIRIN PO SCH (10:34)
[2018-07-30] MEDS: ZAROXOLYN PO SCH (10:34)
[2018-07-30] MEDS: K-DUR PO SCH ×2 (10:34→21:48)
[2018-07-30] MEDS: PROTONIX PO SCH (10:34)
[2018-07-30] MEDS: ZYLOPRIM PO SCH (10:34)
[2018-07-30] MEDS: TOPROL XL PO SCH (10:36)
--- NOTE | 2018-07-30 10:39 | Progress Note ---
Assessment and Plan - Patient Problems (1) Nonischemic cardiomyopathy Current Visit: Yes Status: Acute (2) AICD (automatic cardioverter/defibrillator) present Current Visit: No Status: Acute (3) CORRIE (acute kidney injury) Current Visit: No Status: Acute (4) Diabetes mellitus type 2 in obese Current Visit: No Status: Chronic Subjective Date of service: 07/30/18 Interval history: BREATHING BETTER,,NO FEVER/SPUTUM Objective Vital Signs Temp Pulse Pulse Resp BP Pulse Ox 07/30/18 08:36 98.0 F 91 H 28 H 107/65 98 07/30/18 04:10 97.8 F 87 16 105/69 100 07/29/18 23:00 68 90 07/29/18 22:59 98.2 F 18 115/73 07/29/18 22:00 73 20 07/29/18 20:20 94 H 07/29/18 19:36 100 07/29/18 19:17 97.2 F L 73 16 100/62 96 07/29/18 18:14 89 115/69 07/29/18 16:37 89 07/29/18 11:33 20 119/77 - Physical Examination General: No Apparent Distress HEENT: Positive: PERRL Neck: Positive: trachea midline Cardiac: Positive: Reg Rate and Rhythm Lungs: Positive: clear to auscultation Neuro: Positive: Grossly Intact Abdomen: Positive: Unremarkable Extremities: Present: edema (NO) - Labs and Meds CBC 07/30/18 Range/Units 07:01 WBC 7.4 (4.5-11.0) K/mm3 RBC 4.89 (3.65-5.03) M/mm3 Hgb 11.7 L (11.8-15.2) gm/dl Hct 37.2 (35.5-45.6) % Plt Count 311 (140-440) K/mm3 Comprehensive Metabolic Panel 07/30/18 Range/Units 07:01 Sodium 134 L (137-145) mmol/L Potassium 3.8 (3.6-5.0) mmol/L Chloride 95.3 L (98-107) mmol/L Carbon Dioxide 25 (22-30) mmol/L BUN 34 H (9-20) mg/dL Creatinine 1.7 H (0.8-1.5) mg/dL Glucose 219 H (75-100) mg/dL Calcium 8.6 (8.4-10.2) mg/dL
[2018-07-30] MEDS: CORDARONE PO SCH (10:58)
--- NOTE | 2018-07-30 11:32 | Progress Note ---
Assessment and Plan Assessment and plan: Acute on chronic CHF Admitted to Telemetry cardiology following Continue Bumex Continue Milrinone drip he was using from home. Hypertension Diabetes mellitus type 2 CORRIE on chronic kidney disease Monitor renal function Acute resp failure. patient still has shortness of breath Nurse states patient gets oxygen desaturation when he falls asleep even in afternoon. ??sleep apnea. Patient denies history of sleep apnea consult Pulmonology Chest x ray, ABG Full code status History Interval history: Less Shortness of breath but still short of breath oxygen desaturation on sleeping Hospitalist Physical - Physical exam Narrative exam: EN: Not in acute distress, lying in bed,obese HEENT: Normocephalic, atraumatic, Neck: supple, No JVD Lungs: Bilateral basal crackles, Heart:S1 and S2 regular, no murmurs, rubs or gallop, Abd:soft, non tender, non distended, normal bowel sounds Ext: Edema both lower ext, no cyanosis Neuro: Awake,alert, oriented x 3, No focal signs - Constitutional Vitals: Temp Pulse Resp BP Pulse Ox 98.0 F 91 H 28 H 107/65 99 07/30/18 08:36 07/30/18 08:36 07/30/18 08:36 07/30/18 08:36 07/30/18 10:59 General appearance: Present: no acute distress Results - Labs CBC & Chem 7: 07/30/18 07:01 07/30/18 07:01 Labs: Laboratory Last Values WBC 7.4 K/mm3 (4.5-11.0) 07/30/18 07:01 RBC 4.89 M/mm3 (3.65-5.03) 07/30/18 07:01 Hgb 11.7 gm/dl (11.8-15.2) L 07/30/18 07:01 Hct 37.2 % (35.5-45.6) 07/30/18 07:01 MCV 76 fl (84-94) L 07/30/18 07:01 MCH 24 pg (28-32) L 07/30/18 07:01 MCHC 32 % (32-34) 07/30/18 07:01 RDW 18.3 % (13.2-15.2) H 07/30/18 07:01 Plt Count 311 K/mm3 (140-440) 07/30/18 07:01 Lymph % (Auto) 21.4 % (13.4-35.0) 07/27/18 06:30 [place] % (Auto) 11.0 % (0.0-7.3) H 07/27/18 06:30 Eos % (Auto) 2.2 % (0.0-4.3) 07/27/18 06:30 Baso % (Auto) 0.7 % (0.0-1.8) 07/27/18 06:30 Lymph # 1.8 K/mm3 (1.2-5.4) 07/27/18 06:30 [place] # 0.9 K/mm3 (0.0-0.8) H 07/27/18 06:30 Eos # 0.2 K/mm3 (0.0-0.4) 07/27/18 06:30 Baso # 0.1 K/mm3 (0.0-0.1) 07/27/18 06:30 Add Manual Diff Complete 07/26/18 19:51 Total Counted 100 07/26/18 19:51 Seg Neutrophils % 64.7 % (40.0-70.0) 07/27/18 06:30 Seg Neuts % (Manual) 65.0 % (40.0-70.0) 07/26/18 19:51 Band Neutrophils % 4.0 % 07/26/18 19:51 Lymphocytes % (Manual) 23.0 % (13.4-35.0) 07/26/18 19:51 Reactive Lymphs % (Man) 0 % 07/26/18 19:51 Monocytes % (Manual) 6.0 % (0.0-7.3) 07/26/18 19:51 Eosinophils % (Manual) 2.0 % (0.0-4.3) 07/26/18 19:51 Basophils % (Manual) 0 % (0.0-1.8) 07/26/18 19:51 Metamyelocytes % 0 % 07/26/18 19:51 Myelocytes % 0 % 07/26/18 19:51 Promyelocytes % 0 % 07/26/18 19:51 Blast Cells % 0 % 07/26/18 19:51 Nucleated RBC % Not Reportable 07/26/18 19:51 Seg Neutrophils # 5.5 K/mm3 (1.8-7.7) 07/27/18 06:30 Seg Neutrophils # Man 5.9 K/mm3 (1.8-7.7) 07/26/18 19:51 Band Neutrophils # 0.4 K/mm3 07/26/18 19:51 Lymphocytes # (Manual) 2.1 K/mm3 (1.2-5.4) 07/26/18 19:51 Abs React Lymphs (Man) 0.0 K/mm3 07/26/18 19:51 Monocytes # (Manual) 0.5 K/mm3 (0.0-0.8) 07/26/18 19:51 Eosinophils # (Manual) 0.2 K/mm3 (0.0-0.4) 07/26/18 19:51 Basophils # (Manual) 0.0 K/mm3 (0.0-0.1) 07/26/18 19:51 Metamyelocytes # 0.0 K/mm3 07/26/18 19:51 Myelocytes # 0.0 K/mm3 07/26/18 19:51 Promyelocytes # 0.0 K/mm3 07/26/18 19:51 Blast Cells # 0.0 K/mm3 07/26/18 19:51 WBC Morphology Not Reportable 07/26/18 19:51 Hypersegmented Neuts Not Reportable 07/26/18 19:51 Hyposegmented Neuts Not Reportable 07/26/18 19:51 Hypogranular Neuts Not Reportable 07/26/18 19:51 Smudge Cells Not Reportable 07/26/18 19:51 Toxic Granulation Not Reportable 07/26/18 19:51 Toxic Vacuolation Not Reportable 07/26/18 19:51 Dohle Bodies Not Reportable 07/26/18 19:51 Pelger-Huet Anomaly Not Reportable 07/26/18 19:51 Bronson Rods Not Reportable 07/26/18 19:51 Platelet Estimate Not Reportable 07/26/18 19:51 Clumped Platelets Not Reportable 07/26/18 19:51 Plt Clumps, EDTA Not Reportable 07/26/18 19:51 Large Platelets Not Reportable 07/26/18 19:51 Giant Platelets Not Reportable 07/26/18 19:51 Platelet Satelliting Not Reportable 07/26/18 19:51 Plt Morphology Comment Not Reportable 07/26/18 19:51 RBC Morphology Not Reportable 07/26/18 19:51 Dimorphic RBCs Not Reportable 07/26/18 19:51 Polychromasia Not Reportable 07/26/18 19:51 Hypochromasia 1+ 07/26/18 19:51 Poikilocytosis Not Reportable 07/26/18 19:51 Anisocytosis 1+ 07/26/18 19:51 Microcytosis Not Reportable 07/26/18 19:51 Macrocytosis Not Reportable 07/26/18 19:51 Spherocytes Not Reportable 07/26/18 19:51 Pappenheimer Bodies Not Reportable 07/26/18 19:51 Sickle Cells Not Reportable 07/26/18 19:51 Target Cells Not Reportable 07/26/18 19:51 Tear Drop Cells Not Reportable 07/26/18 19:51 Ovalocytes Not Reportable 07/26/18 19:51 Helmet Cells Not Reportable 07/26/18 19:51 Patricia-[place] Bodies Not Reportable 07/26/18 19:51 [place] Rings Not Reportable 07/26/18 19:51 [place] Cells Not Reportable 07/26/18 19:51 Bite Cells Not Reportable 07/26/18 19:51 Crenated Cell Not Reportable 07/26/18 19:51 Elliptocytes Not Reportable 07/26/18 19:51 Acanthocytes (Spur) Not Reportable 07/26/18 19:51 Rouleaux Not Reportable 07/26/18 19:51 Hemoglobin C Crystals Not Reportable 07/26/18 19:51 Schistocytes Not Reportable 07/26/18 19:51 Malaria parasites Not Reportable 07/26/18 19:51 [place] Bodies Not Reportable 07/26/18 19:51 Hem Pathologist Commnt No 07/26/18 19:51 POC ABG pH 7.489 (7.35-7.45) H 07/30/18 11:29 POC ABG pCO2 36.4 (35-45) 07/30/18 11:29 POC ABG pO2 76 (80-105) L 07/30/18 11:29 POC ABG HCO3 27.7 07/30/18 11:29 POC ABG Total CO2 29 07/30/18 11:29 POC ABG O2 Sat 96 07/30/18 11:29 POC ABG Base Excess 4 07/30/18 11:29 FiO2 32 % 07/30/18 11:29 Sodium 134 mmol/L (137-145) L 07/30/18 07:01 Potassium 3.8 mmol/L (3.6-5.0) 07/30/18 07:01 Chloride 95.3 mmol/L (98-107) L 07/30/18 07:01 Carbon Dioxide 25 mmol/L (22-30) 07/30/18 07:01 Anion Gap 18 mmol/L 07/30/18 07:01 BUN 34 mg/dL (9-20) H 07/30/18 07:01 Creatinine 1.7 mg/dL (0.8-1.5) H 07/30/18 07:01 Estimated GFR 49 ml/min 07/30/18 07:01 BUN/Creatinine Ratio 20 % 07/30/18 07:01 Glucose 219 mg/dL (75-100) H 07/30/18 07:01 POC Glucose 217 (70-105) H 07/30/18 11:08 Calcium 8.6 mg/dL (8.4-10.2) 07/30/18 07:01 Total Creatine Kinase 93 units/L (55-170) 07/27/18 06:30 CK-MB (CK-2) 2.4 ng/mL (0.0-4.0) 07/27/18 06:30 CK-MB (CK-2) Rel Index 2.5 (0-4) 07/27/18 06:30 Troponin T < 0.010 ng/mL (0.00-0.029) 07/27/18 06:30 Digoxin 0.3 ng/mL (0.9-2.0) L 07/27/18 14:39
[2018-07-30] MEDS: LANOXIN PO SCH (17:30)
--- NOTE | 2018-07-30 23:09 | XRay Report ---
FINAL REPORT EXAM: XR CHEST ROUTINE 2V HISTORY: shortness of breath TECHNIQUE: Frontal and lateral views of the chest Comparison: Chest x-ray dated July 26, 2018 FINDINGS: There has been interval increase in the degree of interstitial and airspace process. There is no evidence of pneumothorax and no definite evidence of pleural effusion. The cardiac silhouette is enlarged with multiple lead AICD. There is prominence of the pulmonary venous vasculature consistent with pulmonary venous congestion. The thoracic aorta and bony structures are unremarkable. A right-sided PICC line is demonstrated with the tip directed cranially in the right internal jugular vein as was demonstrated on the previous study. The tip is not included in the field of view. IMPRESSION: 1. Findings most suggestive of progressive CHF. However, an infectious process cannot entirely be exc luded. 2. Stable enlarged cardiac silhouette with multiple lead AICD. 3. Malposition of the right-sided PICC line catheter with the tip directed cranially in the right int ernal jugular vein but not included in the field of view. This is similar in appearance to the previo us chest x-ray dated July 26, 2018. This finding and the finding of worsening CHF was discussed wi Dr Barnett at 11:08 p.m. July 30, 2018.
--- NOTE | 2018-07-30 23:22 | Event Note ---
Date: 07/30/[address] HOLLIS CALLED AT ABOUT 11:00 P.M AND INFORMED ME THAT THE PICKLINE ON THE RIGHT SIDE IS NOT PROPERLY POSITIONED AND SHOULD NOT BE USED ANY MORE. AT 11:15PM THE NURSE TAKING CARE OF PATIENT (JUHI SHRESTHA) WAS NOIFIED BY PHONE TO STOP USING THE LINE IN QUESTION. NO ABNORMAL RESPONSE WAS REPORTED SO FAR ABOUT THE I.V ACESS. PLAN : THE LINE SHOULD NOT BE USED UNTIL REACESSED BY THE PICKLINE TEAM , MEANWHILE OTHER I.V ACESS SHOULD BE USED.
[2018-07-31] MEDS: MILRINONE-D5W 20 MG/100 ML 20 MG/100 ML BAG IV SCH (02:33)
[2018-07-31] MEDS: BUMEX IV SCH ×3 (03:54→17:37)
[2018-07-31 07:15] LABS: Calcium 9.1 mg/dL (8.4-10.2)
[2018-07-31] MEDS: HumaLOG SUB-Q SCH ×4 (08:30→21:48)
--- NOTE | 2018-07-31 09:20 | Progress Note ---
Assessment and Plan Assessment and plan: Acute on chronic CHF Admitted to Telemetry cardiology following Continue Bumex Continue Milrinone drip he was using from home. Hypertension Diabetes mellitus type 2 CORRIE on chronic kidney disease Monitor renal function Acute resp failure. patient still has shortness of breath Nurse states patient gets oxygen desaturation when he falls asleep even in afternoon. ??sleep apnea. Patient denies history of sleep apnea consulted Pulmonology Chest x ray, ABG done Right PICC not in correct place as per radiology. PICC team to evaluate in am. Full code status History Interval history: Less Shortness of breath but still short of breath oxygen desaturation on sleeping Hospitalist Physical - Physical exam Narrative exam: EN: Not in acute distress, lying in bed,obese HEENT: Normocephalic, atraumatic, Neck: supple, No JVD Lungs: Bilateral basal crackles, Heart:S1 and S2 regular, no murmurs, rubs or gallop, Abd:soft, non tender, non distended, normal bowel sounds Ext: Edema both lower ext, no cyanosis Neuro: Awake,alert, oriented x 3, No focal signs - Constitutional Vitals: Temp Pulse Resp BP Pulse Ox 98.1 F 84 16 91/50 92 07/31/18 04:05 07/31/18 04:11 07/31/18 04:05 07/31/18 04:05 07/31/18 04:05 General appearance: Present: no acute distress Results - Labs CBC & Chem 7: 07/30/18 07:01 07/31/18 06:41 Labs: Laboratory Last Values WBC 7.4 K/mm3 (4.5-11.0) 07/30/18 07:01 RBC 4.89 M/mm3 (3.65-5.03) 07/30/18 07:01 Hgb 11.7 gm/dl (11.8-15.2) L 07/30/18 07:01 Hct 37.2 % (35.5-45.6) 07/30/18 07:01 MCV 76 fl (84-94) L 07/30/18 07:01 MCH 24 pg (28-32) L 07/30/18 07:01 MCHC 32 % (32-34) 07/30/18 07:01 RDW 18.3 % (13.2-15.2) H 07/30/18 07:01 Plt Count 311 K/mm3 (140-440) 07/30/18 07:01 Lymph % (Auto) 21.4 % (13.4-35.0) 07/27/18 06:30 O'Brien % (Auto) 11.0 % (0.0-7.3) H 07/27/18 06:30 Eos % (Auto) 2.2 % (0.0-4.3) 07/27/18 06:30 Baso % (Auto) 0.7 % (0.0-1.8) 07/27/18 06:30 Lymph # 1.8 K/mm3 (1.2-5.4) 07/27/18 06:30 O'Brien # 0.9 K/mm3 (0.0-0.8) H 07/27/18 06:30 Eos # 0.2 K/mm3 (0.0-0.4) 07/27/18 06:30 Baso # 0.1 K/mm3 (0.0-0.1) 07/27/18 06:30 Add Manual Diff Complete 07/26/18 19:51 Total Counted 100 07/26/18 19:51 Seg Neutrophils % 64.7 % (40.0-70.0) 07/27/18 06:30 Seg Neuts % (Manual) 65.0 % (40.0-70.0) 07/26/18 19:51 Band Neutrophils % 4.0 % 07/26/18 19:51 Lymphocytes % (Manual) 23.0 % (13.4-35.0) 07/26/18 19:51 Reactive Lymphs % (Man) 0 % 07/26/18 19:51 Monocytes % (Manual) 6.0 % (0.0-7.3) 07/26/18 19:51 Eosinophils % (Manual) 2.0 % (0.0-4.3) 07/26/18 19:51 Basophils % (Manual) 0 % (0.0-1.8) 07/26/18 19:51 Metamyelocytes % 0 % 07/26/18 19:51 Myelocytes % 0 % 07/26/18 19:51 Promyelocytes % 0 % 07/26/18 19:51 Blast Cells % 0 % 07/26/18 19:51 Nucleated RBC % Not Reportable 07/26/18 19:51 Seg Neutrophils # 5.5 K/mm3 (1.8-7.7) 07/27/18 06:30 Seg Neutrophils # Man 5.9 K/mm3 (1.8-7.7) 07/26/18 19:51 Band Neutrophils # 0.4 K/mm3 07/26/18 19:51 Lymphocytes # (Manual) 2.1 K/mm3 (1.2-5.4) 07/26/18 19:51 Abs React Lymphs (Man) 0.0 K/mm3 07/26/18 19:51 Monocytes # (Manual) 0.5 K/mm3 (0.0-0.8) 07/26/18 19:51 Eosinophils # (Manual) 0.2 K/mm3 (0.0-0.4) 07/26/18 19:51 Basophils # (Manual) 0.0 K/mm3 (0.0-0.1) 07/26/18 19:51 Metamyelocytes # 0.0 K/mm3 07/26/18 19:51 Myelocytes # 0.0 K/mm3 07/26/18 19:51 Promyelocytes # 0.0 K/mm3 07/26/18 19:51 Blast Cells # 0.0 K/mm3 07/26/18 19:51 WBC Morphology Not Reportable 07/26/18 19:51 Hypersegmented Neuts Not Reportable 07/26/18 19:51 Hyposegmented Neuts Not Reportable 07/26/18 19:51 Hypogranular Neuts Not Reportable 07/26/18 19:51 Smudge Cells Not Reportable 07/26/18 19:51 Toxic Granulation Not Reportable 07/26/18 19:51 Toxic Vacuolation Not Reportable 07/26/18 19:51 Dohle Bodies Not Reportable 07/26/18 19:51 Pelger-Huet Anomaly Not Reportable 07/26/18 19:51 Bronson Rods Not Reportable 07/26/18 19:51 Platelet Estimate Not Reportable 07/26/18 19:51 Clumped Platelets Not Reportable 07/26/18 19:51 Plt Clumps, EDTA Not Reportable 07/26/18 19:51 Large Platelets Not Reportable 07/26/18 19:51 Giant Platelets Not Reportable 07/26/18 19:51 Platelet Satelliting Not Reportable 07/26/18 19:51 Plt Morphology Comment Not Reportable 07/26/18 19:51 RBC Morphology Not Reportable 07/26/18 19:51 Dimorphic RBCs Not Reportable 07/26/18 19:51 Polychromasia Not Reportable 07/26/18 19:51 Hypochromasia 1+ 07/26/18 19:51 Poikilocytosis Not Reportable 07/26/18 19:51 Anisocytosis 1+ 07/26/18 19:51 Microcytosis Not Reportable 07/26/18 19:51 Macrocytosis Not Reportable 07/26/18 19:51 Spherocytes Not Reportable 07/26/18 19:51 Pappenheimer Bodies Not Reportable 07/26/18 19:51 Sickle Cells Not Reportable 07/26/18 19:51 Target Cells Not Reportable 07/26/18 19:51 Tear Drop Cells Not Reportable 07/26/18 19:51 Ovalocytes Not Reportable 07/26/18 19:51 Helmet Cells Not Reportable 07/26/18 19:51 Patricia-Longford Bodies Not Reportable 07/26/18 19:51 Austin Rings Not Reportable 07/26/18 19:51 Abundio Cells Not Reportable 07/26/18 19:51 Bite Cells Not Reportable 07/26/18 19:51 Crenated Cell Not Reportable 07/26/18 19:51 Elliptocytes Not Reportable 07/26/18 19:51 Acanthocytes (Spur) Not Reportable 07/26/18 19:51 Rouleaux Not Reportable 07/26/18 19:51 Hemoglobin C Crystals Not Reportable 07/26/18 19:51 Schistocytes Not Reportable 07/26/18 19:51 Malaria parasites Not Reportable 07/26/18 19:51 Carson Bodies Not Reportable 07/26/18 19:51 Hem Pathologist Commnt No 07/26/18 19:51 POC ABG pH 7.489 (7.35-7.45) H 07/30/18 11:29 POC ABG pCO2 36.4 (35-45) 07/30/18 11:29 POC ABG pO2 76 (80-105) L 07/30/18 11:29 POC ABG HCO3 27.7 07/30/18 11:29 POC ABG Total CO2 29 07/30/18 11:29 POC ABG O2 Sat 96 07/30/18 11:29 POC ABG Base Excess 4 07/30/18 11:29 FiO2 32 % 07/30/18 11:29 Sodium 136 mmol/L (137-145) L 07/31/18 06:41 Potassium 4.1 mmol/L (3.6-5.0) 07/31/18 06:41 Chloride 94.4 mmol/L (98-107) L 07/31/18 06:41 Carbon Dioxide 28 mmol/L (22-30) 07/31/18 06:41 Anion Gap 18 mmol/L 07/31/18 06:41 BUN 26 mg/dL (9-20) H 07/31/18 06:41 Creatinine 1.5 mg/dL (0.8-1.5) 07/31/18 06:41 Estimated GFR 56 ml/min 07/31/18 06:41 BUN/Creatinine Ratio 17 % 07/31/18 06:41 Glucose 173 mg/dL (75-100) H 07/31/18 06:41 POC Glucose 208 (70-105) H 07/31/18 05:34 Calcium 9.1 mg/dL (8.4-10.2) 07/31/18 06:41 Total Creatine Kinase 93 units/L (55-170) 07/27/18 06:30 CK-MB (CK-2) 2.4 ng/mL (0.0-4.0) 07/27/18 06:30 CK-MB (CK-2) Rel Index 2.5 (0-4) 07/27/18 06:30 Troponin T < 0.010 ng/mL (0.00-0.029) 07/27/18 06:30 Digoxin 0.3 ng/mL (0.9-2.0) L 07/27/18 14:39
[2018-07-31] MEDS: ROBITUSSIN PO PRN (13:24)
[2018-07-31] MEDS: TOPROL XL PO SCH (13:24)
[2018-07-31] MEDS: ELIQUIS PO SCH ×2 (13:25→21:47)
[2018-07-31] MEDS: PROTONIX PO SCH (13:26)
[2018-07-31] MEDS: CORDARONE PO SCH (13:27)
[2018-07-31] MEDS: BABY ASPIRIN PO SCH (13:27)
[2018-07-31] MEDS: ZAROXOLYN PO SCH (13:28)
[2018-07-31] MEDS: ZYLOPRIM PO SCH (13:28)
[2018-07-31] MEDS: SODIUM CHLORIDE FLUSH SYRINGE 10 ML IV SCH ×2 (13:29→21:47)
[2018-07-31] MEDS: COZAAR PO SCH (13:31)
[2018-07-31] MEDS: K-DUR PO SCH ×2 (13:46→21:47)
--- NOTE | 2018-07-31 14:34 | Consultation ---
History of Present Illness Consult date: 07/31/18 Requesting physician: CARLOS ALBERTO ARENAS Reason for consult: dyspnea, obstructive sleep apnea History of present illness: 68 y/o male with systolic heart failure admitted for CHF exacerbation. Per IMS, who consulted pulm, patient was desaturating while sleeping and complaining of continued dyspnea so pulmonary consulted. Per patient, dyspnea is better. He has had 2 good nights in a row. Also per patient, he has known sleep apnea, but was never able to picker and sorter load and unload his machine. He had a sleep study done in [facility]. This could have been in our sleep lab but he does not know the name of the physician that referred him there. He states that the study was positive but he never picked up his machine. He cannot remember how log ago this was. Past History Past Medical History: other (GOUT,CHF, Irregular Heart Rhythm) Past Surgical History: Other (defibrillator) Social history: Family history: no significant family history Medications and Allergies Allergies Allergy/AdvReac Type Severity Reaction Status Date / Time No Known Allergies Allergy Verified 03/03/17 09:44 Home Medications Medication Instructions Recorded Confirmed Last Taken Type Acetaminophen [Acetaminophen TAB] 650 mg PO Q4H PRN tablet 12/31/17 07/31/18 Unknown Rx Allopurinol [Zyloprim] 100 mg PO QDAY #30 tablet 12/31/17 07/31/18 Unknown Rx Amiodarone [Cordarone 200 MG TAB] 200 mg PO BID #60 tablet 06/17/18 07/31/18 Unk nown Rx Apixaban [Eliquis] 5 mg PO BID #60 tablet 06/17/18 07/31/18 Unknown Rx Bumetanide [Bumex 1 mg tab] 1 mg PO DAILY #30 tablet 06/17/18 07/31/18 Unknown Rx Digoxin [Lanoxin] 0.125 mg PO BID #30 tablet 06/17/18 07/31/18 Unknown Rx Losartan [Cozaar] 25 mg PO QDAY #30 tablet 06/17/18 07/31/18 Unknown Rx Metoprolol Xl [Metoprolol 25 mg PO QDAY #30 tablet 06/17/18 07/31/18 Unknown Rx SUCCINATE ER TAB] Pantoprazole [Protonix TAB] 40 mg PO QDAY #40 tablet 06/17/18 07/31/18 Unknown Rx Potassium Chloride [K-Dur] 10 meq PO QDAY #30 tablet 06/17/18 07/31/18 Unknown Rx metOLazone [Metolazone] 5 mg PO DAILY #30 tablet 06/17/18 07/31/18 Unknown Rx Active Meds: Active Medications Acetaminophen (Tylenol) 650 mg PO Q4H PRN PRN Reason: Pain MILD(1-3)/Fever >100.5/NAYLOR Allopurinol (Zyloprim) 100 mg PO QDAY [facility] Last Admin: 07/31/18 13:28 Dose: 100 mg Documented by: Amiodarone HCl (Cordarone) 200 mg PO DAILY [facility] Last Admin: 07/31/18 13:27 Dose: 200 mg Documented by: Apixaban (Eliquis) 5 mg PO BID [facility]; Protocol Last Admin: 07/31/18 13:25 Dose: 5 mg Documented by: Aspirin (Baby Aspirin) 81 mg PO QDAY [facility] Last Admin: 07/31/18 13:27 Dose: 81 mg Documented by: Bumetanide (Bumex) 1 mg IV BID@0600,1800 [facility] Last Admin: 07/31/18 05:49 Dose: 1 mg Documented by: Dextrose (D50w (25gm) Syringe) 50 ml IV PRN PRN PRN Reason: Hypoglycemia Digoxin (Lanoxin) 0.125 mg PO DAILY@1700 [facility] Last Admin: 07/30/18 17:30 Dose: 0.125 mg Documented by: Guaifenesin (Robitussin) 200 mg PO Q4H PRN PRN Reason: Cough Last Admin: 07/31/18 13:24 Dose: 200 mg Documented by: Milrinone Lactate/Dextrose (Milrinone-D5w 20 Mg/100 Ml) 20 mg in 100 mls @ 8.25 mls/hr IV TITR [facility] Last Admin: 07/31/18 02:33 Dose: 0.25 mcg/kg/min, 8.25 mls/hr Documented by: Insulin Human Lispro (Humalog) 0 unit SUB-Q ACHS [facility]; Protocol Last Admin: 07/31/18 13:32 Dose: 1 unit Documented by: Losartan Potassium (Cozaar) 25 mg PO QDAY [facility] Last Admin: 07/31/18 13:31 Dose: Not Given Documented by: Metolazone (Zaroxolyn) 5 mg PO QDAY [facility] Last Admin: 07/31/18 13:28 Dose: 5 mg Documented by: Metoprolol Succinate (Toprol Xl) 25 mg PO QDAY [facility] Last Admin: 07/31/18 13:24 Dose: 25 mg Documented by: Ondansetron HCl (Zofran) 4 mg IV Q8H PRN PRN Reason: Nausea And Vomiting Pantoprazole Sodium (Protonix) 40 mg PO QDAY [facility] Last Admin: 07/31/18 13:26 Dose: 40 mg Documented by: Polyethylene Glycol (Miralax 3350) 17 gm PO QDAY PRN PRN Reason: Constipation Last Admin: 07/27/18 12:24 Dose: 17 gm Documented by: Potassium Chloride (K-Dur) 10 meq PO Q12HR [facility] Last Admin: 07/31/18 13:46 Dose: 10 meq Documented by: Sodium Chloride (Sodium Chloride Flush Syringe 10 Ml) 10 ml IV BID [facility] Last Admin: 07/31/18 13:29 Dose: 10 ml Documented by: Sodium Chloride (Sodium Chloride Flush Syringe 10 Ml) 10 ml IV PRN PRN PRN Reason: LINE FLUSH Review of Systems All systems: negative Physical Examination Vital signs: Vital Signs Temp Pulse Resp BP Pulse Ox 97.8 F 111 H 22 125/78 95 07/26/18 19:33 07/26/18 19:33 07/26/18 19:33 07/26/18 19:33 07/26/18 19:33 General appearance: no acute distress, alert Eyes: icteric ENT: oropharynx moist Effort: normal Ascultation: Bilateral: rales (bibasilar) Percussion: Bilateral: not dull Gastrointestinal: normoactive bowel sounds, soft, non-tender Extremities: no cyanosis Musculoskeletal: no deformities normal mental status Results - Laboratory Findings CBC and BMP: 07/30/18 07:01 07/31/18 06:41 ABG POC ABG pH 7.489 (7.35-7.45) H 07/30/18 11:29 POC ABG pCO2 36.4 (35-45) 07/30/18 11:29 POC ABG pO2 76 (80-105) L 07/30/18 11:29 POC ABG HCO3 27.7 07/30/18 11:29 POC ABG Total CO2 29 07/30/18 11:29 POC ABG O2 Sat 96 07/30/18 11:29 Abnormal lab findings: Abnormal Labs 07/26/18 07/26/18 07/27/18 19:51 19:51 06:30 Hgb 11.2 L MCV 76 L 76 L MCH 25 L 24 L MCHC 31 L RDW 18.4 H 18.1 H Davis % (Auto) 11.0 H Davis # 0.9 H POC ABG pH POC ABG pO2 Sodium 134 L Chloride BUN Creatinine 1.7 H Glucose 249 H POC Glucose Digoxin 07/27/18 07/27/18 07/27/18 06:30 06:51 14:39 Hgb MCV MCH MCHC RDW [place] % (Auto) Davis # POC ABG pH POC ABG pO2 Sodium Chloride BUN Creatinine 1.6 H Glucose 196 H POC Glucose 175 H Digoxin 0.3 L 07/27/18 07/27/18 07/28/18 17:46 21:22 05:11 Hgb MCV MCH MCHC RDW [place] % (Auto) Davis # POC ABG pH POC ABG pO2 Sodium Chloride BUN 25 H Creatinine Glucose POC Glucose 252 H 202 H Digoxin 07/28/18 07/28/18 07/28/18 06:38 11:59 16:34 Hgb MCV MCH MCHC RDW Davis % (Auto) Davis # POC ABG pH POC ABG pO2 Sodium Chloride BUN Creatinine Glucose POC Glucose 106 H 126 H 180 H Digoxin 07/28/18 07/29/18 07/29/18 20:41 06:13 12:15 Hgb MCV MCH MCHC RDW Davis % (Auto) Davis # POC ABG pH POC ABG pO2 Sodium Chloride BUN Creatinine Glucose POC Glucose 209 H 109 H 183 H Digoxin 07/29/18 07/29/18 07/30/18 17:31 21:30 05:38 Hgb MCV MCH MCHC RDW Davis % (Auto) Davis # POC ABG pH POC ABG pO2 Sodium Chloride BUN Creatinine Glucose POC Glucose 214 H 182 H 217 H Digoxin 07/30/18 07/30/18 07/30/18 07:01 07:01 11:08 Hgb 11.7 L MCV 76 L MCH 24 L MCHC RDW 18.3 H Davis % (Auto) Davis # POC ABG pH POC ABG pO2 Sodium 134 L Chloride 95.3 L BUN 34 H Creatinine 1.7 H Glucose 219 H POC Glucose 217 H Digoxin 07/30/18 07/30/18 07/30/18 11:29 17:12 21:00 Hgb MCV MCH MCHC RDW Davis % (Auto) Davis # POC ABG pH 7.489 H POC ABG pO2 76 L Sodium Chloride BUN Creatinine Glucose POC Glucose 144 H 221 H Digoxin 07/31/18 07/31/18 07/31/18 05:34 06:41 11:51 Hgb MCV MCH MCHC RDW Davis % (Auto) Davis # POC ABG pH POC ABG pO2 Sodium 136 L Chloride 94.4 L BUN 26 H Creatinine Glucose 173 H POC Glucose 208 H 205 H Digoxin - Diagnostic Findings Chest x-ray: image reviewed CT scan - chest: image reviewed Assessment and Plan 68 y/o male with systolic heart failure exacerbation and untreated sleep apnea. 1. Dyspnea-all related to volume overload and severe systolic dysfunction. Maintain daily negative fluid balance 2. JONATHAN-known disease but patient does not know who diagnosed him. Will check our office records. Either way, will set up outpatient visit as patient will likely need a new sleep study 3. Can follow up with Dr. Valdovinos in the 7-10 days. 4. Per IMS may discharge tomorrow, no objection to this from pulmonary standpoint
[2018-07-31] MEDS: LANOXIN PO SCH (17:33)
--- NOTE | 2018-07-31 18:34 | Progress Note ---
Assessment and Plan - Patient Problems (1) Nonischemic cardiomyopathy Current Visit: Yes Status: Acute (2) AICD (automatic cardioverter/defibrillator) present Current Visit: No Status: Acute (3) CORRIE (acute kidney injury) Current Visit: No Status: Acute (4) Diabetes mellitus type 2 in obese Current Visit: No Status: Chronic Subjective Date of service: 07/31/18 Interval history: BREATHING BETTER,,NO FEVER/SPUTUM,,NO PALP.S OR OTHER C/O Objective Vital Signs Temp Pulse Pulse Resp BP BP Pulse Ox 07/31/18 17:33 80 07/31/18 17:00 98 F 77 18 102/62 07/31/18 13:31 82 07/31/18 13:24 82 101/71 07/31/18 10:00 96 07/31/18 04:11 84 07/31/18 04:05 98.1 F 82 16 91/50 92 07/31/18 01:37 80 07/30/18 23:14 98.2 F 75 16 103/56 93 07/30/18 22:00 80 07/30/18 21:18 99 07/30/18 19:34 98.2 F 71 14 114/68 98 - Physical Examination General: No Apparent Distress HEENT: Positive: PERRL Neck: Positive: trachea midline Cardiac: Positive: Reg Rate and Rhythm Lungs: Positive: clear to auscultation Neuro: Positive: Grossly Intact Abdomen: Positive: Unremarkable Extremities: Present: edema (NO) - Labs and Meds Comprehensive Metabolic Panel 07/31/18 Range/Units 06:41 Sodium 136 L (137-145) mmol/L Potassium 4.1 (3.6-5.0) mmol/L Chloride 94.4 L (98-107) mmol/L Carbon Dioxide 28 (22-30) mmol/L BUN 26 H (9-20) mg/dL Creatinine 1.5 (0.8-1.5) mg/dL Glucose 173 H (75-100) mg/dL Calcium 9.1 (8.4-10.2) mg/dL
[2018-08-01] MEDS: MILRINONE-D5W 20 MG/100 ML 20 MG/100 ML BAG IV SCH (02:48)
[2018-08-01] MEDS: BUMEX IV SCH ×2 (06:21→18:48)
[2018-08-01] MEDS: HumaLOG SUB-Q SCH ×4 (08:30→21:57)
--- NOTE | 2018-08-01 09:23 | Progress Note ---
Assessment and Plan Acute resolved Chest CT with scattered tiny nodules densities in both lung concerning for metastatic process. On my review of the films, I'll just are not associated with chronic interstitial changes. Etiology unknown. I agree with drug etiology that they're too small to biopsy. No prior CT scan for comparison JONATHAN. Patient history, he was evaluated by a sleep study and order CPAP last year. He discontinued treatment "due to anxiety with the mask". Chronic systolic heart failure on IV milrinone as an outpatient Acute renal failure Dilated Nonischemic cardiomyopathy EF 15-20% on echo 12/2017 no ischemia on MPI 12/2016 [facility] [place]: no significant CAD AICD Afib s/p KINGS guided cardioversion 11/2017 on eliquis for oral anticoagulation Hx of paroxysmal VF -on amiodarone and digoxin for rate control dig level: 0.3 Hx of Anxiety disorder Recommendations Follow-up antiarrhythmic therapy and on anticoagulation per cardiology Continue oxygen support as needed. Reevaluate as outpatient Needs update on his sleep apnea treatment. CHF exacerbation is a known complication of untreated JONATHAN. Need to be reevaluated at the office and hopefully restarted on CPAP therapy if indicated. Discussed with the patient in detail Regarding the chest CT findings, recommended workup will be to update another noncontrast scan in 3 months. He is also a high risk candidate at this point for any form of lung biopsy. In the meantime, further workup for hidden malignancy per primary care group Subjective Date of service: 08/01/18 Principal diagnosis: congestive heart failure, A. fib, VT runs, JONATHAN, hypoxemic respiratory failu Interval history: Slept without events or incident last night. Currently on oxygen support via nasal cannula. No chest pain reported. No cough or wheezing Objective Vital Signs - 12hr 07/31/18 07/31/18 08/01/18 22:00 23:00 03:58 Temperature 98.3 F 98.4 F Pulse Rate 77 66 Respiratory 20 16 16 Rate Blood Pressure 116/70 110/72 Blood Pressure 116/70 [Left] O2 Sat by Pulse 98 96 Oximetry 08/01/18 08/01/18 04:00 07:59 Temperature 98.4 F 98.4 F Pulse Rate 65 81 Respiratory 16 20 Rate Blood Pressure 103/61 Blood Pressure 110/72 [Left] O2 Sat by Pulse 96 95 Oximetry Constitutional: no acute distress, alert Eyes: icteric ENT: oropharynx moist Effort: normal Ascultation: Bilateral: clear, diminished breath sounds Percussion: Bilateral: not dull Gastrointestinal: normoactive bowel sounds, soft, non-tender Extremities: no cyanosis Neurologic: normal mental status CBC and BMP: 07/30/18 07:01 07/31/18 06:41 ABG, PT/INR, D-dimer: ABG POC ABG pH 7.489 (7.35-7.45) H 07/30/18 11:29 POC ABG pCO2 36.4 (35-45) 07/30/18 11:29 POC ABG pO2 76 (80-105) L 07/30/18 11:29 POC ABG HCO3 27.7 07/30/18 11:29 POC ABG Total CO2 29 07/30/18 11:29 POC ABG O2 Sat 96 07/30/18 11:29 Abnormal lab findings: Abnormal Labs 07/26/18 07/26/18 07/27/18 19:51 19:51 06:30 Hgb 11.2 L MCV 76 L 76 L MCH 25 L 24 L MCHC 31 L RDW 18.4 H 18.1 H [place] % (Auto) 11.0 H [place] # 0.9 H POC ABG pH POC ABG pO2 Sodium 134 L Chloride BUN Creatinine 1.7 H Glucose 249 H POC Glucose NT-Pro-B Natriuret Pep Digoxin 07/27/18 07/27/18 07/27/18 06:30 06:51 14:39 Hgb MCV MCH MCHC RDW [place] % (Auto) [place] # POC ABG pH POC ABG pO2 Sodium Chloride BUN Creatinine 1.6 H Glucose 196 H POC Glucose 175 H NT-Pro-B Natriuret Pep Digoxin 0.3 L 07/27/18 07/27/18 07/28/18 17:46 21:22 05:11 Hgb MCV MCH MCHC RDW [place] % (Auto) [place] # POC ABG pH POC ABG pO2 Sodium Chloride BUN 25 H Creatinine Glucose POC Glucose 252 H 202 H NT-Pro-B Natriuret Pep Digoxin 07/28/18 07/28/18 07/28/18 06:38 11:59 16:34 Hgb MCV MCH MCHC RDW [place] % (Auto) [place] # POC ABG pH POC ABG pO2 Sodium Chloride BUN Creatinine Glucose POC Glucose 106 H 126 H 180 H NT-Pro-B Natriuret Pep Digoxin 07/28/18 07/29/18 07/29/18 20:41 06:13 12:15 Hgb MCV MCH MCHC RDW [place] % (Auto) [place] # POC ABG pH POC ABG pO2 Sodium Chloride BUN Creatinine Glucose POC Glucose 209 H 109 H 183 H NT-Pro-B Natriuret Pep Digoxin 07/29/18 07/29/18 07/30/18 17:31 21:30 05:38 Hgb MCV MCH MCHC RDW [place] % (Auto) [place] # POC ABG pH POC ABG pO2 Sodium Chloride BUN Creatinine Glucose POC Glucose 214 H 182 H 217 H NT-Pro-B Natriuret Pep Digoxin 07/30/18 07/30/18 07/30/18 07:01 07:01 11:08 Hgb 11.7 L MCV 76 L MCH 24 L MCHC RDW 18.3 H [place] % (Auto) [place] # POC ABG pH POC ABG pO2 Sodium 134 L Chloride 95.3 L BUN 34 H Creatinine 1.7 H Glucose 219 H POC Glucose 217 H NT-Pro-B Natriuret Pep Digoxin 07/30/18 07/30/18 07/30/18 11:29 17:12 21:00 Hgb MCV MCH MCHC RDW [place] % (Auto) [place] # POC ABG pH 7.489 H POC ABG pO2 76 L Sodium Chloride BUN Creatinine Glucose POC Glucose 144 H 221 H NT-Pro-B Natriuret Pep Digoxin 07/31/18 07/31/18 07/31/18 05:34 06:41 11:51 Hgb MCV MCH MCHC RDW [place] % (Auto) [place] # POC ABG pH POC ABG pO2 Sodium 136 L Chloride 94.4 L BUN 26 H Creatinine Glucose 173 H POC Glucose 208 H 205 H NT-Pro-B Natriuret Pep Digoxin 07/31/18 07/31/18 07/31/18 16:42 17:37 20:38 Hgb MCV MCH MCHC RDW [place] % (Auto) [place] # POC ABG pH POC ABG pO2 Sodium Chloride BUN Creatinine Glucose POC Glucose 163 H 179 H NT-Pro-B Natriuret Pep 1051 H Digoxin 08/01/18 05:51 Hgb MCV MCH MCHC RDW [place] % (Auto) [place] # POC ABG pH POC ABG pO2 Sodium Chloride BUN Creatinine Glucose POC Glucose 162 H NT-Pro-B Natriuret Pep Digoxin CT scan - chest: report reviewed, image reviewed
--- NOTE | 2018-08-01 10:07 | Progress Note ---
Addendum entered and electronically signed by GLORIA DUGAN MD 08/01/18 18:08: Continue medical therapy for heart failure and left ventricular systolic dysfunction as previously outlined. Original Note: Assessment and Plan Acute bronchitis chest CT reports scattered tiny nodules densities in both lung concerning for metastatic process. Pulmonary is following. Chronic systolic heart failure on IV milrinone as an outpatient Acute renal failure Dilated Nonischemic cardiomyopathy EF 15-20% on echo 12/2017 no ischemia on MPI 12/2016 [facility] [place]: no significant CAD Presence of AICD Hx of Persistent Afib s/p KINGS guided cardioversion 11/2017 on eliquis for oral anticoagulation Hx of paroxysmal VF -on amiodarone and digoxin for rate control dig level: 0.3 Hx of Anxiety disorder Recommendations: Continue medical therapy including beta blockers, afterload agents, oral anticoagulation and intravenous milrinone. Continue oral digoxin and amiodarone therapy for suppression of ventricular arrhythmias. Conservative cardiac management. Subjective Date of service: 08/01/18 Principal diagnosis: congestive heart failure, A. fib, VT runs, JONATHAN, hypoxemic respiratory failu Interval history: Patient has no complaints; reports his breathing is better. Objective Vital Signs Temp Pulse Resp BP BP Pulse Ox 08/01/18 07:59 98.4 F 81 20 103/61 95 08/01/18 04:00 98.4 F 65 16 110/72 96 08/01/18 03:58 98.4 F 66 16 110/72 96 07/31/18 23:00 98.3 F 77 16 116/70 116/70 98 07/31/18 22:00 20 07/31/18 19:57 97 07/31/18 19:26 98.4 F 78 12 106/72 95 07/31/18 19:22 79 07/31/18 19:00 98.4 F 88 16 106/72 96 07/31/18 17:33 80 07/31/18 17:00 98 F 77 18 102/62 07/31/18 13:31 82 07/31/18 13:24 82 101/71 - Physical Examination General: No Apparent Distress HEENT: Positive: PERRL Neck: Positive: trachea midline Cardiac: Positive: Other (paced) Lungs: Positive: Decreased Breath Sounds Neuro: Positive: Grossly Intact Extremities: Absent: edema
[2018-08-01] MEDS: PROTONIX PO SCH (12:40)
[2018-08-01] MEDS: ELIQUIS PO SCH ×2 (12:40→21:57)
[2018-08-01] MEDS: K-DUR PO SCH ×2 (12:41→21:57)
[2018-08-01] MEDS: COZAAR PO SCH (12:41)
[2018-08-01] MEDS: CORDARONE PO SCH (12:41)
[2018-08-01] MEDS: TOPROL XL PO SCH (12:42)
[2018-08-01] MEDS: BABY ASPIRIN PO SCH (12:43)
[2018-08-01] MEDS: ZAROXOLYN PO SCH ×2 (12:43→12:49)
[2018-08-01] MEDS: SODIUM CHLORIDE FLUSH SYRINGE 10 ML IV SCH ×2 (12:43→22:10)
[2018-08-01] MEDS: ZYLOPRIM PO SCH (12:44)
--- NOTE | 2018-08-01 15:26 | XRay Report ---
AP CHEST: 08/01/18 15:10 CLINICAL: Right PICC line insertion. COMPARISON: 07/30/18 FINDINGS: A right PICC line tip is in the lower SVC. No pneumothorax. Cardiomegaly and pacer leads in the heart. The lungs have cleared significantly since the last exam. Large central pulmonary vessels and persistent mild opacification of the lung bases. IMPRESSION: Satisfactory placement of a right PICC line. CHF with near complete resolution of pulmonary edema since the last exam.
--- NOTE | 2018-08-01 17:24 | Progress Note ---
Assessment and Plan Assessment and plan: Patient with acute on chronic CHF. He was on home Milrinone and this was continued here. Shortness of breath now resolved. Also CXR revealed right PICC line was not in adequate position and this was removed and another put in. To dc home in am after home health arranged for Milrinone infusion. To follow with Demi Garcia in office Acute on chronic CHF Admitted to Telemetry cardiology following Continue Bumex Continue Milrinone drip he was using from home. Hypertension Diabetes mellitus type 2 CORRIE on chronic kidney disease Monitor renal function Acute resp failure. patient still has shortness of breath Nurse states patient gets oxygen desaturation when he falls asleep even in afternoon. ??sleep apnea. Patient denies history of sleep apnea consulted Pulmonology Chest x ray, ABG done Right PICC not in correct place as per radiology. 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 History Interval history: No more shortness of breath Hospitalist Physical - Physical exam Narrative exam: EN: Not in acute distress, lying in bed,obese HEENT: Normocephalic, atraumatic, Neck: supple, No JVD Lungs: Bilateral basal crackles, Heart:S1 and S2 regular, no murmurs, rubs or gallop, Abd:soft, non tender, non distended, normal bowel sounds Ext: Less Edema both lower ext, no cyanosis, Neuro: Awake,alert, oriented x 3, No focal signs - Constitutional Vitals: Temp Pulse Resp BP Pulse Ox 98.0 F 76 20 98/63 100 08/01/18 15:43 08/01/18 15:43 08/01/18 15:43 08/01/18 15:43 08/01/18 15:43 General appearance: Present: no acute distress Results - Labs CBC & Chem 7: 07/30/18 07:01 07/31/18 06:41 Labs: Laboratory Last Values WBC 7.4 K/mm3 (4.5-11.0) 07/30/18 07:01 RBC 4.89 M/mm3 (3.65-5.03) 07/30/18 07:01 Hgb 11.7 gm/dl (11.8-15.2) L 07/30/18 07:01 Hct 37.2 % (35.5-45.6) 07/30/18 07:01 MCV 76 fl (84-94) L 07/30/18 07:01 MCH 24 pg (28-32) L 07/30/18 07:01 MCHC 32 % (32-34) 07/30/18 07:01 RDW 18.3 % (13.2-15.2) H 07/30/18 07:01 Plt Count 311 K/mm3 (140-440) 07/30/18 07:01 Lymph % (Auto) 21.4 % (13.4-35.0) 07/27/18 06:30 [place] % (Auto) 11.0 % (0.0-7.3) H 07/27/18 06:30 Eos % (Auto) 2.2 % (0.0-4.3) 07/27/18 06:30 Baso % (Auto) 0.7 % (0.0-1.8) 07/27/18 06:30 Lymph # 1.8 K/mm3 (1.2-5.4) 07/27/18 06:30 [place] # 0.9 K/mm3 (0.0-0.8) H 07/27/18 06:30 Eos # 0.2 K/mm3 (0.0-0.4) 07/27/18 06:30 Baso # 0.1 K/mm3 (0.0-0.1) 07/27/18 06:30 Add Manual Diff Complete 07/26/18 19:51 Total Counted 100 07/26/18 19:51 Seg Neutrophils % 64.7 % (40.0-70.0) 07/27/18 06:30 Seg Neuts % (Manual) 65.0 % (40.0-70.0) 07/26/18 19:51 Band Neutrophils % 4.0 % 07/26/18 19:51 Lymphocytes % (Manual) 23.0 % (13.4-35.0) 07/26/18 19:51 Reactive Lymphs % (Man) 0 % 07/26/18 19:51 Monocytes % (Manual) 6.0 % (0.0-7.3) 07/26/18 19:51 Eosinophils % (Manual) 2.0 % (0.0-4.3) 07/26/18 19:51 Basophils % (Manual) 0 % (0.0-1.8) 07/26/18 19:51 Metamyelocytes % 0 % 07/26/18 19:51 Myelocytes % 0 % 07/26/18 19:51 Promyelocytes % 0 % 07/26/18 19:51 Blast Cells % 0 % 07/26/18 19:51 Nucleated RBC % Not Reportable 07/26/18 19:51 Seg Neutrophils # 5.5 K/mm3 (1.8-7.7) 07/27/18 06:30 Seg Neutrophils # Man 5.9 K/mm3 (1.8-7.7) 07/26/18 19:51 Band Neutrophils # 0.4 K/mm3 07/26/18 19:51 Lymphocytes # (Manual) 2.1 K/mm3 (1.2-5.4) 07/26/18 19:51 Abs React Lymphs (Man) 0.0 K/mm3 07/26/18 19:51 Monocytes # (Manual) 0.5 K/mm3 (0.0-0.8) 07/26/18 19:51 Eosinophils # (Manual) 0.2 K/mm3 (0.0-0.4) 07/26/18 19:51 Basophils # (Manual) 0.0 K/mm3 (0.0-0.1) 07/26/18 19:51 Metamyelocytes # 0.0 K/mm3 07/26/18 19:51 Myelocytes # 0.0 K/mm3 07/26/18 19:51 Promyelocytes # 0.0 K/mm3 07/26/18 19:51 Blast Cells # 0.0 K/mm3 07/26/18 19:51 WBC Morphology Not Reportable 07/26/18 19:51 Hypersegmented Neuts Not Reportable 07/26/18 19:51 Hyposegmented Neuts Not Reportable 07/26/18 19:51 Hypogranular Neuts Not Reportable 07/26/18 19:51 Smudge Cells Not Reportable 07/26/18 19:51 Toxic Granulation Not Reportable 07/26/18 19:51 Toxic Vacuolation Not Reportable 07/26/18 19:51 Dohle Bodies Not Reportable 07/26/18 19:51 Pelger-Huet Anomaly Not Reportable 07/26/18 19:51 Bronson Rods Not Reportable 07/26/18 19:51 Platelet Estimate Not Reportable 07/26/18 19:51 Clumped Platelets Not Reportable 07/26/18 19:51 Plt Clumps, EDTA Not Reportable 07/26/18 19:51 Large Platelets Not Reportable 07/26/18 19:51 Giant Platelets Not Reportable 07/26/18 19:51 Platelet Satelliting Not Reportable 07/26/18 19:51 Plt Morphology Comment Not Reportable 07/26/18 19:51 RBC Morphology Not Reportable 07/26/18 19:51 Dimorphic RBCs Not Reportable 07/26/18 19:51 Polychromasia Not Reportable 07/26/18 19:51 Hypochromasia 1+ 07/26/18 19:51 Poikilocytosis Not Reportable 07/26/18 19:51 Anisocytosis 1+ 07/26/18 19:51 Microcytosis Not Reportable 07/26/18 19:51 Macrocytosis Not Reportable 07/26/18 19:51 Spherocytes Not Reportable 07/26/18 19:51 Pappenheimer Bodies Not Reportable 07/26/18 19:51 Sickle Cells Not Reportable 07/26/18 19:51 Target Cells Not Reportable 07/26/18 19:51 Tear Drop Cells Not Reportable 07/26/18 19:51 Ovalocytes Not Reportable 07/26/18 19:51 Helmet Cells Not Reportable 07/26/18 19:51 [place] Bodies Not Reportable 07/26/18 19:51 Cruger Rings Not Reportable 07/26/18 19:51 [place] Cells Not Reportable 07/26/18 19:51 Bite Cells Not Reportable 07/26/18 19:51 Crenated Cell Not Reportable 07/26/18 19:51 Elliptocytes Not Reportable 07/26/18 19:51 Acanthocytes (Spur) Not Reportable 07/26/18 19:51 Rouleaux Not Reportable 07/26/18 19:51 Hemoglobin C Crystals Not Reportable 07/26/18 19:51 Schistocytes Not Reportable 07/26/18 19:51 Malaria parasites Not Reportable 07/26/18 19:51 [place] Bodies Not Reportable 07/26/18 19:51 Hem Pathologist Commnt No 07/26/18 19:51 POC ABG pH 7.489 (7.35-7.45) H 07/30/18 11:29 POC ABG pCO2 36.4 (35-45) 07/30/18 11:29 POC ABG pO2 76 (80-105) L 07/30/18 11:29 POC ABG HCO3 27.7 07/30/18 11:29 POC ABG Total CO2 29 07/30/18 11:29 POC ABG O2 Sat 96 07/30/18 11:29 POC ABG Base Excess 4 07/30/18 11:29 FiO2 32 % 07/30/18 11:29 Sodium 136 mmol/L (137-145) L 07/31/18 06:41 Potassium 4.1 mmol/L (3.6-5.0) 07/31/18 06:41 Chloride 94.4 mmol/L (98-107) L 07/31/18 06:41 Carbon Dioxide 28 mmol/L (22-30) 07/31/18 06:41 Anion Gap 18 mmol/L 07/31/18 06:41 BUN 26 mg/dL (9-20) H 07/31/18 06:41 Creatinine 1.5 mg/dL (0.8-1.5) 07/31/18 06:41 Estimated GFR 56 ml/min 07/31/18 06:41 BUN/Creatinine Ratio 17 % 07/31/18 06:41 Glucose 173 mg/dL (75-100) H 07/31/18 06:41 POC Glucose 198 (70-105) H 08/01/18 15:44 Calcium 9.1 mg/dL (8.4-10.2) 07/31/18 06:41 Total Creatine Kinase 93 units/L (55-170) 07/27/18 06:30 CK-MB (CK-2) 2.4 ng/mL (0.0-4.0) 07/27/18 06:30 CK-MB (CK-2) Rel Index 2.5 (0-4) 07/27/18 06:30 Troponin T < 0.010 ng/mL (0.00-0.029) 07/27/18 06:30 NT-Pro-B Natriuret Pep 1051 pg/mL (0-900) H 07/31/18 17:37 Digoxin 0.3 ng/mL (0.9-2.0) L 07/27/18 14:39
[2018-08-01] MEDS: LANOXIN PO SCH (18:49)
[2018-08-02] MEDS: BUMEX IV SCH (05:13)
[2018-08-02] MEDS: MILRINONE-D5W 20 MG/100 ML 20 MG/100 ML BAG IV SCH (06:18)
[2018-08-02] MEDS: HumaLOG SUB-Q SCH ×2 (07:30→13:19)
[2018-08-02 08:44] VITALS: BP 109/57
--- NOTE | 2018-08-02 09:00 | Progress Note ---
Addendum entered and electronically signed by GLORIA DUGAN MD 08/02/18 11:55: Continue medical therapy as outlined for chronic systolic heart failure. Original Note: Assessment and Plan Acute bronchitis chest CT reports scattered tiny nodules densities in both lung concerning for metastatic process. Pulmonary is following. Chronic systolic heart failure on IV milrinone as an outpatient Acute renal failure Dilated Nonischemic cardiomyopathy EF 15-20% on echo 12/2017 no ischemia on MPI 12/2016 [facility] at [place]: no significant CAD Presence of AICD Hx of Persistent Afib s/p KINGS guided cardioversion 11/2017 on eliquis for oral anticoagulation Hx of paroxysmal VF -on amiodarone and digoxin for rate control dig level: 0.3 Hx of Anxiety disorder Recommendations: Continue medical therapy including beta blockers, afterload agents, oral anticoagulation and intravenous milrinone. Continue oral digoxin and amiodarone therapy for suppression of ventricular arrhythmias. Conservative cardiac management. Subjective Date of service: 08/02/18 Principal diagnosis: congestive heart failure, A. fib, VT runs, JONATHAN, hypoxemic respiratory failu Interval history: Patient has no complaints. Awaits home health arrangements for home milrinone therapy. Objective Vital Signs Temp Pulse Pulse Resp BP Pulse Ox 08/02/18 08:43 98.2 F 77 20 109/57 92 08/02/18 04:27 97.0 F L 78 18 91/55 96 08/01/18 23:27 98.0 F 75 18 113/72 97 08/01/18 21:09 98 08/01/18 20:45 66 08/01/18 19:43 98.9 F 66 20 104/69 95 08/01/18 18:49 78 08/01/18 15:43 98.0 F 76 20 98/63 100 08/01/18 12:42 92 H 08/01/18 12:41 95 H 08/01/18 11:11 98.4 F 77 20 104/63 99 08/01/18 10:00 78 78 H 100 - Physical Examination General: No Apparent Distress HEENT: Positive: PERRL Neck: Positive: trachea midline Cardiac: Positive: Other (paced) Lungs: Positive: Decreased Breath Sounds Neuro: Positive: Grossly Intact Abdomen: Positive: Unremarkable Extremities: Absent: edema
--- NOTE | 2018-08-02 09:09 | Discharge Summary ---
Providers - Providers Date of Admission: 07/26/18 23:20 Date of discharge: 08/02/18 Attending physician: MONSERRAT OSWALD 07/26/18 23:23 Consult to Physician [CONS] Routine Comment: Dr. Jones spoke with Dr. Ortega @ [phone] Consulting Provider: CARLOS ALBERTO ORTEGA Physician Instructions: Reason For Exam: chf 07/29/18 14:19 Consult to Physician [CONS] Routine Comment: spoke with mary at office 1602 Consulting Provider: KATEY BOWER Physician Instructions: Reason For Exam: Acute resp failure, desat on sleeping 08/01/18 11:08 Consult to PICC Line RN [CONS] Routine Reason For Exam: To eval PICC on R, not in good position as per CXR Type Line:: PICC 08/01/18 13:19 PICC Line Placement [Consult to PICC Line RN] [CONS] Urgent Reason For Exam: Milrinone drip at home. Type Line:: PICC Primary care physician: ARIANA CASILLAS Hospitalization Reason for admission: chf Condition: Stable Hospital course: 68 y/o male with systolic heart failure admitted for CHF exacerbation. Cardiology was consulted for the CHF exacerbation. Etiology secondary to dilated nonischemic cardiomyopathy. Patient has an EF 15-20% on echocardiogram of December 2017. No ischemia seen on MPI December 2016. Cardiology recommended continuation of medical therapy including beta blockers, afterload agents, oral anticoagulation and intravenous milrinone. Patient had complications during the hospital stay with ventricular tachycardic runs. Patient also received oral digoxin and amiodarone therapy for suppression of ventricular arrhythmias. Patient also has a history of persistent A. fib status post KINGS guided cardioversion in November 2017. Cardiology continue with conservative management. Pulmonary was consulted because the patient was desaturating while sleeping and complaining of continued dyspnea so pulmonary consulted. There was some concern for sleep apnea. Patient was also noted to have acute bronchitis and had a CT scan completed that reported scattered tiny nodules densities in both lung concerning for metastatic process. The nodules were felt to be too small for biopsy. Therefore regarding the CT chest findings, pulmonary recommended workup will be to update another noncontrast scan in 3 months. He is also a high risk candidate at this point for any form of lung biopsy. Also, CHF exacerbation is a known complication of untreated JONATHAN. Therefore, pulmonary recommends outpatient sleep study follow-up and patient needs to be restarted on CPAP therapy if indicated. Patient has been previously on home milrinone. Also CXR revealed right PICC line was not in adequate position and this was removed and another put in. Dedicated discharge time 35 minutes. Disposition: [id number] TO HOME OR SELFCARE Time spent for discharge: 35 - Discharge Diagnoses (1) Pulmonary nodule Status: Acute (2) Acute CHF Status: Acute (3) Nonischemic cardiomyopathy Status: Acute (4) AICD (automatic cardioverter/defibrillator) present Status: Acute (5) Acute exacerbation of congestive heart failure Status: Acute Qualifiers: Heart failure type: combined systolic and diastolic Qualified Code(s): I50.43 - Acute on chronic combined systolic (congestive) and diastolic (congestive) heart failure (6) Acute on chronic systolic heart failure Status: Acute Core Measure Documentation - Palliative Care Palliative Care/ Comfort Measures: Not Applicable - Core Measures Any of the following diagnoses?: heart failure - Heart Failure Discharge Requirements WU/ARB for LVSD if EF <40%: Yes Beta nupur at discharge: Yes Exam - Constitutional Vitals: Temp Pulse Resp BP Pulse Ox 98.2 F 77 20 109/57 92 08/02/18 08:43 08/02/18 08:43 08/02/18 08:43 08/02/18 08:43 08/02/18 08:59 General appearance: Present: no acute distress, well-nourished - EENT Eyes: Present: PERRL ENT: hearing intact, clear oral mucosa - Neck Neck: Present: supple, normal ROM - Respiratory Respiratory effort: normal Respiratory: bilateral: CTA - Cardiovascular Heart Sounds: Present: S1 & S2. Absent: rub, click - Extremities Extremities: pulses symmetrical, No edema Peripheral Pulses: within normal limits - Abdominal General gastrointestinal: Present: soft, non-tender, non-distended, normal bowel sounds Male genitourinary: Present: normal - Integumentary Integumentary: Present: clear, warm, dry - Musculoskeletal Musculoskeletal: gait normal, strength equal bilaterally - Psychiatric Psychiatric: appropriate mood/affect, intact judgment & insight - Neurologic Neurologic: CNII-XII intact, moves all extremities Plan Activity: advance as tolerated Weight Bearing Status: Weight Bear as Tolerated Diet: diabetic Special Instructions: restrict fluid intake to (1 liter), record daily weights, record daily BP diary, home health RN Additional Instructions: F/U repeat CT Chest per Pulm in 3 months for pulm nodules, otpatient sleep study Follow up with: ARIANA CASILLAS MD [Primary Care Provider] - 3-5 Days GLORIA DUGAN MD [Staff Physician] - 7 Days LORENA WASSERMAN MD [Staff Physician] - 7 Days Prescriptions: Allopurinol [Zyloprim] 100 mg PO QDAY #30 tablet Amiodarone [Cordarone 200 MG TAB] 200 mg PO BID #60 tablet Apixaban [Eliquis] 5 mg PO BID #60 tablet Aspirin [Aspirin BABY CHEW TAB] 81 mg PO QDAY #30 tab.chew Bumetanide [Bumex 1 mg tab] 1 mg PO DAILY #30 tablet Digoxin [Lanoxin] 0.125 mg PO DAILY@1700 #30 tablet Losartan [Cozaar] 25 mg PO QDAY #30 tablet metOLazone [Zaroxolyn] 5 mg PO QDAY #30 tablet metOLazone [Metolazone] 5 mg PO DAILY #30 tablet Metoprolol Xl [Metoprolol SUCCINATE ER TAB] 25 mg PO QDAY #30 tablet Pantoprazole [Protonix TAB] 40 mg PO QDAY #40 tablet Potassium Chloride [K-Dur] 10 meq PO Q12HR #60 tablet
[2018-08-02] MEDS: PROTONIX PO SCH (09:58)
[2018-08-02] MEDS: ELIQUIS PO SCH (09:58)
[2018-08-02] MEDS: ZAROXOLYN PO SCH (09:58)
[2018-08-02] MEDS: K-DUR PO SCH (09:58)
[2018-08-02] MEDS: BABY ASPIRIN PO SCH (09:58)
[2018-08-02] MEDS: COZAAR PO SCH (09:59)
[2018-08-02] MEDS: CORDARONE PO SCH (09:59)
[2018-08-02] MEDS: ZYLOPRIM PO SCH (09:59)
[2018-08-02] MEDS: SODIUM CHLORIDE FLUSH SYRINGE 10 ML IV SCH (10:00)
[2018-08-02] MEDS: TOPROL XL PO SCH (10:00)
--- NOTE | 2018-08-02 11:44 | Progress Note ---
Assessment and Plan Pulmonary nodules. Chest CT with scattered tiny nodules densities in both lung concerning for metastatic process. On my review of the films, I'll just are not associated with chronic interstitial changes. Etiology unknown. To small to b iopsy. No prior CT scan for comparison JONATHAN. Patient history, he was evaluated by a sleep study and order CPAP last year. He discontinued treatment "due to anxiety with the mask". Chronic systolic heart failure on IV milrinone as an outpatient Acute renal failure Dilated Nonischemic cardiomyopathy EF 15-20% on echo 12/2017 no ischemia on MPI 12/2016 [facility] at [place]: no significant CAD AICD Afib s/p KINGS guided cardioversion 11/2017 on eliquis for oral anticoagulation Hx of paroxysmal VF -on amiodarone and digoxin for rate control dig level: 0.3 Hx of Anxiety disorder Recommendations Follow-up antiarrhythmic therapy and on anticoagulation per cardiology Continue oxygen support as needed. Reevaluate as outpatient in 6 wk Discussed need for OPD sleep apnea treatment re-evaluation. Business card given to pt for f/u appointment,will also enter on office appointment list Regarding the chest CT findings, recommended workup will be to update another noncontrast scan in 3 months. He is also a high risk candidate at this point for any form of lung biopsy. In the meantime, further workup for hidden malignancy per primary care group. Again, business card given to pt for f/u appointment,will also enter on office appointment list Discussed with the patient in detail Subjective Date of service: 08/02/18 Principal diagnosis: congestive heart failure, A. fib, VT runs, JONATHAN, hypoxemic respiratory failu Interval history: No events overnight. No SOB Objective Vital Signs - 12hr 08/02/18 08/02/18 08/02/18 04:27 08:43 08:59 Temperature 97.0 F L 98.2 F Pulse Rate 78 77 Respiratory 18 20 Rate Blood Pressure 91/55 109/57 O2 Sat by Pulse 96 92 92 Oximetry Constitutional: no acute distress, alert Eyes: icteric ENT: oropharynx moist Neck: no lymphadenopathy, no JVD Effort: normal Ascultation: Bilateral: clear, diminished breath sounds Percussion: Bilateral: not dull Gastrointestinal: normoactive bowel sounds, soft, non-tender Extremities: no cyanosis Neurologic: normal mental status CBC and BMP: 07/30/18 07:01 07/31/18 06:41 ABG, PT/INR, D-dimer: ABG POC ABG pH 7.489 (7.35-7.45) H 07/30/18 11:29 POC ABG pCO2 36.4 (35-45) 07/30/18 11:29 POC ABG pO2 76 (80-105) L 07/30/18 11:29 POC ABG HCO3 27.7 07/30/18 11:29 POC ABG Total CO2 29 07/30/18 11:29 POC ABG O2 Sat 96 07/30/18 11:29 Abnormal lab findings: Abnormal Labs 07/26/18 07/26/18 07/27/18 19:51 19:51 06:30 Hgb 11.2 L MCV 76 L 76 L MCH 25 L 24 L MCHC 31 L RDW 18.4 H 18.1 H [place] % (Auto) 11.0 H [place] # 0.9 H POC ABG pH POC ABG pO2 Sodium 134 L Chloride BUN Creatinine 1.7 H Glucose 249 H POC Glucose NT-Pro-B Natriuret Pep Digoxin 07/27/18 07/27/18 07/27/18 06:30 06:51 14:39 Hgb MCV MCH MCHC RDW [place] % (Auto) [place] # POC ABG pH POC ABG pO2 Sodium Chloride BUN Creatinine 1.6 H Glucose 196 H POC Glucose 175 H NT-Pro-B Natriuret Pep Digoxin 0.3 L 07/27/18 07/27/18 07/28/18 17:46 21:22 05:11 Hgb MCV MCH MCHC RDW [place] % (Auto) [place] # POC ABG pH POC ABG pO2 Sodium Chloride BUN 25 H Creatinine Glucose POC Glucose 252 H 202 H NT-Pro-B Natriuret Pep Digoxin 07/28/18 07/28/18 07/28/18 06:38 11:59 16:34 Hgb MCV MCH MCHC RDW [place] % (Auto) [place] # POC ABG pH POC ABG pO2 Sodium Chloride BUN Creatinine Glucose POC Glucose 106 H 126 H 180 H NT-Pro-B Natriuret Pep Digoxin 07/28/18 07/29/18 07/29/18 20:41 06:13 12:15 Hgb MCV MCH MCHC RDW [place] % (Auto) [place] # POC ABG pH POC ABG pO2 Sodium Chloride BUN Creatinine Glucose POC Glucose 209 H 109 H 183 H NT-Pro-B Natriuret Pep Digoxin 07/29/18 07/29/18 07/30/18 17:31 21:30 05:38 Hgb MCV MCH MCHC RDW [place] % (Auto) [place] # POC ABG pH POC ABG pO2 Sodium Chloride BUN Creatinine Glucose POC Glucose 214 H 182 H 217 H NT-Pro-B Natriuret Pep Digoxin 07/30/18 07/30/18 07/30/18 07:01 07:01 11:08 Hgb 11.7 L MCV 76 L MCH 24 L MCHC RDW 18.3 H [place] % (Auto) [place] # POC ABG pH POC ABG pO2 Sodium 134 L Chloride 95.3 L BUN 34 H Creatinine 1.7 H Glucose 219 H POC Glucose 217 H NT-Pro-B Natriuret Pep Digoxin 07/30/18 07/30/18 07/30/18 11:29 17:12 21:00 Hgb MCV MCH MCHC RDW [place] % (Auto) [place] # POC ABG pH 7.489 H POC ABG pO2 76 L Sodium Chloride BUN Creatinine Glucose POC Glucose 144 H 221 H NT-Pro-B Natriuret Pep Digoxin 07/31/18 07/31/18 07/31/18 05:34 06:41 11:51 Hgb MCV MCH MCHC RDW [place] % (Auto) [place] # POC ABG pH POC ABG pO2 Sodium 136 L Chloride 94.4 L BUN 26 H Creatinine Glucose 173 H POC Glucose 208 H 205 H NT-Pro-B Natriuret Pep Digoxin 07/31/18 07/31/18 07/31/18 16:42 17:37 20:38 Hgb MCV MCH MCHC RDW [place] % (Auto) [place] # POC ABG pH POC ABG pO2 Sodium Chloride BUN Creatinine Glucose POC Glucose 163 H 179 H NT-Pro-B Natriuret Pep 1051 H Digoxin 08/01/18 08/01/18 08/01/18 05:51 11:12 15:44 Hgb MCV MCH MCHC RDW [place] % (Auto) [place] # POC ABG pH POC ABG pO2 Sodium Chloride BUN Creatinine Glucose POC Glucose 162 H 256 H 198 H NT-Pro-B Natriuret Pep Digoxin 08/01/18 08/02/18 08/02/18 21:15 05:54 11:00 Hgb MCV MCH MCHC RDW [place] % (Auto) [place] # POC ABG pH POC ABG pO2 Sodium Chloride BUN Creatinine Glucose POC Glucose 168 H 128 H 176 H NT-Pro-B Natriuret Pep Digoxin
== END 2018-08-02 16:03 | disposition home health service (06) | DRG 682 ==
LOC: ED 19:04 → 4A 23:20
PROVIDERS: ADMIT Internal Medicine; ATTEND Hospitalist
PROC: 4A033R1 Measurement of Arterial Saturation, Peripheral, Percutaneous Approach (ICD-10-PCS; 2018-07-30)
PROC: 02HV33Z Insertion of Infusion Device into Superior Vena Cava, Percutaneous Approach (ICD-10-PCS; principal; 2018-08-01)
DX: N17.9 Acute kidney failure, unspecified (principal); J96.00 Acute respiratory failure, unspecified whether with hypoxia or hypercapnia; I50.43 Acute on chronic combined systolic (congestive) and diastolic (congestive) heart failure; I42.0 Dilated cardiomyopathy; I13.0 Hypertensive heart and chronic kidney disease with heart failure and stage 1 through stage 4 chronic kidney disease, or unspecified chronic kidney disease; I47.2 Ventricular tachycardia; I48.2 Chronic atrial fibrillation; F41.9 Anxiety disorder, unspecified; G47.33 Obstructive sleep apnea (adult) (pediatric); J20.9 Acute bronchitis, unspecified; N18.9 Chronic kidney disease, unspecified; E11.22 Type 2 diabetes mellitus with diabetic chronic kidney disease; M10.9 Gout, unspecified; Z95.810 Presence of automatic (implantable) cardiac defibrillator; Z82.49 Family history of ischemic heart disease and other diseases of the circulatory system; Z79.899 Other long term (current) drug therapy; Z79.01 Long term (current) use of anticoagulants; Z79.84 Long term (current) use of oral hypoglycemic drugs
CPT/HCPCS: 36415; 36600; 71045; 71046; 71250; 76705; 80048; 80162; 82550; 82553; 82803; 82962; 83880; 84484; 85007; 85025; 85027; 93005; 93010; 94760; 96374; G0378; J1815; J1940; J2260; J7050

== ENCOUNTER 2018-09-19 00:14 | Inpatient (IN) | payer MEDICARE ==
--- NOTE | 2018-09-19 01:19 | Emergency Department Report ---
ED Shortness of Breath HPI - General Chief Complaint: Dyspnea/Respdistress Stated Complaint: COUGH/SAM/CHEST PAIN Time Seen by Provider: 09/19/18 01:12 Source: EMS Mode of arrival: Stretcher Limitations: No Limitations - History of Present Illness Initial Comments: 68-year-old male with a past medical history nonischemic cardiomyopathy with the EF of 15-20% currently on Milrinone, obesity, hypertension, diabetes, chronic renal insufficiency, A. fib with history of cardioversion on Eliquis, and AICD presents to the hospital complaining of progressively worsening shortness of breath for several days. Patient complains of worsening orthopnea, PND, at this present exertion. He has a cough that is primarily dry but occasionally productive of clear sputum. Patient feels like his stomach is swollen but his leg size is unchanged. He complains of aching pain to move his chest with coughing episodes only. He is compliant with his medications. He feels like he is also being compliant with his fluid restriction. He does not have a primary care doctor. Labeling Strategist: Dr. Hopson - Related Data Previous Rx's Medication Instructions Recorded Last Taken Type Acetaminophen [Acetaminophen TAB] 650 mg PO Q4H PRN tablet 12/31/17 Unknown Rx Digoxin [Lanoxin] 0.125 mg PO BID #30 tablet 06/17/18 Unknown Rx Potassium Chloride [K-Dur] 10 meq PO QDAY #30 tablet 06/17/18 Unknown Rx Allopurinol [Zyloprim] 100 mg PO QDAY #30 tablet 08/02/18 Unknown Rx Amiodarone [Cordarone 200 MG TAB] 200 mg PO BID #60 tablet 08/02/18 Unknown Rx Apixaban [Eliquis] 5 mg PO BID #60 tablet 08/02/18 Unknown Rx Aspirin [Aspirin BABY CHEW TAB] 81 mg PO QDAY #30 tab.chew 08/02/18 Unknown Rx Bumetanide [Bumex 1 mg tab] 1 mg PO DAILY #30 tablet 08/02/18 Unknown Rx Digoxin [Lanoxin] 0.125 mg PO DAILY@1700 #30 tablet 08/02/18 Unknown Rx Losartan [Cozaar] 25 mg PO QDAY #30 tablet 08/02/18 Unknown Rx Metoprolol Xl [Metoprolol 25 mg PO QDAY #30 tablet 08/02/18 Unknown Rx SUCCINATE ER TAB] Pantoprazole [Protonix TAB] 40 mg PO QDAY #40 tablet 08/02/18 Unknown Rx Potassium Chloride [K-Dur] 10 meq PO Q12HR #60 tablet 08/02/18 Unknown Rx metOLazone [Metolazone] 5 mg PO DAILY #30 tablet 08/02/18 Unknown Rx metOLazone [Zaroxolyn] 5 mg PO QDAY #30 tablet 08/02/18 Unknown Rx Allergies Allergy/AdvReac Type Severity Reaction Status Date / Time No Known Allergies Allergy Verified 03/03/17 09:44 ED Review of Systems ROS: Stated complaint: COUGH/SAM/CHEST PAIN Other details as noted in HPI Comment: All other systems reviewed and negative ED Past Medical Hx - Past Medical History Previous Medical History?: Yes Hx Hypertension: Yes Hx Congestive Heart Failure: Yes (nonischemic cardiomyopathy with EF of 15-20%) Hx Diabetes: Yes Hx Deep Vein Thrombosis: No Hx GERD: Yes Hx Renal Disease: Yes (renal insufficiency) Hx Arthritis: Yes Hx Asthma: No Hx COPD: No Hx HIV: No Additional medical history: A. fib with history of cardioversion and anticoagu lant use - Surgical History Past Surgical History?: Yes Hx Pacemaker: Yes (left chest pacemaker) Hx Internal Defibrillator: Yes (L CHEST) Additional Surgical History: LLOYD - Social History Smoking Status: Never Smoker Substance Use Type: None - Medications Home Medications: Home Medications Medication Instructions Recorded Confirmed Last Taken Type Acetaminophen [Acetaminophen TAB] 650 mg PO Q4H PRN tablet 12/31/17 07/31/18 Unknown Rx Digoxin [Lanoxin] 0.125 mg PO BID #30 tablet 06/17/18 07/31/18 Unknown Rx Potassium Chloride [K-Dur] 10 meq PO QDAY #30 tablet 06/17/18 07/31/18 Unknown Rx Allopurinol [Zyloprim] 100 mg PO QDAY #30 tablet 08/02/18 Unknown Rx Amiodarone [Cordarone 200 MG TAB] 200 mg PO BID #60 tablet 08/02/18 Unknown Rx Apixaban [Eliquis] 5 mg PO BID #60 tablet 08/02/18 Unknown Rx Aspirin [Aspirin BABY CHEW TAB] 81 mg PO QDAY #30 tab.chew 08/02/18 Unknown Rx Bumetanide [Bumex 1 mg tab] 1 mg PO DAILY #30 tablet 08/02/18 Unknown Rx Digoxin [Lanoxin] 0.125 mg PO DAILY@1700 #30 tablet 08/02/18 Unknown Rx Losartan [Cozaar] 25 mg PO QDAY #30 tablet 08/02/18 Unknown Rx Metoprolol Xl [Metoprolol 25 mg PO QDAY #30 tablet 08/02/18 Unknown Rx SUCCINATE ER TAB] Pantoprazole [Protonix TAB] 40 mg PO QDAY #40 tablet 08/02/18 Unknown Rx Potassium Chloride [K-Dur] 10 meq PO Q12HR #60 tablet 08/02/18 Unknown Rx metOLazone [Metolazone] 5 mg PO DAILY #30 tablet 08/02/18 Unknown Rx metOLazone [Zaroxolyn] 5 mg PO QDAY #30 tablet 08/02/18 Unknown Rx ED Physical Exam - General Limitations: No Limitations - Other Other exam information: General: No limitations, patient is alert in no acute distress Head exam: Atraumatic, normocephalic Eyes exam: Normal appearance, pupils equal reactive to light, extraocular movements intact ENT: Moist mucous membrane Neck exam: Normal inspection Respiratory exam: Clear to auscultation bilateral, no wheezes, rales, crackles Cardiovascular: Irregular rhythm, systolic murmur Abdomen: Soft, nontender, with normal bowel sounds, no rebound, or guarding Extremity: Full range of motion normal inspection no deformity, trace to 1+ pitting lower extremity edema Back: Normal Inspection, full range of motion, no tenderness Neurologic: Alert, oriented x3, cranial nerves intact, no motor or sensory deficit Psychiatric: normal affect, normal mood Skin: Warm, dry, intact ED Course Vital Signs 09/19/18 09/19/18 09/19/18 00:49 01:35 01:53 Temperature 98.2 F Pulse Rate 66 112 H Respiratory 18 23 26 H Rate Blood Pressure 99/68 O2 Sat by Pulse 97 97 96 Oximetry 09/19/18 09/19/18 09/19/18 01:54 02:00 02:16 Temperature Pulse Rate 103 H Respiratory Rate Blood Pressure 102/57 O2 Sat by Pulse 98 97 98 Oximetry 09/19/18 09/19/18 09/19/18 02:30 02:46 03:00 Temperature Pulse Rate 110 H 82 Respiratory 27 H 32 H Rate Blood Pressure 101/70 101/70 O2 Sat by Pulse 100 100 98 Oximetry ED Medical Decision Making - Lab Data Result diagrams: 09/19/18 01:22 09/19/18 01:22 Lab Results 09/19/18 09/19/18 09/19/18 Range/Units 01:22 01:22 01:22 WBC 8.2 (4.5-11.0) K/mm3 RBC 4.61 (3.65-5.03) M/mm3 Hgb 10.8 L (11.8-15.2) gm/dl Hct 34.2 L (35.5-45.6) % MCV 74 L (84-94) fl MCH 24 L (28-32) pg MCHC 32 (32-34) % RDW 17.8 H (13.2-15.2) % Plt Count 258 (140-440) K/mm3 Lymph % (Auto) 24.7 (13.4-35.0) % [place] % (Auto) 11.2 H (0.0-7.3) % Eos % (Auto) 0.6 (0.0-4.3) % Baso % (Auto) 1.1 (0.0-1.8) % Lymph # 2.0 (1.2-5.4) K/mm3 [place] # 0.9 H (0.0-0.8) K/mm3 Eos # 0.1 (0.0-0.4) K/mm3 Baso # 0.1 (0.0-0.1) K/mm3 Seg Neutrophils % 62.4 (40.0-70.0) % Seg Neutrophils # 5.1 (1.8-7.7) K/mm3 PT (12.2-14.9) Sec. INR (0.87-1.13) APTT (24.2-36.6) Sec. Sodium 133 L (137-145) mmol/L Potassium 3.2 L (3.6-5.0) mmol/L Chloride 91.5 L (98-107) mmol/L Carbon Dioxide 24 (22-30) mmol/L Anion Gap 21 mmol/L BUN 43 H (9-20) mg/dL Creatinine 2.5 H (0.8-1.5) mg/dL Estimated GFR 31 ml/min BUN/Creatinine Ratio 17 % Glucose 170 H (75-100) mg/dL Calcium 8.7 (8.4-10.2) mg/dL Total Bilirubin 0.90 (0.1-1.2) mg/dL AST 15 (5-40) units/L ALT 11 (7-56) units/L Alkaline Phosphatase 64 (35-129) units/L Total Creatine Kinase 66 (55-170) units/L CK-MB (CK-2) 2.0 (0.0-4.0) ng/mL CK-MB (CK-2) Rel Index 3.0 (0-4) Troponin T 0.056 H (0.00-0.029) ng/mL NT-Pro-B Natriuret Pep (0-900) pg/mL Total Protein 6.7 (6.3-8.2) g/dL Albumin 3.6 L (3.9-5) g/dL Albumin/Globulin Ratio 1.2 % Digoxin 0.3 L (0.9-2.0) ng/mL 09/19/18 09/19/18 Range/Units 01:22 01:22 WBC (4.5-11.0) K/mm3 RBC (3.65-5.03) M/mm3 Hgb (11.8-15.2) gm/dl Hct (35.5-45.6) % MCV (84-94) fl MCH (28-32) pg MCHC (32-34) % RDW (13.2-15.2) % Plt Count (140-440) K/mm3 Lymph % (Auto) (13.4-35.0) % [place] % (Auto) (0.0-7.3) % Eos % (Auto) (0.0-4.3) % Baso % (Auto) (0.0-1.8) % Lymph # (1.2-5.4) K/mm3 [place] # (0.0-0.8) K/mm3 Eos # (0.0-0.4) K/mm3 Baso # (0.0-0.1) K/mm3 Seg Neutrophils % (40.0-70.0) % Seg Neutrophils # (1.8-7.7) K/mm3 PT 19.4 H (12.2-14.9) Sec. INR 1.53 H (0.87-1.13) APTT 38.2 H (24.2-36.6) Sec. Sodium (137-145) mmol/L Potassium (3.6-5.0) mmol/L Chloride (98-107) mmol/L Carbon Dioxide (22-30) mmol/L Anion Gap mmol/L BUN (9-20) mg/dL Creatinine (0.8-1.5) mg/dL Estimated GFR ml/min BUN/Creatinine Ratio % Glucose (75-100) mg/dL Calcium (8.4-10.2) mg/dL Total Bilirubin (0.1-1.2) mg/dL AST (5-40) units/L ALT (7-56) units/L Alkaline Phosphatase (35-129) units/L Total Creatine Kinase (55-170) units/L CK-MB (CK-2) (0.0-4.0) ng/mL CK-MB (CK-2) Rel Index (0-4) Troponin T (0.00-0.029) ng/mL NT-Pro-B Natriuret Pep 5914 H (0-900) pg/mL Total Protein (6.3-8.2) g/dL Albumin (3.9-5) g/dL Albumin/Globulin Ratio % Digoxin (0.9-2.0) ng/mL - EKG Data -: EKG Interpreted by Me (a sensed biventricular paced rhythm) EKG shows normal: axis (qrs 62), QRS complexes (qrsd 153), ST-T waves (no stemi) - EKG Data When compared to previous EKG there are: no significant change - Radiology Data Radiology results: report reviewed PROCEDURE: XR CHEST ROUTINE 2V TECHNIQUE: PA and lateral chest radiographs were obtained. HISTORY: Dyspnea COMPARISONS: August 01, 2018. FINDINGS: Heart: Normal. Mediastinum/Vessels: There is a cardiac pacemaker with the battery in the left chest wall. Lungs/Pleural space: Normal. Bony thorax: No acute osseous abnormality. IMPRESSION: There is no evidence of an acute cardiopulmonary process. - Medical Decision Making deborah solorio for cough + fluid retention but unremarkable cxr worsening renal function pt will be admitted to hospitalist to service - Differential Diagnosis CHF, pneumonia, bronchitis, PA, unstable angina Critical Care Time: No Critical care attestation.: If time is entered above; I have spent that time in minutes in the direct care of this critically ill patient, excluding procedure time. ED Disposition Clinical Impression: Dyspnea, Cough, CHF exacerbation, Acute on chronic renal insufficiency, Hypokalemia, Troponin level elevated, Current use of intermediate project manager anticoagulation Disposition: OP ADMIT IP TO THIS HOSP Is pt being admited?: Yes Condition: Stable Time of Disposition: 03:15 (DR Cowan/hosp)
[2018-09-19 01:56] LABS: Basophils # (Auto) 0.1 K/mm3 (0.0-0.1); Basophils % (Auto) 1.1 % (0.0-1.8); Eosinophils # (Auto) 0.1 K/mm3 (0.0-0.4); Eosinophils % (Auto) 0.6 % (0.0-4.3); Hematocrit 34.2 % (35.5-45.6); Hemoglobin 10.8 gm/dl (11.8-15.2); Lymphocytes % (Auto) 24.7 % (13.4-35.0); Mean Corpuscular HGB Conc 32 % (32-34); Mean Corpuscular Volume 74 fl (84-94); Monocytes # (Auto) 0.9 K/mm3 (0.0-0.8); Monocytes % (Auto) 11.2 % (0.0-7.3); Platelet Count 258 K/mm3 (140-440); Red Blood Count 4.61 M/mm3 (3.65-5.03); Red Cell Distribution Width 17.8 % (13.2-15.2)
[2018-09-19 02:20] LABS: INR 1.53 (0.87-1.13)
[2018-09-19 02:21] LABS: Partial Thromboplastin Time 38.2 Sec. (24.2-36.6)
--- NOTE | 2018-09-19 02:30 | XRay Report ---
PROCEDURE: XR CHEST ROUTINE 2V TECHNIQUE: PA and lateral chest radiographs were obtained. HISTORY: Dyspnea COMPARISONS: August 01, 2018. FINDINGS: Heart: Normal. Mediastinum/Vessels: There is a cardiac pacemaker with the battery in the left chest wall. Lungs/Pleural space: Normal. Bony thorax: No acute osseous abnormality. IMPRESSION: There is no evidence of an acute cardiopulmonary process. This document is electronically signed by Makeda Berg DO., September 19 2018 02:28:13 AM ET
[2018-09-19] MEDS ORDERED: TESSALON PERLES PO ONE (02:57)
[2018-09-19 03:02] LABS: Albumin 3.6 g/dL (3.9-5); Calcium 8.7 mg/dL (8.4-10.2)
[2018-09-19 03:56] LABS: Chol/HDL Ratio 3.13 %
[2018-09-19] MEDS ORDERED: D50W (25GM) Syringe IV PRN (04:14)
[2018-09-19] MEDS ORDERED: TYLENOL PO PRN (04:20)
[2018-09-19] MEDS ORDERED: ZOFRAN IV PRN (04:20)
[2018-09-19] MEDS: LANOXIN IV SCH ×2 (05:02→13:09)
[2018-09-19] MEDS: NITRO-BID 2% TP SCH ×3 (06:20→20:04)
--- NOTE | 2018-09-19 06:59 | History and Physical Report ---
CHIEF COMPLAINT: Shortness of breath. OTHER COMPLAINT: Includes cough. HISTORY OF PRESENTING ILLNESS: The patient is a 68-year-old male who has a past history of nonischemic cardiomyopathy with ejection fraction running about 15% to 20%, presenting with shortness of breath and also cough productive of white sputum. There is history of some discomfort in the chest. There is no history of edema. No history of fever or chills. No history of nausea or vomiting. PAST MEDICAL HISTORY: Pertinent for hypertension, congestive heart failure, nonischemic cardiomyopathy with ejection fraction running about 15% to 20%, diabetes mellitus, gastroesophageal reflux disease, renal insufficiency, arthritis, and atrial fibrillation, on Eliquis. PAST SURGICAL HISTORY: Pertinent for pacemaker placement as well as defibrillator placement. FAMILY HISTORY: Noncontributory. SOCIAL HISTORY: The patient does not smoke, does not drink alcohol, and does not use illicit drugs. MEDICATIONS: The patient is on potassium chloride 10 mEq by mouth daily, Tylenol 650 mg by mouth every 4 hours for fever and headache, bumetanide or Bumex 1 mg by mouth daily, metolazone 5 mg by mouth daily, allopurinol 100 mg by mouth daily, amiodarone 200 mg by mouth twice daily, apixaban or Eliquis 5 mg by mouth twice daily, aspirin 81 mg by mouth daily. Also, listed in the patient's medications include losartan 25 mg by mouth daily, digoxin 0.125 mg by mouth daily, metoprolol 25 mg by mouth daily, and pantoprazole 40 mg by mouth daily. ALLERGIES: There are no known drug allergies. REVIEW OF SYSTEMS: CONSTITUTIONAL: There is no fever, no chills, no diaphoresis. HEENT: There is no headache or sore throat. CARDIOVASCULAR SYSTEM: There is some chest discomfort, but no orthopnea. RESPIRATORY SYSTEM: Shortness of breath present. Cough present. GASTROINTESTINAL SYSTEM: There is no nausea, no vomiting. No abdominal pain, diarrhea, or constipation. NEUROLOGICAL SYSTEM: There is no numbness, no dizziness, and no altered mental status. MUSCULOSKELETAL SYSTEM: There is no joint pain or swelling. DERMATOLOGIC SYSTEM: There is no skin rash or itching. GENITOURINARY SYSTEM: There is no dysuria, hematuria, or flank pain. Rest of system review is normal. PHYSICAL EXAMINATION: GENERAL: At the time of exam, the patient was found to be alert, oriented x 3, and not in acute distress. VITAL SIGNS: At the initial time of presentation showed temperature of 98.2 degrees Fahrenheit, pulse of 66, respirations 18, blood pressure 99/68, O2 sat of 97% on room air. HEENT: Showed pupils to be equal, round, reactive to light and accommodation. Extraocular muscles were intact. NECK: Supple with no JVD or carotid bruit. CARDIOVASCULAR SYSTEM: Showed first and second heart sounds which were heard and irregularly irregular. RESPIRATORY SYSTEM: Showed good air entry on both sides of the lungs with bibasilar rales. GASTROINTESTINAL SYSTEM: Showed abdomen to be full, soft, nontender with no organomegaly or rigidity. NEUROLOGIC: Showed no focal deficit. MUSCULOSKELETAL SYSTEM: Showed no joint swelling or tenderness. DERMATOLOGICAL SYSTEM: Showed drying of the skin on the legs. GENITOURINARY SYSTEM: No costovertebral angle tenderness. PERTINENT LABORATORY DATA AND IMAGING STUDIES: Chest x-ray shows that there is a cardiac pacemaker with battery in the left chest wall and no abnormality was found in the lungs or the bony structure. Lab results; the patient's CBC showed normal white count, low hemoglobin of 10.8, and low hematocrit of 34.2 with low MCV of 74. The patient's coagulation studies show high PT of 19.4 and chemistry showed low sodium of 133 with low potassium of 3.2 and low chloride of 91.5 with elevated BUN of 43 and elevated creatinine of 2.5. The patient's troponin level showed elevated value of 0.056 and brain natriuretic peptide level showed high value of 5914. Digoxin level was low with a value of 0.3. DIAGNOSES: 1. Atrdj-al-wwsfheb renal failure. 2. Congestive heart failure exacerbation. 3. Elevated troponin. 4. Hypokalemia. PLAN OF CARE: 1. The patient will be admitted to telemetry. 2. The patient will have serial cardiac enzymes involving troponin, total CK and CK-MB check q. 6 hours x 2 more levels. 3. The patient will have 2D echo done this morning. 4. The patient will be on Accu-Chek a.c. and at bedtime followed by low-dose sliding scale using Regular insulin coverage. 5. The patient will be on consistent carbohydrate, low-sodium diet. 6. The patient will be on his home medication as shown in the medication reconciliation section. 7. The patient will be on nitro paste half inch to anterior chest wall t.i.d. and will be on IV Zofran 4 mg every 8 hours for nausea and vomiting and Tylenol 650 mg by mouth every 4 hours for fever and headache. 8. The patient will have Cardiology consult with Dr. Singh because of elevated troponin level and congestive heart failure. 9. The patient will have nephrology consult with Dr. Ennis because of mcjeq-fc-miywied renal failure. JOB# [id number] OCN/NTS
[2018-09-19 07:57] LABS: Creatine Kinase MB 2.5 ng/mL (0.0-4.0)
[2018-09-19] MEDS: HumuLIN R SUB-Q SCH ×4 (08:00→22:23)
--- NOTE | 2018-09-19 09:03 | Consultation ---
History of Present Illness - Reason for Consult Consult date: 09/19/18 acute renal failure - History of Present Illness Mr. Jones is a 68yo with CKD, cardiomyopathy who presents to the ED with SOB. He reports that symptoms began appx 3 weeks ago. At that time, he reports onset of swelling w/ increasing abominal distention. Patient reports onset of SOB which progressively worsened. He reports orthopnea, IGNACIO and cough. He reports adherence to sodium and fluid restriction Past History Past Medical History: other (Nonischemic cardiomyopathy on milrinone gtt, stage III CKD, atrial fibrillation, hypertension, type II DM) Past Surgical History: Other (AICD placement) Social history: no significant social history Family history: no significant family history Medications and Allergies Allergies Allergy/AdvReac Type Severity Reaction Status Date / Time No Known Allergies Allergy Verified 03/03/17 09:44 Home Medications Medication Instructions Recorded Confirmed Last Taken Type Potassium Chloride [K-Dur] 10 meq PO QDAY #30 tablet 06/17/18 07/31/18 Unknown Rx Allopurinol [Zyloprim] 100 mg PO QDAY #30 tablet 08/02/18 09/19/18 Unknown Rx Amiodarone [Cordarone 200 MG TAB] 200 mg PO BID #60 tablet 08/02/18 09/19/18 Unknown Rx Apixaban [Eliquis] 5 mg PO BID #60 tablet 08/02/18 09/19/18 Unknown Rx Aspirin [Aspirin BABY CHEW TAB] 81 mg PO QDAY #30 tab.chew 08/02/18 09/19/18 Unknown Rx Bumetanide [Bumex 1 mg tab] 1 mg PO DAILY #30 tablet 08/02/18 09/19/18 Unknown Rx Pantoprazole [Protonix TAB] 40 mg PO QDAY #40 tablet 08/02/18 09/19/18 Unknown Rx Potassium Chloride [K-Dur] 10 meq PO Q12HR #60 tablet 08/02/18 09/19/18 Unknown Rx metOLazone [Metolazone] 5 mg PO DAILY #30 tablet 08/02/18 09/19/18 Unknown Rx Active Meds: Active Medications Acetaminophen (Tylenol) 650 mg PO Q4H PRN PRN Reason: Fever >101 Allopurinol (Zyloprim) 100 mg PO QDAY SHANDA Amiodarone HCl (Cordarone) 200 mg PO BID SHANDA Apixaban (Eliquis) 5 mg PO BID [facility]; Protocol Aspirin (Baby Aspirin) 81 mg PO QDAY [facility] Dextrose (D50w (25gm) Syringe) 50 ml IV PRN PRN PRN Reason: Hypoglycemia Digoxin (Lanoxin) 0.125 mg PO DAILY@1700 SHANDA Digoxin (Lanoxin) 0.25 mg IV Q6H [facility] Stop: 09/19/18 11:01 Last Admin: 09/19/18 05:02 Dose: Not Given Documented by: Furosemide (Lasix) 40 mg IV DAILY [facility] Insulin Human Regular (Humulin R) 0 units SUB-Q AC [facility]; Protocol Insulin Human Regular (Humulin R) 0 units SUB-Q QHS [facility]; Protocol Losartan Potassium (Cozaar) 25 mg PO QDAY [facility] Metolazone (Zaroxolyn) 5 mg PO DAILY [facility] Metoprolol Succinate (Toprol Xl) 25 mg PO QDAY [facility] Nitroglycerin (Nitro-Bid 2%) 0.5 inch TP TIDNTG SHANDA; Protocol Last Admin: 09/19/18 06:20 Dose: 0.5 inch Documented by: Ondansetron HCl (Zofran) 4 mg IV Q8H PRN PRN Reason: Nausea And Vomiting Pantoprazole Sodium (Protonix) 40 mg PO QDAY [facility] Potassium Chloride (K-Dur) 10 meq PO Q12HR [facility] Review of Systems All systems: negative Exam - Vital Signs Vital signs: Vital Signs Temp Pulse Resp BP Pulse Ox 98.2 F 66 18 99/68 97 09/19/18 00:49 09/19/18 00:49 09/19/18 00:49 09/19/18 00:49 09/19/18 00:49 - General Appearance General appearance: well-developed, other (conversational dyspnea) EENT: ATNC Respiratory: Decreased Breath Sounds Heart: regular, S1S2 Gastrointestinal: Present: distended Integumentary: no rash, warm and dry Neurologic: no focal deficit, alert and oriented x3 Musculoskeletal: Present: other (+Edema) Psychiatric: cooperative Results - Lab Results 09/19/18 01:22 09/19/18 01:22 Most recent lab results Calcium 8.7 mg/dL (8.4-10.2) 09/19/18 01:22 Assessment and Plan Impression * Acute kidney injury secondary to decreased effective circulatory volume/cardiorenal syndrome on stage III CKD --Baseline SCr 1.5-1.8mg/dL --Prior work up notable for Hep B/C negative, ANCA neg, C3/C4 wnl * Acute on chronic systolic heart failure --Milrinone gtt * Cardiomyopathy --TTE: EF 15-20% (December 2017) * Chronic atrial fibrillation * Hx of paroxysmal VF * Hypertension * Type II Diabetes * Hyponatremia secondary to volume overload/CHF * Hypokalemia Recommendations * Diuresis with Zaroxylyn daily and Bumex 1mg IV BID * Milrinone gtt per cardiology * Patient may require Bumex gtt vs isolated UF for fluid removal * Replete lytes prn * Avoid nephrotoxins * Monitor patient's fluid status and electrolytes closely * Strict I/O, daily weight * Sodium/fluid restriction
[2018-09-19] MEDS ORDERED: LANOXIN PO SCH ×2 (10:00→17:00)
[2018-09-19] MEDS ORDERED: K-DUR PO SCH ×2 (10:00)
[2018-09-19] MEDS ORDERED: HEPARIN SUB-Q SCH (10:00)
[2018-09-19] MEDS ORDERED: LASIX IV SCH (10:00)
[2018-09-19] MEDS: ZAROXOLYN PO SCH (11:07)
[2018-09-19] MEDS: BABY ASPIRIN PO SCH (11:07)
[2018-09-19] MEDS: PROTONIX PO SCH (11:07)
[2018-09-19] MEDS: ZYLOPRIM PO SCH (11:08)
[2018-09-19] MEDS: TOPROL XL PO SCH (11:08)
--- NOTE | 2018-09-19 11:14 | Event Note ---
Date: 09/19/18 This is a follow-up from an admission earlier this morning. Patient seen and examined. We will continue the plan as outlined in H&P. Total time 25 minutes with greater than 50% spent on correlation of care and counseling.
[2018-09-19] MEDS: ELIQUIS PO SCH ×2 (11:34→22:22)
[2018-09-19] MEDS: COZAAR PO SCH (11:34)
[2018-09-19] MEDS: CORDARONE PO SCH ×2 (11:34→22:22)
[2018-09-19 13:15] LABS: Creatine Kinase MB 3.1 ng/mL (0.0-4.0)
--- NOTE | 2018-09-19 13:31 | Consultation ---
History of Present Illness Consult date: 09/19/18 Consult reason: congestive heart failure History of present illness: The patient is a 68-year-old man with a long history of dilated nonischemic cardiomyopathy and chronic systolic heart failure. On previous assessments, his left ventricular ejection fraction is reported at 15-20%. He has a cardiac defibrillator in situ. He was previously on intravenous milrinone therapy. He is also on chronic oral anticoagulation therapy for paroxysmal atrial fibrillation. The patient presents to the hospital this time with shortness of breath, chest x-ray in addition to severe cardiomegaly, shows interstitial edema and decompensated heart failure. The patient is a poor history, but admits to poor compliance with home medications. It is also uncertain whether or not he is still on home IV milrinone therapy. He denies chest pain, denies palpitations and denies defibrillator discharge. EKG is sinus rhythm, ventricular pacemaker on discharge. Chest x-ray as reported shows cardiomegaly and moderate interstitial edema. Past History Past Medical History: heart failure, hypertension, renal failure Medications and Allergies Allergies Allergy/AdvReac Type Severity Reaction Status Date / Time No Known Allergies Allergy Verified 03/03/17 09:44 Home Medications Medication Instructions Recorded Confirmed Last Taken Type Potassium Chloride [K-Dur] 10 meq PO QDAY #30 tablet 06/17/18 07/31/18 Unknown Rx Allopurinol [Zyloprim] 100 mg PO QDAY #30 tablet 08/02/18 09/19/18 Unknown Rx Amiodarone [Cordarone 200 MG TAB] 200 mg PO BID #60 tablet 08/02/18 09/19/18 Unknown Rx Apixaban [Eliquis] 5 mg PO BID #60 tablet 08/02/18 09/19/18 Unknown Rx Aspirin [Aspirin BABY CHEW TAB] 81 mg PO QDAY #30 tab.chew 08/02/18 09/19/18 Unknown Rx Bumetanide [Bumex 1 mg tab] 1 mg PO DAILY #30 tablet 08/02/18 09/19/18 Unknown Rx Pantoprazole [Protonix TAB] 40 mg PO QDAY #40 tablet 08/02/18 09/19/18 Unknown Rx Potassium Chloride [K-Dur] 10 meq PO Q12HR #60 tablet 08/02/18 09/19/18 Unknown Rx metOLazone [Metolazone] 5 mg PO DAILY #30 tablet 08/02/18 09/19/18 Unknown Rx Active Meds: Active Medications Acetaminophen (Tylenol) 650 mg PO Q4H PRN PRN Reason: Fever >101 Allopurinol (Zyloprim) 100 mg PO QDAY [facility] Last Admin: 09/19/18 11:08 Dose: 100 mg Documented by: Amiodarone HCl (Cordarone) 200 mg PO BID [facility] Last Admin: 09/19/18 11:34 Dose: 200 mg Documented by: Apixaban (Eliquis) 5 mg PO BID [facility]; Protocol Last Admin: 09/19/18 11:34 Dose: 5 mg Documented by: Aspirin (Baby Aspirin) 81 mg PO QDAY [facility] Last Admin: 09/19/18 11:07 Dose: 81 mg Documented by: Bumetanide (Bumex) 1 mg IV BID [facility] Dextrose (D50w (25gm) Syringe) 50 ml IV PRN PRN PRN Reason: Hypoglycemia Digoxin (Lanoxin) 0.125 mg PO DAILY@1700 [facility] Insulin Human Regular (Humulin R) 0 units SUB-Q AC [facility]; Protocol Last Admin: 09/19/18 12:00 Dose: 2 units Documented by: Insulin Human Regular (Humulin R) 0 units SUB-Q QHS [facility]; Protocol Losartan Potassium (Cozaar) 25 mg PO QDAY [facility] Last Admin: 09/19/18 11:34 Dose: 25 mg Documented by: Metolazone (Zaroxolyn) 5 mg PO DAILY [facility] Last Admin: 09/19/18 11:07 Dose: 5 mg Documented by: Metoprolol Succinate (Toprol Xl) 25 mg PO QDAY [facility] Last Admin: 09/19/18 11:08 Dose: 25 mg Documented by: Nitroglycerin (Nitro-Bid 2%) 0.5 inch TP TIDNTG [facility]; Protocol Last Admin: 09/19/18 11:07 Dose: 0.5 inch Documented by: Ondansetron HCl (Zofran) 4 mg IV Q8H PRN PRN Reason: Nausea And Vomiting Pantoprazole Sodium (Protonix) 40 mg PO QDAY [facility] Last Admin: 09/19/18 11:07 Dose: 40 mg Documented by: Potassium Chloride (K-Dur) 10 meq PO Q12HR [facility] Last Admin: 09/19/18 11:34 Dose: 10 meq Documented by: Review of Systems Cardiovascular: orthopnea, edema, shortness of breath, no chest pain, no palpitations, no rapid/irregular heart beat, no syncope, no lightheadedness Physical Examination Vital Signs Temp Pulse Resp BP Pulse Ox 98.2 F 66 18 99/68 97 09/19/18 00:49 09/19/18 00:49 09/19/18 00:49 09/19/18 00:49 09/19/18 00:49 General appearance: no acute distress HEENT: Positive: PERRL Neck: Positive: neck supple Cardiac: Positive: Reg Rate and Rhythm Lungs: Positive: Decreased Breath Sounds Neuro: Positive: Grossly Intact Abdomen: Positive: Soft Male genitourinary: Positive: deferred Skin: Positive: Clear Extremities: Present: edema (trace) Results 09/19/18 01:22 09/19/18 01:22 Cardiac Enzymes 09/19/18 09/19/18 09/19/18 Range/Units 01:22 07:05 12:36 AST 15 (5-40) units/L CK-MB (CK-2) 2.0 2.5 3.1 (0.0-4.0) ng/mL Coagulation 09/19/18 Range/Units 01:22 PT 19.4 H (12.2-14.9) Sec. INR 1.53 H (0.87-1.13) APTT 38.2 H (24.2-36.6) Sec. Lipids 09/19/18 Range/Units 01:22 Triglycerides 62 (2-149) mg/dL Cholesterol 94 (50-199) mg/dL HDL Cholesterol 30 L (40-59) mg/dL Cholesterol/HDL Ratio 3.13 % CBC 09/19/18 Range/Units 01:22 WBC 8.2 (4.5-11.0) K/mm3 RBC 4.61 (3.65-5.03) M/mm3 Hgb 10.8 L (11.8-15.2) gm/dl Hct 34.2 L (35.5-45.6) % Plt Count 258 (140-440) K/mm3 Lymph # 2.0 (1.2-5.4) K/mm3 [place] # 0.9 H (0.0-0.8) K/mm3 Eos # 0.1 (0.0-0.4) K/mm3 Baso # 0.1 (0.0-0.1) K/mm3 Comprehensive Metabolic Panel 09/19/18 Range/Units 01:22 Sodium 133 L (137-145) mmol/L Potassium 3.2 L (3.6-5.0) mmol/L Chloride 91.5 L (98-107) mmol/L Carbon Dioxide 24 (22-30) mmol/L BUN 43 H (9-20) mg/dL Creatinine 2.5 H (0.8-1.5) mg/dL Glucose 170 H (75-100) mg/dL Calcium 8.7 (8.4-10.2) mg/dL AST 15 (5-40) units/L ALT 11 (7-56) units/L Alkaline Phosphatase 64 (35-129) units/L Total Protein 6.7 (6.3-8.2) g/dL Albumin 3.6 L (3.9-5) g/dL EKG interpretations - Telemetry EKG Rhythm: Sinus Rhythm Assessment and Plan - Patient Problems (1) Acute on chronic systolic heart failure Current Visit: Yes Status: Acute Plan to address problem: Patient has a dilated nonischemic cardiomyopathy, presents with acute on chronic systolic heart failure. Presentation may be due to poor compliance with medical therapy, artery salt indiscretion or problems. With the direction of nephrology, will institute intravenous diuretic therapy. Patient may also benefit from a trial of intravenous milrinone.
[2018-09-19] MEDS: MILRINONE-D5W 20 MG/100 ML 20 MG/100 ML BAG IV SCH (19:58)
[2018-09-19] MEDS: BUMEX IV SCH ×2 (20:04→22:45)
[2018-09-19] MEDS: ALDACTONE PO SCH (20:15)
[2018-09-20] MEDS: NITRO-BID 2% TP SCH (05:05)
[2018-09-20] MEDS: MILRINONE-D5W 20 MG/100 ML 20 MG/100 ML BAG IV SCH (06:04)
--- NOTE | 2018-09-20 08:45 | Progress Note ---
Assessment and Plan Impression * Acute kidney injury secondary to decreased effective circulatory volume/cardiorenal syndrome on stage III CKD --Baseline SCr 1.5-1.8mg/dL --Prior work up notable for Hep B/C negative, ANCA neg, C3/C4 wnl * Acute on chronic systolic heart failure --Milrinone gtt * Cardiomyopathy --TTE: EF 15-20% (December 2017) * Chronic atrial fibrillation * Hx of paroxysmal VF * Hypertension * Type II Diabetes * Hyponatremia secondary to volume overload/CHF * Hypokalemia Recommendations * AM labs are pending * Will continue IV diuresis Bumex 1mg BID with daily Zaroxolyn * ?Accuracy of UOP as patient states that he urinated frequently throughout the day yesterday * Replete lytes prn * Avoid nephrotoxins * Monitor patient's fluid status and electrolytes closely * Strict I/O, daily weight * Sodium/fluid restriction Subjective Date of service: 09/20/18 Interval history: Patient reports SOB improved. States abdomen is "softening up". Objective - Vital Signs Vital signs: Vital Signs - 12hr 09/19/18 09/19/18 09/20/18 22:40 23:09 04:19 Temperature 97.8 F 98.3 F Pulse Rate 82 52 L Pulse Rate [ 80 Apical] Respiratory 18 18 18 Rate Blood Pressure 88/55 93/53 O2 Sat by Pulse 93 96 93 Oximetry 09/20/18 05:05 Temperature Pulse Rate 52 L Pulse Rate [ Apical] Respiratory Rate Blood Pressure 93/53 O2 Sat by Pulse Oximetry - General Appearance General appearance: well-developed, well-nourished EENT: ATNC Respiratory: Present: Rales, Decreased Breath Sounds Cardiology: regular, S1S2 Gastrointestinal: distended - Lab 09/19/18 01:22 09/19/18 01:22 Most recent lab results Calcium 8.7 mg/dL (8.4-10.2) 09/19/18 01:22 Medications & Allergies - Medications Allergies/Adverse Reactions: Allergies No Known Allergies Allergy (Verified 03/03/17 09:44) Home Medications: Home Medications Medication Instructions Recorded Confirmed Last Taken Type Potassium Chloride [K-Dur] 10 meq PO QDAY #30 tablet 06/17/18 07/31/18 Unknown Rx Allopurinol [Zyloprim] 100 mg PO QDAY #30 tablet 08/02/18 09/19/18 Unknown Rx Amiodarone [Cordarone 200 MG TAB] 200 mg PO BID #60 tablet 08/02/18 09/19/18 Unknown Rx Apixaban [Eliquis] 5 mg PO BID #60 tablet 08/02/18 09/19/18 Unknown Rx Aspirin [Aspirin BABY CHEW TAB] 81 mg PO QDAY #30 tab.chew 08/02/18 09/19/18 Unknown Rx Bumetanide [Bumex 1 mg tab] 1 mg PO DAILY #30 tablet 08/02/18 09/19/18 Unknown Rx Pantoprazole [Protonix TAB] 40 mg PO QDAY #40 tablet 08/02/18 09/19/18 Unknown Rx Potassium Chloride [K-Dur] 10 meq PO Q12HR #60 tablet 08/02/18 09/19/18 Unknown Rx metOLazone [Metolazone] 5 mg PO DAILY #30 tablet 08/02/18 09/19/18 Unknown Rx Active Medications: Generic Name Dose Route Start Last Admin Trade Name Freq PRN Reason Stop Dose Admin Acetaminophen 650 mg 09/19/18 04:20 Tylenol PO Q4H PRN Fever >101 Allopurinol 100 mg 09/19/18 10:00 09/19/18 11:08 Zyloprim PO 100 mg QDAY SHANDA Administration Amiodarone HCl 200 mg 09/19/18 10:00 09/19/18 22:22 Cordarone PO 200 mg BID SHANDA Administration Apixaban 5 mg 09/19/18 10:00 09/19/18 22:22 Eliquis PO 5 mg BID SHANDA Administration Protocol Aspirin 81 mg 09/19/18 10:00 09/19/18 11:07 Baby Aspirin PO 81 mg QDAY SHANDA Administration Bumetanide 1 mg 09/19/18 13:00 09/19/18 22:45 Bumex IV 1 mg BID SHANDA Administration Dextrose 50 ml 09/19/18 04:14 D50w (25gm) Syringe IV PRN PRN Hypoglycemia Digoxin 0.125 mg 09/19/18 17:00 09/19/18 20:07 Lanoxin PO 0.125 mg DAILY@1700 SHANDA Administration Milrinone Lactate/Dextrose 20 mg in 100 mls @ 7.868 mls/hr 09/19/18 14:00 06:04 Milrinone-D5w 20 Mg/100 Ml IV 09/22/18 13:59 0.25 mcg/kg/min TITR SHANDA 7.868 mls/hr Administration 0.25 MCG/KG/MIN Insulin Human Regular 0 units 09/19/18 07:30 09/19/18 20:08 Humulin R SUB-Q 1 units AC [facility] Administration Protocol Insulin Human Regular 0 units 09/19/18 22:00 09/19/18 22:23 Humulin R SUB-Q 2 units QHS [facility] Administration Protocol Losartan Potassium 25 mg 09/19/18 10:00 09/19/18 11:34 Cozaar PO 25 mg QDAY [facility] Administration Metolazone 5 mg 09/19/18 10:00 09/19/18 11:07 Zaroxolyn PO 5 mg DAILY [facility] Administration Metoprolol Succinate 25 mg 09/19/18 10:00 09/19/18 11:08 Toprol Xl PO 25 mg QDAY [facility] Administration Nitroglycerin 0.5 inch 09/19/18 06:00 09/20/18 05:05 Nitro-Bid 2% TP Not Given TIDNTG [facility] Protocol Ondansetron HCl 4 mg 09/19/18 04:20 Zofran IV Q8H PRN Nausea And Vomiting Pantoprazole Sodium 40 mg 09/19/18 10:00 09/19/18 11:07 Protonix PO 40 mg QDAY [facility] Administration Spironolactone 25 mg 09/19/18 14:00 09/19/18 20:15 Aldactone PO 25 mg QDAY SHANDA Administration
[2018-09-20] MEDS: TOPROL XL PO SCH ×2 (10:48→10:52)
[2018-09-20] MEDS: ALDACTONE PO SCH ×2 (10:48→10:52)
[2018-09-20] MEDS: ZAROXOLYN PO SCH ×2 (10:48→10:52)
[2018-09-20] MEDS: ZYLOPRIM PO SCH (10:48)
[2018-09-20] MEDS: CORDARONE PO SCH ×2 (10:48→21:47)
[2018-09-20] MEDS: BABY ASPIRIN PO SCH (10:49)
[2018-09-20] MEDS: PROTONIX PO SCH (10:49)
[2018-09-20] MEDS: COZAAR PO SCH ×2 (10:49→10:52)
[2018-09-20] MEDS: ELIQUIS PO SCH ×2 (10:49→21:47)
[2018-09-20] MEDS: BUMEX IV SCH ×2 (10:52→21:48)
--- NOTE | 2018-09-20 10:53 | Progress Note ---
Assessment and Plan Chronic systolic heart failure on IV milrinone as an outpatient Acute renal failure Dilated Nonischemic cardiomyopathy EF 15-20% on echo 12/2017 no ischemia on MPI 12/2016 [facility] at [place]: no significant CAD Presence of AICD Persistent Afib s/p KINGS guided cardioversion 11/2017 on eliquis for oral anticoagulation Hx of paroxysmal VF -on amiodarone and digoxin for rate control dig level: 0.3 Hx of Anxiety disorder Recommendations: Continue medical therapy including beta blockers, afterload agents, oral anticoagulation and intravenous milrinone. Continue oral digoxin and amiodarone therapy for suppression of ventricular arrhythmias. Conservative cardiac management. Subjective Date of service: 09/20/18 Interval history: Patient reports his breathing is slowly improving. No distress noted. Objective Vital Signs Temp Pulse Pulse Resp BP Pulse Ox 09/20/18 09:00 72 20 81/43 96 09/20/18 08:59 98.4 F 09/20/18 05:05 52 L 93/53 09/20/18 04:19 98.3 F 52 L 18 93/53 93 09/19/18 23:09 97.8 F 82 18 88/55 96 09/19/18 22:40 80 18 93 09/19/18 20:15 80 09/19/18 20:07 80 09/19/18 20:04 81 09/19/18 19:54 80 09/19/18 19:29 98.4 F 47 L 12 81/43 93 09/19/18 18:09 97.7 F 09/19/18 18:07 81 20 87/54 98 09/19/18 13:09 102 H 09/19/18 12:05 51 L 20 111/59 98 09/19/18 11:34 80 09/19/18 11:08 106 H 09/19/18 11:07 108 H - Physical Examination General: No Apparent Distress HEENT: Positive: PERRL Neck: Positive: neck supple Cardiac: Positive: Other (paced) Lungs: Positive: Decreased Breath Sounds Neuro: Positive: Grossly Intact Extremities: Present: +1 Edema - Labs and Meds Cardiac Enzymes 09/19/18 Range/Units 12:36 CK-MB (CK-2) 3.1 (0.0-4.0) ng/mL
[2018-09-20 12:41] LABS: Calcium 8.6 mg/dL (8.4-10.2)
[2018-09-20] MEDS: HumuLIN R SUB-Q SCH (21:47)
[2018-09-21] MEDS: HumuLIN R SUB-Q SCH ×4 (05:12→16:35)
[2018-09-21] MEDS: NITRO-BID 2% TP SCH (05:13)
[2018-09-21 06:28] LABS: Calcium 8.6 mg/dL (8.4-10.2)
[2018-09-21] MEDS: MILRINONE-D5W 20 MG/100 ML 20 MG/100 ML BAG IV SCH (07:22)
--- NOTE | 2018-09-21 09:15 | Progress Note ---
Assessment and Plan Assessment and plan: Chronic systolic heart failure; on IV milrinone as an outpatient Dilated Nonischemic cardiomyopathy -EF 15-20% on echo 12/2017 -no ischemia on MPI 12/2016 -2014 [facility] at [place]: no significant CAD -Cardiology consulted and recommended continue medical management Presence of AICD Persistent Afib -s/p KINGS guided cardioversion 11/2017 -on eliquis for oral anticoagulation Hx of paroxysmal VF -on amiodarone and digoxin for rate control Hx of Anxiety disorder Acute kidney injury - Nephrology consult appreciated - Avoid nephrotoxin Disposition - Will be discharged when cleared by cardiology for discharge History Interval history: Patient was seen and evaluated this morning, patient's shortness of breath and bilateral leg swelling is getting better. Hospitalist Physical - Physical exam Narrative exam: Not in cardiopulmonary distress. The patient is obese. Vital signs as documented. Head exam is unremarkable. No scleral icterus . Neck is without jugular venous distension, thyromegaly, or carotid bruits. Lungs are clear to auscultation. Cardiac exam reveals regular rate and Rhythm. Abdominal exam reveals normal bowel sounds, no masses, no organomegaly and no aortic enlargement. Extremities trace pedal and pretibial edema. [employer]: Alert and oriented 3. No focal weakness. - Constitutional Vitals: Temp Pulse Resp BP Pulse Ox 98.1 F 87 20 96/67 76 L 09/21/18 08:00 09/21/18 08:00 09/21/18 08:00 09/21/18 08:00 09/21/18 08:00 General appearance: Present: no acute distress Results - Labs CBC & Chem 7: 09/19/18 01:22 09/21/18 05:00 Labs: Laboratory Last Values WBC 8.2 K/mm3 (4.5-11.0) 09/19/18 01:22 RBC 4.61 M/mm3 (3.65-5.03) 09/19/18 01:22 Hgb 10.8 gm/dl (11.8-15.2) L 09/19/18 01:22 Hct 34.2 % (35.5-45.6) L 09/19/18 01:22 MCV 74 fl (84-94) L 09/19/18 01:22 MCH 24 pg (28-32) L 09/19/18 01:22 MCHC 32 % (32-34) 09/19/18 01:22 RDW 17.8 % (13.2-15.2) H 09/19/18 01:22 Plt Count 258 K/mm3 (140-440) 09/19/18 01:22 Lymph % (Auto) 24.7 % (13.4-35.0) 09/19/18 01:22 [place] % (Auto) 11.2 % (0.0-7.3) H 09/19/18 01:22 Eos % (Auto) 0.6 % (0.0-4.3) 09/19/18 01:22 Baso % (Auto) 1.1 % (0.0-1.8) 09/19/18 01:22 Lymph # 2.0 K/mm3 (1.2-5.4) 09/19/18 01:22 [place] # 0.9 K/mm3 (0.0-0.8) H 09/19/18 01:22 Eos # 0.1 K/mm3 (0.0-0.4) 09/19/18 01:22 Baso # 0.1 K/mm3 (0.0-0.1) 09/19/18 01:22 Seg Neutrophils % 62.4 % (40.0-70.0) 09/19/18 01:22 Seg Neutrophils # 5.1 K/mm3 (1.8-7.7) 09/19/18 01:22 PT 19.4 Sec. (12.2-14.9) H 09/19/18 01:22 INR 1.53 (0.87-1.13) H 09/19/18 01:22 APTT 38.2 Sec. (24.2-36.6) H 09/19/18 01:22 Sodium 133 mmol/L (137-145) L 09/21/18 05:00 Potassium 3.1 mmol/L (3.6-5.0) L 09/21/18 05:00 Chloride 91.3 mmol/L (98-107) L 09/21/18 05:00 Carbon Dioxide 26 mmol/L (22-30) 09/21/18 05:00 Anion Gap 19 mmol/L 09/21/18 05:00 BUN 48 mg/dL (9-20) H 09/21/18 05:00 Creatinine 2.0 mg/dL (0.8-1.5) H 09/21/18 05:00 Estimated GFR 41 ml/min 09/21/18 05:00 BUN/Creatinine Ratio 24 % 09/21/18 05:00 Glucose 142 mg/dL (75-100) H 09/21/18 05:00 POC Glucose 127 (70-105) H 09/21/18 07:25 Calcium 8.6 mg/dL (8.4-10.2) 09/21/18 05:00 Magnesium 1.60 mg/dL (1.7-2.3) L 09/21/18 05:00 Total Bilirubin 0.90 mg/dL (0.1-1.2) 09/19/18 01:22 AST 15 units/L (5-40) 09/19/18 01:22 ALT 11 units/L (7-56) 09/19/18 01:22 Alkaline Phosphatase 64 units/L (35-129) 09/19/18 01:22 Total Creatine Kinase 96 units/L (55-170) 09/19/18 12:36 CK-MB (CK-2) 3.1 ng/mL (0.0-4.0) 09/19/18 12:36 CK-MB (CK-2) Rel Index 3.2 (0-4) 09/19/18 12:36 Troponin T 0.045 ng/mL (0.00-0.029) H 09/19/18 12:36 NT-Pro-B Natriuret Pep 5914 pg/mL (0-900) H 09/19/18 01:22 Total Protein 6.7 g/dL (6.3-8.2) 09/19/18 01:22 Albumin 3.6 g/dL (3.9-5) L 09/19/18 01:22 Albumin/Globulin Ratio 1.2 % 09/19/18 01:22 Triglycerides 62 mg/dL (2-149) 09/19/18 01:22 Cholesterol 94 mg/dL (50-199) 09/19/18 01:22 LDL Cholesterol Direct 73 mg/dL (50-130) 09/19/18 01:22 HDL Cholesterol 30 mg/dL (40-59) L 09/19/18 01:22 Cholesterol/HDL Ratio 3.13 % 09/19/18 01:22 Digoxin 0.3 ng/mL (0.9-2.0) L 09/19/18 01:22 Active Medications - Current Medications Current Medications: Generic Name Dose Route Start Last Admin Trade Name Freq PRN Reason Stop Dose Admin Acetaminophen 650 mg 09/19/18 04:20 Tylenol PO Q4H PRN Fever >101 Allopurinol 100 mg 09/19/18 10:00 09/20/18 10:48 Zyloprim PO 100 mg QDAY SHANDA Administration Amiodarone HCl 200 mg 09/19/18 10:00 09/20/18 21:47 Cordarone PO 200 mg BID SHANDA Administration Apixaban 5 mg 09/19/18 10:00 09/20/18 21:47 Eliquis PO 5 mg BID [facility] Administration Protocol Aspirin 81 mg 09/19/18 10:00 09/20/18 10:49 Baby Aspirin PO 81 mg QDAY [facility] Administration Bumetanide 1 mg 09/19/18 13:00 09/20/18 21:48 Bumex IV Not Given BID SHANDA Dextrose 50 ml 09/19/18 04:14 D50w (25gm) Syringe IV PRN PRN Hypoglycemia Digoxin 0.125 mg 09/19/18 17:00 09/19/18 20:07 Lanoxin PO 0.125 mg DAILY@1700 SHANDA Administration Milrinone Lactate/Dextrose 20 mg in 100 mls @ 7.868 mls/hr 09/19/18 14:00 09/21/18 07:22 Milrinone-D5w 20 Mg/100 Ml IV 09/22/18 13:59 0.25 mcg/kg/min TITR SHANDA 7.868 mls/hr Administration 0.25 MCG/KG/MIN Insulin Human Regular 0 units 09/19/18 07:30 09/21/18 05:13 Humulin R SUB-Q Not Given AC [facility] Protocol Insulin Human Regular 0 units 09/19/18 22:00 09/20/18 21:47 Humulin R SUB-Q 2 units QHS [facility] Administration Protocol Losartan Potassium 25 mg 09/19/18 10:00 09/20/18 10:52 Cozaar PO Not Given QDAY [facility] Metolazone 5 mg 09/19/18 10:00 09/20/18 10:52 Zaroxolyn PO Not Given DAILY [facility] Metoprolol Succinate 25 mg 09/19/18 10:00 09/20/18 10:52 Toprol Xl PO Not Given QDAY [facility] Nitroglycerin 0.5 inch 09/19/18 06:00 09/21/18 05:13 [facility]Bid 2% [facility] Protocol Ondansetron HCl 4 mg 09/19/18 04:20 Zofran IV Q8H PRN Nausea And Vomiting Pantoprazole Sodium 40 mg 09/19/18 10:00 09/20/18 10:49 Protonix PO 40 mg QDAY [facility] Administration Potassium Chloride 40 meq 09/21/18 10:00 K-Dur PO 09/21/18 10:01 ONCE ONE Spironolactone 25 mg 09/19/18 14:00 09/20/18 10:52 Aldactone PO Not Given QDAY [facility]
--- NOTE | 2018-09-21 09:19 | Progress Note ---
Assessment and Plan Impression * Acute kidney injury secondary to decreased effective circulatory volume/cardiorenal syndrome on stage III CKD --Baseline SCr 1.5-1.8mg/dL --Prior work up notable for Hep B/C negative, ANCA neg, C3/C4 wnl * Acute on chronic systolic heart failure --Milrinone gtt * Cardiomyopathy --TTE: EF 15-20% (December 2017) * Chronic atrial fibrillation * Hx of paroxysmal VF * Hypertension * Type II Diabetes * Hyponatremia secondary to volume overload/CHF * Hypokalemia Recommendations * Renal function is stable * Will continue IV diuresis Bumex 1mg BID with daily Zaroxolyn * Strict I/O - discussed with RN * Replete lytes prn * Avoid nephrotoxins * Monitor patient's fluid status and electrolytes closely * Sodium/fluid restriction Subjective Date of service: 09/21/18 Objective - Vital Signs Vital signs: Vital Signs - 12hr 09/20/18 09/21/18 09/21/18 21:29 00:11 04:40 Temperature 97.8 F Pulse Rate 77 76 Pulse Rate [ 74 Apical] Respiratory 18 20 20 Rate Blood Pressure 85/56 102/62 Blood Pressure [Right] O2 Sat by Pulse 96 97 99 Oximetry 09/21/18 09/21/18 05:13 08:00 Temperature 98.1 F Pulse Rate 76 87 Pulse Rate [ Apical] Respiratory 20 Rate Blood Pressure 102/62 Blood Pressure 96/67 [Right] O2 Sat by Pulse 76 L Oximetry - Lab 09/19/18 01:22 09/21/18 05:00 Most recent lab results Calcium 8.6 mg/dL (8.4-10.2) 09/21/18 05:00 Magnesium 1.60 mg/dL (1.7-2.3) L 09/21/18 05:00 Medications & Allergies - Medications Allergies/Adverse Reactions: Allergies No Known Allergies Allergy (Verified 03/03/17 09:44) Home Medications: Home Medications Medication Instructions Recorded Confirmed Last Taken Type Potassium Chloride [K-Dur] 10 meq PO QDAY #30 tablet 06/17/18 07/31/18 Unknown Rx Allopurinol [Zyloprim] 100 mg PO QDAY #30 tablet 08/02/18 09/19/18 Unknown Rx Amiodarone [Cordarone 200 MG TAB] 200 mg PO BID #60 tablet 08/02/18 09/19/18 Unknown Rx Apixaban [Eliquis] 5 mg PO BID #60 tablet 08/02/18 09/19/18 Unknown Rx Aspirin [Aspirin BABY CHEW TAB] 81 mg PO QDAY #30 tab.chew 08/02/18 09/19/18 Unknown Rx Bumetanide [Bumex 1 mg tab] 1 mg PO DAILY #30 tablet 08/02/18 09/19/18 Unknown Rx Pantoprazole [Protonix TAB] 40 mg PO QDAY #40 tablet 08/02/18 09/19/18 Unknown Rx Potassium Chloride [K-Dur] 10 meq PO Q12HR #60 tablet 08/02/18 09/19/18 Unknown Rx metOLazone [Metolazone] 5 mg PO DAILY #30 tablet 08/02/18 09/19/18 Unknown Rx Active Medications: Generic Name Dose Route Start Last Admin Trade Name Freq PRN Reason Stop Dose Admin Acetaminophen 650 mg 09/19/18 04:20 Tylenol PO Q4H PRN Fever >101 Allopurinol 100 mg 09/19/18 10:00 09/20/18 10:48 Zyloprim PO 100 mg QDAY SHANDA Administration Amiodarone HCl 200 mg 09/19/18 10:00 09/20/18 21:47 Cordarone PO 200 mg BID SHANDA Administration Apixaban 5 mg 09/19/18 10:00 09/20/18 21:47 Eliquis PO 5 mg BID SHANDA Administration Protocol Aspirin 81 mg 09/19/18 10:00 09/20/18 10:49 Baby Aspirin PO 81 mg QDAY [facility]AN[facility] Administration Bumetanide 1 mg 09/19/18 13:00 09/20/18 21:48 Bumex IV Not Given BID SHANDA Dextrose 50 ml 09/19/18 04:14 D50w (25gm) Syringe IV PRN PRN Hypoglycemia Digoxin 0.125 mg 09/19/18 17:00 09/19/18 20:07 Lanoxin PO 0.125 mg DAILY@1700 SHANDA Administration Milrinone Lactate/Dextrose 20 mg in 100 mls @ 7.868 mls/hr 09/19/18 14:00 09/21/18 07:22 Milrinone-D5w 20 Mg/100 Ml IV 09/22/18 13:59 0.25 mcg/kg/min TITR SHANDA 7.868 mls/hr Administration 0.25 MCG/KG/MIN Insulin Human Regular 0 units 09/19/18 07:30 09/21/18 05:13 Humulin R SUB-Q Not Given AC [facility] Protocol Insulin Human Regular 0 units 09/19/18 22:00 09/20/18 21:47 Humulin R SUB-Q 2 units QHS [facility] Administration Protocol Losartan Potassium 25 mg 09/19/18 10:00 09/20/18 10:52 Cozaar PO Not Given QDAY [facility] Metolazone 5 mg 09/19/18 10:00 09/20/18 10:52 Zaroxolyn PO Not Given DAILY [facility] Metoprolol Succinate 25 mg 09/19/18 10:00 09/20/18 10:52 Toprol Xl PO Not Given QDAY [facility] Nitroglycerin 0.5 inch 09/19/18 06:00 09/21/18 05:13 Nitro-Bid 2% TP Not Given TIDNTG [facility] Protocol Ondansetron HCl 4 mg 09/19/18 04:20 Zofran IV Q8H PRN Nausea And Vomiting Pantoprazole Sodium 40 mg 09/19/18 10:00 09/20/18 10:49 Protonix PO 40 mg QDAY [facility] Administration Potassium Chloride 40 meq 09/21/18 10:00 K-Dur PO 09/21/18 10:01 ONCE ONE Spironolactone 25 mg 09/19/18 14:00 09/20/18 10:52 Aldactone PO Not Given QDAY [facility]
[2018-09-21] MEDS ORDERED: K-DUR PO ONE (10:00)
[2018-09-21] MEDS: TOPROL XL PO SCH (10:12)
[2018-09-21] MEDS: COZAAR PO SCH (10:12)
[2018-09-21] MEDS: BUMEX IV SCH (10:17)
[2018-09-21] MEDS: ALDACTONE PO SCH (10:17)
[2018-09-21] MEDS: CORDARONE PO SCH (10:17)
[2018-09-21] MEDS: BABY ASPIRIN PO SCH (10:18)
[2018-09-21] MEDS: ELIQUIS PO SCH (10:18)
[2018-09-21] MEDS: ZYLOPRIM PO SCH (10:18)
[2018-09-21] MEDS: ZAROXOLYN PO SCH (10:18)
[2018-09-21] MEDS: PROTONIX PO SCH (10:21)
--- NOTE | 2018-09-21 11:30 | Progress Note ---
Assessment and Plan Chronic systolic heart failure on IV milrinone as an outpatient Acute renal failure Dilated Nonischemic cardiomyopathy EF 15-20% on echo 12/2017 no ischemia on MPI 12/2016 [facility] at [place]: no significant CAD Presence of AICD Persistent Afib s/p KINGS guided cardioversion 11/2017 on eliquis for oral anticoagulation Hx of paroxysmal VF -on amiodarone and digoxin for rate control dig level: 0.3 Hx of Anxiety disorder Recommendations: Continue medical therapy for chronic systolic heart failure including chronic milrinone therapy. We will increase this to 0.375mcg/kg/min on discharge. Continue oral digoxin and amiodarone therapy for suppression of ventricular arrhythmias. Stable for discharge home today. Subjective Date of service: 09/21/18 Interval history: Patient reports his breathing is better. Wants to go home. Objective Vital Signs Temp Pulse Pulse Resp BP BP Pulse Ox 09/21/18 10:17 87 96/67 09/21/18 10:12 87 96/09/21/18 10:09 98 09/21/18 08:00 98.1 F 87 20 96/67 76 L 09/21/18 05:13 76 102/62 09/21/18 04:40 97.8 F 76 20 102/62 99 09/21/18 00:11 77 20 85/56 97 09/20/18 21:29 74 18 96 09/20/18 19:59 98.2 F 74 20 87/51 96 09/20/18 19:18 73 09/20/18 16:51 72 20 114/73 95 09/20/18 12:22 98.1 F 72 18 86/51 93 - Physical Examination General: No Apparent Distress HEENT: Positive: PERRL Neck: Positive: trachea midline Cardiac: Positive: Other (paced) Lungs: Positive: Decreased Breath Sounds Neuro: Positive: Grossly Intact Extremities: Present: +1 Edema - Labs and Meds Comprehensive Metabolic Panel 09/20/18 09/21/18 Range/Units 10:04 05:00 Sodium 134 L 133 L (137-145) mmol/L Potassium 3.1 L 3.1 L (3.6-5.0) mmol/L Chloride 90.7 L 91.3 L (98-107) mmol/L Carbon Dioxide 28 26 (22-30) mmol/L BUN 51 H 48 H (9-20) mg/dL Creatinine 2.4 H 2.0 H (0.8-1.5) mg/dL Glucose 188 H 142 H (75-100) mg/dL Calcium 8.6 8.6 (8.4-10.2) mg/dL
--- NOTE | 2018-09-21 11:40 | Discharge Summary ---
Providers - Providers Date of Admission: 09/19/18 04:45 Date of discharge: 09/21/18 Attending physician: CORRINE LEE MD 09/19/18 05:57 Consult to Physician [CONS] Routine Comment: Consulting Provider: GLORIA DUGAN Physician Instructions: Reason For Exam: ELEVATED TROPONIN WITH CHF EXACERBATION 09/19/18 06:00 Consult to Physician [CONS] Routine Comment: Consulting Provider: KATE ESPITIA Physician Instructions: Reason For Exam: ACUTE ON CHRONIC RENAL FAILURE Primary care physician: SHIVAM WANG Hospitalization Reason for admission: Chronic CHF exacerbation Condition: Stable Hospital course: Chronic systolic heart failure; on IV milrinone as an outpatient Dilated Nonischemic cardiomyopathy -EF 15-20% on echo 12/2017 -no ischemia on MPI 12/2016 -2014 [facility] at [place]: no significant CAD -Cardiology consulted and recommended continue medical management Presence of AICD Persistent Afib -s/p KINGS guided cardioversion 11/2017 -on eliquis for oral anticoagulation Hx of paroxysmal VF -on amiodarone and digoxin for rate control Hx of Anxiety disorder Acute kidney injury - Nephrology consult appreciated - Avoid nephrotoxin Patient was cleared by cardiology for discharge. Patient said he has enough of his home medications and doesn't need any refill. Patient was hemodynamically stable at the time of discharge. Patient's questions and concerns were addressed at the bedside. Disposition: [id number] [facility] Time spent for discharge: 32 minutes - Discharge Diagnoses (1) Acute exacerbation of congestive heart failure Status: Acute Qualifiers: (2) Acute on chronic renal insufficiency Status: Acute Core Measure Documentation - Palliative Care Palliative Care/ Comfort Measures: Not Applicable - Core Measures Any of the following diagnoses?: heart failure - Heart Failure Discharge Requirements WU/ARB for LVSD if EF <40%: No Reason for no WU/ARB: Renal impairment Beta nupur at discharge: Yes Exam - Physical Exam Narrative exam: Not in cardiopulmonary distress. The patient is obese. Vital signs as documented. Head exam is unremarkable. No scleral icterus . Neck is without jugular venous distension, thyromegaly, or carotid bruits. Lungs are clear to auscultation. Cardiac exam reveals regular rate and Rhythm. Abdominal exam reveals normal bowel sounds, no masses, no organomegaly and no aortic enlargement. Extremities trace pedal and pretibial edema. 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 No focal weakness. - Constitutional Vitals: Temp Pulse Resp BP Pulse Ox 98.1 F 87 20 96/67 98 09/21/18 08:00 09/21/18 10:17 09/21/18 08:00 09/21/18 10:17 09/21/18 10:09 Plan Activity: no restrictions Weight Bearing Status: Full Weight Bearing Diet: low salt Follow up with: SHIVAM WANG MD [Primary Care Provider] - 7 Days Prescriptions: Milrinone [Primacor] 20 mg IV QDAY #5 vial
[2018-09-21 12:05] LABS: Calcium 8.7 mg/dL (8.4-10.2)
[2018-09-21] MEDS ORDERED: LANOXIN PO SCH (14:00)
[2018-09-21] MEDS ORDERED: MAG-OX PO SCH (14:00)
[2018-09-21 16:36] VITALS: BP 102/69
== END 2018-09-21 18:25 | disposition home health service (06) | DRG 682 ==
LOC: ED 00:14 → 4A 04:45
PROVIDERS: ADMIT Internal Medicine; ATTEND Internal Medicine
DX: N17.9 Acute kidney failure, unspecified (principal); I50.23 Acute on chronic systolic (congestive) heart failure; E87.1 Hypo-osmolality and hyponatremia; I13.0 Hypertensive heart and chronic kidney disease with heart failure and stage 1 through stage 4 chronic kidney disease, or unspecified chronic kidney disease; I42.0 Dilated cardiomyopathy; I48.1 Persistent atrial fibrillation; E11.22 Type 2 diabetes mellitus with diabetic chronic kidney disease; F41.9 Anxiety disorder, unspecified; N18.3 Chronic kidney disease, stage 3 (moderate); I48.2 Chronic atrial fibrillation; E87.70 Fluid overload, unspecified; E66.9 Obesity, unspecified; E87.6 Hypokalemia; K21.9 Gastro-esophageal reflux disease without esophagitis; Z79.01 Long term (current) use of anticoagulants; Z95.810 Presence of automatic (implantable) cardiac defibrillator; Z68.35 Body mass index [BMI] 35.0-35.9, adult; Z79.82 Long term (current) use of aspirin; Z79.899 Other long term (current) drug therapy; Z79.84 Long term (current) use of oral hypoglycemic drugs
CPT/HCPCS: 36415; 71046; 80048; 80053; 80061; 80162; 82550; 82553; 82962; 83735; 83880; 84484; 85025; 85610; 85730; 93005; 93010; 96374; 99285; G0378; J1160; J1815; J2260

== ENCOUNTER 2018-09-22 02:07 | Inpatient (IN) | payer MEDICARE ==
[2018-09-22 02:45] LABS: Basophils % (Auto) 0.6 % (0.0-1.8); Eosinophils # (Auto) 0.1 K/mm3 (0.0-0.4); Eosinophils % (Auto) 0.9 % (0.0-4.3); Hematocrit 34.3 % (35.5-45.6); Hemoglobin 10.7 gm/dl (11.8-15.2); Lymphocytes # (Auto) 1.4 K/mm3 (1.2-5.4); Lymphocytes % (Auto) 19.9 % (13.4-35.0); Mean Corpuscular HGB Conc 31 % (32-34); Mean Corpuscular Volume 75 fl (84-94); Monocytes # (Auto) 0.7 K/mm3 (0.0-0.8); Platelet Count 281 K/mm3 (140-440); Red Blood Count 4.59 M/mm3 (3.65-5.03); Red Cell Distribution Width 17.5 % (13.2-15.2)
[2018-09-22 03:02] LABS: Calcium 8.7 mg/dL (8.4-10.2)
--- NOTE | 2018-09-22 03:53 | Emergency Department Report ---
ED General Adult HPI - General Chief complaint: Chest Pain Stated complaint: IRREGULAR HEARTBEAT Time Seen by Provider: 09/22/18 03:34 Source: patient, EMS (ems notes not available at time of chart dictation), RN notes reviewed, old records reviewed Mode of arrival: Stretcher Limitations: No Limitations - History of Present Illness Initial comments: This is a 68-year-old gentleman. Past medical history includes ICD, chronic systolic heart failure, renal insufficiency, end-stage cardiomyopathy, on digoxin, on home IV milrinone. Has an ejection fraction of 15%, left heart cath in 2015 did not demonstrate any significant disease, no ischemia on a nuclear stress test in 2017, and has persistent atrial fibrillation, and is currently on eliquis or systemic anticoagulation. Patient reports being in his usual state of health last evening, when he felt his ICD device fire, and he lost consciousness. Prior to the ICD activation, he was not having any complaints. He has no complaints at this time. His ICD device is a [employer] device, and it was interrogated, and the interrogation demonstrated that the patient had a run of ventricular tachyc ardia. It appears that at 117 in the morning, he had a wide complex tachycardic rate of 206 bpm, and he had 2 shocks delivered, 34 J, 38 J. Case was discussed with consulting senior agricultural assistant, Dr. Armando Kelley, who agreed with plan for admission for observation, and possible readjustment of patient's medic ations. Case discussed with Hospital physician, Dr. Jones, who has accepted the patient to the medical service. -: Sudden Severity scale (0 -10): 0 Consistency: now resolved Improves with: none Worsens with: none Associated Symptoms: syncope - Related Data Previous Rx's Medication Instructions Recorded Last Taken Type Allopurinol [Zyloprim] 100 mg PO QDAY #30 tablet 08/02/18 09/21/18 09:00 Rx Amiodarone [Cordarone 200 MG TAB] 200 mg PO BID #60 tablet 08/02/18 09/21/18 21:00 Rx Apixaban [Eliquis] 5 mg PO BID #60 tablet 08/02/18 09/21/18 09:00 Rx Aspirin [Aspirin BABY CHEW TAB] 81 mg PO QDAY #30 tab.chew 08/02/18 09/21/18 09:00 Rx Bumetanide [Bumex 1 mg tab] 1 mg PO DAILY #30 tablet 08/02/18 09/21/18 Rx Pantoprazole [Protonix TAB] 40 mg PO QDAY #40 tablet 08/02/18 09/21/18 09:00 Rx Potassium Chloride [K-Dur] 10 meq PO Q12HR #60 tablet 08/02/18 09/21/18 Rx metOLazone [Metolazone] 5 mg PO DAILY #30 tablet 08/02/18 09/21/18 09:00 Rx Milrinone [Primacor] 20 mg IV QDAY #5 vial 09/21/18 09/22/18 08:00 Rx Digoxin [Digitek] 125 mcg PO Q48H #30 tablet 09/23/18 Unknown Rx Magnesium Oxide [Mag-Ox] 400 mg PO BID #14 tablet 09/23/18 Unknown Rx Allergies Allergy/AdvReac Type Severity Reaction Status Date / Time No Known Allergies Allergy Verified 03/03/17 09:44 ED Review of Systems ROS: Stated complaint: IRREGULAR HEARTBEAT Other details as noted in HPI Constitutional: denies: fever Eyes: denies: vision change ENT: denies: epistaxis Respiratory: denies: cough Cardiovascular: syncope. denies: chest pain Gastrointestinal: denies: abdominal pain Genitourinary: denies: dysuria Musculoskeletal: denies: back pain Skin: denies: lesions Neurological: denies: weakness ED Past Medical Hx - Past Medical History Previous Medical History?: Yes Hx Hypertension: Yes Hx Congestive Heart Failure: Yes Hx Diabetes: Yes Hx Deep Vein Thrombosis: No Hx GERD: Yes Hx Renal Disease: Yes (renal insufficiency) Hx Arthritis: Yes Hx Asthma: No Hx COPD: No Hx HIV: No Additional medical history: A. fib with history of cardioversion and anticoagulant use - Surgical History Past Surgical History?: Yes Hx Open Heart Surgery: Yes Hx Pacemaker: Yes Hx Internal Defibrillator: Yes (L CHEST) Additional Surgical History: LLOYD - Social History Smoking Status: Never Smoker Substance Use Type: Prescribed - Medications Home Medications: Home Medications Medication Instructions Recorded Confirmed Last Taken Type Allopurinol [Zyloprim] 100 mg PO QDAY #30 tablet 08/02/18 09/22/18 09/21/18 09:00 Rx Amiodarone [Cordarone 200 MG TAB] 200 mg PO BID #60 tablet 02/11/1309/22/18 09/21/18 21:00 Rx Apixaban [Eliquis] 5 mg PO BID #60 tablet 08/02/18 09/22/18 09/21/18 09:00 Rx Aspirin [Aspirin BABY CHEW TAB] 81 mg PO QDAY #30 tab.chew 08/02/18 09/22/18 09/21/18 09:00 Rx Bumetanide [Bumex 1 mg tab] 1 mg PO DAILY #30 tablet 08/02/18 09/22/18 09/21/18 Rx Pantoprazole [Protonix TAB] 40 mg PO QDAY #40 tablet 08/02/18 09/22/18 09/21/18 09:00 Rx Potassium Chloride [K-Dur] 10 meq PO Q12HR #60 tablet 08/02/18 09/22/18 09/21/18 Rx metOLazone [Metolazone] 5 mg PO DAILY #30 tablet 08/02/18 09/22/18 09/21/18 09:00 Rx Milrinone [Primacor] 20 mg IV QDAY #5 vial 09/21/18 09/22/18 09/22/18 08:00 Rx Digoxin [Digitek] 125 mcg PO Q48H #30 tablet 09/23/18 Unknown Rx Magnesium Oxide [Mag-Ox] 400 mg PO BID #14 tablet 09/23/18 Unknown Rx ED Physical Exam - General Limitations: No Limitations General appearance: alert, in no apparent distress - Head Head exam: Present: atraumatic, normocephalic - Eye Eye exam: Present: normal appearance, EOMI. Absent: nystagmus - ENT ENT exam: Present: normal exam, normal orophraynx, mucous membranes moist, normal external ear exam - Neck Neck exam: Present: normal inspection, full ROM. Absent: tenderness, meningismus - Respiratory Respiratory exam: Present: normal lung sounds bilaterally. Absent: respiratory distress - Cardiovascular Cardiovascular Exam: Present: regular rate, systolic murmur. Absent: bradycardia, diastolic murmur, rubs, gallop - GI/Abdominal GI/Abdominal exam: Present: soft. Absent: distended, tenderness, guarding, rebound, rigid, pulsatile mass - Rectal Rectal exam: Present: deferred - Extremities Exam Extremities exam: Present: normal inspection, pedal edema, other (2+ pulses noted in the bilateral upper, lower extremities. Compartments soft. No long bony tenderness. The pelvis is stable.). Absent: calf tenderness - Back Exam Back exam: Present: normal inspection, full ROM. Absent: tenderness, CVA tenderness (R), paraspinal tenderness, vertebral tenderness - Neurological Exam Neurological exam: Present: alert, other (Extraocular movements intact. Tongue midline. No facial droop. Facial sensation intact to light touch in the V1, V2, V3 distribution bilaterally. 5 and 5 strength in 4 extremities.. Sensation is intact to light touch in 4 extremities.). Absent: motor sensory deficit - Psychiatric Psychiatric exam: Present: normal affect, normal mood - Skin Skin exam: Present: warm, dry, intact, normal color. Absent: rash ED Course Vital Signs 09/22/18 09/22/18 09/22/18 02:17 03:24 04:16 Pulse Rate 87 97 H Respiratory 20 19 20 Rate Blood Pressure 104/60 101/62 [Right] O2 Sat by Pulse 96 96 Oximetry 09/22/18 09/22/18 05:37 08:42 Pulse Rate 84 94 H Respiratory 18 20 Rate Blood Pressure 124/76 104/77 [Right] O2 Sat by Pulse 95 98 Oximetry - Reevaluation(s) Reevaluation #1: 09/22/18 05:46 Chronic renal insufficiency appreciated. Elevated troponin chronic as well, likely secondary to underlying cardiomyopathy and renal insufficiency. Please note that patient has a right upper extremity PICC line for milrinone infusion, with no redness, pus, streaking or tenderness. ED Medical Decision Making - Lab Data Result diagrams: 09/23/18 05:51 09/23/18 05:51 Vital Signs 09/22/18 09/22/18 09/22/18 02:17 03:24 04:16 Pulse Rate 87 97 H Respiratory 20 19 20 Rate Blood Pressure 104/60 101/62 [Right] O2 Sat by Pulse 96 96 Oximetry 09/22/18 05:37 Pulse Rate 84 Respiratory 18 Rate Blood Pressure 124/76 [Right] O2 Sat by Pulse 95 Oximetry Lab Results 09/22/18 09/22/18 09/22/18 Range/Units 02:31 02:31 04:47 WBC 7.0 (4.5-11.0) K/mm3 RBC 4.59 (3.65-5.03) M/mm3 Hgb 10.7 L (11.8-15.2) gm/dl Hct 34.3 L (35.5-45.6) % MCV 75 L (84-94) fl MCH 23 L (28-32) pg MCHC 31 L (32-34) % RDW 17.5 H (13.2-15.2) % Plt Count 281 (140-440) K/mm3 Lymph % (Auto) 19.9 (13.4-35.0) % [place]ay % (Auto) 10.0 H (0.0-7.3) % Eos % (Auto) 0.9 (0.0-4.3) % Baso % (Auto) 0.6 (0.0-1.8) % Lymph # 1.4 (1.2-5.4) K/mm3 Calloway # 0.7 (0.0-0.8) K/mm3 Eos # 0.1 (0.0-0.4) K/mm3 Baso # 0.0 (0.0-0.1) K/mm3 Seg Neutrophils % 68.6 (40.0-70.0) % Seg Neutrophils # 4.8 (1.8-7.7) K/mm3 PT 17.1 H (12.2-14.9) Sec. INR 1.31 H (0.87-1.13) APTT 35.8 (24.2-36.6) Sec. Sodium 135 L (137-145) mmol/L Potassium 3.4 L (3.6-5.0) mmol/L Chloride 93.0 L (98-107) mmol/L Carbon Dioxide 28 (22-30) mmol/L Anion Gap 17 mmol/L BUN 46 H (9-20) mg/dL Creatinine 2.2 H (0.8-1.5) mg/dL Estimated GFR 36 ml/min BUN/Creatinine Ratio 21 % Glucose 234 H (75-100) mg/dL Calcium 8.7 (8.4-10.2) mg/dL Troponin T 0.045 H (0.00-0.029) ng/mL - EKG Data -: EKG Interpreted by Me - EKG Data 09/22/18 05:45 Atrial paced rhythm, 89 bpm, right axis deviation, motion artifact, premature ventricular contractions, prolonged QTC, appropriate capture, abnormal EKG, not an ST elevation myocardial infarction, unchanged from prior EKG from August 2018 - Radiology Data Radiology results: report reviewed, image reviewed Noncontrast CT scan of the brain negative for acute disease. X-ray of the chest negative for acute disease. - Medical Decision Making Differential diagnosis, including not limited to: Arrhythmia, cardiomyopathy, electrolyte derangement Assessment and plan: 68-year-old gentleman, end-stage cardiomyopathy, reportedly nonischemic, episode of V. tach and syncope, now resolved. Patient is afebrile with reassuring vital signs. He will be admitted for observation, and further cardiology evaluation and recommendations. Critical care attestation.: If time is entered above; I have spent that time in minutes in the direct care of this critically ill patient, excluding procedure time. ED Disposition Clinical Impression: Cardiomyopathy, Implantable cardioverter-defibrillator (ICD) in situ, AICD discharge Disposition: OP ADMIT IP TO THIS HOSP Is pt being admited?: Yes Does the pt Need Aspirin: Yes Condition: Good
--- NOTE | 2018-09-22 05:36 | Cat Scan Report ---
PROCEDURE: CT HEAD/BRAIN WO CON TECHNIQUE: Routine axial imaging was obtained of the brain without IV contrast. HISTORY: syncope on eliqwuis COMPARISONS: 07/16/2016 FINDINGS: There is no evidence of acute stroke or hemorrhage. The ventricular system is appropriate in size and is symmetric. The basal cisterns appear normal. The visualized sinuses are clear. The mastoid air ce lls are well pneumatized. The calvarium appears intact. IMPRESSION: No acute intracranial process.. This document is electronically signed by Grant Quigley MD., September 22 2018 05:34:52 AM ET
[2018-09-22 05:41] LABS: INR 1.31 (0.87-1.13); Partial Thromboplastin Time 35.8 Sec. (24.2-36.6)
[2018-09-22] MEDS ORDERED: BABY ASPIRIN PO ONE (05:47)
--- NOTE | 2018-09-22 09:18 | History and Physical Report ---
History of Present Illness Date of examination: 09/22/18 Date of admission: 09/22/18 06:48 Chief complaint: AICD firing History of present illness: Patient is 68 yo with cardiomyopathy with NICM, chronic systolic CHF. He was just discharged home yesterday. He presents because of firing of AICD. He states he was at home, lying in bed, he felt dizzy and soon after felt AICD firing. He was therefore brought to ED. His AICD was interrogated revealing ventricular tachycardia. Will admit. Past History Past Medical History: atrial fib, diabetes, heart failure, renal failure, other (NICM,) Past Surgical History: Other (AICD placement, pacemaker) Social history: full code. denies: smoking, alcohol abuse, IV drug use Family history: hypertension Medications and Allergies Allergies Allergy/AdvReac Type Severity Reaction Status Date / Time No Known Allergies Allergy Verified 03/03/17 09:44 Home Medications Medication Instructions Recorded Confirmed Last Taken Type Allopurinol [Zyloprim] 100 mg PO QDAY #30 tablet 08/02/18 10/05/18 09/21/18 09:00 Rx Amiodarone [Cordarone 200 MG TAB] 200 mg PO BID #60 tablet 08/02/18 10/05/18 09/21/18 21:00 Rx Apixaban [Eliquis] 5 mg PO BID #60 tablet 08/02/18 10/05/18 09/21/18 09:00 Rx Aspirin [Aspirin BABY CHEW TAB] 81 mg PO QDAY #30 tab.chew 08/02/18 10/05/18 09/21/18 09:00 Rx Bumetanide [Bumex 1 mg tab] 1 mg PO DAILY #30 tablet 08/02/18 10/05/18 09/21/18 Rx Pantoprazole [Protonix TAB] 40 mg PO QDAY #40 tablet 08/02/18 10/05/18 09/21/18 09:00 Rx Potassium Chloride [K-Dur] 10 meq PO Q12HR #60 tablet 08/02/18 10/05/18 09/21/18 Rx metOLazone [Metolazone] 5 mg PO DAILY #30 tablet 08/02/18 10/05/18 09/21/18 09:00 Rx Milrinone [Primacor] 20 mg IV QDAY #5 vial 09/21/18 10/05/18 09/22/18 08:00 Rx Digoxin [Digitek] 125 mcg PO Q48H #30 tablet 09/23/18 10/05/18 Unknown Rx Magnesium Oxide [Mag-Ox] 400 mg PO BID #14 tablet 09/23/18 10/05/18 Unknown Rx Review of Systems All systems: negative (No fever, no cough, no abdominal pain, no headache.All oher systems reviewed and are negative.) Exam - Physical Exam Narrative exam: GEN: Not in acute distress, lying in bed, HEENT: Normocephalic, atraumatic, Neck: supple, No JVD Lungs: Bilateral basal crackles, no wheeze Heart:S1 and S2 regular, no murmurs, rubs or gallop, Abd:soft, non tender, non distended, normal bowel sounds Ext: Edema both lower ext, no cyanosis Neuro: Awake,alert, oriented x 3, No focal signs Psych:Normal mood - Constitutional Vitals: Temp Pulse Resp BP Pulse Ox 94 H 20 104/77 98 09/22/18 08:42 09/22/18 08:42 09/22/18 08:42 09/22/18 08:42 Results - Labs CBC & Chem 7: 09/23/18 05:51 09/23/18 05:51 Labs: Abnormal lab results 09/22/18 09/22/18 09/22/18 Range/Units 02:31 02:31 04:47 Hgb 10.7 L (11.8-15.2) gm/dl Hct 34.3 L (35.5-45.6) % MCV 75 L (84-94) fl MCH 23 L (28-32) pg MCHC 31 L (32-34) % RDW 17.5 H (13.2-15.2) % [place] % (Auto) 10.0 H (0.0-7.3) % PT 17.1 H (12.2-14.9) Sec. INR 1.31 H (0.87-1.13) Sodium 135 L (137-145) mmol/L Potassium 3.4 L (3.6-5.0) mmol/L Chloride 93.0 L (98-107) mmol/L BUN 46 H (9-20) mg/dL Creatinine 2.2 H (0.8-1.5) mg/dL Glucose 234 H (75-100) mg/dL Magnesium (1.7-2.3) mg/dL Troponin T 0.045 H (0.00-0.029) ng/mL Digoxin (0.9-2.0) ng/mL 09/22/18 09/22/18 Range/Units 04:47 04:47 Hgb (11.8-15.2) gm/dl Hct (35.5-45.6) % MCV (84-94) fl MCH (28-32) pg MCHC (32-34) % RDW (13.2-15.2) % [place] % (Auto) (0.0-7.3) % PT (12.2-14.9) Sec. INR (0.87-1.13) Sodium (137-145) mmol/L Potassium (3.6-5.0) mmol/L Chloride (98-107) mmol/L BUN (9-20) mg/dL Creatinine (0.8-1.5) mg/dL Glucose (75-100) mg/dL Magnesium 1.50 L (1.7-2.3) mg/dL Troponin T (0.00-0.029) ng/mL Digoxin 0.7 L (0.9-2.0) ng/mL Assessment and Plan Ventricular tachycardia Admit to Telemetry cardiology consulted Patient had AICD firing at home and Chronic systolic CHF Cont Amiodarone drip Resume home meds CKD. Consult Nephrology Diabetes mellitus type 2. Accucheck qac and hs Atrial fibrillation On anticoagulation Full code
[2018-09-22] MEDS ORDERED: TYLENOL PO PRN (11:02)
[2018-09-22] MEDS ORDERED: MORPHINE IV PRN (11:02)
[2018-09-22] MEDS ORDERED: ZOFRAN IV PRN (11:02)
[2018-09-22] MEDS ORDERED: SODIUM CHLORIDE FLUSH SYRINGE 10 ML IV PRN (11:02)
[2018-09-22] MEDS ORDERED: BABY ASPIRIN PO SCH (12:00)
--- NOTE | 2018-09-22 14:14 | Consultation ---
History of Present Illness Consult date: 09/22/18 Consult reason: other (AICD discharge) History of present illness: Patient is a 68 year man who was just discharge from this hospital less than 2 4hrs ago. He returned with AICD discharge. An interrogation in the emergency department revealed 2 appropriate ICD discharges for ventricular tachycardia. Cardiac consultation requested. Patient is known to [facility]. He has a dilated nonischemic cardiomyopathy, chronic systolic heart failure and is on chronic inotropic support. left ventricular ejection fraction is reported at 15-20%. He has a previous history of paroxysmal VT/VF and is on amiodarone and digoxin for suppression. He has a cardiac defibrillator in situ. He is also on chronic oral anticoagulation therapy for paroxysmal atrial fibrillation. Initial labs reveals a low magnesium of 1.5. Digoxin level of 0.7. Patient repor ts he is feeling better. He has no unusual shortness of breath, chest pain or further palpations. Past History Past Medical History: atrial fib, diabetes, heart failure, renal failure Past Surgical History: Other (AICD placement, pacemaker) Social history: full code. denies: smoking, alcohol abuse, IV drug use Family history: hypertension Medications and Allergies Allergies Allergy/AdvReac Type Severity Reaction Status Date / Time No Known Allergies Allergy Verified 03/03/17 09:44 Home Medications Medication Instructions Recorded Confirmed Last Taken Type Potassium Chloride [K-Dur] 10 meq PO QDAY #30 tablet 06/17/18 09/22/18 09/21/18 Rx Allopurinol [Zyloprim] 100 mg PO QDAY #30 tablet 08/02/18 09/22/18 09/21/18 09:00 Rx Amiodarone [Cordarone 200 MG TAB] 200 mg PO BID #60 tablet 08/02/18 09/22/18 09/21/18 21:00 Rx Apixaban [Eliquis] 5 mg PO BID #60 tablet 08/02/18 09/22/18 09/21/18 09:00 Rx Aspirin [Aspirin BABY CHEW TAB] 81 mg PO QDAY #30 tab.chew 08/02/18 09/22/18 09/21/18 09:00 Rx Bumetanide [Bumex 1 mg tab] 1 mg PO DAILY #30 tablet 08/02/18 09/22/18 09/21/18 Rx Pantoprazole [Protonix TAB] 40 mg PO QDAY #40 tablet 08/02/18 09/22/18 09/21/18 09:00 Rx Potassium Chloride [K-Dur] 10 meq PO Q12HR #60 tablet 08/02/18 09/22/18 09/21/18 Rx metOLazone [Metolazone] 5 mg PO DAILY #30 tablet 08/02/18 09/22/18 09/21/18 09:00 Rx Milrinone [Primacor] 20 mg IV QDAY #5 vial 09/21/18 09/22/18 09/22/18 08:00 Rx Active Meds: Active Medications Acetaminophen (Tylenol) 650 mg PO Q4H PRN PRN Reason: Pain MILD(1-3)/Fever >100.5/NAYLOR Allopurinol (Zyloprim) 100 mg PO QDAY SHANDA Amiodarone HCl (Cordarone) 200 mg PO BID SHANDA Apixaban (Eliquis) 5 mg PO BID SHANDA; Protocol Aspirin (Baby Aspirin) 81 mg PO QDAY SHANDA Bumetanide (Bumex) 1 mg PO DAILY SHANDA Metolazone (Zaroxolyn) 5 mg PO DAILY [facility] Morphine Sulfate (Morphine) 2 mg IV Q4H PRN PRN Reason: Pain, Moderate (4-6) Ondansetron HCl (Zofran) 4 mg IV Q8H PRN PRN Reason: Nausea And Vomiting Pantoprazole Sodium (Protonix) 40 mg PO QDAY [facility] Sodium Chloride (Sodium Chloride Flush Syringe 10 Ml) 10 ml IV BID [facility] Sodium Chloride (Sodium Chloride Flush Syringe 10 Ml) 10 ml IV PRN PRN PRN Reason: LINE FLUSH Physical Examination Vital Signs Resp 20 09/22/18 02:17 General appearance: no acute distress HEENT: Positive: PERRL Cardiac: Positive: Reg Rate and Rhythm Lungs: Positive: Decreased Breath Sounds Neuro: Positive: Grossly Intact Results 09/22/18 02:31 09/22/18 02:31 Coagulation 09/22/18 Range/Units 04:47 PT 17.1 H (12.2-14.9) Sec. INR 1.31 H (0.87-1.13) APTT 35.8 (24.2-36.6) Sec. CBC 09/22/18 Range/Units 02:31 WBC 7.0 (4.5-11.0) K/mm3 RBC 4.59 (3.65-5.03) M/mm3 Hgb 10.7 L (11.8-15.2) gm/dl Hct 34.3 L (35.5-45.6) % Plt Count 281 (140-440) K/mm3 Lymph # 1.4 (1.2-5.4) K/mm3 [place] # 0.7 (0.0-0.8) K/mm3 Eos # 0.1 (0.0-0.4) K/mm3 Baso # 0.0 (0.0-0.1) K/mm3 Comprehensive Metabolic Panel 09/22/18 Range/Units 02:31 Sodium 135 L (137-145) mmol/L Potassium 3.4 L (3.6-5.0) mmol/L Chloride 93.0 L (98-107) mmol/L Carbon Dioxide 28 (22-30) mmol/L BUN 46 H (9-20) mg/dL Creatinine 2.2 H (0.8-1.5) mg/dL Glucose 234 H (75-100) mg/dL Calcium 8.7 (8.4-10.2) mg/dL Assessment and Plan ACID discharge likely secondary to low magnesium Acute on chronic systolic heart failure End-stage dilated nonischemic cardiomyopathy on IV milrinone EF 15-20% on echo 12/2017 no ischemia on MPI 12/2016 [facility] at [place]: no significant CAD Chronic renal failure Presence of AICD Persistent Afib s/p KINGS guided cardioversion 11/2017 on eliquis for oral anticoagulation Hx of paroxysmal VF -on amiodarone and digoxin for rate control dig level: 0.7 Hx of Anxiety disorder Recommendations: Continue medical therapy for chronic systolic heart failure including chronic mi lrinone therapy. Continue oral digoxin and amiodarone therapy for suppression of ventricular arrhythmias. Replete magnesium. Continue telemetry monitoring. Discharge planning in the next 24hrs.
[2018-09-22] MEDS ORDERED: MAGNESIUM SULFATE IV ONE (15:00)
[2018-09-22] MEDS ORDERED: BUMEX PO SCH (15:00)
[2018-09-22] MEDS: ZYLOPRIM PO SCH (15:26)
[2018-09-22] MEDS: ELIQUIS PO SCH ×2 (15:26→22:43)
[2018-09-22] MEDS: ZAROXOLYN PO SCH (15:26)
[2018-09-22] MEDS: PROTONIX PO SCH (15:26)
[2018-09-22] MEDS: CORDARONE PO SCH ×2 (15:26→22:43)
[2018-09-22] MEDS: MILRINONE-D5W 20 MG/100 ML 20 MG/100 ML BAG IV SCH (15:34)
[2018-09-22] MEDS ORDERED: CORDARONE 300 MG in D5W 100 ML IV ONE (15:41)
[2018-09-22] MEDS ORDERED: MAGNESIUM SULFATE 2GM/50ML 2 GM/50 ML BAG IV ONE (16:00)
--- NOTE | 2018-09-22 16:46 | XRay Report ---
PROCEDURES: XR CHEST 1V AP TECHNIQUE: AP portable view of the chest. HISTORY: Chest Pain COMPARISON: CXR 09/19/2018 FINDINGS: Lines, tubes, and devices: 3-lead left subclavian pacemaker is unchanged Lungs and pleura: Trachea is normal in position. Lungs are clear of infiltrate, pleural effusion, vas cular congestion, or pneumothorax. No change. Cardiomediastinal silhouette: Heart is enlarged but stable. Prominence of the main pulmonary artery s egment is also unchanged. Other: Bony structures are intact. IMPRESSION: No acute cardiopulmonary process seen.No change. Stable cardiomegaly This document is electronically signed by Tati Dacosta MD., September 22 2018 04:44:48 PM ET
[2018-09-22] MEDS ORDERED: SODIUM CHLORIDE FLUSH SYRINGE 10 ML IV SCH (22:00)
[2018-09-23] MEDS: MILRINONE-D5W 20 MG/100 ML 20 MG/100 ML BAG IV SCH ×2 (01:31→10:01)
[2018-09-23 06:34] LABS: Basophils % (Auto) 0.5 % (0.0-1.8); Eosinophils # (Auto) 0.1 K/mm3 (0.0-0.4); Eosinophils % (Auto) 0.9 % (0.0-4.3); Hematocrit 35.3 % (35.5-45.6); Lymphocytes # (Auto) 1.8 K/mm3 (1.2-5.4); Lymphocytes % (Auto) 23.4 % (13.4-35.0); Mean Corpuscular HGB Conc 31 % (32-34); Mean Corpuscular Volume 75 fl (84-94); Monocytes # (Auto) 0.8 K/mm3 (0.0-0.8); Monocytes % (Auto) 11.2 % (0.0-7.3); Platelet Count 294 K/mm3 (140-440); Red Blood Count 4.69 M/mm3 (3.65-5.03); Red Cell Distribution Width 17.5 % (13.2-15.2)
[2018-09-23 07:04] LABS: Calcium 9.1 mg/dL (8.4-10.2)
[2018-09-23] MEDS ORDERED: MAGNESIUM SULFATE 3 GM in NACL 0.9% 100 ML IV ONE (09:00)
[2018-09-23] MEDS: ELIQUIS PO SCH (09:28)
[2018-09-23] MEDS: CORDARONE PO SCH (09:28)
[2018-09-23] MEDS: ZYLOPRIM PO SCH (09:29)
[2018-09-23] MEDS: PROTONIX PO SCH (09:30)
[2018-09-23] MEDS ORDERED: BABY ASPIRIN PO SCH (10:00)
[2018-09-23] MEDS: ZAROXOLYN PO SCH (10:01)
--- NOTE | 2018-09-23 10:14 | Discharge Summary ---
Providers - Providers Date of Admission: 09/22/18 06:48 Date of discharge: 09/23/18 Attending physician: CARLOS ALBERTO ARENAS 09/22/18 Consult to Case Management [CONS] Routine Services Needed at Discharge: Other Notified:: lead case manager Comment:: dc planning 09/22/18 05:15 Consult to Physician [CONS] Urgent Comment: Dr. Lora spoke with Dr. Dugan @ [phone] Consulting Provider: GLORIA DUGAN Physician Instructions: Reason For Exam: v tach Primary care physician: SHIVAM WANG Hospitalization Condition: Good Hospital course: Patient is 68 yo with cardiomyopathy with NICM, chronic systolic CHF. He was just discharged home a day earlier, presemnted to ED because of firing of AICD. He states he was at home, lying in bed, he felt dizzy and soon after felt AICD firing. He was therefore brought to ED. His AICD was interrogated revealing ventricular tachycardia. He was admitted, evaluated by cardiology. After admission were normal AICD firing. The following day he felt better evaluated by cardiology and recommended patient may be discharged home follow as an outpatient. His BP was low so not discharged on WU or [employer]. To be done as an outpatient when BP allows. Disposition: [id number]/TX-06 HOME UNDER HOME HLTH - Discharge Diagnoses (1) AICD discharge Status: Acute (2) V-tach Status: Acute (3) V-tach Status: Acute (4) Acute exacerbation of CHF (congestive heart failure) Status: Acute Qualifiers: Heart failure type: combined systolic and diastolic Qualified Code(s): I50.43 - Acute on chronic combined systolic (congestive) and diastolic (congestive) heart failure (5) Acute on chronic systolic heart failure Status: Acute (6) Anticoagulant long-term use Status: Acute (7) Cardiomyopathy Status: Acute (8) Implantable cardioverter-defibrillator (ICD) in situ Status: Acute Core Measure Documentation - Palliative Care Palliative Care/ Comfort Measures: Not Applicable - Core Measures Any of the following diagnoses?: heart failure - Heart Failure Discharge Requirements WU/ARB for LVSD if EF <40%: No Reason for no WU/ARB: Hypotension Beta nupur at discharge: No Reason for no beta nupur on DC: Hypotension Exam - Constitutional Vitals: Temp Pulse Resp BP Pulse Ox 98.9 F 85 20 108/65 98 09/23/18 07:31 09/23/18 07:31 09/23/18 07:31 09/23/18 07:31 09/23/18 07:31 Plan Activity: advance as tolerated Diet: low fat, low cholesterol, low salt, renal Additional Instructions: 1.Follow up with PCP in 1 week. 2.Follow up with Dr. Hopson in `1 week Prescriptions: Digoxin [Digitek] 125 mcg PO Q48H #30 tablet Magnesium Oxide [Mag-Ox] 400 mg PO BID #14 tablet
--- NOTE | 2018-09-23 10:23 | Progress Note ---
Assessment and Plan AICD discharge likely secondary to low magnesium Acute on chronic systolic heart failure End-stage dilated nonischemic cardiomyopathy on IV milrinone EF 15-20% on echo 12/2017 no ischemia on MPI 12/2016 [facility] at [place]: no significant CAD Chronic renal failure Presence of AICD Persistent Afib s/p KINGS guided cardioversion 11/2017 on eliquis for oral anticoagulation Hx of paroxysmal VF - on amiodarone and digoxin for rate control dig level: 0.7 Hx of Anxiety disorder Recommendations: Continue medical therapy for chronic systolic heart failure including chronic milrinone therapy. Continue oral digoxin and amiodarone therapy for suppression of ventricular arrhythmias. Replete magnesium and potassium May go home on po potassium and magnesium Follow-up with our office early next week Discussed with Dr Matthews Subjective Date of service: 09/23/18 Principal diagnosis: AICD discharge Interval history: Patient is doing well and wants to go home Objective Vital Signs Temp Pulse Resp Resp BP Pulse Ox 09/23/18 07:31 98.9 F 85 20 108/65 98 09/23/18 04:00 98.0 F 87 18 103/62 97 09/22/18 23:22 98.0 F 94 H 16 108/65 98 09/22/18 22:00 20 09/22/18 19:33 97.5 F L 89 16 104/61 96 09/22/18 17:47 61 20 97/65 98 09/22/18 17:46 98.3 F 09/22/18 13:58 96 09/22/18 12:09 66 22 114/80 93 09/22/18 12:08 98.3 F - Physical Examination HEENT: Positive: PERRL Neck: Positive: neck supple Cardiac: Positive: Reg Rate and Rhythm Lungs: Positive: Normal Exam Neuro: Positive: Grossly Intact - Labs and Meds CBC 09/23/18 Range/Units 05:51 WBC 7.6 (4.5-11.0) K/mm3 RBC 4.69 (3.65-5.03) M/mm3 Hgb 11.0 L (11.8-15.2) gm/dl Hct 35.3 L (35.5-45.6) % Plt Count 294 (140-440) K/mm3 Lymph # 1.8 (1.2-5.4) K/mm3 [place] # 0.8 (0.0-0.8) K/mm3 Eos # 0.1 (0.0-0.4) K/mm3 Baso # 0.0 (0.0-0.1) K/mm3 Comprehensive Metabolic Panel 09/23/18 Range/Units 05:51 Sodium 136 L (137-145) mmol/L Potassium 3.7 (3.6-5.0) mmol/L Chloride 92.9 L (98-107) mmol/L Carbon Dioxide 27 (22-30) mmol/L BUN 42 H (9-20) mg/dL Creatinine 2.0 H (0.8-1.5) mg/dL Glucose 158 H (75-100) mg/dL Calcium 9.1 (8.4-10.2) mg/dL
[2018-09-23 11:30] VITALS: BP 112/76
== END 2018-09-23 18:07 | disposition home health service (06) | DRG 308 ==
LOC: ED 02:07 → 4A 06:48
PROVIDERS: ADMIT Internal Medicine; ATTEND Internal Medicine
PROC: 4B02XTZ Measurement of Cardiac Defibrillator, External Approach (ICD-10-PCS; principal; 2018-09-22)
DX: I47.2 Ventricular tachycardia (principal); I50.23 Acute on chronic systolic (congestive) heart failure; I42.0 Dilated cardiomyopathy; I11.0 Hypertensive heart disease with heart failure; F41.9 Anxiety disorder, unspecified; I48.91 Unspecified atrial fibrillation; E11.9 Type 2 diabetes mellitus without complications; Z95.810 Presence of automatic (implantable) cardiac defibrillator; Z82.49 Family history of ischemic heart disease and other diseases of the circulatory system; Z79.899 Other long term (current) drug therapy; Z79.82 Long term (current) use of aspirin; Z79.01 Long term (current) use of anticoagulants; Z79.84 Long term (current) use of oral hypoglycemic drugs
CPT/HCPCS: 36415; 70450; 71045; 80048; 80162; 82962; 83735; 84484; 85025; 85610; 85730; 93005; 93010; G0378; J0282; J2260; J3475

== ENCOUNTER 2018-10-05 11:20 | Inpatient (IN) | payer MEDICARE ==
--- NOTE | 2018-10-05 11:24 | Emergency Department Report ---
Blank Doc - Documentation Documentation: This is a 68-year-old male that presents with chest pain and SOB. This initial assessment/diagnostic orders/clinical plan/treatment(s) is/are subject to change based on patient's health status, clinical progression and re- assessment by fellow clinical providers in the ED. Further treatment and workup at subsequent clinical providers discretion. Patient/guardians urged not to elope from the ED as their condition may be serious if not clinically assessed and managed. Initial orders include: 1- Patient sent to MAIN ED for further evaluation and treatment 2- labs 3- CXR 4- EKG
--- NOTE | 2018-10-05 12:02 | XRay Report ---
CHEST XRAY, 2 VIEWS: History: Chest pain. Findings: There is mild cardiomegaly. A 3-lead pacemaker device is in position. Pulmonary vessels are within normal limits. The lungs are clear and fully expanded. No infiltrate, pleural effusion or pneumothorax. Normal thoracic cage. IMPRESSION: Cardiomegaly. No significant change is appreciated since 09/22/18.
[2018-10-05 12:21] LABS: Basophils % (Auto) 0.7 % (0.0-1.8); Eosinophils # (Auto) 0.1 K/mm3 (0.0-0.4); Eosinophils % (Auto) 1.4 % (0.0-4.3); Hematocrit 35.2 % (35.5-45.6); Hemoglobin 10.8 gm/dl (11.8-15.2); Lymphocytes % (Auto) 27.8 % (13.4-35.0); Mean Corpuscular HGB Conc 31 % (32-34); Mean Corpuscular Volume 74 fl (84-94); Monocytes # (Auto) 0.9 K/mm3 (0.0-0.8); Monocytes % (Auto) 12.3 % (0.0-7.3); Platelet Count 303 K/mm3 (140-440); Red Blood Count 4.76 M/mm3 (3.65-5.03); Red Cell Distribution Width 17.9 % (13.2-15.2)
[2018-10-05 12:27] LABS: INR 1.25 (0.87-1.13)
[2018-10-05 12:28] LABS: Partial Thromboplastin Time 35.8 Sec. (24.2-36.6)
[2018-10-05 12:51] LABS: Calcium 9.2 mg/dL (8.4-10.2)
[2018-10-05] MEDS ORDERED: DUONEB *Not for PRN Use IH ONE (12:56)
[2018-10-05] MEDS ORDERED: K-DUR PO ONE ×2 (12:56→22:00)
[2018-10-05] MEDS ORDERED: ROBITUSSIN AC PO ONE (12:56)
[2018-10-05 13:39] LABS: Chol/HDL Ratio 2.63 %
[2018-10-05] MEDS ORDERED: SOLU-Medrol IV ONE (13:47)
--- NOTE | 2018-10-05 14:22 | Emergency Department Report ---
HPI - General Chief Complaint: Dyspnea/Respdistress Time Seen by Provider: 10/05/18 11:23 - HPI HPI: 68-year-old -Portuguese male presents to the emergency department from home with complaints of shortness of breath, wheezing, coughing fits and chest pain. The cough has been going on and getting progressively worse over the past 1.5 weeks. The chest pain started in the past few days. He has been taking his normal home medications but otherwise has not taken anything for his symptoms prior to arrival. He has a past medical history of arthritis, CHF, diabetes, GERD, hypertension, chronic kidney disease. Patient has an AICD/pacemaker in place. He follows with cardiology. Recent travel or sick contacts at home. ED Past Medical Hx - Past Medical History Hx Hypertension: Yes Hx Congestive Heart Failure: Yes Hx Diabetes: Yes Hx Deep Vein Thrombosis: No Hx GERD: Yes Hx Renal Disease: Yes (renal insufficiency) Hx Arthritis: Yes Hx Asthma: No Hx COPD: No Hx HIV: No Additional medical history: A. fib with history of cardioversion and anticoagulant use - Surgical History Hx Open Heart Surgery: Yes Hx Pacemaker: Yes Hx Internal Defibrillator: Yes (L CHEST) Additional Surgical History: LLOYD - Social History Smoking Status: Never Smoker - Medications Home Medications: Home Medications Medication Instructions Recorded Confirmed Last Taken Type Allopurinol [Zyloprim] 100 mg PO QDAY #30 tablet 08/02/18 09/22/18 09/21/18 09:00 Rx Amiodarone [Cordarone 200 MG TAB] 200 mg PO BID #60 tablet 08/02/18 09/22/18 09/21/18 21:00 Rx Apixaban [Eliquis] 5 mg PO BID #60 tablet 08/02/18 09/22/18 09/21/18 09:00 Rx Aspirin [Aspirin BABY CHEW TAB] 81 mg PO QDAY #30 tab.chew 08/02/18 09/22/18 09/21/18 09:00 Rx Bumetanide [Bumex 1 mg tab] 1 mg PO DAILY #30 tablet 08/02/18 09/22/18 09/21/18 Rx Pantoprazole [Protonix TAB] 40 mg PO QDAY #40 tablet 08/02/18 09/22/18 09/21/18 09:00 Rx Potassium Chloride [K-Dur] 10 meq PO Q12HR #60 tablet 08/02/18 09/22/18 09/21/18 Rx metOLazone [Metolazone] 5 mg PO DAILY #30 tablet 08/02/18 09/22/18 09/21/18 09:00 Rx Milrinone [Primacor] 20 mg IV QDAY #5 vial 09/21/18 09/22/18 09/22/18 08:00 Rx Digoxin [Digitek] 125 mcg PO Q48H #30 tablet 09/23/18 Unknown Rx Magnesium Oxide [Mag-Ox] 400 mg PO BID #14 tablet 09/23/18 Unknown Rx ED Review of Systems ROS: Stated complaint: CHEST PAIN/SAM Other details as noted in HPI Comment: All other systems reviewed and negative Constitutional: denies: chills, fever Eyes: denies: eye pain, vision change ENT: denies: ear pain, throat pain Respiratory: cough, shortness of breath Cardiovascular: chest pain. denies: palpitations Gastrointestinal: denies: abdominal pain, vomiting Genitourinary: denies: dysuria, frequency Musculoskeletal: denies: back pain, arthralgia Skin: denies: rash, lesions Neurological: denies: headache, weakness Physical Exam - Physical Exam Vital Signs: Vital Signs 10/05/18 10/05/18 10/05/18 12:18 12:20 12:45 Pulse Rate 93 H 102 H Pulse Rate [ Anterior Bilateral] Respiratory 31 H Rate Respiratory Rate [Anterior Bilateral] Blood Pressure 99/67 O2 Sat by Pulse 95 94 Oximetry 10/05/18 10/05/18 10/05/18 13:01 13:15 14:00 Pulse Rate 94 H Pulse Rate [ 100 H Anterior Bilateral] Respiratory 23 31 H Rate Respiratory 22 Rate [Anterior Bilateral] Blood Pressure 109/72 109/72 O2 Sat by Pulse 100 96 Oximetry 10/05/18 14:10 Pulse Rate Pulse Rate [ 100 H Anterior Bilateral] Respiratory Rate Respiratory 18 Rate [Anterior Bilateral] Blood Pressure O2 Sat by Pulse Oximetry Physical Exam: GENERAL: The patient is well-developed well-nourished. HEENT: Normocephalic. Atraumatic. Patient has moist mucous membranes. EYES: Extraocular motions are intact. Pupils are equal and reactive to light bilaterally. NECK: Supple. Trachea is midline. CHEST/LUNGS: Mild wheezing throughout the chest. The patient has a dry cough that is heard with hacking coughing fits. There is no respiratory distress noted. HEART/CARDIOVASCULAR: Regular. There is no tachycardia. There is no obvious murmur. ABDOMEN: Abdomen is soft, nontender. Patient has normal bowel sounds. There is no abdominal distention. SKIN: Skin is warm and dry. Mild nonpitting swelling of the bilateral lower extremities. NEURO: The patient is awake, alert, and oriented. The patient is cooperative. The patient has no focal neurologic deficits. The patient has normal speech. MUSCULOSKELETAL: There is no tenderness or deformity. There is no evidence of acute injury. ED Course Vital Signs 10/05/18 10/05/18 10/05/18 12:18 12:20 12:45 Pulse Rate 93 H 102 H Pulse Rate [ Anterior Bilateral] Respiratory 31 H Rate Respiratory Rate [Anterior Bilateral] Blood Pressure 99/67 O2 Sat by Pulse 95 94 Oximetry 10/05/18 10/05/18 10/05/18 13:01 13:15 14:00 Pulse Rate 94 H Pulse Rate [ 100 H Anterior Bilateral] Respiratory 23 31 H Rate Respiratory 22 Rate [Anterior Bilateral] Blood Pressure 109/72 109/72 O2 Sat by Pulse 100 96 Oximetry 10/05/18 14:10 Pulse Rate Pulse Rate [ 100 H Anterior Bilateral] Respiratory Rate Respiratory 18 Rate [Anterior Bilateral] Blood Pressure O2 Sat by Pulse Oximetry ED Medical Decision Making - Lab Data Result diagrams: 10/05/18 11:25 10/05/18 11:25 - EKG Data -: EKG Interpreted by Me - EKG Data When compared to previous EKG there are: no significant change Interpretation: unchanged when compared t (09/22/18), other (ventricular paced complexes, right axis deviation, slightly prolonged QTC) - Radiology Data Radiology results: image reviewed interpreted by me: CXR shows cardiomegaly and mild pulmonary venous congestion. - Medical Decision Making This patient presents to the emergency department with a one to two-week history of a progressively worsening cough and more recently some chest pain with shortness of breath. The patient is heard in the emergency department having a hacking dry cough that causes him to have some transient hypoxia and visibly appears to hurt him. EKG is unchanged with previous and shows a ventricular paced rhythm. Patient does have elevated troponin but he also has some renal insufficiency/chronic kidney disease. He was given some Robitussin-AC, Solu- Medrol, breathing treatment. Patient will be admitted to the hospital for fur ther evaluation and treatment and was accepted for admission by the hospitalist, Dr. Leon. - Differential Diagnosis CHF, Bronchitis, Pneumonia, PE, PR Critical Care Time: No Critical care attestation.: If time is entered above; I have spent that time in minutes in the direct care of this critically ill patient, excluding procedure time. ED Disposition Clinical Impression: Bronchitis, Bronchospasm, Atypical chest pain Dyspnea Qualifiers: Dyspnea type: shortness of breath Qualified Code(s): R06.02 - Shortness of breath; R06.00 - Dyspnea, unspecified; R06.01 - Orthopnea Disposition: OP ADMIT IP TO THIS HOSP Is pt being admited?: Yes Condition: Fair Instructions: Chronic Bronchitis (ED), Chest Pain (ED) Referrals: [facility] [Other] - 3-5 Days Time of Disposition: 14:23
--- NOTE | 2018-10-05 21:23 | History and Physical Report ---
History of Present Illness Date of examination: 10/05/18 Date of admission: 10/05/18 14:24 Chief complaint: Shortness of breath and cough for 10 days History of present illness: 68-year-old -[place] male with history of atrial fibrillation chronic kidney disease hypertension and GERD comes in for shortness of breath cough and wheezing and chest pain. This has been going on for the past 10 days. Low- grade fever off and on. Also chest pain secondary to cough. Patient has been compliant with his medications. No diaphoresis no vomiting no palpitations. Patient has AICD/pacemaker. He follows with cardiology. No recent travel. Last discharge summary on 09/23/2018 Heart Failure Discharge Requirements WU/ARB for LVSD if EF <40%: No Reason for no WU/ARB: Hypotension Beta nupur at discharge: No Reason for no beta nupur on DC: Hypotension Past Medical History Hypertension: Yes Congestive Heart Failure Diabetes GERD Renal Disease: Yes (renal insufficiency) Arthritis Additional medical history: A. fib with history of cardioversion and ant icoagulant use Surgical History Open Heart Surgery: Yes Pacemaker: Yes Internal Defibrillator: Yes (L CHEST) Additional Surgical History: LLOYD Social History Smoking Status: Never Smoker Family history Htn - Medications Home Medications: Home Medications Medication Instructions Recorded Confirmed Last Taken Type Allopurinol [Zyloprim] 100 mg PO QDAY #30 tablet 08/02/18 09/22/18 09/21/18 09:00 Rx Amiodarone [Cordarone 200 MG TAB] 200 mg PO BID #60 tablet 08/02/18 09/22/18 09/21/18 21:00 Rx Apixaban [Eliquis] 5 mg PO BID #60 tablet 08/02/18 09/22/18 09/21/18 09:00 Rx Aspirin [Aspirin BABY CHEW TAB] 81 mg PO QDAY #30 tab.chew 08/02/18 09/22/18 09/21/18 09:00 Rx Bumetanide [Bumex 1 mg tab] 1 mg PO DAILY #30 tablet 08/02/18 09/22/18 09/21/18 Rx Pantoprazole [Protonix TAB] 40 mg PO QDAY #40 tablet 08/02/18 09/22/18 09/21/18 09:00 Rx Potassium Chloride [K-Dur] 10 meq PO Q12HR #60 tablet 08/02/18 09/22/18 09/21/18 Rx metOLazone [Metolazone] 5 mg PO DAILY #30 tablet 08/02/18 09/22/18 09/21/18 09:00 Rx Milrinone [Primacor] 20 mg IV QDAY #5 vial 09/21/18 09/22/18 09/22/18 08:00 Rx Digoxin [Digitek] 125 mcg PO Q48H #30 tablet 09/23/18 Unknown Rx Magnesium Oxide [Mag-Ox] 400 mg PO BID #14 tablet 09/23/18 Unknown Rx Review of Systems ROS: Stated complaint: CHEST PAIN/SAM Other details as noted in HPI Comment: All other systems reviewed and negative Constitutional: denies: chills, fever Eyes: denies: eye pain, vision change ENT: denies: ear pain, throat pain Respiratory: cough, shortness of breath Cardiovascular: chest pain. denies: palpitations Gastrointestinal: denies: abdominal pain, vomiting Genitourinary: denies: dysuria, frequency Musculoskeletal: denies: back pain, arthralgia Skin: denies: rash, lesions Neurological: denies: headache, weakness Medications and Allergies Allergies Allergy/AdvReac Type Severity Reaction Status Date / Time No Known Allergies Allergy Verified 03/03/17 09:44 Home Medications Medication Instructions Recorded Confirmed Last Taken Type Allopurinol [Zyloprim] 100 mg PO QDAY #30 tablet 08/02/18 10/05/18 09/21/18 09:00 Rx Amiodarone [Cordarone 200 MG TAB] 200 mg PO BID #60 tablet 08/02/18 10/05/18 09/21/18 21:00 Rx Apixaban [Eliquis] 5 mg PO BID #60 tablet 08/02/18 10/05/18 09/21/18 09:00 Rx Aspirin [Aspirin BABY CHEW TAB] 81 mg PO QDAY #30 tab.chew 08/02/18 10/05/18 09/21/18 09:00 Rx Bumetanide [Bumex 1 mg tab] 1 mg PO DAILY #30 tablet 08/02/18 10/05/18 09/21/18 Rx Pantoprazole [Protonix TAB] 40 mg PO QDAY #40 tablet 08/02/18 10/05/18 09/21/18 09:00 Rx Potassium Chloride [K-Dur] 10 meq PO Q12HR #60 tablet 08/02/18 10/05/18 09/21/18 Rx metOLazone [Metolazone] 5 mg PO DAILY #30 tablet 08/02/18 10/05/18 09/21/18 09:00 Rx Milrinone [Primacor] 20 mg IV QDAY #5 vial 09/21/18 10/05/18 09/22/18 08:00 Rx Digoxin [Digitek] 125 mcg PO Q48H #30 tablet 09/23/18 10/05/18 Unknown Rx Magnesium Oxide [Mag-Ox] 400 mg PO BID #14 tablet 09/23/18 10/05/18 Unknown Rx Exam - Constitutional Vitals: Temp Pulse Resp BP Pulse Ox 97.4 F L 47 L 18 102/62 98 10/05/18 17:47 10/05/18 17:47 10/05/18 17:47 10/05/18 17:47 10/05/18 17:47 General appearance: Present: no acute distress, well-nourished - EENT Eyes: Present: PERRL ENT: hearing intact, clear oral mucosa - Neck Neck: Present: supple, normal ROM - Respiratory Respiratory effort: normal Respiratory: bilateral: CTA, rhonchi - Cardiovascular Heart rate: 107 Rhythm: regular Heart Sounds: Present: S1 & S2. Absent: rub, click - Extremities Extremities: no ischemia, pulses intact, pulses symmetrical, No edema Peripheral Pulses: within normal limits - Abdominal General gastrointestinal: Present: soft, non-tender, non-distended, normal bowel sounds Male genitourinary: Present: normal - Rectal Rectal Exam: deferred - Integumentary Integumentary: Present: clear, warm, dry - Musculoskeletal Musculoskeletal: gait normal, strength equal bilaterally - Psychiatric Psychiatric: appropriate mood/affect, intact judgment & insight - Neurologic Neurologic: CNII-XII intact, moves all extremities - Allied Health Allied health notes reviewed: nursing, case management Results - Labs CBC & Chem 7: 10/05/18 11:25 10/05/18 11:25 Labs: Laboratory Last Values WBC 7.2 K/mm3 (4.5-11.0) 10/05/18 11:25 RBC 4.76 M/mm3 (3.65-5.03) 10/05/18 11:25 Hgb 10.8 gm/dl (11.8-15.2) L 10/05/18 11:25 Hct 35.2 % (35.5-45.6) L 10/05/18 11:25 MCV 74 fl (84-94) L 10/05/18 11:25 MCH 23 pg (28-32) L 10/05/18 11:25 MCHC 31 % (32-34) L 10/05/18 11:25 RDW 17.9 % (13.2-15.2) H 10/05/18 11:25 Plt Count 303 K/mm3 (140-440) 10/05/18 11:25 Lymph % (Auto) 27.8 % (13.4-35.0) 10/05/18 11:25 [place] % (Auto) 12.3 % (0.0-7.3) H 10/05/18 11:25 Eos % (Auto) 1.4 % (0.0-4.3) 10/05/18 11:25 Baso % (Auto) 0.7 % (0.0-1.8) 10/05/18 11:25 Lymph # 2.0 K/mm3 (1.2-5.4) 10/05/18 11:25 [place] # 0.9 K/mm3 (0.0-0.8) H 10/05/18 11:25 Eos # 0.1 K/mm3 (0.0-0.4) 10/05/18 11:25 Baso # 0.0 K/mm3 (0.0-0.1) 10/05/18 11:25 Seg Neutrophils % 57.8 % (40.0-70.0) 10/05/18 11:25 Seg Neutrophils # 4.1 K/mm3 (1.8-7.7) 10/05/18 11:25 PT 16.5 Sec. (12.2-14.9) H 10/05/18 11:25 INR 1.25 (0.87-1.13) H 10/05/18 11:25 APTT 35.8 Sec. (24.2-36.6) 10/05/18 11:25 D-Dimer 137.47 ng/mlDDU (0-234) 10/05/18 11:25 Sodium 138 mmol/L (137-145) 10/05/18 11:25 Potassium 3.1 mmol/L (3.6-5.0) L 10/05/18 11:25 Chloride 93.9 mmol/L (98-107) L 10/05/18 11:25 Carbon Dioxide 29 mmol/L (22-30) 10/05/18 11:25 Anion Gap 18 mmol/L 10/05/18 11:25 BUN 39 mg/dL (9-20) H 10/05/18 11:25 Creatinine 2.1 mg/dL (0.8-1.5) H 10/05/18 11:25 Estimated GFR 38 ml/min 10/05/18 11:25 BUN/Creatinine Ratio 19 % 10/05/18 11:25 Glucose 200 mg/dL (75-100) H 10/05/18 11:25 Calcium 9.2 mg/dL (8.4-10.2) 10/05/18 11:25 Troponin T 0.048 ng/mL (0.00-0.029) H 10/05/18 16:03 NT-Pro-B Natriuret Pep 3030 pg/mL (0-900) H 10/05/18 11:25 Triglycerides 83 mg/dL (2-149) 10/05/18 11:25 Cholesterol 100 mg/dL (50-199) 10/05/18 11:25 LDL Cholesterol Direct 64 mg/dL (50-130) 10/05/18 11:25 HDL Cholesterol 38 mg/dL (40-59) L 10/05/18 11:25 Cholesterol/HDL Ratio 2.63 % 10/05/18 11:25 Digoxin 0.3 ng/mL (0.9-2.0) L 10/05/18 11:25 - Imaging and Cardiology EKG: report reviewed (ventricular paced complexes 107/m) Chest x-ray: report reviewed Imaging and Cardiology: Chest x-ray IMPRESSION: Cardiomegaly. No significant change is appreciated since 09/22/18. Assessment and Plan Advance Directives: Yes (full code) VTE prophylaxis?: Chemical Plan of care discussed with patient/family: Yes - Patient Problems (1) Acute exacerbation of CHF (congestive heart failure) Current Visit: Yes Status: Acute Qualifiers: Heart failure type: combined systolic and diastolic Qualified Code(s): I50.43 - Acute on chronic combined systolic (congestive) and diastolic (congestive) heart failure Plan to address problem: Lasix 40 every 24 KCl supplement Echocardiogram ordered Cardiology consult requested Last echocardiogram done on 12/27/2017 showed ejection fraction of 15-20%. Severe dilated cardiomyopathy. Mild to moderate concentrated left ventricular hypertrophy. Echocardiogram was read by Dr. Kelley (2) CORRIE (acute kidney injury) Current Visit: No Status: Acute Plan to address problem: Baseline BUN/creatinine was 26 and 1.5 on 07/31/2018 Stop Zaroxolyn (3) AICD (automatic cardioverter/defibrillator) present Current Visit: No Status: Chronic (4) Acute bronchitis Current Visit: Yes Status: Acute Plan to address problem: IV Levaquin , Duo nebs and Solu-Medrol low-dose (5) Hypokalemia Current Visit: Yes Status: Acute Plan to address problem: Supplemented (6) GERD (gastroesophageal reflux disease) Current Visit: Yes Status: Chronic Qualifiers: Esophagitis presence: with esophagitis Qualified Code(s): K21.0 - Gastro-esophageal reflux disease with esophagitis Plan to address problem: Continue PPIs (7) DVT prophylaxis Current Visit: Yes Status: Acute Plan to address problem: Heparin subcutaneous and GI prophylaxis
[2018-10-05] MEDS ORDERED: DILAUDID IV PRN (21:56)
[2018-10-05] MEDS ORDERED: TYLENOL PO PRN (21:56)
[2018-10-05] MEDS ORDERED: ZOFRAN IV PRN (21:56)
[2018-10-05] MEDS ORDERED: SODIUM CHLORIDE FLUSH SYRINGE 10 ML IV PRN (21:56)
[2018-10-05] MEDS ORDERED: PROVENTIL IH PRN (22:00)
[2018-10-05] MEDS: SODIUM CHLORIDE FLUSH SYRINGE 10 ML IV SCH (22:15)
[2018-10-05] MEDS: SOLU-Medrol IV SCH (22:37)
[2018-10-05] MEDS: CORDARONE PO SCH (22:38)
[2018-10-05] MEDS: LANOXIN PO SCH (22:39)
[2018-10-05] MEDS: MAG-OX PO SCH (22:40)
[2018-10-05] MEDS: ELIQUIS PO SCH (22:40)
[2018-10-05] MEDS: LEVAQUIN 750MG/150ML 750 MG/150 ML BAG IV SCH (22:45)
[2018-10-05] MEDS: ZYLOPRIM PO SCH (22:57)
[2018-10-05] MEDS: K-DUR PO SCH (22:58)
[2018-10-05] MEDS: PROTONIX PO SCH (22:58)
[2018-10-06 05:22] LABS: Basophils % (Auto) 0.1 % (0.0-1.8); Hematocrit 33.7 % (35.5-45.6); Hemoglobin 10.4 gm/dl (11.8-15.2); Lymphocytes # (Auto) 0.8 K/mm3 (1.2-5.4); Lymphocytes % (Auto) 17.4 % (13.4-35.0); Mean Corpuscular HGB Conc 31 % (32-34); Mean Corpuscular Volume 73 fl (84-94); Monocytes # (Auto) 0.1 K/mm3 (0.0-0.8); Monocytes % (Auto) 1.4 % (0.0-7.3); Platelet Count 282 K/mm3 (140-440); Red Cell Distribution Width 17.8 % (13.2-15.2)
[2018-10-06 05:43] LABS: Albumin 3.7 g/dL (3.9-5); Calcium 8.7 mg/dL (8.4-10.2)
[2018-10-06] MEDS: SOLU-Medrol IV SCH ×3 (07:26→23:11)
[2018-10-06] MEDS: LASIX IV SCH (07:26)
--- NOTE | 2018-10-06 08:44 | Consultation ---
History of Present Illness Consult date: 10/06/18 Consult reason: congestive heart failure History of present illness: Patient is a 68 year old male with multiple medical problems. He has chronic renal failure and history of anxiety. He has a dilated nonischemic cardiomyopathy, chronic systolic heart failure and is on chronic inotropic support. Left ventricular ejection fraction is reported at 15-20%. He has a previous history of paroxysmal VT/VF and is on amiodarone and digoxin for suppression. He has a cardiac defibrillator in situ. He is also on chronic oral anticoagulation therapy for permanent atrial fibrillation. Patient returns with coughs, worsening shortness of breath, admitted with CHF exacerbation. Cardiac consultation was requested. Patient denies AICD discharge. Creatinine level of 2.6. Digoxin level 0.3. EKG shows a ventricular paced rhythm. Medications and Allergies Allergies Allergy/AdvReac Type Severity Reaction Status Date / Time No Known Allergies Allergy Verified 03/03/17 09:44 Home Medications Medication Instructions Recorded Confirmed Last Taken Type Allopurinol [Zyloprim] 100 mg PO QDAY #30 tablet 08/02/18 10/05/18 09/21/18 09:00 Rx Amiodarone [Cordarone 200 MG TAB] 200 mg PO BID #60 tablet 08/02/18 10/05/18 09/21/18 21:00 Rx Apixaban [Eliquis] 5 mg PO BID #60 tablet 08/02/18 10/05/18 09/21/18 09:00 Rx Aspirin [Aspirin BABY CHEW TAB] 81 mg PO QDAY #30 tab.chew 08/02/18 10/05/18 09/21/18 09:00 Rx Bumetanide [Bumex 1 mg tab] 1 mg PO DAILY #30 tablet 08/02/18 10/05/18 09/21/18 Rx Pantoprazole [Protonix TAB] 40 mg PO QDAY #40 tablet 08/02/18 10/05/18 09/21/18 09:00 Rx Potassium Chloride [K-Dur] 10 meq PO Q12HR #60 tablet 08/02/18 10/05/18 09/21/18 Rx metOLazone [Metolazone] 5 mg PO DAILY #30 tablet 08/02/18 10/05/18 09/21/18 09:00 Rx Milrinone [Primacor] 20 mg IV QDAY #5 vial 09/21/18 10/05/18 09/22/18 08:00 Rx Digoxin [Digitek] 125 mcg PO Q48H #30 tablet 09/23/18 10/05/18 Unknown Rx Magnesium Oxide [Mag-Ox] 400 mg PO BID #14 tablet 09/23/18 10/05/18 Unknown Rx Active Meds: Active Medications Acetaminophen (Tylenol) 650 mg PO Q4H PRN PRN Reason: Pain MILD(1-3)/Fever >100.5/NAYLOR Albuterol (Proventil) 2.5 mg IH Q4HRT PRN PRN Reason: Shortness Of Breath Albuterol/Ipratropium (Duoneb *Not For Prn Use*) 1 ampul IH QIDRT [facility] Allopurinol (Zyloprim) 100 mg PO QDAY [facility] Last Admin: 10/05/18 22:57 Dose: 100 mg Documented by: Amiodarone HCl (Cordarone) 200 mg PO BID [facility] Last Admin: 10/05/18 22:38 Dose: 200 mg Documented by: Apixaban (Eliquis) 5 mg PO BID [facility]; Protocol Last Admin: 10/05/18 22:40 Dose: 5 mg Documented by: Aspirin (Baby Aspirin) 81 mg PO QDAY [facility] Digoxin (Lanoxin) 0.125 mg PO Q48H [facility] Last Admin: 10/05/18 22:39 Dose: 0.125 mg Documented by: Furosemide (Lasix) 40 mg IV 0600 [facility] Last Admin: 10/06/18 07:26 Dose: 40 mg Documented by: Hydromorphone HCl (Dilaudid) 0.5 mg IV Q3H PRN PRN Reason: Pain , Severe (7-10) Levofloxacin/Dextrose (Levaquin 750mg/150ml) 750 mg in 150 mls @ 100 mls/hr IV Q48H [facility]; Protocol Last Admin: 10/05/18 22:45 Dose: 100 mls/hr Documented by: Magnesium Oxide (Mag-Ox) 400 mg PO BID [facility] Last Admin: 10/05/18 22:40 Dose: 400 mg Documented by: Methylprednisolone Sodium Succinate (Solu-Medrol) 40 mg IV Q8HR [facility] Last Admin: 10/06/18 07:26 Dose: 40 mg Documented by: Ondansetron HCl (Zofran) 4 mg IV Q8H PRN PRN Reason: Nausea And Vomiting Oxycodone/Acetaminophen (Percocet 5/325) 1 tab PO Q6H PRN PRN Reason: Pain, Moderate (4-6) Pantoprazole Sodium (Protonix) 40 mg PO QDAY [facility] Last Admin: 10/05/18 22:58 Dose: 40 mg Documented by: Potassium Chloride (K-Dur) 10 meq PO Q12HR [facility] Last Admin: 10/05/18 22:58 Dose: 10 meq Documented by: Sodium Chloride (Sodium Chloride Flush Syringe 10 Ml) 10 ml IV BID [facility] Last Admin: 10/05/18 22:15 Dose: 10 ml Documented by: Sodium Chloride (Sodium Chloride Flush Syringe 10 Ml) 10 ml IV PRN PRN PRN Reason: LINE FLUSH Physical Examination Vital Signs Pulse Ox 95 10/05/18 12:18 General appearance: no acute distress HEENT: Positive: PERRL Cardiac: Positive: Other (paced) Lungs: Positive: Decreased Breath Sounds Neuro: Positive: Grossly Intact Extremities: Absent: edema Results 10/06/18 04:47 10/06/18 04:47 Cardiac Enzymes 10/06/18 Range/Units 04:47 AST 15 (5-40) units/L Coagulation 10/05/18 Range/Units 11:25 PT 16.5 H (12.2-14.9) Sec. INR 1.25 H (0.87-1.13) APTT 35.8 (24.2-36.6) Sec. Lipids 10/05/18 Range/Units 11:25 Triglycerides 83 (2-149) mg/dL Cholesterol 100 (50-199) mg/dL HDL Cholesterol 38 L (40-59) mg/dL Cholesterol/HDL Ratio 2.63 % CBC 10/05/18 10/06/18 Range/Units 11:25 04:47 WBC 7.2 4.5 (4.5-11.0) K/mm3 RBC 4.76 4.60 (3.65-5.03) M/mm3 Hgb 10.8 L 10.4 L (11.8-15.2) gm/dl Hct 35.2 L 33.7 L (35.5-45.6) % Plt Count 303 282 (140-440) K/mm3 Lymph # 2.0 0.8 L (1.2-5.4) K/mm3 [place] # 0.9 H 0.1 (0.0-0.8) K/mm3 Eos # 0.1 0.0 (0.0-0.4) K/mm3 Baso # 0.0 0.0 (0.0-0.1) K/mm3 Comprehensive Metabolic Panel 10/05/18 10/06/18 Range/Units 11:25 04:47 Sodium 138 134 L (137-145) mmol/L Potassium 3.1 L 4.3 D (3.6-5.0) mmol/L Chloride 93.9 L 93.6 L (98-107) mmol/L Carbon Dioxide 29 26 (22-30) mmol/L BUN 39 H 49 H (9-20) mg/dL Creatinine 2.1 H 2.6 H (0.8-1.5) mg/dL Glucose 200 H 242 H (75-100) mg/dL Calcium 9.2 8.7 (8.4-10.2) mg/dL AST 15 (5-40) units/L ALT 13 (7-56) units/L Alkaline Phosphatase 56 (35-129) units/L Total Protein 6.8 (6.3-8.2) g/dL Albumin 3.7 L (3.9-5) g/dL Assessment and Plan Acute on chronic systolic heart failure End-stage dilated nonischemic cardiomyopathy on IV milrinone EF 15-20% on echo 12/2017 no ischemia on MPI 12/[address] [facility] at [place]: no significant CAD Chronic renal failure Presence of AICD Persistent Afib s/p [facility] guided cardioversion 11/2017 on eliquis for oral anticoagulation Hx of paroxysmal VF - on amiodarone and digoxin for rate control Hx of Anxiety disorder
[2018-10-06] MEDS: DUONEB *Not for PRN Use IH SCH ×2 (08:56→20:00)
[2018-10-06] MEDS: ELIQUIS PO SCH ×2 (10:09→23:12)
[2018-10-06] MEDS: K-DUR PO SCH ×2 (10:09→23:13)
[2018-10-06] MEDS: ZYLOPRIM PO SCH (10:09)
[2018-10-06] MEDS: PROTONIX PO SCH (10:09)
[2018-10-06] MEDS: MAG-OX PO SCH ×2 (10:09→23:14)
[2018-10-06] MEDS: CORDARONE PO SCH ×2 (10:09→23:12)
[2018-10-06] MEDS: BABY ASPIRIN PO SCH (10:09)
[2018-10-06] MEDS: SODIUM CHLORIDE FLUSH SYRINGE 10 ML IV SCH ×2 (10:10→23:14)
--- NOTE | 2018-10-06 11:04 | Progress Note ---
Assessment and Plan Assessment and plan: Assessment & Plan : 68-year-old -[place] male with history of CHF, Afib, COPD, hypertension, anxiety, and GERD presented to the ED on 10/05 with complaints of shortness of breath, cough, and wheezing 10 days. Patient has AICD present, on a request for anti-coagulation therapy. He has history of paroxysmal VF and is rate controlled on by mouth amiodarone and digoxin. At the time of examination patient is resting in bed, and is easily aroused. He displays SOB when talking. He is on 2 L nasal cannula and milrinone drip. Acute exacerbation of CHF Cardiology consulted- pending recommendations CXR on 10/05 showed cardiomegaly with no appreciation for significant changes since previous chest x-ray done on 09/22/18 EF of 15%- 20% on echo 12/2017 Status post [facility] at [place] [id number] Continue milrinone drip to optimize cardiac function Continue supplemental oxygen will be as tolerated CORRIE BUN/ Cr on admission 39/ This am 49/2.6. Baseline BUN/Cr 26/1.5 on 08/10/18 Nephrology consult pending AICD AICD present no evidence of discharge On Eliquis for anticoagulation Acute bronchitis CXR on 10/05 unrevealing for acute cardiopulmonary changes when compared to CXR on 09/22/18 On IV Levaquin Continue DuoNebs Continue systemic steroids History of GERD On Protonix Diabetes mellitus Hemoglobin A1C on admission 9.3 Start POC monitoring AC/HS and SSI coverage DVT prophylaxis On heparin History Interval history: 68-year-old -[place] male with history of CHF, Afib, COPD, hypertension, anxiety, and GERD presented to the ED on 10/05 with complaints of shortness of breath, cough, and wheezing 10 days. Patient has AICD present, on a request for anti-coagulation therapy. He has history of paroxysmal VF and is rate controlled on by mouth amiodarone and digoxin. Placed on supplemental oxygen and milrinone drip. There were no acute overnight events Hospitalist Physical - Constitutional Vitals: Temp Pulse Resp BP Pulse Ox 98.6 F 109 H 183 H 107/70 98 10/06/18 07:58 10/06/18 09:06 10/06/18 09:06 10/06/18 07:58 10/06/18 09:23 General appearance: Present: no acute distress - EENT Eyes: Present: EOM intact ENT: hearing intact, no dentition normal - Neck Neck: Present: normal ROM - Respiratory Respiratory effort: other Respiratory: bilateral: diminished (bases) Details: SOB when talking - Cardiovascular Rhythm: irregularly irregular Heart Sounds: Present: S1 & S2 - Extremities Extremities: pulses intact Extremity abnormal: edema - Peripheral Assessment Bilateral Lower Extremity Edema Degree: Trace Capillary Refill: > 3 seconds Skin Temperature: Warm Peripheral Pulses: within normal limits - Peripheral pulses dorsalis pedis Pulse Strength: 1+ (Doppler) - Abdominal General gastrointestinal: non-tender, normal bowel sounds - Integumentary Integumentary: Present: warm, dry - Psychiatric Psychiatric: cooperative - Neurologic Neurologic: CNII-XII intact Results - Labs CBC & Chem 7: 10/06/18 04:47 10/06/18 04:47 Labs: Laboratory Last Values WBC 4.5 K/mm3 (4.5-11.0) 10/06/18 04:47 RBC 4.60 M/mm3 (3.65-5.03) 10/06/18 04:47 Hgb 10.4 gm/dl (11.8-15.2) L 10/06/18 04:47 Hct 33.7 % (35.5-45.6) L 10/06/18 04:47 MCV 73 fl (84-94) L 10/06/18 04:47 MCH 23 pg (28-32) L 10/06/18 04:47 MCHC 31 % (32-34) L 10/06/18 04:47 RDW 17.8 % (13.2-15.2) H 10/06/18 04:47 Plt Count 282 K/mm3 (140-440) 10/06/18 04:47 Lymph % (Auto) 17.4 % (13.4-35.0) 10/06/18 04:47 Schleicher % (Auto) 1.4 % (0.0-7.3) 10/06/18 04:47 Eos % (Auto) 0.0 % (0.0-4.3) 10/06/18 04:47 Baso % (Auto) 0.1 % (0.0-1.8) 10/06/18 04:47 Lymph # 0.8 K/mm3 (1.2-5.4) L 10/06/18 04:47 Schleicher # 0.1 K/mm3 (0.0-0.8) 10/06/18 04:47 Eos # 0.0 K/mm3 (0.0-0.4) 10/06/18 04:47 Baso # 0.0 K/mm3 (0.0-0.1) 10/06/18 04:47 Seg Neutrophils % 81.1 % (40.0-70.0) H 10/06/18 04:47 Seg Neutrophils # 3.6 K/mm3 (1.8-7.7) 10/06/18 04:47 PT 16.5 Sec. (12.2-14.9) H 10/05/18 11:25 INR 1.25 (0.87-1.13) H 10/05/18 11:25 APTT 35.8 Sec. (24.2-36.6) 10/05/18 11:25 D-Dimer 137.47 ng/mlDDU (0-234) 10/05/18 11:25 Sodium 134 mmol/L (137-145) L 10/06/18 04:47 Potassium 4.3 mmol/L (3.6-5.0) D 10/06/18 04:47 Chloride 93.6 mmol/L (98-107) L 10/06/18 04:47 Carbon Dioxide 26 mmol/L (22-30) 10/06/18 04:47 Anion Gap 19 mmol/L 10/06/18 04:47 BUN 49 mg/dL (9-20) H 10/06/18 04:47 Creatinine 2.6 mg/dL (0.8-1.5) H 10/06/18 04:47 Estimated GFR 30 ml/min 10/06/18 04:47 BUN/Creatinine Ratio 19 % 10/06/18 04:47 Glucose 242 mg/dL (75-100) H 10/06/18 04:47 POC Glucose 216 (70-105) H 10/06/18 07:24 Hemoglobin A1c 9.3 % (4-6) H 10/05/18 11:25 Calcium 8.7 mg/dL (8.4-10.2) 10/06/18 04:47 Total Bilirubin 0.90 mg/dL (0.1-1.2) 10/06/18 04:47 AST 15 units/L (5-40) 10/06/18 04:47 ALT 13 units/L (7-56) 10/06/18 04:47 Alkaline Phosphatase 56 units/L (35-129) 10/06/18 04:47 Troponin T 0.048 ng/mL (0.00-0.029) H 10/05/18 16:03 NT-Pro-B Natriuret Pep 3030 pg/mL (0-900) H 10/05/18 11:25 Total Protein 6.8 g/dL (6.3-8.2) 10/06/18 04:47 Albumin 3.7 g/dL (3.9-5) L 10/06/18 04:47 Albumin/Globulin Ratio 1.2 % 10/06/18 04:47 Triglycerides 83 mg/dL (2-149) 10/05/18 11:25 Cholesterol 100 mg/dL (50-199) 10/05/18 11:25 LDL Cholesterol Direct 64 mg/dL (50-130) 10/05/18 11:25 HDL Cholesterol 38 mg/dL (40-59) L 10/05/18 11:25 Cholesterol/HDL Ratio 2.63 % 10/05/18 11:25 Digoxin 0.3 ng/mL (0.9-2.0) L 10/05/18 11:25 Active Medications - Current Medications Current Medications: Generic Name Dose Route Start Last Admin Trade Name Freq PRN Reason Stop Dose Admin Acetaminophen 650 mg 10/05/18 21:56 Tylenol PO Q4H PRN Pain MILD(1-3)/Fever >100.5/NAYLOR Albuterol 2.5 mg 10/05/18 22:00 Proventil IH Q4HRT PRN Shortness Of Breath Albuterol/Ipratropium 1 ampul 10/06/18 08:00 10/06/18 08:56 Duoneb *Not For Prn Use* IH 1 ampul QIDRT SHANDA Administration Allopurinol 100 mg 10/05/18 22:00 10/06/18 10:09 Zyloprim PO 100 mg QDAY SHANDA Administration Amiodarone HCl 200 mg 10/05/18 22:00 10/06/18 10:09 Cordarone PO 200 mg BID SHANDA Administration Apixaban 5 mg 10/05/18 22:00 10/06/18 10:09 Eliquis PO 5 mg BID SHANDA Administration Protocol Aspirin 81 mg 10/06/18 10:00 10/06/18 10:09 Baby Aspirin PO 81 mg QDAY SHANDA Administration Digoxin 0.125 mg 10/05/18 22:00 10/05/18 22:39 Lanoxin PO 0.125 mg Q48H SHANDA Administration Furosemide 40 mg 10/06/18 06:00 10/06/18 07:26 Lasix IV 40 mg 0600 SHANDA Administration Hydromorphone HCl 0.5 mg 10/05/18 21:56 Dilaudid IV Q3H PRN Pain , Severe (7-10) Levofloxacin/Dextrose 750 mg in 150 mls @ 100 mls/hr 10/05/18 23:00 10/05/18 22:45 Levaquin 750mg/150ml IV 100 mls/hr Q48H SHANDA Administration Protocol Milrinone Lactate/Dextrose 20 mg in 100 mls @ 11.88 mls/hr 10/06/18 11:00 Milrinone-D5w 20 Mg/100 Ml IV TITR SHANDA 0.375 MCG/KG/MIN Magnesium Oxide 400 mg 10/05/18 22:00 10/06/18 10:09 Mag-Ox PO 400 mg BID SHANDA Administration Methylprednisolone Sodium Succinate 40 mg 10/05/18 22:00 10/06/18 07:26 Solu-Medrol IV 40 mg Q8HR SHANDA Administration Ondansetron HCl 4 mg 10/05/18 21:56 Zofran IV Q8H PRN Nausea And Vomiting Oxycodone/Acetaminophen 1 tab 10/05/18 21:56 Percocet 5/325 PO Q6H PRN Pain, Moderate (4-6) Pantoprazole Sodium 40 mg 10/05/18 22:00 10/06/18 10:09 Protonix PO 40 mg QDAY SHANDA Administration Potassium Chloride 10 meq 10/05/18 22:00 10/06/18 10:09 K-Dur PO 10 meq Q12HR SHANDA Administration Sodium Chloride 10 ml 10/05/18 22:00 10/06/18 10:10 Sodium Chloride Flush Syringe 10 Ml IV 10 ml BID SHANDA Administration Sodium Chloride 10 ml 10/05/18 21:56 Sodium Chloride Flush Syringe 10 Ml IV PRN PRN LINE FLUSH Nutrition/Malnutrition Assess - Dietary Evaluation Nutrition/Malnutrition Findings: Nutrition Notes Start: 10/06/18 10:22 Freq: Status: Active Protocol: Document 10/06/18 10:22 EB (Rec: 10/06/18 10:33 EB [id number]) Co-Sign 10/06/18 10:22 LP Nutrition Notes Initial or Follow up Assessment Current Diagnosis CKD(stage I-IV),Diabetes, Hypertension,Heart Failure Other Pertinent Diagnosis GERD, A. fib Current Diet Cardiac/Consistent CHO Labs/Tests Reviewed Pertinent Medications Lasmookie Solu-medrol Height 5 ft 8 in Weight 105.6 kg Usual Body Weight 104.326 kg [place] Body Weight (kg) 70.00 BMI 35.4 Intake Prior to Admission Good Weight Status Obese Subjective/Other Information Screened for MST. Pt finished breakfast at time of visit and consumed 100%. Per chart notes and pt report, pt consumes 100% of meals yesterday and the day before. No problems chewing or swallowing, and no instances of N/V. Percent of energy/protein needs met: 100%/100% Burn Absent Trauma Absent Current % PO Good (75-100%) #1 Nutrition Diagnosis No nutrition diagnosis at this time As Evidenced by Signs and Symptoms pt meeting 100% of lacy and pro needs Is patient on ventilator? No Is Patient Ambulatory and/or Out of Bed Yes REE-([facility]-ambulatory/OOB) [ 2347.150 [id number]] Kcal/Kg value to use for calculation 19 Approximate Energy Requirements Using 2006 kcal/Kg Calculation Used for Recommendations Kcal/kg Additional Notes PRO: 0.6-0.8 g/day AdjBW of 87 .8 kg (53-70 g/day) Fluid: 1500 mL or per MD recommendations Nutrition Intervention Change Diet Order: Continue current diet Anticipated Discharge Needs: Consistent CHO/Cardiac diet Revisit per MD consult or patient Sign Off request:
[2018-10-06] MEDS ORDERED: MILRINONE-D5W 20 MG/100 ML 20 MG/100 ML BAG IV SCH (12:00)
--- NOTE | 2018-10-06 17:15 | Consultation ---
History of Present Illness - Reason for Consult Consult date: 10/06/18 acute renal failure, chronic renal failure - History of Present Illness The patient is a 68 YO AAM with history significant for DM type 2, HTN, Dilated non-ischemic cardiomyopathy, Chronic systolic CHF with EF 15-20%, S/p AICD, Afib, paroxysmal VF, COPD, CKD stage 3, Anxiety and GERD who presented to [facility] ED on 10/05 with complaints of shortness of breath, cough, and wheezing for about 10 days. Patient admits orthopnea, PND and feeling tired. Denies any N, V, D, abd pain, dysuria, hematuria, dizziness, cp or syncope. Creatinine was 2.1 on admission which has increased to 2.6 today. Nephrology was consulted for fur ther evaluation. Past History Past Medical History: atrial fib, COPD, heart failure, hypertension, renal failure Medications and Allergies Allergies Allergy/AdvReac Type Severity Reaction Status Date / Time No Known Allergies Allergy Verified 03/03/17 09:44 Home Medications Medication Instructions Recorded Confirmed Last Taken Type Allopurinol [Zyloprim] 100 mg PO QDAY #30 tablet 08/02/18 10/05/18 09/21/18 09:00 Rx Amiodarone [Cordarone 200 MG TAB] 200 mg PO BID #60 tablet 08/02/18 10/05/18 09/21/18 21:00 Rx Apixaban [Eliquis] 5 mg PO BID #60 tablet 08/02/18 10/05/18 09/21/18 09:00 Rx Aspirin [Aspirin BABY CHEW TAB] 81 mg PO QDAY #30 tab.chew 08/02/18 10/05/18 09/21/18 09:00 Rx Bumetanide [Bumex 1 mg tab] 1 mg PO DAILY #30 tablet 08/02/18 10/05/18 09/21/18 Rx Pantoprazole [Protonix TAB] 40 mg PO QDAY #40 tablet 08/02/18 10/05/18 09/21/18 09:00 Rx Potassium Chloride [K-Dur] 10 meq PO Q12HR #60 tablet 08/02/18 10/05/18 09/21/18 Rx metOLazone [Metolazone] 5 mg PO DAILY #30 tablet 08/02/18 10/05/18 09/21/18 09:00 Rx Milrinone [Primacor] 20 mg IV QDAY #5 vial 09/21/18 10/05/18 09/22/18 08:00 Rx Digoxin [Digitek] 125 mcg PO Q48H #30 tablet 09/23/18 10/05/18 Unknown Rx Magnesium Oxide [Mag-Ox] 400 mg PO BID #14 tablet 09/23/18 10/05/18 Unknown Rx Active Meds: Active Medications Acetaminophen (Tylenol) 650 mg PO Q4H PRN PRN Reason: Pain MILD(1-3)/Fever >100.5/NAYLOR Albuterol (Proventil) 2.5 mg IH Q4HRT PRN PRN Reason: Shortness Of Breath Albuterol/Ipratropium (Duoneb *Not For Prn Use*) 1 ampul IH BID [facility] Allopurinol (Zyloprim) 100 mg PO QDAY [facility] Last Admin: 10/06/18 10:09 Dose: 100 mg Documented by: Amiodarone HCl (Cordarone) 200 mg PO BID [facility] Last Admin: 10/06/18 10:09 Dose: 200 mg Documented by: Apixaban (Eliquis) 5 mg PO BID [facility]; Protocol Last Admin: 10/06/18 10:09 Dose: 5 mg Documented by: Aspirin (Baby Aspirin) 81 mg PO QDAY [facility] Last Admin: 10/06/18 10:09 Dose: 81 mg Documented by: Digoxin (Lanoxin) 0.125 mg PO Q48H [facility] Last Admin: 10/05/18 22:39 Dose: 0.125 mg Documented by: Furosemide (Lasix) 40 mg IV 0600 [facility] Last Admin: 10/06/18 07:26 Dose: 40 mg Documented by: Hydromorphone HCl (Dilaudid) 0.5 mg IV Q3H PRN PRN Reason: Pain , Severe (7-10) Levofloxacin/Dextrose (Levaquin 750mg/150ml) 750 mg in 150 mls @ 100 mls/hr IV Q48H [facility]; Protocol Last Admin: 10/05/18 22:45 Dose: 100 mls/hr Documented by: Milrinone Lactate/Dextrose (Milrinone-D5w 20 Mg/100 Ml) 20 mg in 100 mls @ 11.88 mls/hr IV TITR SHANDA Insulin Human Lispro (Humalog) 0 unit SUB-Q ACHS [facility]; Protocol Magnesium Oxide (Mag-Ox) 400 mg PO BID [facility] Last Admin: 10/06/18 10:09 Dose: 400 mg Documented by: Methylprednisolone Sodium Succinate (Solu-Medrol) 40 mg IV Q8HR [facility] Last Admin: 10/06/18 13:52 Dose: 40 mg Documented by: Ondansetron HCl (Zofran) 4 mg IV Q8H PRN PRN Reason: Nausea And Vomiting Oxycodone/Acetaminophen (Percocet 5/325) 1 tab PO Q6H PRN PRN Reason: Pain, Moderate (4-6) Pantoprazole Sodium (Protonix) 40 mg PO QDAY [facility] Last Admin: 10/06/18 10:09 Dose: 40 mg Documented by: Potassium Chloride (K-Dur) 10 meq PO Q12HR [facility] Last Admin: 10/06/18 10:09 Dose: 10 meq Documented by: Sodium Chloride (Sodium Chloride Flush Syringe 10 Ml) 10 ml IV BID [facility] Last Admin: 10/06/18 10:10 Dose: 10 ml Documented by: Sodium Chloride (Sodium Chloride Flush Syringe 10 Ml) 10 ml IV PRN PRN PRN Reason: LINE FLUSH Review of Systems Constitutional: no weight loss, no weight gain, no fever, no chills Cardiovascular: orthopnea, edema, shortness of breath, dyspnea on exertion, high blood pressure, leg edema, decreased exercise tolerance, no chest pain, no palpitations, no syncope, no lightheadedness Respiratory: shortness of breath, dyspnea on exertion, no hemoptysis Gastrointestinal: no abdominal pain, no nausea, no vomiting, no diarrhea, no melena Genitourinary Male: no dysuria, no hematuria, no kidney stones Rectal: no bleeding Musculoskeletal: no hot joints Integumentary: no rash, no sores, no wounds Neurological: no paralysis, no change in mentation, no confusion, no memory loss Exam - Vital Signs Vital signs: Vital Signs Pulse Ox 95 10/05/18 12:18 - General Appearance General appearance: well-developed, well-nourished, appears stated age, other (some respiratory distress noted, ?life vest) EENT: ATNC, PERRL, hearing intact, vision intact Neck: Present: neck supple, trachea midline, JVD/HJR Respiratory: Decreased Breath Sounds Heart: S1S2, no murmurs Gastrointestinal: Present: normoactive bowel sounds. Absent: tenderness, distended Integumentary: no rash Neurologic: no focal deficit, no asterixis, alert and oriented x3 Musculoskeletal: Present: other (b/l LE edema noted) Psychiatric: cooperative Results - Lab Results 10/06/18 04:47 10/06/18 04:47 Most recent lab results Calcium 8.7 mg/dL (8.4-10.2) 10/06/18 04:47 - Image Kidney/bladder ultrasound: pending Assessment and Plan 1. Acute kidney injury: CORRIE superimposed on CKD stage 3 in the setting of decompensated CHF. Creatinine continue to increase. Intermittent hypotension noted. Urine studies and Renal US. Monitor renal function. Renal prognosis is guarded. Avoid nephrotoxic agents. Meds dosage based on GFR. 2. FEN: Volume overload, diuretics. 3. Decompensated CHF: Cards started on Milrinone drip. 4. DM with hyperglycemia. 5. A.fib. 6. Anemia: Present on admission.
[2018-10-06] MEDS: HumaLOG SUB-Q SCH (17:20)
[2018-10-07] MEDS ORDERED: LANTUS SUB-Q SCH ×2 (00:01→22:00)
[2018-10-07] MEDS: HumaLOG SUB-Q SCH ×6 (02:01→23:32)
[2018-10-07] MEDS: TESSALON PERLES PO PRN ×3 (04:17→21:07)
[2018-10-07] MEDS: DUONEB *Not for PRN Use IH SCH ×5 (04:20→21:17)
[2018-10-07 06:42] LABS: Calcium 9.3 mg/dL (8.4-10.2)
--- NOTE | 2018-10-07 07:08 | Progress Note ---
Assessment and Plan 1. Acute kidney injury: CORRIE superimposed on CKD stage 3 in the setting of decompensated CHF. Creatinine continue to increase. Intermittent hypotension noted. Urine studies pending. Renal US was negative for hydro. Monitor renal function. Renal prognosis is guarded. Avoid nephrotoxic agents. Meds dosage based on GFR. 2. FEN: Volume overload, diuretics. 3. Decompensated CHF: Milrinone drip. 4. DM with hyperglycemia. 5. A.fib. 6. Anemia: Present on admission. Subjective Date of service: 10/07/18 Interval history: Patient was seen and examined at the bedside. Still some sob. Objective - Vital Signs Vital signs: Vital Signs - 12hr 10/06/18 10/06/18 10/06/18 20:01 20:02 20:13 Temperature Pulse Rate Pulse Rate [ 47 L 52 L Anterior Bilateral] Respiratory Rate Respiratory 18 18 Rate [Anterior Bilateral] Blood Pressure O2 Sat by Pulse 100 Oximetry 10/06/18 10/07/18 21:15 03:16 Temperature 98.5 F 98.2 F Pulse Rate 102 H 99 H Pulse Rate [ Anterior Bilateral] Respiratory 20 20 Rate Respiratory Rate [Anterior Bilateral] Blood Pressure 102/69 102/73 O2 Sat by Pulse 95 94 Oximetry - General Appearance General appearance: well-developed, well-nourished, appears stated age, other (some sob on talking, life vest noted) EENT: ATNC, PERRL, hearing intact, vision intact Neck: JVD, supple Respiratory: Present: Rales Cardiology: irregularly irregular, S1S2, no murmurs Gastrointestinal: normoactive bowel sounds, no tenderness, no distended Integumentary: no rash Neurologic: no focal deficit, no asterixis, alert and oriented x3 Musculoskeletal: other (1+ edema of both LEs noted) Psychiatric: cooperative - Lab 10/06/18 04:47 10/07/18 06:04 Most recent lab results Calcium 9.3 mg/dL (8.4-10.2) 10/07/18 06:04 Phosphorus 3.80 mg/dL (2.5-4.5) 10/07/18 06:04 Magnesium 1.80 mg/dL (1.7-2.3) 10/07/18 06:04 Medications & Allergies - Medications Allergies/Adverse Reactions: Allergies No Known Allergies Allergy (Verified 03/03/17 09:44) Home Medications: Home Medications Medication Instructions Recorded Confirmed Last Taken Type Allopurinol [Zyloprim] 100 mg PO QDAY #30 tablet 08/02/18 10/05/18 09/21/18 09:00 Rx Amiodarone [Cordarone 200 MG TAB] 200 mg PO BID #60 tablet 08/02/18 10/05/18 09/21/18 21:00 Rx Apixaban [Eliquis] 5 mg PO BID #60 tablet 08/02/18 10/05/18 09/21/18 09:00 Rx Aspirin [Aspirin BABY CHEW TAB] 81 mg PO QDAY #30 tab.chew 08/02/18 10/05/18 09/21/18 09:00 Rx Bumetanide [Bumex 1 mg tab] 1 mg PO DAILY #30 tablet 08/02/18 10/05/18 09/21/18 Rx Pantoprazole [Protonix TAB] 40 mg PO QDAY #40 tablet 08/02/18 10/05/18 09/21/18 09:00 Rx Potassium Chloride [K-Dur] 10 meq PO Q12HR #60 tablet 08/02/18 10/05/18 09/21/18 Rx metOLazone [Metolazone] 5 mg PO DAILY #30 tablet 08/02/18 10/05/18 09/21/18 09:00 Rx Milrinone [Primacor] 20 mg IV QDAY #5 vial 09/21/18 10/05/18 09/22/18 08:00 Rx Digoxin [Digitek] 125 mcg PO Q48H #30 tablet 09/23/18 10/05/18 Unknown Rx Magnesium Oxide [Mag-Ox] 400 mg PO BID #14 tablet 09/23/18 10/05/18 Unknown Rx Active Medications: Generic Name Dose Route Start Last Admin Trade Name Freq PRN Reason Stop Dose Admin Acetaminophen 650 mg 10/05/18 21:56 Tylenol PO Q4H PRN Pain MILD(1-3)/Fever >100.5/NAYLOR Albuterol 2.5 mg 10/05/18 22:00 Proventil IH Q4HRT PRN Shortness Of Breath Albuterol/Ipratropium 1 ampul 10/06/18 22:00 10/07/18 04:20 Duoneb *Not For Prn Use* IH Not Given BID SHANDA Allopurinol 100 mg 10/05/18 22:00 10/06/18 10:09 Zyloprim PO 100 mg QDAY SHANDA Administration Amiodarone HCl 200 mg 10/05/18 22:00 10/06/18 23:12 Cordarone PO 200 mg BID SHANDA Administration Apixaban 5 mg 10/05/18 22:00 10/06/18 23:12 Eliquis PO 5 mg BID SHANDA Administration Protocol Aspirin 81 mg 10/06/18 10:00 10/06/18 10:09 Baby Aspirin PO 81 mg QDAY SHANDA Administration Benzonatate 200 mg 10/07/18 02:11 10/07/18 04:17 Tessalon Perles PO 200 mg Q6H PRN Administration Cough Digoxin 0.125 mg 10/05/18 22:00 10/05/18 22:39 Lanoxin PO 0.125 mg Q48H SHANDA Administration Furosemide 40 mg 10/06/18 06:00 10/06/18 07:26 Lasix IV 40 mg 0600 SHANDA Administration Hydromorphone HCl 0.5 mg 10/05/18 21:56 Dilaudid IV Q3H PRN Pain , Severe (7-10) Levofloxacin/Dextrose 750 mg in 150 mls @ 100 mls/hr 10/05/18 23:00 10/05/18 22:45 Levaquin 750mg/150ml IV 100 mls/hr Q48H SHANDA Administration Protocol Milrinone Lactate/Dextrose 20 mg in 100 mls @ 11.88 mls/hr 10/06/18 12:00 Milrinone-D5w 20 Mg/100 Ml IV TITR SHANDA 0.375 MCG/KG/MIN Insulin Glargine 10 units 10/07/18 00:01 10/07/18 02:03 Lantus SUB-Q 10 units QHS SHANDA Administration Insulin Human Lispro 0 unit 10/06/18 16:30 10/07/18 02:01 Humalog SUB-Q 3 unit ACHS SHANDA Administration Protocol Magnesium Oxide 400 mg 10/05/18 22:00 10/06/18 23:14 Mag-Ox PO 400 mg BID SHANDA Administration Methylprednisolone Sodium Succinate 40 mg 10/05/18 22:00 10/06/18 23:11 Solu-Medrol IV 40 mg Q8HR SHANDA Administration Ondansetron HCl 4 mg 10/05/18 21:56 Zofran IV Q8H PRN Nausea And Vomiting Oxycodone/Acetaminophen 1 tab 10/05/18 21:56 Percocet 5/325 PO Q6H PRN Pain, Moderate (4-6) Pantoprazole Sodium 40 mg 10/05/18 22:00 10/06/18 10:09 Protonix PO 40 mg QDAY SHANDA Administration Potassium Chloride 10 meq 10/05/18 22:00 10/06/18 23:13 K-Dur PO 10 meq Q12HR SHANDA Administration Sodium Chloride 10 ml 10/05/18 22:00 10/06/18 23:14 Sodium Chloride Flush Syringe 10 Ml IV 10 ml BID SHANDA Administration Sodium Chloride 10 ml 10/05/18 21:56 Sodium Chloride Flush Syringe 10 Ml IV PRN PRN LINE FLUSH
[2018-10-07] MEDS: SOLU-Medrol IV SCH ×3 (07:17→21:09)
[2018-10-07 07:24] LABS: Bilirubin,Urine NEG (Negative); Blood,Urine NEG (Negative); Color,Urine Yellow (Yellow); Protein,Urine <15 mg/dL mg/dL (Negative); Urobilinogen,Urine < 2.0 mg/dL (<2.0)
--- NOTE | 2018-10-07 08:34 | Progress Note ---
Assessment and Plan Acute on chronic systolic heart failure End-stage dilated nonischemic cardiomyopathy on IV milrinone EF 15-20% on echo 12/2017 no ischemia on MPI 12/2016 2015 [facility] at [place]: no significant CAD Chronic renal failure Presence of AICD Persistent Afib s/p KINGS guided cardioversion 11/2017 on eliquis for oral anticoagulation Hx of paroxysmal VF - on amiodarone and digoxin for rate control Hx of Anxiety disorder Continue medical therapy for chronic systolic heart failure including chronic milrinone therapy. Continue oral digoxin and amiodarone therapy for suppression of ventricular arrhythmias. Subjective Date of service: 10/07/18 Interval history: Patient appears short of breath when speaking. Objective Vital Signs Temp Pulse Pulse Resp Resp BP Pulse Ox 10/07/18 07:01 97.7 F 53 L 20 112/73 97 10/07/18 03:16 98.2 F 99 H 20 102/73 94 10/06/18 21:15 98.5 F 102 H 20 102/69 95 10/06/18 20:13 52 L 18 10/06/18 20:02 100 10/06/18 20:01 47 L 18 10/06/18 13:01 97.3 F L 101 H 20 102/68 97 10/06/18 12:12 98 10/06/18 10:00 100 H 10/06/18 09:23 98 10/06/18 09:06 109 H 183 H 10/06/18 08:56 108 H 19 - Physical Examination General: No Apparent Distress HEENT: Positive: PERRL Neck: Positive: trachea midline Cardiac: Positive: Other (paced) Lungs: Positive: Decreased Breath Sounds Neuro: Positive: Grossly Intact Extremities: Absent: edema - Labs and Meds Comprehensive Metabolic Panel 10/07/18 Range/Units 06:04 Sodium 130 L (137-145) mmol/L Potassium 4.3 (3.6-5.0) mmol/L Chloride 88.5 L (98-107) mmol/L Carbon Dioxide 23 (22-30) mmol/L BUN 67 H (9-20) mg/dL Creatinine 2.7 H (0.8-1.5) mg/dL Glucose 334 H (75-100) mg/dL Calcium 9.3 (8.4-10.2) mg/dL
--- NOTE | 2018-10-07 09:18 | Ultrasound Report ---
ULTRASOUND RENAL BILATERAL HISTORY: Acute renal failure. TECHNIQUE: transabdominal ultrasound with color Doppler interrogation. COMPARISON: 05/25/17. FINDINGS: The right kidney measures 8.4 x 5.1 x 5.4cm. Right renal cortex: 1.3cm. The left kidney measures 9.9 x 4.0 x 4.8cm. Left renal cortex: 1.4cm. The kidneys are normal size, contour and position. There is mild increased renal cortical echotexture bilaterally consistent with nonspecific renal parenchymal disease. Corticomedullary differentiation is preserved. A 1.2 cm simple cyst is noted at the inferior pole of the right kidney. No evidence for mass, nephrolithiasis, hydronephrosis or perinephric fluid. The views of the bladder and the region of the ureters appear normal. IMPRESSION: Slightly echogenic kidneys consistent with mild nonspecific renal parenchymal disease. The right kidney measures slightly atrophic on today's exam. Simple right renal cyst.
[2018-10-07] MEDS: PROTONIX PO SCH (11:19)
[2018-10-07] MEDS: CORDARONE PO SCH ×2 (11:20→21:06)
[2018-10-07] MEDS: MAG-OX PO SCH ×2 (11:20→21:04)
[2018-10-07 11:21] LABS: Creatinine,Urine 148.9 mg/dL (0.1-20.0); Protein/Creatinine Ratio,Urine 0.05
[2018-10-07] MEDS: ZYLOPRIM PO SCH (11:45)
[2018-10-07] MEDS: K-DUR PO SCH ×2 (11:45→21:04)
[2018-10-07] MEDS: BABY ASPIRIN PO SCH (11:45)
[2018-10-07] MEDS: ELIQUIS PO SCH ×2 (11:45→21:04)
[2018-10-07] MEDS: LASIX IV SCH (12:09)
--- NOTE | 2018-10-07 12:52 | Progress Note ---
<WANDA MILLER - Last Filed: 10/07/18 13:27> Assessment and Plan Assessment and plan: Assessment & Plan : 68-year-old -Citizen Of [place] male with history of CHF, Afib, COPD, hypertension, anxiety, and GERD presented to the ED on 10/05 with complaints of shortness of breath, cough, and wheezing 10 days. Patient has AICD present, on a request for anti-coagulation therapy. He has history of paroxysmal VF and is rate controlled on by mouth amiodarone and digoxin. At the time of examination patient is in bed, awake, alert and oriented 3. He remains on 2 L nasal cannula and milrinone drip. Acute exacerbation of CHF CXR on 10/05 showed cardiomegaly with no appreciation for significant changes since previous chest x-ray done on 09/22/18 EF of 15%- 20% on echo 12/2017 Status post [facility] at [place] 2015 Cardiology consulted and recommendations appreciated- per cardiology patient is deemed not a candidate for mechanical circulatory support or heart transplant due to medical non-compliance Continue milrinone drip to optimize cardiac function Continue supplemental oxygen prn Continue Lasix CORRIE Baseline BUN/Cr 26/1.5 on 08/10/18 BUN/ Cr on admission 39/21 BUN/ Cr on 10/06 49/2.6. Continue to monitor renal function Nephrology consulted and recommendations appreciated Renal US on 10/07 showed slight atrophy of right kidney and unrevealing for renal mass, nephrolithiasis, hydronephrosis or perinephric fluid AICD AICD present no evidence of discharge On Eliquis for anticoagulation Acute bronchitis CXR on 10/05 unrevealing for acute cardiopulmonary changes when compared to CXR on 09/22/18 On IV Levaquin Continue DuoNebs Continue systemic steroids History of GERD On Protonix Diabetes mellitus Hemoglobin A1C on admission 9.3 BG this am 334 Continue POC monitoring AC/HS and SSI coverage Increase Lantus to 30u Start Lispro 5u AC DVT prophylaxis On heparin History Interval history: 68-year-old -Citizen Of [place] male with history of CHF, Afib, COPD, hypertension, anxiety, and GERD presented to the ED on 10/05 with complaints of shortness of breath, cough, and wheezing 10 days. Patient has AICD present, on a Eliquis for anti-coagulation therapy. He has history of paroxysmal VF and is rate controlled with PO amiodarone and digoxin. Placed on supplemental oxygen and milrinone drip. Patient states that he feels like his symptoms are improving. There were no acute overnight events Hospitalist Physical - Constitutional Vitals: Temp Pulse Resp BP Pulse Ox 97.7 F 87 20 112/73 98 10/07/18 07:01 10/07/18 08:52 10/07/18 08:52 10/07/18 07:01 10/07/18 08:42 General appearance: Present: no acute distress - EENT Eyes: Present: PERRL ENT: hearing intact - Neck Neck: Present: supple - Respiratory Respiratory effort: other Respiratory: bilateral: diminished - Cardiovascular Rhythm: irregularly irregular Heart Sounds: Present: S1 & S2 - Extremities Extremities: pulses intact, pulses symmetrical, No edema Peripheral Pulses: within normal limits - Abdominal General gastrointestinal: soft, non-tender - Integumentary Integumentary: Present: warm, dry - Psychiatric Psychiatric: appropriate mood/affect, cooperative - Neurologic Neurologic: CNII-XII intact Results - Labs CBC & Chem 7: 10/06/18 04:47 10/07/18 06:04 Labs: Laboratory Last Values WBC 4.5 K/mm3 (4.5-11.0) 10/06/18 04:47 RBC 4.60 M/mm3 (3.65-5.03) 10/06/18 04:47 Hgb 10.4 gm/dl (11.8-15.2) L 10/06/18 04:47 Hct 33.7 % (35.5-45.6) L 10/06/18 04:47 MCV 73 fl (84-94) L 10/06/18 04:47 MCH 23 pg (28-32) L 10/06/18 04:47 MCHC 31 % (32-34) L 10/06/18 04:47 RDW 17.8 % (13.2-15.2) H 10/06/18 04:47 Plt Count 282 K/mm3 (140-440) 10/06/18 04:47 Lymph % (Auto) 17.4 % (13.4-35.0) 10/06/18 04:47 [place] % (Auto) 1.4 % (0.0-7.3) 10/06/18 04:47 Eos % (Auto) 0.0 % (0.0-4.3) 10/06/18 04:47 Baso % (Auto) 0.1 % (0.0-1.8) 10/06/18 04:47 Lymph # 0.8 K/mm3 (1.2-5.4) L 10/06/18 04:47 [place] # 0.1 K/mm3 (0.0-0.8) 10/06/18 04:47 Eos # 0.0 K/mm3 (0.0-0.4) 10/06/18 04:47 Baso # 0.0 K/mm3 (0.0-0.1) 10/06/18 04:47 Seg Neutrophils % 81.1 % (40.0-70.0) H 10/06/18 04:47 Seg Neutrophils # 3.6 K/mm3 (1.8-7.7) 10/06/18 04:47 PT 16.5 Sec. (12.2-14.9) H 10/05/18 11:25 INR 1.25 (0.87-1.13) H 10/05/18 11:25 APTT 35.8 Sec. (24.2-36.6) 10/05/18 11:25 D-Dimer 137.47 ng/mlDDU (0-234) 10/05/18 11:25 Sodium 130 mmol/L (137-145) L 10/07/18 06:04 Potassium 4.3 mmol/L (3.6-5.0) 10/07/18 06:04 Chloride 88.5 mmol/L (98-107) L 10/07/18 06:04 Carbon Dioxide 23 mmol/L (22-30) 10/07/18 06:04 Anion Gap 23 mmol/L 10/07/18 06:04 BUN 67 mg/dL (9-20) H 10/07/18 06:04 Creatinine 2.7 mg/dL (0.8-1.5) H 10/07/18 06:04 Estimated GFR 29 ml/min 10/07/18 06:04 BUN/Creatinine Ratio 25 % 10/07/18 06:04 Glucose 334 mg/dL (75-100) H 10/07/18 06:04 POC Glucose 353 (70-105) H 10/07/18 11:47 Hemoglobin A1c 9.3 % (4-6) H 10/05/18 11:25 Calcium 9.3 mg/dL (8.4-10.2) 10/07/18 06:04 Phosphorus 3.80 mg/dL (2.5-4.5) 10/07/18 06:04 Magnesium 1.80 mg/dL (1.7-2.3) 10/07/18 06:04 Total Bilirubin 0.90 mg/dL (0.1-1.2) 10/06/18 04:47 AST 15 units/L (5-40) 10/06/18 04:47 ALT 13 units/L (7-56) 10/06/18 04:47 Alkaline Phosphatase 56 units/L (35-129) 10/06/18 04:47 Troponin T 0.048 ng/mL (0.00-0.029) H 10/05/18 16:03 NT-Pro-B Natriuret Pep 3030 pg/mL (0-900) H 10/05/18 11:25 Total Protein 6.8 g/dL (6.3-8.2) 10/06/18 04:47 Albumin 3.7 g/dL (3.9-5) L 10/06/18 04:47 Albumin/Globulin Ratio 1.2 % 10/06/18 04:47 Triglycerides 83 mg/dL (2-149) 10/05/18 11:25 Cholesterol 100 mg/dL (50-199) 10/05/18 11:25 LDL Cholesterol Direct 64 mg/dL (50-130) 10/05/18 11:25 HDL Cholesterol 38 mg/dL (40-59) L 10/05/18 11:25 Cholesterol/HDL Ratio 2.63 % 10/05/18 11:25 Urine Color Yellow (Yellow) 10/07/18 Unknown Urine Turbidity Clear (Clear) 10/07/18 Unknown Urine pH 5.0 (5.0-7.0) 10/07/18 Unknown Ur Specific [place] 1.014 (1.003-1.030) 10/07/18 Unknown Urine Protein <15 mg/dl mg/dL (Negative) 10/07/18 Unknown Urine Glucose (UA) 50 mg/dL (Negative) 10/07/18 Unknown Urine Ketones Neg mg/dL (Negative) 10/07/18 Unknown Urine Blood Neg (Negative) 10/07/18 Unknown Urine Nitrite Neg (Negative) 10/07/18 Unknown Urine Bilirubin Neg (Negative) 10/07/18 Unknown Urine Urobilinogen < 2.0 mg/dL (<2.0) 10/07/18 Unknown Ur Leukocyte Esterase Neg (Negative) 10/07/18 Unknown Urine WBC (Auto) 2.0 /HPF (0.0-6.0) 10/07/18 Unknown Urine RBC (Auto) 1.0 /HPF (0.0-6.0) 10/07/18 Unknown U Epithel Cells (Auto) 3.0 /HPF (0-13.0) 10/07/18 Unknown Urine Creatinine 148.9 mg/dL (0.1-20.0) H 10/07/18 Unknown Protein/Creatinin Ratio 0.05 10/07/18 Unknown Urine Sodium 10 mmol/L 10/07/18 Unknown Urine Total Protein 8 mg/dL (5-11.8) 10/07/18 Unknown Digoxin 0.3 ng/mL (0.9-2.0) L 10/05/18 11:25 Active Medications - Current Medications Current Medications: Generic Name Dose Route Start Last Admin Trade Name Freq PRN Reason Stop Dose Admin Acetaminophen 650 mg 10/05/18 21:56 Tylenol PO Q4H PRN Pain MILD(1-3)/Fever >100.5/NAYLOR Albuterol 2.5 mg 10/05/18 22:00 Proventil IH Q4HRT PRN Shortness Of Breath Albuterol/Ipratropium 1 ampul 10/06/18 22:00 10/07/18 09:17 Duoneb *Not For Prn Use* IH Not Given BID SHANDA Allopurinol 100 mg 10/05/18 22:00 10/07/18 11:45 Zyloprim PO 100 mg QDAY SHANDA Administration Amiodarone HCl 200 mg 10/05/18 22:00 10/07/18 11:20 Cordarone PO 200 mg BID SHANDA Administration Apixaban 5 mg 10/05/18 22:00 10/07/18 11:45 Eliquis PO 5 mg BID SHANDA Administration Protocol Aspirin 81 mg 10/06/18 10:00 10/07/18 11:45 Baby Aspirin PO 81 mg QDAY SHANDA Administration Benzonatate 200 mg 10/07/18 02:11 10/07/18 04:17 Tessalon Perles PO 200 mg Q6H PRN Administration Cough Digoxin 0.125 mg 10/05/18 22:00 10/05/18 22:39 Lanoxin PO 0.125 mg Q48H SHANDA Administration Furosemide 40 mg 10/06/18 06:00 10/07/18 12:09 Lasix IV 40 mg 0600 SHANDA Administration Hydromorphone HCl 0.5 mg 10/05/18 21:56 Dilaudid IV Q3H PRN Pain , Severe (7-10) Levofloxacin/Dextrose 750 mg in 150 mls @ 100 mls/hr 10/05/18 23:00 10/05/18 22:45 Levaquin 750mg/150ml IV 10/08/18 01:00 100 mls/hr Q48H SHANDA Administration Protocol Milrinone Lactate/Dextrose 20 mg in 100 mls @ 11.88 mls/hr 10/06/18 12:00 Milrinone-D5w 20 Mg/100 Ml IV TITR SHANDA 0.375 MCG/KG/MIN Insulin Glargine 10 units 10/07/18 00:01 10/07/18 02:03 Lantus SUB-Q 10 units QHS SHANDA Administration Insulin Human Lispro 0 unit 10/06/18 16:30 10/07/18 02:01 Humalog SUB-Q 3 unit ACHS SHANDA Administration Protocol Levofloxacin 750 mg 10/09/18 22:00 Levaquin PO Q48HR@2200 SHANDA Magnesium Oxide 400 mg 10/05/18 22:00 10/07/18 11:20 Mag-Ox PO 400 mg BID SHANDA Administration Methylprednisolone Sodium Succinate 40 mg 10/05/18 22:00 10/06/18 23:11 Solu-Medrol IV 40 mg Q8HR SHANDA Administration Ondansetron HCl 4 mg 10/05/18 21:56 Zofran IV Q8H PRN Nausea And Vomiting Oxycodone/Acetaminophen 1 tab 10/05/18 21:56 Percocet 5/325 PO Q6H PRN Pain, Moderate (4-6) Pantoprazole Sodium 40 mg 10/05/18 22:00 10/07/18 11:19 Protonix PO 40 mg QDAY SHANDA Administration Potassium Chloride 10 meq 10/05/18 22:00 10/06/18 23:13 K-Dur PO 10 meq Q12HR SHANDA Administration Sodium Chloride 10 ml 10/05/18 22:00 10/06/18 23:14 Sodium Chloride Flush Syringe 10 Ml IV 10 ml BID SHANDA Administration Sodium Chloride 10 ml 10/05/18 21:56 Sodium Chloride Flush Syringe 10 Ml IV PRN PRN LINE FLUSH Nutrition/Malnutrition Assess - Dietary Evaluation Nutrition/Malnutrition Findings: Nutrition Notes Start: 10/06/18 10:22 Freq: Status: Active Protocol: Document 10/06/18 10:22 EB (Rec: 10/06/18 10:33 EB [id number]) Co-Sign 10/06/18 10:22 LP Nutrition Notes 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 fib Current Diet Cardiac/Consistent CHO Labs/Tests Reviewed Pertinent Medications Lasix, Solu-medrol Height 5 ft 8 in Weight 105.6 kg Usual Body Weight 104.326 kg [place] Body Weight (kg) 70.00 BMI 35.4 Intake Prior to Admission Good Weight Status Obese Subjective/Other Information Screened for MST. Pt finished breakfast at time of visit and consumed 100%. Per chart notes and pt report, pt consumes 100% of meals yesterday and the day before. No problems chewing or swallowing, and no instances of N/V. Percent of energy/protein needs met: 100%/100% Burn Absent Trauma Absent Current % PO Good (75-100%) #1 Nutrition Diagnosis No nutrition diagnosis at this time As Evidenced by Signs and Symptoms pt meeting 100% of lacy and pro needs Is patient on ventilator? No Is Patient Ambulatory and/or Out of Bed Yes REE-([facility]-ambulatory/OOB) [ 2347.150 NUTR.MSJOOB] Kcal/Kg value to use for calculation 19 Approximate Energy Requirements Using 2006 kcal/Kg Calculation Used for Recommendations Kcal/kg Additional Notes PRO: 0.6-0.8 g/day AdjBW of 87 .8 kg (53-70 g/day) Fluid: 1500 mL or per MD recommendations Nutrition Intervention Change Diet Order: Continue current diet Anticipated Discharge Needs: Consistent CHO/Cardiac diet Revisit per MD consult or patient Sign Off request: <CECI LUCIO M - Last Filed: 10/12/18 14:44> Assessment and Plan Assessment and plan: I saw and evaluated the patient. I agree with the findings and the plan of care as documented in the Nurse Practitioner's~note Hospitalist Physical - Constitutional Vitals: Temp Pulse Resp BP Pulse Ox 97.4 F L 54 L 20 122/57 100 10/11/18 13:14 10/11/18 13:14 10/11/18 13:14 10/11/18 13:14 10/11/18 13:14 Results - Labs CBC & Chem 7: 10/06/18 04:47 10/11/18 06:13 Labs: Laboratory Last Values WBC 4.5 K/mm3 (4.5-11.0) 10/06/18 04:47 RBC 4.60 M/mm3 (3.65-5.03) 10/06/18 04:47 Hgb 10.4 gm/dl (11.8-15.2) L 10/06/18 04:47 Hct 33.7 % (35.5-45.6) L 10/06/18 04:47 MCV 73 fl (84-94) L 10/06/18 04:47 MCH 23 pg (28-32) L 10/06/18 04:47 MCHC 31 % (32-34) L 10/06/18 04:47 RDW 17.8 % (13.2-15.2) H 10/06/18 04:47 Plt Count 282 K/mm3 (140-440) 10/06/18 04:47 Lymph % (Auto) 17.4 % (13.4-35.0) 10/06/18 04:47 [place] % (Auto) 1.4 % (0.0-7.3) 10/06/18 04:47 Eos % (Auto) 0.0 % (0.0-4.3) 10/06/18 04:47 Baso % (Auto) 0.1 % (0.0-1.8) 10/06/18 04:47 Lymph # 0.8 K/mm3 (1.2-5.4) L 10/06/18 04:47 [place] # 0.1 K/mm3 (0.0-0.8) 10/06/18 04:47 Eos # 0.0 K/mm3 (0.0-0.4) 10/06/18 04:47 Baso # 0.0 K/mm3 (0.0-0.1) 10/06/18 04:47 Seg Neutrophils % 81.1 % (40.0-70.0) H 10/06/18 04:47 Seg Neutrophils # 3.6 K/mm3 (1.8-7.7) 10/06/18 04:47 PT 16.5 Sec. (12.2-14.9) H 10/05/18 11:25 INR 1.25 (0.87-1.13) H 10/05/18 11:25 APTT 35.8 Sec. (24.2-36.6) 10/05/18 11:25 D-Dimer 137.47 ng/mlDDU (0-234) 10/05/18 11:25 Sodium 142 mmol/L (137-145) 10/11/18 06:13 Potassium 4.0 mmol/L (3.6-5.0) 10/11/18 06:13 Chloride 97.3 mmol/L (98-107) L 10/11/18 06:13 Carbon Dioxide 29 mmol/L (22-30) 10/11/18 06:13 Anion Gap 20 mmol/L 10/11/18 06:13 BUN 70 mg/dL (9-20) H 10/11/18 06:13 Creatinine 2.3 mg/dL (0.8-1.5) H 10/11/18 06:13 Estimated GFR 34 ml/min 10/11/18 06:13 BUN/Creatinine Ratio 30 % 10/11/18 06:13 Glucose 123 mg/dL (75-100) H 10/11/18 06:13 POC Glucose 243 (70-105) H 10/11/18 11:30 Hemoglobin A1c 9.3 % (4-6) H 10/05/18 11:25 Calcium 10.1 mg/dL (8.4-10.2) 10/11/18 06:13 Phosphorus 3.80 mg/dL (2.5-4.5) 10/07/18 06:04 Magnesium 2.40 mg/dL (1.7-2.3) H 10/10/18 04:55 Total Bilirubin 0.90 mg/dL (0.1-1.2) 10/06/18 04:47 AST 15 units/L (5-40) 10/06/18 04:47 ALT 13 units/L (7-56) 10/06/18 04:47 Alkaline Phosphatase 56 units/L (35-129) 10/06/18 04:47 Troponin T 0.048 ng/mL (0.00-0.029) H 10/05/18 16:03 NT-Pro-B Natriuret Pep 3030 pg/mL (0-900) H 10/05/18 11:25 Total Protein 6.8 g/dL (6.3-8.2) 10/06/18 04:47 Albumin 3.7 g/dL (3.9-5) L 10/06/18 04:47 Albumin/Globulin Ratio 1.2 % 10/06/18 04:47 Triglycerides 83 mg/dL (2-149) 10/05/18 11:25 Cholesterol 100 mg/dL (50-199) 10/05/18 11:25 LDL Cholesterol Direct 64 mg/dL (50-130) 10/05/18 11:25 HDL Cholesterol 38 mg/dL (40-59) L 10/05/18 11:25 Cholesterol/HDL Ratio 2.63 % 10/05/18 11:25 PTH Intact 133.2 pg/mL (15-65) H 10/10/18 04:55 Urine Color Yellow (Yellow) 10/07/18 Unknown Urine Turbidity Clear (Clear) 10/07/18 Unknown Urine pH 5.0 (5.0-7.0) 10/07/18 Unknown Ur Specific [place] 1.014 (1.003-1.030) 10/07/18 Unknown Urine Protein <15 mg/dl mg/dL (Negative) 10/07/18 Unknown Urine Glucose (UA) 50 mg/dL (Negative) 10/07/18 Unknown Urine Ketones Neg mg/dL (Negative) 10/07/18 Unknown Urine Blood Neg (Negative) 10/07/18 Unknown Urine Nitrite Neg (Negative) 10/07/18 Unknown Urine Bilirubin Neg (Negative) 10/07/18 Unknown Urine Urobilinogen < 2.0 mg/dL (<2.0) 10/07/18 Unknown Ur Leukocyte Esterase Neg (Negative) 10/07/18 Unknown Urine WBC (Auto) 2.0 /HPF (0.0-6.0) 10/07/18 Unknown Urine RBC (Auto) 1.0 /HPF (0.0-6.0) 10/07/18 Unknown U Epithel Cells (Auto) 3.0 /HPF (0-13.0) 10/07/18 Unknown Urine Creatinine 148.9 mg/dL (0.1-20.0) H 10/07/18 Unknown Protein/Creatinin Ratio 0.05 10/07/18 Unknown Urine Sodium 10 mmol/L 10/07/18 Unknown Urine Total Protein 8 mg/dL (5-11.8) 10/07/18 Unknown Digoxin 0.3 ng/mL (0.9-2.0) L 10/05/18 11:25 Nutrition/Malnutrition Assess - Dietary Evaluation Nutrition/Malnutrition Findings: Nutrition Notes Start: 10/06/18 10:22 Freq: Status: Discharge Protocol: Document 10/06/18 10:22 EB (Rec: 10/06/18 10:33 EB [id number]) Co-Sign 10/06/18 10:22 LP Nutrition Notes 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 fib Current Diet Cardiac/Consistent CHO Labs/Tests Reviewed Pertinent Medications Heather Galindou-medanthony Height 5 ft 8 in Weight 105.6 kg Usual Body Weight 104.326 kg [place] Body Weight (kg) 70.00 BMI 35.4 Intake Prior to Admission Good Weight Status Obese Subjective/Other Information Screened for MST. Pt finished breakfast at time of visit and consumed 100%. Per chart notes and pt report, pt consumes 100% of meals yesterday and the day before. No problems chewing or swallowing, and no instances of N/V. Percent of energy/protein needs met: 100%/100% Burn Absent Trauma Absent Current % PO Good (75-100%) #1 Nutrition Diagnosis No nutrition diagnosis at this time As Evidenced by Signs and Symptoms pt meeting 100% of lacy and pro needs Is patient on ventilator? No Is Patient Ambulatory and/or Out of Bed Yes REE-([facility]-ambulatory/OOB) [ 2347.150 NUTR.MSJOOB] Kcal/Kg value to use for calculation 19 Approximate Energy Requirements Using 2006 kcal/Kg Calculation Used for Recommendations Kcal/kg Additional Notes PRO: 0.6-0.8 g/day AdjBW of 87 .8 kg (53-70 g/day) Fluid: 1500 mL or per MD recommendations Nutrition Intervention Change Diet Order: Continue current diet Anticipated Discharge Needs: Consistent CHO/Cardiac diet Revisit per MD consult or patient Sign Off request:
[2018-10-07] MEDS: SODIUM CHLORIDE FLUSH SYRINGE 10 ML IV SCH ×2 (13:08→21:10)
[2018-10-07] MEDS: PERCOCET 5/325 PO PRN (21:05)
--- NOTE | 2018-10-07 22:43 | Progress Note ---
Assessment and Plan Acute on chronic systolic heart failure End-stage dilated nonischemic cardiomyopathy on IV milrinone - Continue medical therapy for chronic systolic heart failure including chronic milrinone therapy. Maximize medical therapy as blood pressure will allow gentle diuresis to maintain volume status as best is possible EF 15-20% on echo 12/2017 no ischemia on MPI 12/2016 [facility] [place]: no significant CAD Chronic renal failure Presence of AICD Persistent Afib - Continue oral digoxin and amiodarone therapy s/p KINGS guided cardioversion 11/2017 on eliquis for oral anticoagulation Hx of paroxysmal VF - on amiodarone. Keep K>4 and Mg>2 Hx of Anxiety disorder Subjective Date of service: 10/08/18 Interval history: No acute events. resting comfortably. No chest pain or SOB. Objective Vital Signs Temp Pulse Pulse Resp Resp BP BP 10/07/18 21:23 104 H 18 10/07/18 21:18 106 H 18 10/07/18 19:56 98.3 F 20 115/67 10/07/18 13:00 97.4 F L 50 L 20 114/72 10/07/18 08:52 87 20 10/07/18 08:42 105 H 20 10/07/18 07:01 97.7 F 53 L 20 112/73 10/07/18 03:16 98.2 F 99 H 20 102/73 Pulse Ox 10/07/18 21:23 10/07/18 21:18 100 10/07/18 19:56 10/07/18 13:00 94 10/07/18 08:52 10/07/18 08:42 98 10/07/18 07:01 97 10/07/18 03:16 94 - Physical Examination General: No Apparent Distress HEENT: Positive: PERRL Neck: Positive: trachea midline Neuro: Positive: Grossly Intact Extremities: Absent: edema - Labs and Meds Comprehensive Metabolic Panel 10/07/18 Range/Units 06:04 Sodium 130 L (137-145) mmol/L Potassium 4.3 (3.6-5.0) mmol/L Chloride 88.5 L (98-107) mmol/L Carbon Dioxide 23 (22-30) mmol/L BUN 67 H (9-20) mg/dL Creatinine 2.7 H (0.8-1.5) mg/dL Glucose 334 H (75-100) mg/dL Calcium 9.3 (8.4-10.2) mg/dL - Imaging and Cardiology EKG: report reviewed (ventricular paced complexes 107/m)
[2018-10-07] MEDS: LEVAQUIN 750MG/150ML 750 MG/150 ML BAG IV SCH (23:07)
[2018-10-07] MEDS: LANOXIN PO SCH (23:07)
[2018-10-08] MEDS: TESSALON PERLES PO PRN ×2 (03:31→22:52)
[2018-10-08] MEDS: PERCOCET 5/325 PO PRN (03:31)
[2018-10-08 05:43] LABS: Calcium 9.4 mg/dL (8.4-10.2)
[2018-10-08] MEDS: SOLU-Medrol IV SCH ×3 (05:54→22:52)
[2018-10-08] MEDS: LASIX IV SCH (05:56)
--- NOTE | 2018-10-08 07:46 | Progress Note ---
Assessment and Plan Assessment and plan: 68-year-old -[place] male with history of CHF, Afib, COPD, hypertension, anxiety, and GERD presented to the ED on 10/05 with complaints of shortness of breath, cough, and wheezing 10 days. Patient has AICD present, on eliquis for anti-coagulation therapy. He has history of paroxysmal VF and is rate controlled on by mouth amiodarone and digoxin. Acute exacerbation of CHF -Ejection fraction 15-20% -AICD in place -Patient is on milrinone drip -Cardiology was consulted and recommended hospice care Acute on chronic renal failure, cardiorenal syndrome - Nephrology is following the patient - Creatinine this morning was 2.9 - Prognosis is guarded A. fib - Continue eliquis Acute bronchitis - Continue breathing treatments, oxygen support, by mouth Levaquin History of GERD On Protonix Diabetes mellitus - Continue sliding scale insulin, Lantus, Accu-Chek, adjust insulin as needed DVT prophylaxis - On eliquis Disposition - I have discussed with the patient about hospice and he declined. History Interval history: Patient was seen and evaluated this morning, nursing issues reported to me. Patient still has cough and SOB. Hospitalist Physical - Physical exam Narrative exam: Not in cardiopulmonary distress. The patient is obese. Vital signs as documented. Head exam is unremarkable. No scleral icterus . Neck is without jugular venous distension, thyromegaly, or carotid bruits. Lungs are clear to auscultation. Cardiac exam reveals regular rate and Rhythm. Abdominal exam reveals normal bowel sounds. Extremities minimal pedal and pretibial edema. 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 No focal weakness. - Constitutional Vitals: Temp Pulse Resp BP Pulse Ox 98.3 F 92 H 20 101/56 99 10/08/18 02:44 10/08/18 02:45 10/08/18 02:44 10/08/18 02:44 10/08/18 02:45 General appearance: Present: no acute distress Results - Labs CBC & Chem 7: 10/06/18 04:47 10/08/18 05:01 Labs: Laboratory Last Values WBC 4.5 K/mm3 (4.5-11.0) 10/06/18 04:47 RBC 4.60 M/mm3 (3.65-5.03) 10/06/18 04:47 Hgb 10.4 gm/dl (11.8-15.2) L 10/06/18 04:47 Hct 33.7 % (35.5-45.6) L 10/06/18 04:47 MCV 73 fl (84-94) L 10/06/18 04:47 MCH 23 pg (28-32) L 10/06/18 04:47 MCHC 31 % (32-34) L 10/06/18 04:47 RDW 17.8 % (13.2-15.2) H 10/06/18 04:47 Plt Count 282 K/mm3 (140-440) 10/06/18 04:47 Lymph % (Auto) 17.4 % (13.4-35.0) 10/06/18 04:47 [place] % (Auto) 1.4 % (0.0-7.3) 10/06/18 04:47 Eos % (Auto) 0.0 % (0.0-4.3) 10/06/18 04:47 Baso % (Auto) 0.1 % (0.0-1.8) 10/06/18 04:47 Lymph # 0.8 K/mm3 (1.2-5.4) L 10/06/18 04:47 [place] # 0.1 K/mm3 (0.0-0.8) 10/06/18 04:47 Eos # 0.0 K/mm3 (0.0-0.4) 10/06/18 04:47 Baso # 0.0 K/mm3 (0.0-0.1) 10/06/18 04:47 Seg Neutrophils % 81.1 % (40.0-70.0) H 10/06/18 04:47 Seg Neutrophils # 3.6 K/mm3 (1.8-7.7) 10/06/18 04:47 PT 16.5 Sec. (12.2-14.9) H 10/05/18 11:25 INR 1.25 (0.87-1.13) H 10/05/18 11:25 APTT 35.8 Sec. (24.2-36.6) 10/05/18 11:25 D-Dimer 137.47 ng/mlDDU (0-234) 10/05/18 11:25 Sodium 126 mmol/L (137-145) L 10/08/18 05:01 Potassium 4.1 mmol/L (3.6-5.0) 10/08/18 05:01 Chloride 87.1 mmol/L (98-107) L 10/08/18 05:01 Carbon Dioxide 24 mmol/L (22-30) 10/08/18 05:01 Anion Gap 19 mmol/L 10/08/18 05:01 BUN 78 mg/dL (9-20) H 10/08/18 05:01 Creatinine 2.9 mg/dL (0.8-1.5) H 10/08/18 05:01 Estimated GFR 26 ml/min 10/08/18 05:01 BUN/Creatinine Ratio 27 % 10/08/18 05:01 Glucose 346 mg/dL (75-100) H 10/08/18 05:01 POC Glucose 453 (70-105) H 10/07/18 22:08 Hemoglobin A1c 9.3 % (4-6) H 10/05/18 11:25 Calcium 9.4 mg/dL (8.4-10.2) 10/08/18 05:01 Phosphorus 3.80 mg/dL (2.5-4.5) 10/07/18 06:04 Magnesium 1.80 mg/dL (1.7-2.3) 10/07/18 06:04 Total Bilirubin 0.90 mg/dL (0.1-1.2) 10/06/18 04:47 AST 15 units/L (5-40) 10/06/18 04:47 ALT 13 units/L (7-56) 10/06/18 04:47 Alkaline Phosphatase 56 units/L (35-129) 10/06/18 04:47 Troponin T 0.048 ng/mL (0.00-0.029) H 10/05/18 16:03 NT-Pro-B Natriuret Pep 3030 pg/mL (0-900) H 10/05/18 11:25 Total Protein 6.8 g/dL (6.3-8.2) 10/06/18 04:47 Albumin 3.7 g/dL (3.9-5) L 10/06/18 04:47 Albumin/Globulin Ratio 1.2 % 10/06/18 04:47 Triglycerides 83 mg/dL (2-149) 10/05/18 11:25 Cholesterol 100 mg/dL (50-199) 10/05/18 11:25 LDL Cholesterol Direct 64 mg/dL (50-130) 10/05/18 11:25 HDL Cholesterol 38 mg/dL (40-59) L 10/05/18 11:25 Cholesterol/HDL Ratio 2.63 % 10/05/18 11:25 Urine Color Yellow (Yellow) 10/07/18 Unknown Urine Turbidity Clear (Clear) 10/07/18 Unknown Urine pH 5.0 (5.0-7.0) 10/07/18 Unknown Ur Specific [place] 1.014 (1.003-1.030) 10/07/18 Unknown Urine Protein <15 mg/dl mg/dL (Negative) 10/07/18 Unknown Urine Glucose (UA) 50 mg/dL (Negative) 10/07/18 Unknown Urine Ketones Neg mg/dL (Negative) 10/07/18 Unknown Urine Blood Neg (Negative) 10/07/18 Unknown Urine Nitrite Neg (Negative) 10/07/18 Unknown Urine Bilirubin Neg (Negative) 10/07/18 Unknown Urine Urobilinogen < 2.0 mg/dL (<2.0) 10/07/18 Unknown Ur Leukocyte Esterase Neg (Negative) 10/07/18 Unknown Urine WBC (Auto) 2.0 /HPF (0.0-6.0) 10/07/18 Unknown Urine RBC (Auto) 1.0 /HPF (0.0-6.0) 10/07/18 Unknown U Epithel Cells (Auto) 3.0 /HPF (0-13.0) 10/07/18 Unknown Urine Creatinine 148.9 mg/dL (0.1-20.0) H 10/07/18 Unknown Protein/Creatinin Ratio 0.05 10/07/18 Unknown Urine Sodium 10 mmol/L 10/07/18 Unknown Urine Total Protein 8 mg/dL (5-11.8) 10/07/18 Unknown Digoxin 0.3 ng/mL (0.9-2.0) L 10/05/18 11:25 Active Medications - Current Medications Current Medications: Generic Name Dose Route Start Last Admin Trade Name Freq PRN Reason Stop Dose Admin Acetaminophen 650 mg 10/05/18 21:56 Tylenol PO Q4H PRN Pain MILD(1-3)/Fever >100.5/NAYLOR Albuterol 2.5 mg 10/05/18 22:00 Proventil IH Q4HRT PRN Shortness Of Breath Albuterol/Ipratropium 1 ampul 10/06/18 22:00 10/07/18 21:17 Duoneb *Not For Prn Use* IH 1 ampul BID SHANDA Administration Allopurinol 100 mg 10/05/18 22:00 10/07/18 11:45 Zyloprim PO 100 mg QDAY SHANDA Administration Amiodarone HCl 200 mg 10/05/18 22:00 10/07/18 21:06 Cordarone PO 200 mg BID SHANDA Administration Apixaban 5 mg 10/05/18 22:00 10/07/18 21:04 Eliquis PO 5 mg BID SHANDA Administration Protocol Aspirin 81 mg 10/06/18 10:00 10/07/18 11:45 Baby Aspirin PO 81 mg QDAY SHANDA Administration Benzonatate 200 mg 10/07/18 02:11 10/08/18 03:31 Tessalon Perles PO 200 mg Q6H PRN Administration Cough Digoxin 0.125 mg 10/05/18 22:00 10/07/18 23:07 Lanoxin PO 0.125 mg Q48H SHANDA Administration Furosemide 40 mg 10/06/18 06:00 10/08/18 05:56 Lasix IV Not Given 0600 [facility] Hydromorphone HCl 0.5 mg 10/05/18 21:56 Dilaudid IV Q3H PRN Pain , Severe (7-10) Milrinone Lactate/Dextrose 20 mg in 100 mls @ 11.88 mls/hr 10/06/18 12:00 Milrinone-D5w 20 Mg/100 Ml IV TITR SHANDA 0.375 MCG/KG/MIN Insulin Glargine 30 units 10/07/18 22:00 10/07/18 23:33 Lantus SUB-Q 30 units QHS SHANDA Administration Insulin Human Lispro 0 unit 10/06/18 16:30 10/07/18 23:32 Humalog SUB-Q 5 unit ACHS SHANDA Administration Protocol Insulin Human Lispro 5 unit 10/07/18 16:30 10/07/18 18:00 Humalog SUB-Q 5 unit AC SHANDA Administration Levofloxacin 750 mg 10/09/18 22:00 Levaquin PO Q48HR@2200 SHANDA Magnesium Oxide 400 mg 10/05/18 22:00 10/07/18 21:04 Mag-Ox PO 400 mg BID SHANDA Administration Methylprednisolone Sodium Succinate 40 mg 10/05/18 22:00 10/08/18 05:54 Solu-Medrol IV 40 mg Q8HR SHANDA Administration Ondansetron HCl 4 mg 10/05/18 21:56 Zofran IV Q8H PRN Nausea And Vomiting Oxycodone/Acetaminophen 1 tab 10/05/18 21:56 10/08/18 03:31 Percocet 5/325 PO 1 tab Q6H PRN Administration Pain, Moderate (4-6) Pantoprazole Sodium 40 mg 10/05/18 22:00 10/07/18 11:19 Protonix PO 40 mg QDAY SHANDA Administration Potassium Chloride 10 meq 10/05/18 22:00 10/07/18 21:04 K-Dur PO 10 meq Q12HR SHANDA Administration Sodium Chloride 10 ml 10/05/18 22:00 10/07/18 21:10 Sodium Chloride Flush Syringe 10 Ml IV 10 ml BID SHANDA Administration Sodium Chloride 10 ml 10/05/18 21:56 Sodium Chloride Flush Syringe 10 Ml IV PRN PRN LINE FLUSH Nutrition/Malnutrition Assess - Dietary Evaluation Nutrition/Malnutrition Findings: Nutrition Notes Start: 10/06/18 10:22 Freq: Status: Active Protocol: Document 10/06/18 10:22 EB (Rec: 10/06/18 10:33 [id number]) Co-Sign 10/06/18 10:22 LP Nutrition Notes 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 fib Current Diet Cardiac/Consistent CHO Labs/Tests Reviewed Pertinent Medications Lasix, Solu-medrol Height 5 ft 8 in Weight 105.6 kg Usual Body Weight 104.326 kg [place] Body Weight (kg) 70.00 BMI 35.4 Intake Prior to Admission Good Weight Status Obese Subjective/Other Information Screened for MST. Pt finished breakfast at time of visit and consumed 100%. Per chart notes and pt report, pt consumes 100% of meals yesterday and the day before. No problems chewing or swallowing, and no instances of N/V. Percent of energy/protein needs met: 100%/100% Burn Absent Trauma Absent Current % PO Good (75-100%) #1 Nutrition Diagnosis No nutrition diagnosis at this time As Evidenced by Signs and Symptoms pt meeting 100% of lacy and pro needs Is patient on ventilator? No Is Patient Ambulatory and/or Out of Bed Yes REE-([place]. or-ambulatory/OOB) [ 2347.150 [id number]] Kcal/Kg value to use for calculation 19 Approximate Energy Requirements Using 2005 kcal/Kg Calculation Used for Recommendations Kcal/kg Additional Notes PRO: 0.6-0.8 g/day AdjBW of 87 .8 kg (53-70 g/day) Fluid: 1500 mL or per MD recommendations Nutrition Intervention Change Diet Order: Continue current diet Anticipated Discharge Needs: Consistent CHO/Cardiac diet Revisit per MD consult or patient Sign Off request:
[2018-10-08] MEDS: HumaLOG SUB-Q SCH ×6 (08:45→17:41)
[2018-10-08] MEDS: DUONEB *Not for PRN Use IH SCH ×4 (08:49→21:09)
[2018-10-08] MEDS: SODIUM CHLORIDE FLUSH SYRINGE 10 ML IV SCH ×2 (09:30→22:53)
[2018-10-08] MEDS: ZYLOPRIM PO SCH (09:30)
[2018-10-08] MEDS: PROTONIX PO SCH (09:31)
[2018-10-08] MEDS: MAG-OX PO SCH ×2 (09:31→22:52)
[2018-10-08] MEDS: CORDARONE PO SCH ×2 (09:31→22:52)
[2018-10-08] MEDS: K-DUR PO SCH ×2 (09:32→22:52)
[2018-10-08] MEDS: ELIQUIS PO SCH ×2 (09:32→22:52)
[2018-10-08] MEDS: BABY ASPIRIN PO SCH (09:32)
--- NOTE | 2018-10-08 12:00 | Progress Note ---
Assessment and Plan 1. Acute kidney injury: CORRIE superimposed on CKD stage 3 in the setting of decompensated CHF. Creatinine continue to increase. Intermittent hypotension noted. Renal US was negative for hydro. Monitor renal function. Renal prognosis is guarded. Avoid nephrotoxic agents. Meds dosage based on GFR. 2. FEN: Hyponatremia, one dose of Tolvaptan. Volume overload, diuretics. 3. Decompensated CHF: On Milrinone drip. 4. DM with hyperglycemia. 5. A.fib. 6. Anemia: Present on admission. Also d/w her daughter at the bedside. Subjective Date of service: 10/08/18 Interval history: Patient was seen and examined at the bedside. Pt c/o orthopnea. Objective - Vital Signs Vital signs: Vital Signs - 12hr 10/08/18 10/08/18 10/08/18 02:44 02:45 08:08 Temperature 98.3 F 97.1 F L Pulse Rate 76 92 H 95 H Pulse Rate [ Anterior Bilateral] Respiratory 20 21 Rate Respiratory Rate [Anterior Bilateral] Blood Pressure 101/56 126/80 O2 Sat by Pulse 85 99 95 Oximetry 10/08/18 10/08/18 08:49 09:00 Temperature Pulse Rate Pulse Rate [ 101 H 101 H Anterior Bilateral] Respiratory Rate Respiratory 20 20 Rate [Anterior Bilateral] Blood Pressure O2 Sat by Pulse 95 Oximetry - General Appearance General appearance: well-developed, well-nourished, appears stated age, other (not in distress) EENT: ATNC, PERRL, hearing intact, vision intact Neck: JVD, supple Respiratory: Present: Rales Cardiology: irregular, S1S2, no murmurs Gastrointestinal: normoactive bowel sounds, no tenderness, no distended Integumentary: no rash Neurologic: no focal deficit, no asterixis, alert and oriented x3 Musculoskeletal: other (trace LE edema noted) Psychiatric: cooperative - Lab 10/06/18 04:47 10/08/18 20:50 Most recent lab results Calcium 9.4 mg/dL (8.4-10.2) 10/08/18 05:01 Phosphorus 3.80 mg/dL (2.5-4.5) 10/07/18 06:04 Magnesium 1.80 mg/dL (1.7-2.3) 10/07/18 06:04 Urine Creatinine 148.9 mg/dL (0.1-20.0) H 10/07/18 Unknown Urine Sodium 10 mmol/L 10/07/18 Unknown Urine Total Protein 8 mg/dL (5-11.8) 10/07/18 Unknown Medications & Allergies - Medications Allergies/Adverse Reactions: Allergies No Known Allergies Allergy (Verified 03/03/17 09:44) Home Medications: Home Medications Medication Instructions Recorded Confirmed Last Taken Type Allopurinol [Zyloprim] 100 mg PO QDAY #30 tablet 08/02/18 10/05/18 09/21/18 09:00 Rx Amiodarone [Cordarone 200 MG TAB] 200 mg PO BID #60 tablet 08/02/18 10/05/18 09/21/18 21:00 Rx Apixaban [Eliquis] 5 mg PO BID #60 tablet 08/02/18 10/05/18 09/21/18 09:00 Rx Aspirin [Aspirin BABY CHEW TAB] 81 mg PO QDAY #30 tab.chew 08/02/18 10/05/18 09/21/18 09:00 Rx Bumetanide [Bumex 1 mg tab] 1 mg PO DAILY #30 tablet 08/02/18 10/05/18 09/21/18 Rx Pantoprazole [Protonix TAB] 40 mg PO QDAY #40 tablet 08/02/18 10/05/18 09/21/18 09:00 Rx Potassium Chloride [K-Dur] 10 meq PO Q12HR #60 tablet 08/02/18 10/05/18 09/21/18 Rx metOLazone [Metolazone] 5 mg PO DAILY #30 tablet 08/02/18 10/05/18 09/21/18 09:00 Rx Milrinone [Primacor] 20 mg IV QDAY #5 vial 09/21/18 10/05/18 09/22/18 08:00 Rx Digoxin [Digitek] 125 mcg PO Q48H #30 tablet 09/23/18 10/05/18 Unknown Rx Magnesium Oxide [Mag-Ox] 400 mg PO BID #14 tablet 09/23/18 10/05/18 Unknown Rx Active Medications: Generic Name Dose Route Start Last Admin Trade Name Freq PRN Reason Stop Dose Admin Acetaminophen 650 mg 10/05/18 21:56 Tylenol PO Q4H PRN Pain MILD(1-3)/Fever >100.5/NAYLOR Albuterol 2.5 mg 10/05/18 22:00 Proventil IH Q4HRT PRN Shortness Of Breath Albuterol/Ipratropium 1 ampul 10/06/18 22:00 10/08/18 10:58 Duoneb *Not For Prn Use* IH Not Given BID SHANDA Allopurinol 100 mg 10/05/18 22:00 10/08/18 09:30 Zyloprim PO 100 mg QDAY SHANDA Administration Amiodarone HCl 200 mg 10/05/18 22:00 10/08/18 09:31 Cordarone PO 200 mg BID SHANDA Administration Apixaban 5 mg 10/05/18 22:00 10/08/18 09:32 Eliquis PO 5 mg BID [facility] Administration Protocol Aspirin 81 mg 10/06/18 10:00 10/08/18 09:32 Baby Aspirin PO 81 mg QDAY SHANDA Administration Benzonatate 200 mg 10/07/18 02:11 10/08/18 03:31 Tessalon Perles PO 200 mg Q6H PRN Administration Cough Digoxin 0.125 mg 10/05/18 22:00 10/07/18 23:07 Lanoxin PO 0.125 mg Q48H SHANDA Administration Furosemide 40 mg 10/06/18 06:00 10/08/18 05:56 Lasix IV Not Given 0600 [facility] Hydromorphone HCl 0.5 mg 10/05/18 21:56 Dilaudid IV Q3H PRN Pain , Severe (7-10) Milrinone Lactate/Dextrose 20 mg in 100 mls @ 11.88 mls/hr 10/06/18 12:00 Milrinone-D5w 20 Mg/100 Ml IV TITR SHANDA 0.375 MCG/KG/MIN Insulin Glargine 30 units 10/07/18 22:00 10/07/18 23:33 Lantus SUB-Q 30 units QHS SHANDA Administration Insulin Human Lispro 0 unit 10/06/18 16:30 10/08/18 08:45 Humalog SUB-Q 4 unit ACHS [facility] Administration Protocol Insulin Human Lispro 5 unit 10/07/18 16:30 10/08/18 08:45 Humalog SUB-Q 5 unit AC [facility] Administration Levofloxacin 750 mg 10/09/18 22:00 Levaquin PO Q48HR@2200 SHANDA Magnesium Oxide 400 mg 10/05/18 22:00 10/08/18 09:31 Mag-Ox PO 400 mg BID SHANDA Administration Methylprednisolone Sodium Succinate 40 mg 10/05/18 22:00 10/08/18 05:54 Solu-Medrol IV 40 mg Q8HR SHANDA Administration Ondansetron HCl 4 mg 10/05/18 21:56 Zofran IV Q8H PRN Nausea And Vomiting Oxycodone/Acetaminophen 1 tab 10/05/18 21:56 10/08/18 03:31 Percocet 5/325 PO 1 tab Q6H PRN Administration Pain, Moderate (4-6) Pantoprazole Sodium 40 mg 10/05/18 22:00 10/08/18 09:31 Protonix PO 40 mg QDAY SHANDA Administration Potassium Chloride 10 meq 10/05/18 22:00 10/08/18 09:32 K-Dur PO 10 meq Q12HR SHANDA Administration Sodium Chloride 10 ml 10/05/18 22:00 10/08/18 09:30 Sodium Chloride Flush Syringe 10 Ml IV 10 ml BID SHANDA Administration Sodium Chloride 10 ml 10/05/18 21:56 Sodium Chloride Flush Syringe 10 Ml IV PRN PRN LINE FLUSH
[2018-10-08] MEDS ORDERED: SAMSCA PO ONE (13:00)
[2018-10-08] MEDS ORDERED: HumaLOG SUB-Q SCH (20:00)
[2018-10-08 21:22] LABS: Calcium 9.6 mg/dL (8.4-10.2)
[2018-10-08] MEDS ORDERED: LANTUS SUB-Q SCH (22:00)
--- NOTE | 2018-10-09 01:30 | Progress Note ---
Assessment and Plan Acute on chronic systolic heart failure - continue current medical therapy as ordered. Volume removal via dialysis. End-stage dilated nonischemic cardiomyopathy on IV milrinone - Continue medical therapy for chronic systolic heart failure including chronic milrinone therapy. Maximize medical therapy as blood pressure will allow gentle diuresis to maintain volume status as best is possible EF 15-20% on echo 12/2017 no ischemia on MPI 12/2016 [facility] at [place]: no significant CAD Chronic renal failure Presence of AICD Persistent Afib - Continue oral digoxin and amiodarone therapy s/p [place] guided cardioversion 11/2017 on eliquis for oral anticoagulation Hx of paroxysmal VF - on amiodarone. Keep K>4 and Mg>2 Hx of Anxiety disorder Subjective Date of service: 10/09/18 Interval history: No acute events. resting comfortably. No chest pain or SOB. Objective Vital Signs Temp Pulse Pulse Resp Resp BP Pulse Ox 10/08/18 19:48 97.3 F L 55 L 102 H 20 20 124/75 94 10/08/18 19:42 100 H 20 100 10/08/18 14:07 98.2 F 103 H 20 123/75 96 10/08/18 09:00 101 H 20 10/08/18 08:49 101 H 20 95 10/08/18 08:08 97.1 F L 95 H 21 126/80 95 10/08/18 02:45 92 H 99 10/08/18 02:44 98.3 F 76 20 101/56 85 - Physical Examination General: No Apparent Distress HEENT: Positive: PERRL Neck: Positive: trachea midline Neuro: Positive: Grossly Intact Extremities: Absent: edema - Labs and Meds Comprehensive Metabolic Panel 10/08/18 10/08/18 Range/Units 05:01 20:50 Sodium 126 L 129 L (137-145) mmol/L Potassium 4.1 3.9 (3.6-5.0) mmol/L Chloride 87.1 L 87.7 L (98-107) mmol/L Carbon Dioxide 24 25 (22-30) mmol/L BUN 78 H 83 H (9-20) mg/dL Creatinine 2.9 H 2.8 H (0.8-1.5) mg/dL Glucose 346 H 197 H (75-100) mg/dL Calcium 9.4 9.6 (8.4-10.2) mg/dL - Imaging and Cardiology EKG: report reviewed (ventricular paced complexes 107/m)
[2018-10-09] MEDS: LASIX IV SCH (05:54)
[2018-10-09] MEDS: SOLU-Medrol IV SCH (05:54)
[2018-10-09 07:12] LABS: Calcium 9.1 mg/dL (8.4-10.2)
[2018-10-09] MEDS ORDERED: HumaLOG SUB-Q SCH (07:30)
[2018-10-09] MEDS: SODIUM CHLORIDE FLUSH SYRINGE 10 ML IV SCH ×2 (09:12→22:07)
[2018-10-09] MEDS: K-DUR PO SCH ×2 (09:13→21:52)
[2018-10-09] MEDS: MAG-OX PO SCH ×2 (09:13→21:52)
[2018-10-09] MEDS: CORDARONE PO SCH ×2 (09:13→21:52)
[2018-10-09] MEDS: ZYLOPRIM PO SCH (09:13)
[2018-10-09] MEDS: PROTONIX PO SCH (09:13)
[2018-10-09] MEDS: BABY ASPIRIN PO SCH (09:13)
[2018-10-09] MEDS: ELIQUIS PO SCH ×2 (09:13→21:52)
--- NOTE | 2018-10-09 09:22 | Progress Note ---
Assessment and Plan 1. Acute kidney injury: CORRIE superimposed on CKD stage 3 in the setting of decompensated CHF. Creatinine level plateaued. Intermittent hypotension noted. Renal US was negative for hydro. Monitor renal function. Renal prognosis is guarded. Avoid nephrotoxic agents. Meds dosage based on GFR. 2. FEN: Hyponatremia, received a dose of Tolvaptan yesterday. Volume overload, diuretics. Monitor lytes. 3. Decompensated CHF: On Milrinone drip. 4. DM with hyperglycemia. 5. A.fib. 6. Anemia: Present on admission. Also d/w her daughter at the bedside. Subjective Date of service: 10/09/18 Interval history: Patient was seen and examined at the bedside. Doing ok. Objective - Vital Signs Vital signs: Vital Signs - 12hr 10/08/18 10/09/18 10/09/18 22:00 02:19 02:58 Temperature 98.0 F Pulse Rate 94 H 57 L Respiratory 20 20 Rate Respiratory Rate [Chest] Blood Pressure 108/71 O2 Sat by Pulse 94 95 Oximetry 10/09/18 10/09/18 10/09/18 03:30 07:12 07:29 Temperature 98.2 F Pulse Rate 99 H 98 H Respiratory 21 20 Rate Respiratory 20 Rate [Chest] Blood Pressure 114/77 118/71 O2 Sat by Pulse 99 100 Oximetry - General Appearance General appearance: well-developed, well-nourished, appears stated age, other (not in distress, life vest) EENT: ATNC, hearing intact, vision intact Neck: supple Respiratory: Present: Rales Cardiology: S1S2, no murmurs Gastrointestinal: normoactive bowel sounds, no tenderness, no distended Integumentary: no rash Neurologic: no focal deficit, no asterixis, alert and oriented x3 Musculoskeletal: other (trace LE edema noted) - Lab 10/06/18 04:47 10/09/18 05:55 Most recent lab results Calcium 9.1 mg/dL (8.4-10.2) 10/09/18 05:55 Phosphorus 3.80 mg/dL (2.5-4.5) 10/07/18 06:04 Magnesium 1.80 mg/dL (1.7-2.3) 10/07/18 06:04 Urine Creatinine 148.9 mg/dL (0.1-20.0) H 10/07/18 Unknown Urine Sodium 10 mmol/L 10/07/18 Unknown Urine Total Protein 8 mg/dL (5-11.8) 10/07/18 Unknown Medications & Allergies - Medications Allergies/Adverse Reactions: Allergies No Known Allergies Allergy (Verified 03/03/17 09:44) Home Medications: Home Medications Medication Instructions Recorded Confirmed Last Taken Type Allopurinol [Zyloprim] 100 mg PO QDAY #30 tablet 08/02/18 10/05/18 09/21/18 09:00 Rx Amiodarone [Cordarone 200 MG TAB] 200 mg PO BID #60 tablet 08/02/18 10/05/18 09/21/18 21:00 Rx Apixaban [Eliquis] 5 mg PO BID #60 tablet 08/02/18 10/05/18 09/21/18 09:00 Rx Aspirin [Aspirin BABY CHEW TAB] 81 mg PO QDAY #30 tab.chew 08/02/18 10/05/18 09/21/18 09:00 Rx Bumetanide [Bumex 1 mg tab] 1 mg PO DAILY #30 tablet 08/02/18 10/05/18 09/21/18 Rx Pantoprazole [Protonix TAB] 40 mg PO QDAY #40 tablet 08/02/18 10/05/18 09/21/18 09:00 Rx Potassium Chloride [K-Dur] 10 meq PO Q12HR #60 tablet 08/02/18 10/05/18 09/21/18 Rx metOLazone [Metolazone] 5 mg PO DAILY #30 tablet 08/02/18 10/05/18 09/21/18 09:00 Rx Milrinone [Primacor] 20 mg IV QDAY #5 vial 09/21/18 10/05/18 09/22/18 08:00 Rx Digoxin [Digitek] 125 mcg PO Q48H #30 tablet 09/23/18 10/05/18 Unknown Rx Magnesium Oxide [Mag-Ox] 400 mg PO BID #14 tablet 09/23/18 10/05/18 Unknown Rx Active Medications: Generic Name Dose Route Start Last Admin Trade Name Freq PRN Reason Stop Dose Admin Acetaminophen 650 mg 10/05/18 21:56 Tylenol PO Q4H PRN Pain MILD(1-3)/Fever >100.5/NAYLOR Albuterol 2.5 mg 04/10/19 22:00 Proventil IH Q4HRT PRN Shortness Of Breath Albuterol/Ipratropium 1 ampul 10/06/18 22:00 10/08/18 21:09 Duoneb *Not For Prn Use* IH Not Given BID SHANDA Allopurinol 100 mg 10/05/18 22:00 10/09/18 09:13 Zyloprim PO 100 mg QDAY SHANDA Administration Amiodarone HCl 200 mg 10/05/18 22:00 10/09/18 09:13 Cordarone PO 200 mg BID SHANDA Administration Apixaban 5 mg 10/05/18 22:00 10/09/18 09:13 Eliquis PO 5 mg BID [facility] Administration Protocol Aspirin 81 mg 10/06/18 10:00 10/09/18 09:13 Baby Aspirin PO 81 mg QDAY SHANDA Administration Benzonatate 200 mg 10/07/18 02:11 10/08/18 22:52 Tessalon Perles PO 200 mg Q6H PRN Administration Cough Digoxin 0.125 mg 10/05/18 22:00 10/07/18 23:07 Lanoxin PO 0.125 mg Q48H SHANDA Administration Furosemide 40 mg 10/06/18 06:00 10/09/18 05:54 Lasix IV 40 mg 0600 [facility] Administration Hydromorphone HCl 0.5 mg 10/05/18 21:56 Dilaudid IV Q3H PRN Pain , Severe (7-10) Milrinone Lactate/Dextrose 20 mg in 100 mls @ 11.88 mls/hr 10/06/18 12:00 Milrinone-D5w 20 Mg/100 Ml IV TITR SHANDA 0.375 MCG/KG/MIN Insulin Glargine 25 units 10/09/18 10:00 Lantus SUB-Q BID [facility] Insulin Human Lispro 0 unit 10/09/18 11:30 Humalog SUB-Q ACHS [facility] Protocol Levofloxacin 750 mg 10/09/18 22:00 Levaquin PO Q48HR@2200 SHANDA Magnesium Oxide 400 mg 10/05/18 22:00 10/09/18 09:13 Mag-Ox PO 400 mg BID SHANDA Administration Ondansetron HCl 4 mg 10/05/18 21:56 Zofran IV Q8H PRN Nausea And Vomiting Oxycodone/Acetaminophen 1 tab 10/05/18 21:56 10/08/18 03:31 Percocet 5/325 PO 1 tab Q6H PRN Administration Pain, Moderate (4-6) Pantoprazole Sodium 40 mg 10/05/18 22:00 10/09/18 09:13 Protonix PO 40 mg QDAY SHANDA Administration Potassium Chloride 10 meq 10/05/18 22:00 10/09/18 09:13 K-Dur PO 10 meq Q12HR SHANDA Administration Sodium Chloride 10 ml 10/05/18 22:00 10/09/18 09:12 Sodium Chloride Flush Syringe 10 Ml IV 10 ml BID SHANDA Administration Sodium Chloride 10 ml 10/05/18 21:56 Sodium Chloride Flush Syringe 10 Ml IV PRN PRN LINE FLUSH
[2018-10-09] MEDS: DUONEB *Not for PRN Use IH SCH ×3 (10:38→21:02)
[2018-10-09] MEDS: HumaLOG SUB-Q SCH ×3 (11:49→22:02)
[2018-10-09] MEDS: LANTUS SUB-Q SCH ×2 (11:50→22:02)
--- NOTE | 2018-10-09 14:10 | Progress Note ---
Assessment and Plan Assessment and plan: Acute on chronic systolic heart failure with of 15-20% -s/p AICD placement. -Patient is on chronic milrinone therapy via pump and IV Lasix. Not on BB due to labile blood pressure. Not on ACEI due to renal failure -Cardiology recommended hospice care Acute on CKD stage 3, probably cardiorenal syndrome - No significant change, creatinine level today is 2.9 - Nephrology is following A. fib - Heart rate uncontrolled on amiodarone and digoxin - Continue eliquis Acute bronchitis - Improved - will d/c steroid - Continue oral levofloxacin to complete for 5 doses History of GERD - On Protonix DM2 with hyperglycemia -On Lantus and SSI, adjust as needed Hyponatremia -On oral fluid restriction, will monitor sodium level Disposition: Patient's overall prognosis is very poor. Hospice care recommended but patient refused. For discharge when clinically stable. History Interval history: Patient has no new complaints. His shortness of breath has improved. He denies chest pain. Hospitalist Physical - Constitutional Vitals: Temp Pulse Resp BP Pulse Ox 98.2 F 65 20 118/71 99 10/09/18 07:12 10/09/18 10:48 10/09/18 10:48 10/09/18 07:29 10/09/18 10:38 General appearance: Present: no acute distress - EENT Eyes: Present: PERRL, EOM intact - Neck Neck: Present: supple - Respiratory Respiratory effort: normal Respiratory: bilateral: CTA - Cardiovascular Rhythm: regular Heart Sounds: Present: S1 & S2 - Extremities Extremity abnormal: edema (in BLE) - Abdominal General gastrointestinal: soft, non-tender, non-distended, normal bowel sounds - Integumentary Integumentary: Present: clear, warm, dry - Neurologic Neurologic: CNII-XII intact Results - Labs CBC & Chem 7: 10/06/18 04:47 10/09/18 05:55 Labs: Laboratory Last Values WBC 4.5 K/mm3 (4.5-11.0) 10/06/18 04:47 RBC 4.60 M/mm3 (3.65-5.03) 10/06/18 04:47 Hgb 10.4 gm/dl (11.8-15.2) L 10/06/18 04:47 Hct 33.7 % (35.5-45.6) L 10/06/18 04:47 MCV 73 fl (84-94) L 10/06/18 04:47 MCH 23 pg (28-32) L 10/06/18 04:47 MCHC 31 % (32-34) L 10/06/18 04:47 RDW 17.8 % (13.2-15.2) H 10/06/18 04:47 Plt Count 282 K/mm3 (140-440) 10/06/18 04:47 Lymph % (Auto) 17.4 % (13.4-35.0) 10/06/18 04:47 [place] % (Auto) 1.4 % (0.0-7.3) 10/06/18 04:47 Eos % (Auto) 0.0 % (0.0-4.3) 10/06/18 04:47 Baso % (Auto) 0.1 % (0.0-1.8) 10/06/18 04:47 Lymph # 0.8 K/mm3 (1.2-5.4) L 10/06/18 04:47 [place] # 0.1 K/mm3 (0.0-0.8) 10/06/18 04:47 Eos # 0.0 K/mm3 (0.0-0.4) 10/06/18 04:47 Baso # 0.0 K/mm3 (0.0-0.1) 10/06/18 04:47 Seg Neutrophils % 81.1 % (40.0-70.0) H 10/06/18 04:47 Seg Neutrophils # 3.6 K/mm3 (1.8-7.7) 10/06/18 04:47 PT 16.5 Sec. (12.2-14.9) H 10/05/18 11:25 INR 1.25 (0.87-1.13) H 10/05/18 11:25 APTT 35.8 Sec. (24.2-36.6) 10/05/18 11:25 D-Dimer 137.47 ng/mlDDU (0-234) 10/05/18 11:25 Sodium 130 mmol/L (137-145) L 10/09/18 05:55 Potassium 4.3 mmol/L (3.6-5.0) 10/09/18 05:55 Chloride 89.1 mmol/L (98-107) L 10/09/18 05:55 Carbon Dioxide 25 mmol/L (22-30) 10/09/18 05:55 Anion Gap 20 mmol/L 10/09/18 05:55 BUN 84 mg/dL (9-20) H 10/09/18 05:55 Creatinine 2.9 mg/dL (0.8-1.5) H 10/09/18 05:55 Estimated GFR 26 ml/min 10/09/18 05:55 BUN/Creatinine Ratio 29 % 10/09/18 05:55 Glucose 313 mg/dL (75-100) H 10/09/18 05:55 POC Glucose 271 (70-105) H 10/09/18 11:27 Hemoglobin A1c 9.3 % (4-6) H 10/05/18 11:25 Calcium 9.1 mg/dL (8.4-10.2) 10/09/18 05:55 Phosphorus 3.80 mg/dL (2.5-4.5) 10/07/18 06:04 Magnesium 1.80 mg/dL (1.7-2.3) 10/07/18 06:04 Total Bilirubin 0.90 mg/dL (0.1-1.2) 10/06/18 04:47 AST 15 units/L (5-40) 10/06/18 04:47 ALT 13 units/L (7-56) 10/06/18 04:47 Alkaline Phosphatase 56 units/L (35-129) 10/06/18 04:47 Troponin T 0.048 ng/mL (0.00-0.029) H 10/05/18 16:03 NT-Pro-B Natriuret Pep 3030 pg/mL (0-900) H 10/05/18 11:25 Total Protein 6.8 g/dL (6.3-8.2) 10/06/18 04:47 Albumin 3.7 g/dL (3.9-5) L 10/06/18 04:47 Albumin/Globulin Ratio 1.2 % 10/06/18 04:47 Triglycerides 83 mg/dL (2-149) 10/05/18 11:25 Cholesterol 100 mg/dL (50-199) 10/05/18 11:25 LDL Cholesterol Direct 64 mg/dL (50-130) 10/05/18 11:25 HDL Cholesterol 38 mg/dL (40-59) L 10/05/18 11:25 Cholesterol/HDL Ratio 2.63 % 10/05/18 11:25 Urine Color Yellow (Yellow) 10/07/18 Unknown Urine Turbidity Clear (Clear) 10/07/18 Unknown Urine pH 5.0 (5.0-7.0) 10/07/18 Unknown Ur Specific [place] 1.014 (1.003-1.030) 10/07/18 Unknown Urine Protein <15 mg/dl mg/dL (Negative) 10/07/18 Unknown Urine Glucose (UA) 50 mg/dL (Negative) 10/07/18 Unknown Urine Ketones Neg mg/dL (Negative) 10/07/18 Unknown Urine Blood Neg (Negative) 10/07/18 Unknown Urine Nitrite Neg (Negative) 10/07/18 Unknown Urine Bilirubin Neg (Negative) 10/07/18 Unknown Urine Urobilinogen < 2.0 mg/dL (<2.0) 10/07/18 Unknown Ur Leukocyte Esterase Neg (Negative) 10/07/18 Unknown Urine WBC (Auto) 2.0 /HPF (0.0-6.0) 10/07/18 Unknown Urine RBC (Auto) 1.0 /HPF (0.0-6.0) 10/07/18 Unknown U Epithel Cells (Auto) 3.0 /HPF (0-13.0) 10/07/18 Unknown Urine Creatinine 148.9 mg/dL (0.1-20.0) H 10/07/18 Unknown Protein/Creatinin Ratio 0.05 10/07/18 Unknown Urine Sodium 10 mmol/L 10/07/18 Unknown Urine Total Protein 8 mg/dL (5-11.8) 10/07/18 Unknown Digoxin 0.3 ng/mL (0.9-2.0) L 10/05/18 11:25 Active Medications - Current Medications Current Medications: Generic Name Dose Route Start Last Admin Trade Name Freq PRN Reason Stop Dose Admin Acetaminophen 650 mg 10/05/18 21:56 Tylenol PO Q4H PRN Pain MILD(1-3)/Fever >100.5/NAYLOR Albuterol 2.5 mg 10/05/18 22:00 Proventil IH Q4HRT PRN Shortness Of Breath Albuterol/Ipratropium 1 ampul 10/06/18 22:00 10/09/18 10:38 Duoneb *Not For Prn Use* IH 1 ampul BID SHANDA Administration Allopurinol 100 mg 10/05/18 22:00 10/09/18 09:13 Zyloprim PO 100 mg QDAY SHANDA Administration Amiodarone HCl 200 mg 10/05/18 22:00 10/09/18 09:13 Cordarone PO 200 mg BID SHANDA Administration Apixaban 5 mg 10/05/18 22:00 10/09/18 09:13 Eliquis PO 5 mg BID SHANDA Administration Protocol Aspirin 81 mg 10/06/18 10:00 10/09/18 09:13 Baby Aspirin PO 81 mg QDAY SHANDA Administration Benzonatate 200 mg 10/07/18 02:11 10/08/18 22:52 Tessalon Perles PO 200 mg Q6H PRN Administration Cough Digoxin 0.125 mg 10/05/18 22:00 10/07/18 23:07 Lanoxin PO 0.125 mg Q48H SHANDA Administration Furosemide 40 mg 10/06/18 06:00 10/09/18 05:54 Lasix IV 40 mg 0600 SHANDA Administration Hydromorphone HCl 0.5 mg 10/05/18 21:56 Dilaudid IV Q3H PRN Pain , Severe (7-10) Milrinone Lactate/Dextrose 20 mg in 100 mls @ 11.88 mls/hr 10/06/18 12:00 Milrinone-D5w 20 Mg/100 Ml IV TITR SHANDA 0.375 MCG/KG/MIN Insulin Glargine 25 units 10/09/18 10:00 10/09/18 11:50 Lantus SUB-Q 25 units BID SHANDA Administration Insulin Human Lispro 0 unit 10/09/18 11:30 10/09/18 11:49 Humalog SUB-Q 4 unit ACHS SHANDA Administration Protocol Levofloxacin 750 mg 10/09/18 22:00 Levaquin PO Q48HR@2200 SHANDA Magnesium Oxide 400 mg 10/05/18 22:00 10/09/18 09:13 Mag-Ox PO 400 mg BID SHANDA Administration Ondansetron HCl 4 mg 10/05/18 21:56 Zofran IV Q8H PRN Nausea And Vomiting Oxycodone/Acetaminophen 1 tab 10/05/18 21:56 10/08/18 03:31 Percocet 5/325 PO 1 tab Q6H PRN Administration Pain, Moderate (4-6) Pantoprazole Sodium 40 mg 10/05/18 22:00 10/09/18 09:13 Protonix PO 40 mg QDAY SHANDA Administration Potassium Chloride 10 meq 10/05/18 22:00 10/09/18 09:13 K-Dur PO 10 meq Q12HR SHANDA Administration Sodium Chloride 10 ml 10/05/18 22:00 10/09/18 09:12 Sodium Chloride Flush Syringe 10 Ml IV 10 ml BID SHANDA Administration Sodium Chloride 10 ml 10/05/18 21:56 Sodium Chloride Flush Syringe 10 Ml IV PRN PRN LINE FLUSH Nutrition/Malnutrition Assess - Dietary Evaluation Nutrition/Malnutrition Findings: Nutrition Notes Start: 10/06/18 10:22 Freq: Status: Active Protocol: Document 10/06/18 10:22 EB (Rec: 10/06/18 10:33 EB [id number]) Co-Sign 10/06/18 10:22 LP Nutrition Notes 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 fib Current Diet Cardiac/Consistent CHO Labs/Tests Reviewed Pertinent Medications Lasix, Solu-medrol Height 5 ft 8 in Weight 105.6 kg Usual Body Weight 104.326 kg [place] Body Weight (kg) 70.00 BMI 35.4 Intake Prior to Admission Good Weight Status Obese Subjective/Other Information Screened for MST. Pt finished breakfast at time of visit and consumed 100%. Per chart notes and pt report, pt consumes 100% of meals yesterday and the day before. No problems chewing or swallowing, and no instances of N/V. Percent of energy/protein needs met: 100%/100% Burn Absent Trauma Absent Current % PO Good (75-100%) #1 Nutrition Diagnosis No nutrition diagnosis at this time As Evidenced by Signs and Symptoms pt meeting 100% of lacy and pro needs Is patient on ventilator? No Is Patient Ambulatory and/or Out of Bed Yes REE-([place]-St. Jeor-ambulatory/OOB) [ 2347.150 [id number]] Kcal/Kg value to use for calculation 19 Approximate Energy Requirements Using 2006 kcal/Kg Calculation Used for Recommendations Kcal/kg Additional Notes PRO: 0.6-0.8 g/day AdjBW of 87 .8 kg (53-70 g/day) Fluid: 1500 mL or per MD recommendations Nutrition Intervention Change Diet Order: Continue current diet Anticipated Discharge Needs: Consistent CHO/Cardiac diet Revisit per MD consult or patient Sign Off request:
[2018-10-09] MEDS ORDERED: LEVAQUIN PO SCH (22:00)
[2018-10-09] MEDS: LANOXIN PO SCH (22:03)
[2018-10-09] MEDS: TESSALON PERLES PO PRN (22:07)
[2018-10-10] MEDS: TESSALON PERLES PO PRN (05:27)
[2018-10-10] MEDS: LASIX IV SCH (05:27)
[2018-10-10 06:56] LABS: Calcium 9.5 mg/dL (8.4-10.2)
[2018-10-10] MEDS: DUONEB *Not for PRN Use IH SCH ×4 (07:34→22:00)
[2018-10-10] MEDS: HumaLOG SUB-Q SCH ×4 (08:06→22:48)
--- NOTE | 2018-10-10 08:32 | Progress Note ---
Assessment and Plan Acute on chronic systolic heart failure End-stage dilated nonischemic cardiomyopathy on IV milrinone EF 15-20% on echo 12/2017 no ischemia on MPI 12/2016 [facility] at [place]: no significant CAD Chronic hypotension (not on beta blockers or WU inhibitors) Chronic renal failure Presence of AICD Persistent Afib s/p KINGS guided cardioversion 11/2017 on eliquis for oral anticoagulation Hx of paroxysmal VF - on amiodarone and digoxin for rate control Hx of Anxiety disorder Patient is not on beta blockers or afterload reduction agents due to chronic hypotension. Continue medical therapy for chronic systolic heart failure including chronic milrinone therapy as tolerated. Continue oral digoxin and amiodarone therapy for suppression of ventricular arrhythmias. Otherwise, conservative cardiac management. Subjective Date of service: 10/10/18 Interval history: Patient reports his breathing is better. Objective Vital Signs Temp Pulse Pulse Resp Resp Resp BP 10/10/18 07:52 73 20 10/10/18 07:34 53 L 18 10/10/18 04:37 96 H 10/10/18 02:12 99 H 10/10/18 02:11 97.6 F 52 L 20 98/65 10/09/18 23:00 20 10/09/18 22:05 10/09/18 22:03 98 H 92/68 10/09/18 22:00 20 10/09/18 19:46 98.8 F 98 H 20 92/68 10/09/18 14:21 98.2 F 63 200 H 10/09/18 10:48 65 20 10/09/18 10:38 67 20 10/09/18 10:00 120 H BP Pulse Ox 10/10/18 07:52 10/10/18 07:34 94 10/10/18 04:37 10/10/18 02:12 96 10/10/18 02:11 96 10/09/18 23:00 10/09/18 22:05 96 10/09/18 22:03 10/09/18 22:00 98 10/09/18 19:46 98 10/09/18 14:21 111/70 93 10/09/18 10:48 10/09/18 10:38 99 10/09/18 10:00 - Physical Examination General: No Apparent Distress HEENT: Positive: PERRL Neck: Positive: trachea midline Cardiac: Positive: Other (paced) Lungs: Positive: Decreased Breath Sounds Neuro: Positive: Grossly Intact Extremities: Absent: edema - Labs and Meds Comprehensive Metabolic Panel 10/10/18 Range/Units 04:55 Sodium 136 L (137-145) mmol/L Potassium 4.0 (3.6-5.0) mmol/L Chloride 95.1 L (98-107) mmol/L Carbon Dioxide 28 (22-30) mmol/L BUN 82 H (9-20) mg/dL Creatinine 2.6 H (0.8-1.5) mg/dL Glucose 226 H (75-100) mg/dL Calcium 9.5 (8.4-10.2) mg/dL
--- NOTE | 2018-10-10 08:37 | Progress Note ---
Assessment and Plan 1. Acute kidney injury: CORRIE superimposed on CKD stage 3 in the setting of decompensated CHF. Intermittent hypotension noted. Renal US was negative for hydro. Renal function is improving. Monitor renal function. Renal prognosis is guarded. Avoid nephrotoxic agents. Meds dosage based on GFR. 2. FEN: Hyponatremia, improving. Volume overload, diuretics. Monitor lytes. 3. Decompensated CHF: Was on Milrinone drip. 4. DM with hyperglycemia. 5. A.fib. 6. Anemia: Present on admission. Subjective Date of service: 10/10/18 Interval history: Patient was seen and examined at the bedside. Doing ok. Objective - Vital Signs Vital signs: Vital Signs - 12hr 10/09/18 10/09/18 10/09/18 22:00 22:03 22:05 Temperature Pulse Rate 98 H Pulse Rate [ Anterior Bilateral] Respiratory 20 Rate Respiratory Rate [Anterior Bilateral] Respiratory Rate [Chest] Blood Pressure 92/68 O2 Sat by Pulse 98 96 Oximetry 10/09/18 10/10/18 10/10/18 23:00 02:11 02:12 Temperature 97.6 F Pulse Rate 52 L 99 H Pulse Rate [ Anterior Bilateral] Respiratory 20 Rate Respiratory Rate [Anterior Bilateral] Respiratory 20 Rate [Chest] Blood Pressure 98/65 O2 Sat by Pulse 96 96 Oximetry 10/10/18 10/10/18 10/10/18 04:37 07:34 07:52 Temperature Pulse Rate 96 H Pulse Rate [ 53 L 73 Anterior Bilateral] Respiratory Rate Respiratory 18 20 Rate [Anterior Bilateral] Respiratory Rate [Chest] Blood Pressure O2 Sat by Pulse 94 Oximetry - General Appearance General appearance: well-developed, well-nourished, appears stated age, other (not in distress, life vest noted) EENT: ATNC, PERRL Neck: supple Respiratory: Present: [place] Cardiology: S1S2, no murmurs Gastrointestinal: normoactive bowel sounds Integumentary: no rash, warm and dry Neurologic: no focal deficit, no asterixis Musculoskeletal: other (trace LE edema noted) - Lab 10/06/18 04:47 10/11/18 06:13 Most recent lab results Calcium 9.5 mg/dL (8.4-10.2) 10/10/18 04:55 Phosphorus 3.80 mg/dL (2.5-4.5) 10/07/18 06:04 Magnesium 2.40 mg/dL (1.7-2.3) H 10/10/18 04:55 Urine Creatinine 148.9 mg/dL (0.1-20.0) H 10/07/18 Unknown Urine Sodium 10 mmol/L 10/07/18 Unknown Urine Total Protein 8 mg/dL (5-11.8) 10/07/18 Unknown Medications & Allergies - Medications Allergies/Adverse Reactions: Allergies No Known Allergies Allergy (Verified 03/03/17 09:44) Home Medications: Home Medications Medication Instructions Recorded Confirmed Last Taken Type Allopurinol [Zyloprim] 100 mg PO QDAY #30 tablet 08/02/18 10/05/18 09/21/18 09:00 Rx Amiodarone [Cordarone 200 MG TAB] 200 mg PO BID #60 tablet 08/02/18 10/05/18 09/21/18 21:00 Rx Apixaban [Eliquis] 5 mg PO BID #60 tablet 08/02/18 10/05/18 09/21/18 09:00 Rx Aspirin [Aspirin BABY CHEW TAB] 81 mg PO QDAY #30 tab.chew 08/02/18 10/05/18 09/21/18 09:00 Rx Bumetanide [Bumex 1 mg tab] 1 mg PO DAILY #30 tablet 08/02/18 10/05/18 09/21/18 Rx Pantoprazole [Protonix TAB] 40 mg PO QDAY #40 tablet 08/02/18 10/05/18 09/21/18 09:00 Rx Potassium Chloride [K-Dur] 10 meq PO Q12HR #60 tablet 08/02/18 10/05/18 09/21/18 Rx metOLazone [Metolazone] 5 mg PO DAILY #30 tablet 08/02/18 10/05/18 09/21/18 09:00 Rx Milrinone [Primacor] 20 mg IV QDAY #5 vial 09/21/18 10/05/18 09/22/18 08:00 Rx Digoxin [Digitek] 125 mcg PO Q48H #30 tablet 09/23/18 10/05/18 Unknown Rx Magnesium Oxide [Mag-Ox] 400 mg PO BID #14 tablet 09/23/18 10/05/18 Unknown Rx Benzonatate [Tessalon Perles] 200 mg PO Q6H PRN #10 capsule 10/11/18 Unknown Rx Insulin Glargine [Lantus VIAL] 25 units SUB-Q BID 30 Days units 10/11/18 Unknown Rx Ipratropium/Albuterol Sulfate 1 ampul IH BID #60 ampul.neb 10/11/18 Unknown Rx [DUONEB *Not for PRN Use*] levoFLOXacin [Levaquin TAB] 750 mg PO Q48HR@2200 #2 tablet 10/11/18 Unknown Rx Active Medications: Generic Name Dose Route Start Last Admin Trade Name Freq PRN Reason Stop Dose Admin Acetaminophen 650 mg 10/05/18 21:56 Tylenol PO Q4H PRN Pain MILD(1-3)/Fever >100.5/NAYLOR Albuterol 2.5 mg 10/05/18 22:00 Proventil IH Q4HRT PRN Shortness Of Breath Albuterol/Ipratropium 1 ampul 10/06/18 22:00 10/10/18 07:34 Duoneb *Not For Prn Use* IH 1 ampul BID SHANDA Administration Allopurinol 100 mg 10/05/18 22:00 10/09/18 09:13 Zyloprim PO 100 mg QDAY SHANDA Administration Amiodarone HCl 200 mg 10/05/18 22:00 10/09/18 21:52 Cordarone PO 200 mg BID SAHNDA Administration Apixaban 5 mg 10/05/18 22:00 10/09/18 21:52 Eliquis PO 5 mg BID SHANDA Administration Protocol Aspirin 81 mg 10/06/18 10:00 10/09/18 09:13 Baby Aspirin PO 81 mg QDAY SHANDA Administration Benzonatate 200 mg 10/07/18 02:11 10/10/18 05:27 Tessalon Perles PO 200 mg Q6H PRN Administration Cough Digoxin 0.125 mg 10/05/18 22:00 10/09/18 22:03 Lanoxin PO 0.125 mg Q48H SHANDA Administration Furosemide 40 mg 10/06/18 06:00 10/10/18 05:27 Lasix IV 40 mg 0600 SHANDA Administration Hydromorphone HCl 0.5 mg 10/05/18 21:56 Dilaudid IV Q3H PRN Pain , Severe (7-10) Milrinone Lactate/Dextrose 20 mg in 100 mls @ 11.88 mls/hr 10/06/18 12:00 Milrinone-D5w 20 Mg/100 Ml IV TITR SHANDA 0.375 MCG/KG/MIN Insulin Glargine 25 units 10/09/18 10:00 10/09/18 22:02 Lantus SUB-Q 25 units BID SHANDA Administration Insulin Human Lispro 0 unit 10/09/18 11:30 10/09/18 22:02 Humalog SUB-Q 6 unit ACHS SHANDA Administration Protocol Levofloxacin 750 mg 10/09/18 22:00 10/09/18 21:53 Levaquin PO 750 mg Q48HR@2200 SHANDA Administration Magnesium Oxide 400 mg 10/05/18 22:00 10/09/18 21:52 Mag-Ox PO 400 mg BID SHANDA Administration Ondansetron HCl 4 mg 10/05/18 21:56 Zofran IV Q8H PRN Nausea And Vomiting Oxycodone/Acetaminophen 1 tab 10/05/18 21:56 10/08/18 03:31 Percocet 5/325 PO 1 tab Q6H PRN Administration Pain, Moderate (4-6) Pantoprazole Sodium 40 mg 10/05/18 22:00 10/09/18 09:13 Protonix PO 40 mg QDAY SHANDA Administration Potassium Chloride 10 meq 10/05/18 22:00 10/09/18 21:52 K-Dur PO 10 meq Q12HR SHANDA Administration Sodium Chloride 10 ml 10/05/18 22:00 10/09/18 22:07 Sodium Chloride Flush Syringe 10 Ml IV 10 ml BID SHANDA Administration Sodium Chloride 10 ml 10/05/18 21:56 Sodium Chloride Flush Syringe 10 Ml IV PRN PRN LINE FLUSH
[2018-10-10] MEDS: LANTUS SUB-Q SCH ×2 (09:06→22:18)
[2018-10-10] MEDS: K-DUR PO SCH ×2 (11:50→22:19)
[2018-10-10] MEDS: MAG-OX PO SCH ×2 (11:57→22:19)
[2018-10-10] MEDS: CORDARONE PO SCH ×2 (11:58→22:19)
[2018-10-10] MEDS: PROTONIX PO SCH (11:58)
[2018-10-10] MEDS: BABY ASPIRIN PO SCH (11:59)
[2018-10-10] MEDS: ZYLOPRIM PO SCH (11:59)
[2018-10-10] MEDS: ELIQUIS PO SCH ×2 (11:59→22:19)
[2018-10-10] MEDS: SODIUM CHLORIDE FLUSH SYRINGE 10 ML IV SCH ×2 (13:00→22:20)
--- NOTE | 2018-10-10 16:39 | Progress Note ---
Assessment and Plan - Patient Problems (1) Acute bronchitis Current Visit: Yes Status: Acute Plan to address problem: Acute bronchitis resolving. Continue current antibiotic coverage. (2) Acute exacerbation of CHF (congestive heart failure) Current Visit: Yes Status: Acute Qualifiers: Heart failure type: combined systolic and diastolic Qualified Code(s): I50.43 - Acute on chronic combined systolic (congestive) and diastolic (congestive) heart failure Plan to address problem: Acute on chronic congestive heart failure ejection fraction 15% status post AICD. Patient currently on milrinone and IV Lasix. Cardiology considering hospice. I agree. Patient appears chronically ill. No beta blockers secondary to persistent hypotension. I think patient should be able to discharge one to 2 days. Most likely will not get much better than he is now. At high risk for hospital return. Benefit from hospice services. Patient has refused hospice services. (3) Acute on chronic renal insufficiency Current Visit: No Status: Acute Plan to address problem: Stage III ti IV chronic kidney disease cardiorenal syndrome. (4) Chronic a-fib Current Visit: No Status: Acute Plan to address problem: Chronic A. fib heart rate has optimal control continue anticoagulation with Elaquis (5) Diabetes Current Visit: Yes Status: Acute Plan to address problem: Fair control with Lantus and sliding scale insulin. History Interval history: Patient laying in bed states he feels okay but clinically looks chronically ill. No new concerns today. Wants to know when he can go home Hospitalist Physical - Constitutional Vitals: Temp Pulse Resp BP Pulse Ox 97.4 F L 38 L 18 95/71 94 10/10/18 13:08 10/10/18 13:08 10/10/18 13:08 10/10/18 13:08 10/10/18 13:08 General appearance: Present: no acute distress - EENT Eyes: Present: PERRL, EOM intact ENT: hearing intact, clear oral mucosa, dentition normal - Neck Neck: Present: supple - Respiratory Respiratory: bilateral: diminished, rhonchi - Cardiovascular Rhythm: regular - Extremities Extremities: No edema, normal temperature, abnormal Extremity abnormal: edema, pulses diminished Peripheral Pulses: abnormal - Abdominal General gastrointestinal: soft, non-tender, distended, normal bowel sounds - Integumentary Integumentary: Present: clear, warm, dry. Absent: jaundice, rash, clammy - Psychiatric Psychiatric: appropriate mood/affect, intact judgment & insight - Neurologic Neurologic: CNII-XII intact Results - Labs CBC & Chem 7: 10/06/18 04:47 10/10/18 04:55 Labs: Laboratory Last Values WBC 4.5 K/mm3 (4.5-11.0) 10/06/18 04:47 RBC 4.60 M/mm3 (3.65-5.03) 10/06/18 04:47 Hgb 10.4 gm/dl (11.8-15.2) L 10/06/18 04:47 Hct 33.7 % (35.5-45.6) L 10/06/18 04:47 MCV 73 fl (84-94) L 10/06/18 04:47 MCH 23 pg (28-32) L 10/06/18 04:47 MCHC 31 % (32-34) L 10/06/18 04:47 RDW 17.8 % (13.2-15.2) H 10/06/18 04:47 Plt Count 282 K/mm3 (140-440) 10/06/18 04:47 Lymph % (Auto) 17.4 % (13.4-35.0) 10/06/18 04:47 [place] % (Auto) 1.4 % (0.0-7.3) 10/06/18 04:47 Eos % (Auto) 0.0 % (0.0-4.3) 10/06/18 04:47 Baso % (Auto) 0.1 % (0.0-1.8) 10/06/18 04:47 Lymph # 0.8 K/mm3 (1.2-5.4) L 10/06/18 04:47 [place] # 0.1 K/mm3 (0.0-0.8) 10/06/18 04:47 Eos # 0.0 K/mm3 (0.0-0.4) 10/06/18 04:47 Baso # 0.0 K/mm3 (0.0-0.1) 10/06/18 04:47 Seg Neutrophils % 81.1 % (40.0-70.0) H 10/06/18 04:47 Seg Neutrophils # 3.6 K/mm3 (1.8-7.7) 10/06/18 04:47 PT 16.5 Sec. (12.2-14.9) H 10/05/18 11:25 INR 1.25 (0.87-1.13) H 10/05/18 11:25 APTT 35.8 Sec. (24.2-36.6) 10/05/18 11:25 D-Dimer 137.47 ng/mlDDU (0-234) 10/05/18 11:25 Sodium 136 mmol/L (137-145) L 10/10/18 04:55 Potassium 4.0 mmol/L (3.6-5.0) 10/10/18 04:55 Chloride 95.1 mmol/L (98-107) L 10/10/18 04:55 Carbon Dioxide 28 mmol/L (22-30) 10/10/18 04:55 Anion Gap 19 mmol/L 10/10/18 04:55 BUN 82 mg/dL (9-20) H 10/10/18 04:55 Creatinine 2.6 mg/dL (0.8-1.5) H 10/10/18 04:55 Estimated GFR 30 ml/min 10/10/18 04:55 BUN/Creatinine Ratio 32 % 10/10/18 04:55 Glucose 226 mg/dL (75-100) H 10/10/18 04:55 POC Glucose 238 (70-105) H 10/10/18 16:30 Hemoglobin A1c 9.3 % (4-6) H 10/05/18 11:25 Calcium 9.5 mg/dL (8.4-10.2) 10/10/18 04:55 Phosphorus 3.80 mg/dL (2.5-4.5) 10/07/18 06:04 Magnesium 2.40 mg/dL (1.7-2.3) H 10/10/18 04:55 Total Bilirubin 0.90 mg/dL (0.1-1.2) 10/06/18 04:47 AST 15 units/L (5-40) 10/06/18 04:47 ALT 13 units/L (7-56) 10/06/18 04:47 Alkaline Phosphatase 56 units/L (35-129) 10/06/18 04:47 Troponin T 0.048 ng/mL (0.00-0.029) H 10/05/18 16:03 NT-Pro-B Natriuret Pep 3030 pg/mL (0-900) H 10/05/18 11:25 Total Protein 6.8 g/dL (6.3-8.2) 10/06/18 04:47 Albumin 3.7 g/dL (3.9-5) L 10/06/18 04:47 Albumin/Globulin Ratio 1.2 % 10/06/18 04:47 Triglycerides 83 mg/dL (2-149) 10/05/18 11:25 Cholesterol 100 mg/dL (50-199) 10/05/18 11:25 LDL Cholesterol Direct 64 mg/dL (50-130) 10/05/18 11:25 HDL Cholesterol 38 mg/dL (40-59) L 10/05/18 11:25 Cholesterol/HDL Ratio 2.63 % 10/05/18 11:25 PTH Intact 133.2 pg/mL (15-65) H 10/10/18 04:55 Urine Color Yellow (Yellow) 10/07/18 Unknown Urine Turbidity Clear (Clear) 10/07/18 Unknown Urine pH 5.0 (5.0-7.0) 10/07/18 Unknown Ur Specific [place] 1.014 (1.003-1.030) 10/07/18 Unknown Urine Protein <15 mg/dl mg/dL (Negative) 10/07/18 Unknown Urine Glucose (UA) 50 mg/dL (Negative) 10/07/18 Unknown Urine Ketones Neg mg/dL (Negative) 10/07/18 Unknown Urine Blood Neg (Negative) 10/07/18 Unknown Urine Nitrite Neg (Negative) 10/07/18 Unknown Urine Bilirubin Neg (Negative) 10/07/18 Unknown Urine Urobilinogen < 2.0 mg/dL (<2.0) 10/07/18 Unknown Ur Leukocyte Esterase Neg (Negative) 10/07/18 Unknown Urine WBC (Auto) 2.0 /HPF (0.0-6.0) 10/07/18 Unknown Urine RBC (Auto) 1.0 /HPF (0.0-6.0) 10/07/18 Unknown U Epithel Cells (Auto) 3.0 /HPF (0-13.0) 10/07/18 Unknown Urine Creatinine 148.9 mg/dL (0.1-20.0) H 10/07/18 Unknown Protein/Creatinin Ratio 0.05 10/07/18 Unknown Urine Sodium 10 mmol/L 10/07/18 Unknown Urine Total Protein 8 mg/dL (5-11.8) 10/07/18 Unknown Digoxin 0.3 ng/mL (0.9-2.0) L 10/05/18 11:25 Active Medications - Current Medications Current Medications: Generic Name Dose Route Start Last Admin Trade Name Freq PRN Reason Stop Dose Admin Acetaminophen 650 mg 10/05/18 21:56 Tylenol PO Q4H PRN Pain MILD(1-3)/Fever >100.5/NAYLOR Albuterol 2.5 mg 10/05/18 22:00 Proventil IH Q4HRT PRN Shortness Of Breath Albuterol/Ipratropium 1 ampul 10/06/18 22:00 10/10/18 11:54 Duoneb *Not For Prn Use* IH Not Given BID SHANDA Allopurinol 100 mg 10/05/18 22:00 10/10/18 11:59 Zyloprim PO 100 mg QDAY SHANDA Administration Amiodarone HCl 200 mg 10/05/18 22:00 10/10/18 11:58 Cordarone PO 200 mg BID SHANDA Administration Apixaban 5 mg 10/05/18 22:00 10/10/18 11:59 Eliquis PO 5 mg BID SHANDA Administration Protocol Aspirin 81 mg 10/06/18 10:00 10/10/18 11:59 Baby Aspirin PO 81 mg QDAY SHANDA Administration Benzonatate 200 mg 10/07/18 02:11 10/10/18 05:27 Tessalon Perles PO 200 mg Q6H PRN Administration Cough Digoxin 0.125 mg 10/05/18 22:00 10/09/18 22:03 Lanoxin PO 0.125 mg Q48H SHANDA Administration Furosemide 40 mg 10/06/18 06:00 10/10/18 05:27 Lasix IV 40 mg 0600 SHANDA Administration Hydromorphone HCl 0.5 mg 10/05/18 21:56 Dilaudid IV Q3H PRN Pain , Severe (7-10) Milrinone Lactate/Dextrose 20 mg in 100 mls @ 11.88 mls/hr 10/06/18 12:00 Milrinone-D5w 20 Mg/100 Ml IV TITR SHANDA 0.375 MCG/KG/MIN Insulin Glargine 25 units 10/09/18 10:00 10/10/18 09:06 Lantus SUB-Q 25 units BID SHANDA Administration Insulin Human Lispro 0 unit 10/09/18 11:30 10/10/18 13:03 Humalog SUB-Q 6 unit ACHS SHANDA Administration Protocol Levofloxacin 750 mg 10/09/18 22:00 10/09/18 21:53 Levaquin PO 750 mg Q48HR@2200 SHANDA Administration Magnesium Oxide 400 mg 10/05/18 22:00 10/10/18 11:57 Mag-Ox PO 400 mg BID SHANDA Administration Ondansetron HCl 4 mg 10/05/18 21:56 Zofran IV Q8H PRN Nausea And Vomiting Oxycodone/Acetaminophen 1 tab 10/05/18 21:56 10/08/18 03:31 Percocet 5/325 PO 1 tab Q6H PRN Administration Pain, Moderate (4-6) Pantoprazole Sodium 40 mg 10/05/18 22:00 10/10/18 11:58 Protonix PO 40 mg QDAY SHANDA Administration Potassium Chloride 10 meq 10/05/18 22:00 10/10/18 11:50 K-Dur PO 10 meq Q12HR SHANDA Administration Sodium Chloride 10 ml 10/05/18 22:00 10/10/18 13:00 Sodium Chloride Flush Syringe 10 Ml IV 10 ml BID SHANDA Administration Sodium Chloride 10 ml 10/05/18 21:56 Sodium Chloride Flush Syringe 10 Ml IV PRN PRN LINE FLUSH Nutrition/Malnutrition Assess - Dietary Evaluation Nutrition/Malnutrition Findings: Nutrition Notes Start: 10/06/18 10:22 Freq: Status: Active Protocol: Document 10/06/18 10:22 EB (Rec: 10/06/18 10:33 EB [id number]) Co-Sign 10/06/18 10:22 LP Nutrition Notes Need for Assessment generated from: [employer] Initial or Follow up Assessment Current Diagnosis CKD(stage I-IV),Diabetes, Hypertension,Heart Failure Other Pertinent Diagnosis GERD, A. fib Current Diet Cardiac/Consistent CHO Labs/Tests Reviewed Pertinent Medications Lasix, Solu-medrol Height 5 ft 8 in Weight 105.6 kg Usual Body Weight 104.326 kg [place] Body Weight (kg) 70.00 BMI 35.4 Intake Prior to Admission Good Weight Status Obese Subjective/Other Information Screened for MST. Pt finished breakfast at time of visit and consumed 100%. Per chart notes and pt report, pt consumes 100% of meals yesterday and the day before. No problems chewing or swallowing, and no instances of N/V. Percent of energy/protein needs met: 100%/100% Burn Absent Trauma Absent Current % PO Good (75-100%) #1 Nutrition Diagnosis No nutrition diagnosis at this time As Evidenced by Signs and Symptoms pt meeting 100% of lacy and pro needs Is patient on ventilator? No Is Patient Ambulatory and/or Out of Bed Yes REE-([place]-St. Jeor-ambulatory/OOB) [ 2347.150 NUTR.MSJOOB] Kcal/Kg value to use for calculation 19 Approximate Energy Requirements Using 2006 kcal/Kg Calculation Used for Recommendations Kcal/kg Additional Notes PRO: 0.6-0.8 g/day AdjBW of 87 .8 kg (53-70 g/day) Fluid: 1500 mL or per MD recommendations Nutrition Intervention Change Diet Order: Continue current diet Anticipated Discharge Needs: Consistent CHO/Cardiac diet Revisit per MD consult or patient Sign Off request:
[2018-10-11] MEDS: LASIX IV SCH (05:43)
[2018-10-11 07:06] LABS: Calcium 10.1 mg/dL (8.4-10.2)
[2018-10-11] MEDS: HumaLOG SUB-Q SCH ×2 (07:57→11:29)
--- NOTE | 2018-10-11 08:32 | Progress Note ---
Assessment and Plan 1. Acute kidney injury: CORRIE superimposed on CKD stage 3 in the setting of decompensated CHF. Intermittent hypotension noted. Renal US was negative for hydro. Renal function is improving. Monitor renal function. Renal prognosis is guarded. Avoid nephrotoxic agents. Meds dosage based on GFR. 2. FEN: Hyponatremia, improved. Volume overload, diuretics. Monitor lytes. 3. Decompensated CHF: Was on Milrinone drip. 4. DM with hyperglycemia. 5. A.fib. 6. Anemia: Present on admission. Advised to follow up with me in 1-2 weeks. Subjective Date of service: 10/11/18 Interval history: Patient was seen and examined at the bedside. Doing ok. Objective - Vital Signs Vital signs: Vital Signs - 12hr 10/10/18 10/10/18 10/10/18 20:41 20:50 20:51 Temperature Pulse Rate 58 L Pulse Rate [ 51 L Anterior Bilateral] Pulse Rate [ Apical] Respiratory Rate Respiratory 18 Rate [Anterior Bilateral] Blood Pressure O2 Sat by Pulse 97 Oximetry 10/10/18 10/10/18 10/11/18 21:03 22:00 02:06 Temperature 98.8 F Pulse Rate 54 L Pulse Rate [ 59 L Anterior Bilateral] Pulse Rate [ 58 L Apical] Respiratory 18 20 Rate Respiratory 18 Rate [Anterior Bilateral] Blood Pressure 105/71 O2 Sat by Pulse 97 100 Oximetry 10/11/18 07:30 Temperature 96.4 F L Pulse Rate 53 L Pulse Rate [ Anterior Bilateral] Pulse Rate [ Apical] Respiratory 18 Rate Respiratory Rate [Anterior Bilateral] Blood Pressure 91/67 O2 Sat by Pulse 96 Oximetry - General Appearance General appearance: well-developed, well-nourished, appears stated age, other (not in distress, life vest noted) EENT: ATNC, PERRL Neck: supple Respiratory: Present: [place] Cardiology: S1S2, no murmurs Gastrointestinal: normoactive bowel sounds, no tenderness, no distended Integumentary: no rash Neurologic: no focal deficit, no asterixis Musculoskeletal: other (trace LE edema noted) - Lab 10/06/18 04:47 10/11/18 06:13 Most recent lab results Calcium 10.1 mg/dL (8.4-10.2) 10/11/18 06:13 Phosphorus 3.80 mg/dL (2.5-4.5) 10/07/18 06:04 Magnesium 2.40 mg/dL (1.7-2.3) H 10/10/18 04:55 Urine Creatinine 148.9 mg/dL (0.1-20.0) H 10/07/18 Unknown Urine Sodium 10 mmol/L 10/07/18 Unknown Urine Total Protein 8 mg/dL (5-11.8) 10/07/18 Unknown Medications & Allergies - Medications Allergies/Adverse Reactions: Allergies No Known Allergies Allergy (Verified 03/03/17 09:44) Home Medications: Home Medications Medication Instructions Recorded Confirmed Last Taken Type Allopurinol [Zyloprim] 100 mg PO QDAY #30 tablet 08/02/18 10/05/18 09/21/18 09:00 Rx Amiodarone [Cordarone 200 MG TAB] 200 mg PO BID #60 tablet 08/02/18 10/05/18 09/21/18 21:00 Rx Apixaban [Eliquis] 5 mg PO BID #60 tablet 08/02/18 10/05/18 09/21/18 09:00 Rx Aspirin [Aspirin BABY CHEW TAB] 81 mg PO QDAY #30 tab.chew 08/02/18 10/05/18 09/21/18 09:00 Rx Bumetanide [Bumex 1 mg tab] 1 mg PO DAILY #30 tablet 08/02/18 10/05/18 09/21/18 Rx Pantoprazole [Protonix TAB] 40 mg PO QDAY #40 tablet 08/02/18 10/05/18 09/21/18 09:00 Rx Potassium Chloride [K-Dur] 10 meq PO Q12HR #60 tablet 08/02/18 10/05/18 09/21/18 Rx metOLazone [Metolazone] 5 mg PO DAILY #30 tablet 08/02/18 10/05/18 09/21/18 09:00 Rx Milrinone [Primacor] 20 mg IV QDAY #5 vial 09/21/18 10/05/18 09/22/18 08:00 Rx Digoxin [Digitek] 125 mcg PO Q48H #30 tablet 09/23/18 10/05/18 Unknown Rx Magnesium Oxide [Mag-Ox] 400 mg PO BID #14 tablet 09/23/18 10/05/18 Unknown Rx Benzonatate [Tessalon Perles] 200 mg PO Q6H PRN #10 capsule 10/11/18 Unknown Rx Insulin Glargine [Lantus VIAL] 25 units SUB-Q BID 30 Days units 10/11/18 Unknown Rx Ipratropium/Albuterol Sulfate 1 ampul IH BID #60 ampul.neb 10/11/18 Unknown Rx [DUONEB *Not for PRN Use*] levoFLOXacin [Levaquin TAB] 750 mg PO Q48HR@2200 #2 tablet 10/11/18 Unknown Rx Active Medications: Generic Name Dose Route Start Last Admin Trade Name Freq PRN Reason Stop Dose Admin Acetaminophen 650 mg 10/05/18 21:56 Tylenol PO Q4H PRN Pain MILD(1-3)/Fever >100.5/NAYLOR Albuterol 2.5 mg 10/05/18 22:00 Proventil IH Q4HRT PRN Shortness Of Breath Albuterol/Ipratropium 1 ampul 10/06/18 22:00 10/10/18 22:00 Duoneb *Not For Prn Use* IH Not Given BID SHANDA Allopurinol 100 mg 10/05/18 22:00 10/10/18 11:59 Zyloprim PO 100 mg QDAY SHANDA Administration Amiodarone HCl 200 mg 10/05/18 22:00 10/10/18 22:19 Cordarone PO 200 mg BID SHANDA Administration Apixaban 5 mg 10/05/18 22:00 10/10/18 22:19 Eliquis PO 5 mg BID SHANDA Administration Protocol Aspirin 81 mg 10/06/18 10:00 10/10/18 11:59 Baby Aspirin PO 81 mg QDAY SHANDA Administration Benzonatate 200 mg 10/07/18 02:11 10/10/18 05:27 Tessalon Perles PO 200 mg Q6H PRN Administration Cough Digoxin 0.125 mg 10/05/18 22:00 10/09/18 22:03 Lanoxin PO 0.125 mg Q48H SHANDA Administration Furosemide 40 mg 10/06/18 06:00 10/11/18 05:43 Lasix IV 40 mg 0600 SHANDA Administration Hydromorphone HCl 0.5 mg 10/05/18 21:56 Dilaudid IV Q3H PRN Pain , Severe (7-10) Milrinone Lactate/Dextrose 20 mg in 100 mls @ 11.88 mls/hr 10/06/18 12:00 Milrinone-D5w 20 Mg/100 Ml IV TITR SHANDA 0.375 MCG/KG/MIN Insulin Glargine 25 units 10/09/18 10:00 10/10/18 22:18 Lantus SUB-Q 25 units BID SHANDA Administration Insulin Human Lispro 0 unit 10/09/18 11:30 10/11/18 07:57 Humalog SUB-Q Not Given ACHS [facility] Protocol Levofloxacin 750 mg 10/09/18 22:00 10/09/18 21:53 Levaquin PO 10/17/18 22:01 750 mg Q48HR@2200 SHANDA Administration Magnesium Oxide 400 mg 10/05/18 22:00 10/10/18 22:19 Mag-Ox PO 400 mg BID SHANDA Administration Ondansetron HCl 4 mg 10/05/18 21:56 Zofran IV Q8H PRN Nausea And Vomiting Oxycodone/Acetaminophen 1 tab 10/05/18 21:56 10/08/18 03:31 Percocet 5/325 PO 1 tab Q6H PRN Administration Pain, Moderate (4-6) Pantoprazole Sodium 40 mg 10/05/18 22:00 10/10/18 11:58 Protonix PO 40 mg QDAY SHANDA Administration Potassium Chloride 10 meq 10/05/18 22:00 10/10/18 22:19 K-Dur PO 10 meq Q12HR SHANDA Administration Sodium Chloride 10 ml 10/05/18 22:00 10/10/18 22:20 Sodium Chloride Flush Syringe 10 Ml IV 10 ml BID SHANDA Administration Sodium Chloride 10 ml 10/05/18 21:56 Sodium Chloride Flush Syringe 10 Ml IV PRN PRN LINE FLUSH
--- NOTE | 2018-10-11 08:47 | Progress Note ---
Assessment and Plan Acute on chronic systolic heart failure End-stage dilated nonischemic cardiomyopathy on IV milrinone EF 15-20% on echo 12/2017 no ischemia on MPI 12/2016 2015 [facility] at [place]: no significant CAD Chronic hypotension (not on beta blockers or WU inhibitors) Chronic renal failure Presence of AICD Persistent Afib s/p KINGS guided cardioversion 11/2017 on eliquis for oral anticoagulation Hx of paroxysmal VF - on amiodarone and digoxin for rate control Hx of Anxiety disorder Patient is not on beta blockers or afterload reduction agents due to chronic hypotension. Continue medical therapy for chronic systolic heart failure including chronic milrinone therapy as tolerated. Continue oral digoxin and amiodarone therapy for suppression of ventricular arrhythmias. Otherwise, conservative cardiac management. Subjective Date of service: 10/11/18 Interval history: Patient is resting in bed comfortably. Short burst of NSVT seen on telemetry overnight. Objective Vital Signs Temp Pulse Pulse Pulse Resp Resp BP 10/11/18 07:30 96.4 F L 53 L 18 91/67 10/11/18 02:06 98.8 F 54 L 20 105/71 10/10/18 22:00 58 L 18 10/10/18 21:03 59 L 18 10/10/18 20:51 51 L 18 10/10/18 20:50 10/10/18 20:41 58 L 10/10/18 20:11 98.0 F 58 L 18 86/43 10/10/18 13:08 97.4 F L 38 L 18 95/71 Pulse Ox 10/11/18 07:30 96 10/11/18 02:06 100 10/10/18 22:00 97 10/10/18 21:03 10/10/18 20:51 10/10/18 20:50 97 10/10/18 20:41 10/10/18 20:11 99 10/10/18 13:08 94 - Physical Examination General: No Apparent Distress HEENT: Positive: PERRL Neck: Positive: trachea midline Cardiac: Positive: Other (paced) Lungs: Positive: Decreased Breath Sounds Neuro: Positive: Grossly Intact Extremities: Absent: edema - Labs and Meds Comprehensive Metabolic Panel 10/11/18 Range/Units 06:13 Sodium 142 (137-145) mmol/L Potassium 4.0 (3.6-5.0) mmol/L Chloride 97.3 L (98-107) mmol/L Carbon Dioxide 29 (22-30) mmol/L BUN 70 H (9-20) mg/dL Creatinine 2.3 H (0.8-1.5) mg/dL Glucose 123 H (75-100) mg/dL Calcium 10.1 (8.4-10.2) mg/dL
[2018-10-11] MEDS: DUONEB *Not for PRN Use IH SCH (09:09)
[2018-10-11] MEDS: K-DUR PO SCH (09:23)
[2018-10-11] MEDS: ZYLOPRIM PO SCH (09:23)
[2018-10-11] MEDS: ELIQUIS PO SCH (09:24)
[2018-10-11] MEDS: CORDARONE PO SCH (09:24)
[2018-10-11] MEDS: MAG-OX PO SCH (09:24)
[2018-10-11] MEDS: PROTONIX PO SCH (09:24)
[2018-10-11] MEDS: BABY ASPIRIN PO SCH (09:24)
[2018-10-11] MEDS: LANTUS SUB-Q SCH (09:25)
[2018-10-11] MEDS: SODIUM CHLORIDE FLUSH SYRINGE 10 ML IV SCH (09:25)
--- NOTE | 2018-10-11 12:26 | Discharge Summary ---
Providers - Providers Date of Admission: 10/06/18 13:10 Attending physician: COURTNEY LOGAN MD 10/05/18 21:56 Consult to Physician [CONS] Routine Comment: Consulting Provider: GLORIA DUGAN Physician Instructions: Reason For Exam: CHF exacerbation 10/05/18 21:59 Consult to Physician [CONS] Routine Comment: Consulting Provider: SARA TOBAR Physician Instructions: Reason For Exam: CORRIE 10/07/18 10:38 Physical Therapy Evaluation and Treat [CONS] Urgent Comment: Reason For Exam: weakness Hospitalization Condition: Fair Hospital course: Conservative cardiac management. Acute on chronic systolic heart failure End-stage dilated nonischemic cardiomyopathy on IV milrinone EF 15-20% on echo 12/2017 no ischemia on MPI 12/2016 [facility] at [place]: no significant CAD Chronic hypotension (not on beta blockers or WU inhibitors) Chronic renal failure Presence of AICD Persistent Afib s/p KINGS guided cardioversion 11/2017 on eliquis for oral anticoagulation Hx of paroxysmal VF - on amiodarone and digoxin for rate control Hx of Anxiety disorder Patient is not on beta blockers or afterload reduction agents due to chronic hypotension. Continue medical therapy for chronic systolic heart failure including chronic milrinone therapy as tolerated. Continue oral digoxin and amiodarone therapy for suppression of ventricular arrhythmias. Otherwise, conservative cardiac management. Disposition: DC-30 STILL A PATIENT Exam - Constitutional Vitals: Temp Pulse Resp BP Pulse Ox 96.4 F L 53 L 18 108/62 96 10/11/18 07:30 10/11/18 10:00 10/11/18 10:00 10/11/18 09:29 10/11/18 10:00 Plan Follow up with: VALERY DONOHUE [Other] - 3-5 Days
--- NOTE | 2018-10-11 12:32 | Discharge Summary ---
Providers - Providers Date of Admission: 10/06/18 13:10 Attending physician: COURTNEY LOGAN MD 10/05/18 21:56 Consult to Physician [CONS] Routine Comment: Consulting Provider: GLORIA DUGAN Physician Instructions: Reason For Exam: CHF exacerbation 10/05/18 21:59 Consult to Physician [CONS] Routine Comment: Consulting Provider: SARA TOBAR Physician Instructions: Reason For Exam: CORRIE 10/07/18 10:38 Physical Therapy Evaluation and Treat [CONS] Urgent Comment: Reason For Exam: weakness Hospitalization Reason for admission: shortness of breath Condition: Stable Hospital course: 68-year-old -[place] male with history of atrial fibrillation chronic kidney disease hypertension and GERD comes in for shortness of breath cough and wheezing and chest pain. This has been going on for the past 10 days. Low- grade fever off and on. Also chest pain secondary to cough. Patient has been compliant with his medications. No diaphoresis no vomiting no palpitations. Patient has AICD/pacemaker. He follows with cardiology. No recent travel. He was treated for acute Bronchitis, cardiology after reviewing patients hx and examining the patient which inclides EF of 15%, AICD, and currently [facility] Patient appears chronically ill. No beta blockers secondary to persistent hypotension. I think patient should be able to discharge one to 2 days. Most likely will not get much better than he is now. At high risk for hospital return. Benefit from hospice services. Patient has refused hospice services. He was treated with continue milronon therapy which hs is on chronic and IV lasix and discharged. Patient is not on beta blockers or afterload reduction agents due to chronic hypotension. ADVISED PATIENT TO DISCUSS GROUP HOME CARE GOAL WITH FAMILY hE UNDERSTANDS HE HAS ENDSTAGE HEART FAILURE HE IS ON MILIARONE AT HOME. Hyponatremia improved. Acute on chronic systolic heart failure Acute Bronchitis End-stage dilated nonischemic cardiomyopathy on IV milrinone EF 15-20% on echo 12/2017 no ischemia on MPI 12/2016 [facility] at [place]: no significant CAD Chronic hypotension (not on beta blockers or WU inhibitors) Hyponatremia Chronic renal failure STAGE 4 Presence of AICD Persistent Afib s/p KINGS guided cardioversion 11/2017 on eliquis for oral anticoagulation Hx of paroxysmal VF - on amiodarone and digoxin for rate control Hx of Anxiety disorder Disposition: DC/TX-06 HOME UNDER [facility] Time spent for discharge: 35 MINS Core Measure Documentation - Palliative Care Palliative Care/ Comfort Measures: Palliative Care/Comfort Measures - Core Measures Any of the following diagnoses?: heart failure - Heart Failure Discharge Requirements WU/ARB for LVSD if EF <40%: No Reason for no WU/ARB: Renal impairment Beta nupur at discharge: No Reason for no beta nupur on DC: Hypotension Exam - Physical Exam Narrative exam: General appearance: Present: no acute distress - EENT Eyes: Present: PERRL, EOM intact ENT: hearing intact, clear oral mucosa, dentition normal - Neck Neck: Present: supple - Respiratory Respiratory: bilateral: diminished, rhonchi - Cardiovascular Rhythm: regular - Extremities Extremities: No edema, normal temperature, abnormal Extremity abnormal: edema, pulses diminished Peripheral Pulses: abnormal - Abdominal General gastrointestinal: soft, non-tender, distended, normal bowel sounds - Integumentary Integumentary: Present: clear, warm, dry. Absent: jaundice, rash, clammy - Psychiatric Psychiatric: appropriate mood/affect, intact judgment & insight - Neurologic Neurologic: CNII-XII intact - Constitutional Vitals: Temp Pulse Resp BP Pulse Ox 96.4 F L 53 L 18 108/62 96 10/11/18 07:30 10/11/18 10:00 10/11/18 10:00 10/11/18 09:29 10/11/18 10:00 Plan Activity: advance as tolerated, fall precautions Diet: low salt Special Instructions: restrict fluid intake to (1000CC/DAY OR ADVISED BY CARDIOLOGY AND NEPHROLOGY), record daily weights, record daily BP diary Follow up with: [facility] [Other] - 3-5 Days GLORIA DUGAN MD [Staff Physician] - 7 Days SARA TOBAR MD [Staff Physician] - 7 Days Prescriptions: Ipratropium/Albuterol Sulfate [DUONEB *Not for PRN Use*] 1 ampul IH BID #60 ampul.neb Insulin Glargine [Lantus VIAL] 25 units SUB-Q BID 30 Days units levoFLOXacin [Levaquin TAB] 750 mg PO Q48HR@2200 #2 tablet Benzonatate [Tessalon Perles] 200 mg PO Q6H PRN #10 capsule PRN Reason: Cough Other Discharge Orders: Nebulizer (Amb) Location: None Selected
[2018-10-11 18:11] VITALS: BP 122/57
== END 2018-10-11 15:30 | disposition home health service (06) | DRG 291 ==
LOC: ED 11:20 → 2B-ACE 14:24 → OBSVTOIN 10-06 13:10
PROVIDERS: ADMIT Internal Medicine; ATTEND Internal Medicine
DX: I13.0 Hypertensive heart and chronic kidney disease with heart failure and stage 1 through stage 4 chronic kidney disease, or unspecified chronic kidney disease (principal); I50.43 Acute on chronic combined systolic (congestive) and diastolic (congestive) heart failure; N17.9 Acute kidney failure, unspecified; E87.1 Hypo-osmolality and hyponatremia; I48.1 Persistent atrial fibrillation; E87.6 Hypokalemia; N18.3 Chronic kidney disease, stage 3 (moderate); E11.65 Type 2 diabetes mellitus with hyperglycemia; E11.22 Type 2 diabetes mellitus with diabetic chronic kidney disease; J20.9 Acute bronchitis, unspecified; F41.9 Anxiety disorder, unspecified; K21.9 Gastro-esophageal reflux disease without esophagitis; M19.90 Unspecified osteoarthritis, unspecified site; I42.0 Dilated cardiomyopathy; D64.9 Anemia, unspecified; I95.89 Other hypotension; Z79.82 Long term (current) use of aspirin; Z95.810 Presence of automatic (implantable) cardiac defibrillator; Z79.899 Other long term (current) drug therapy
CPT/HCPCS: 36415; 71046; 76770; 80048; 80053; 80061; 80162; 81001; 82570; 82947; 82962; 83036; 83735; 83880; 83970; 84100; 84156; 84300; 84484; 85025; 85379; 85610; 85730; 87116; 93005; 93010; 94640; 94760; G0378; J1815; J1940; J1956; J2260; J2930

== ENCOUNTER 2018-10-27 02:15 | Emergency (ER) | payer MEDICARE ==
[~2018-10-27 02:15] MED LIST: ADRENALIN ONE
--- NOTE | 2018-10-27 02:30 | Emergency Department Report ---
ED CPR HPI - General Chief Complaint: Cardiac Arrest/CPR Stated Complaint: CARDIAC ARREST Time Seen by Provider: 10/27/18 02:24 Source: EMS Mode of arrival: Stretcher Limitations: Other - History of Present Illness Initial Comments: Patient is 68 years old male with history of congestive heart failure, ejection fraction 15%, recommended for hospice from his last admission 2 weeks ago. Patient brought to the emergency room via EMS in a full cardiac arrest, CPR in progress. The EMS stated that patient was found unresponsive by his , unknown time. EMS stated that initially there was A. fib and patient was shocked twice but no retention of circulation. ACLS protocol initiated by EMS and continued in the emergency room. Patient intubated in the emergency room. Patient rhythm changed to asystole. Patient pronounced at 2:14 AM. For further information please refer to code sheets. Family informed. Complaint: found unresponsive Place: home Bystander CPR Performed: No Shock Advised: Yes Number of Shocks Delivered: 3 Initial Findings in the Field: no pulse, VTACH/VFIB ROSC in the Field: No Associated Injuries: No Treatments Prior to Arrival: epinephrine mgs # (2) - Related Data Previous Rx's Medication Instructions Recorded Last Taken Type Allopurinol [Zyloprim] 100 mg PO QDAY #30 tablet 08/02/18 09/21/18 09:00 Rx Amiodarone [Cordarone 200 MG TAB] 200 mg PO BID #60 tablet 08/02/18 09/21/18 21:00 Rx Apixaban [Eliquis] 5 mg PO BID #60 tablet 08/02/18 09/21/18 09:00 Rx Aspirin [Aspirin BABY CHEW TAB] 81 mg PO QDAY #30 tab.chew 08/02/18 09/21/18 09:00 Rx Bumetanide [Bumex 1 mg tab] 1 mg PO DAILY #30 tablet 08/02/18 09/21/18 Rx Pantoprazole [Protonix TAB] 40 mg PO QDAY #40 tablet 08/02/18 09/21/18 09:00 Rx Potassium Chloride [K-Dur] 10 meq PO Q12HR #60 tablet 08/02/18 09/21/18 Rx metOLazone [Metolazone] 5 mg PO DAILY #30 tablet 08/02/18 09/21/18 09:00 Rx Milrinone [Primacor] 20 mg IV QDAY #5 vial 09/21/18 09/22/18 08:00 Rx Digoxin [Digitek] 125 mcg PO Q48H #30 tablet 09/23/18 Unknown Rx Magnesium Oxide [Mag-Ox] 400 mg PO BID #14 tablet 09/23/18 Unknown Rx Benzonatate [Tessalon Perles] 200 mg PO Q6H PRN #10 capsule 10/11/18 Unknown Rx Insulin Glargine [Lantus VIAL] 25 units SUB-Q BID 30 Days units 10/11/18 Unkno wn Rx Ipratropium/Albuterol Sulfate 1 ampul IH BID #60 ampul.neb 10/11/18 Unknown Rx [DUONEB *Not for PRN Use*] levoFLOXacin [Levaquin TAB] 750 mg PO Q48HR@2200 #2 tablet 10/11/18 Unknown Rx Allergies Allergy/AdvReac Type Severity Reaction Status Date / Time No Known Allergies Allergy Verified 03/03/17 09:44 ED Review of Systems ROS: Stated complaint: CARDIAC ARREST Other details as noted in HPI Comment: Unobtainable due to pts medical conditions ED Past Medical Hx - Past Medical History Previous Medical History?: Yes Hx Hypertension: Yes Hx Congestive Heart Failure: Yes Hx Diabetes: Yes Hx Deep Vein Thrombosis: No Hx GERD: Yes Hx Renal Disease: Yes (renal insufficiency) Hx Sickle Cell Disease: No Hx Arthritis: Yes Hx Asthma: No Hx COPD: No Hx HIV: No Additional medical history: A. fib with history of cardioversion and anticoagulant use - Surgical History Past Surgical History?: Yes Hx Open Heart Surgery: Yes Hx Pacemaker: Yes Hx Internal Defibrillator: Yes (L CHEST) Additional Surgical History: LLOYD - Social History Smoking Status: Never Smoker - Medications Home Medications: Home Medications Medication Instructions Recorded Confirmed Last Taken Type Allopurinol [Zyloprim] 100 mg PO QDAY #30 tablet 08/02/18 10/05/18 09/21/18 09:00 Rx Amiodarone [Cordarone 200 MG TAB] 200 mg PO BID #60 tablet 08/02/18 10/05/18 09/21/18 21:00 Rx Apixaban [Eliquis] 5 mg PO BID #60 tablet 08/02/18 10/05/18 09/21/18 09:00 Rx Aspirin [Aspirin BABY CHEW TAB] 81 mg PO QDAY #30 tab.chew 08/02/18 10/05/18 09/21/18 09:00 Rx Bumetanide [Bumex 1 mg tab] 1 mg PO DAILY #30 tablet 08/02/18 10/05/18 09/21/18 Rx Pantoprazole [Protonix TAB] 40 mg PO QDAY #40 tablet 08/02/18 10/05/18 09/21/18 09:00 Rx Potassium Chloride [K-Dur] 10 meq PO Q12HR #60 tablet 08/02/18 10/05/18 09/21/18 Rx metOLazone [Metolazone] 5 mg PO DAILY #30 tablet 08/02/18 10/05/18 09/21/18 09:00 Rx Milrinone [Primacor] 20 mg IV QDAY #5 vial 09/21/18 10/05/18 09/22/18 08:00 Rx Digoxin [Digitek] 125 mcg PO Q48H #30 tablet 09/23/18 10/05/18 Unknown Rx Magnesium Oxide [Mag-Ox] 400 mg PO BID #14 tablet 09/23/18 10/05/18 Unknown Rx Benzonatate [Tessalon Perles] 200 mg PO Q6H PRN #10 capsule 10/11/18 Unknown Rx Insulin Glargine [Lantus VIAL] 25 units SUB-Q BID 30 Days units 10/11/18 Unknown Rx Ipratropium/Albuterol Sulfate 1 ampul IH BID #60 ampul.neb 10/11/18 Unknown Rx [DUONEB *Not for PRN Use*] levoFLOXacin [Levaquin TAB] 750 mg PO Q48HR@2200 #2 tablet 10/11/18 Unknown Rx ED Physical Exam - General Limitations: Other General appearance: other (CPR in progress) - Head Head exam: Present: atraumatic, normocephalic, normal inspection - Eye Pupils: Present: other (pupils are 5 mm fixed and dilated.) - Neck Neck exam: Present: normal inspection - Respiratory Respiratory exam: Present: other (no spontaneous breath sounds.) - Cardiovascular Cardiovascular Exam: Present: other (no spontaneous heart tones) - GI/Abdominal GI/Abdominal exam: Present: soft - Neurological Exam Neurological exam: Present: other (CPR in progress.) - Skin Skin exam: Present: warm, intact Critical Care Time: Yes Critical care time in (mins) excluding proc time.: 30 Critical care attestation.: If time is entered above; I have spent that time in minutes in the direct care of this critically ill patient, excluding procedure time. ED Disposition Clinical Impression: Cardiopulmonary arrest Disposition: DC-20 Is pt being admited?: No Condition: Stable
== END 2018-10-27 04:41 ==
LOC: ED 02:15
DX: I46.9 Cardiac arrest, cause unspecified (principal); I11.0 Hypertensive heart disease with heart failure; I50.9 Heart failure, unspecified; E11.9 Type 2 diabetes mellitus without complications; M19.90 Unspecified osteoarthritis, unspecified site
CPT/HCPCS: 99285; J0171